=== PATIENT | female | born 1940 | race Caucasian/White ===

== ENCOUNTER → 2018-10-29 | Outpatient (CLI) | payer MEDICARE, OTHER, SELFPAY ==
[2015-02-15 13:43] VITALS: BMI 25.7
== END | disposition home or self-care (01) ==
LOC: LABSPEC 15:42
PROVIDERS: Family Provider Internal Medicine; PCP Internal Medicine; Referring Provider Otolaryngology Otolaryngology/Facial Plastic Surgery; Visit Provider Otolaryngology Otolaryngology/Facial Plastic Surgery
DX: H92.10 Otorrhea, unspecified ear (principal)
CPT/HCPCS: 87070; 87075; 87077; 87186; 87205

== ENCOUNTER 2020-03-06 19:59 | Inpatient (IN) | payer MEDICARE, OTHER, SELFPAY ==
[2015-02-15 13:43] VITALS: BMI 25.7
[2020-03-06 20:06] VITALS: BP 130/46; PULSE 82; RESP 18; TEMP 36.8; O2SAT 94; BMI 25.2
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
[2020-03-06] MEDS: Acetaminophen 325 MG Tablet 975 MG PO (21:32)
[2020-03-06] MEDS: Glucerna Shake 120 ML LIQUID PO (21:33)
[2020-03-06] MEDS: Atorvastatin Calcium 40 MG Tablet PO (21:33)
[2020-03-06 21:40] VITALS: BMI 25.2
[2020-03-07 05:55] VITALS: BP 135/62; PULSE 71; RESP 16; TEMP 36.4; O2SAT 92
[2020-03-07] MEDS: Acetaminophen 500 MG Tablet 1000 MG PO ×3 (05:57→20:24)
[2020-03-07] MEDS: Calcium (Elemental) 500 MG Tablet PO ×2 (05:58→08:56)
[2020-03-07] MEDS: Ciprofloxacin 250 MG Tablet PO ×2 (05:58→17:19)
[2020-03-07] MEDS: Levothyroxine 75 MCG Tablet PO (05:59)
[2020-03-07] MEDS: Lisinopril 2.5 MG Tablet PO (05:59)
[2020-03-07 06:31] LABS: Bedside Glucose 174 mg/dL (70-110)
[2020-03-07 07:10] LABS: Probe Check PASS; Specimen Processing Control PASS
[2020-03-07 07:12] LABS: Absolute Lymphocyte Count 1.44 X10^3/uL (0.83-4.51); Basophil# 0.05 X10^3/uL; Basophil% 0.8 % (0-1); Eosinophil# 0.22 X10^3/uL; Eosinophils% 3.4 % (0-5); Hematocrit 39.9 % (37-47); Hemoglobin 13.3 g/dL (12.0-15.0); Lymphocyte # 1.44 X10^3/ul (4.0); Lymphocyte % 22.3 % (19-41); Mean Corp Hgb Conc 33.3 g/dL (32-36); Mean Corpuscular Hgb 32.3 pg (27.0-32.0); Mean Corpuscular Volume 96.8 fL (81-99); Mean Platelet Vol. 11.4 fl (6.2-12.0); Monocyte% 10.8 % (0-10); NRBC Flagged by Analyzer 0 % (0-5); Neutrophil # 4.01 X10^3/uL (2.7-7.7); Neutrophil % 62.1 % (47-70); Platelet Count 205 K/mm3 (150-450); RBC Distribution Width CV 12.4 % (11.6-14.6); RBC Distribution Width SD 43.9 fl (35.1-43.9); Red Blood Count 4.12 M/mm3 (4.2-5.4); White Blood Count 6.5 K/mm3 (4.4-11.0)
[2020-03-07 07:49] LABS: Anion Gap 6 (5-15); BUN 25 mg/dL (7-18); BUN/Creat Ratio 19.7 RATIO (10-20); Calcium,Total 8.9 mg/dL (8.5-10.1); Chloride 102 mmol/L (98-107); Creatinine, Serum 1.27 mg/dL (0.55-1.02); EST Glomerular Filtration Rate 43 mL/min (>60); Est Glom Filt Rate - Afr Amer 52 mL/min (>60); Glucose 160 mg/dL (74-106); Sodium Level 135 mmol/L (136-145)
[2020-03-07 10:00] VITALS: PULSE 80; RESP 16; O2SAT 92
[2020-03-07] MEDS: Tuberculin,Purif.prot.deriv. 50 TU/ML Vial 5 ML ID (10:54)
[2020-03-07 11:35] LABS: Bedside Glucose 160 mg/dL (70-110)
[2020-03-07 14:14] VITALS: BP 128/74; PULSE 89; RESP 16; TEMP 36.6; O2SAT 96
--- NOTE | 2020-03-07 14:14 | NURSING ---
PATIENCE 03/03/20. pt refused suppository but reluctantly agreed to prune juice.
[2020-03-07 16:26] LABS: Bedside Glucose 113 mg/dL (70-110)
[2020-03-07] MEDS: Enoxaparin 40 MG/0.4 ML Syringe SC (17:19)
[2020-03-07] MEDS: Senna/Docusate Sodium 1 Tablet PO (17:19)
[2020-03-07] MEDS: Glucerna Shake 120 ML LIQUID PO (17:22)
[2020-03-07] MEDS: Atorvastatin Calcium 40 MG Tablet PO (20:25)
[2020-03-07] MEDS: Nystatin Powder 15gm Bottle 1 APPLIC TOPICAL (20:26)
[2020-03-07] MEDS: Menthol/Lanolin/Calamine/Znox 113 GM Tube 1 APPLIC TOPICAL (20:26)
--- NOTE | 2020-03-07 20:34 | NURSING ---
Patient c/o not being able to sleep. Dr. Cuevas notified, new orders given for Melatonin 10 mg at HS.
[2020-03-07] MEDS: MELATONIN 10 MG TABLET PO (20:45)
[2020-03-07 21:20] LABS: Bedside Glucose 177 mg/dL (70-110)
[2020-03-08 06:15] VITALS: BP 140/67; PULSE 72; RESP 16; TEMP 36.7; O2SAT 92
[2020-03-08] MEDS: Acetaminophen 500 MG Tablet 1000 MG PO ×3 (06:16→20:13)
[2020-03-08] MEDS: Enoxaparin 40 MG/0.4 ML Syringe SC (06:16)
[2020-03-08] MEDS: Levothyroxine 75 MCG Tablet PO (06:17)
[2020-03-08] MEDS: Senna/Docusate Sodium 1 Tablet PO ×2 (06:17→17:08)
[2020-03-08] MEDS: Ciprofloxacin 250 MG Tablet PO ×2 (06:17→17:08)
[2020-03-08] MEDS: Lisinopril 2.5 MG Tablet PO (06:17)
[2020-03-08] MEDS: Nystatin Powder 15gm Bottle 1 APPLIC TOPICAL ×2 (06:20→20:15)
[2020-03-08 06:21] LABS: Bedside Glucose 138 mg/dL (70-110)
[2020-03-08] MEDS: Menthol/Lanolin/Calamine/Znox 113 GM Tube 1 APPLIC TOPICAL ×2 (06:21→20:14)
[2020-03-08] MEDS: Calcium (Elemental) 500 MG Tablet PO (09:47)
--- NOTE | 2020-03-08 09:50 | PCA ---
Patient refused mouth care
[2020-03-08 11:01] LABS: Bedside Glucose 135 mg/dL (70-110)
[2020-03-08] MEDS: Glucerna Shake 120 ML LIQUID PO ×3 (11:39→20:11)
[2020-03-08 14:24] VITALS: BP 116/59; PULSE 68; RESP 14; TEMP 36; O2SAT 95
[2020-03-08 16:41] LABS: Bedside Glucose 109 mg/dL (70-110)
[2020-03-08] MEDS: MELATONIN 10 MG TABLET PO (20:12)
[2020-03-08] MEDS: Atorvastatin Calcium 40 MG Tablet PO (20:12)
[2020-03-08 21:31] LABS: Bedside Glucose 145 mg/dL (70-110)
[2020-03-09] MEDS: Acetaminophen 500 MG Tablet 1000 MG PO ×3 (06:19→20:58)
[2020-03-09] MEDS: Levothyroxine 75 MCG Tablet PO (06:20)
[2020-03-09] MEDS: Polyethylene Glycol 3350 17 GM PACKET PO (06:20)
[2020-03-09] MEDS: Lisinopril 2.5 MG Tablet PO (06:20)
[2020-03-09] MEDS: Senna/Docusate Sodium 1 Tablet PO (06:20)
[2020-03-09] MEDS: Glucerna Shake 120 ML LIQUID PO ×3 (06:23→16:52)
[2020-03-09] MEDS: Enoxaparin 40 MG/0.4 ML Syringe SC (06:24)
[2020-03-09 06:25] LABS: Bedside Glucose 123 mg/dL (70-110)
[2020-03-09] MEDS: Menthol/Lanolin/Calamine/Znox 113 GM Tube 1 APPLIC TOPICAL ×2 (06:27→20:59)
[2020-03-09] MEDS: Nystatin Powder 15gm Bottle 1 APPLIC TOPICAL ×2 (06:28→20:59)
[2020-03-09 06:42] VITALS: BP 133/74; PULSE 70; RESP 18; TEMP 36.6; O2SAT 94
[2020-03-09] MEDS: Calcium (Elemental) 500 MG Tablet PO (09:51)
[2020-03-09 11:00] LABS: Bedside Glucose 163 mg/dL (70-110)
[2020-03-09 13:50] VITALS: BP 113/55; PULSE 74; RESP 16; TEMP 36.8; O2SAT 95
--- NOTE | 2020-03-09 13:57 | CASEMGMT ---
Social Work Discussed code status with pt. Pt confirmed full code. MOLST form completed and placed in chart. Haley Leon MSW OIL PUMPER
--- NOTE | 2020-03-09 14:09 | CHAPLAIN ---
Type of Pastoral Visit _x__ Initial Visit ___ Follow-up Visit ___ On-call Visit ___ General Patient Visit ___ Spiritual Assessment ___ Family Conference ___ Bereavement ___ Rapid Response ___ Code Blue ___ Other (describe below) Pastoral Care Referral From _x__ Patient ___ Family ___ Nurse ___ Physician ___ Stenotypist ___ Crew Caller ___ Other (describe below) Sacrament/Intervention ___ Active listening ___ Anointing ___ Sikh ___ Bereavement ___ Communion ___ Caty exploration ___ ___ Life review ___ Prayer ___ Reconciliation ___ Sacrament of Sick _x__ Supportive presence ___ Wedding ___ Other (describe below) Pastoral Comments made introduction to pt about role; offered support to patient; pt is not talkative and gives simple answers to questions; pt states she is doing just fine
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
--- NOTE | 2020-03-09 15:54 | PCA ---
Appointment made with Dr. Palomares. Dr. Palomares office will call back to give guidelines for wearing the back brace
[2020-03-09 16:41] LABS: Bedside Glucose 128 mg/dL (70-110)
[2020-03-09] MEDS: Atorvastatin Calcium 40 MG Tablet PO (20:58)
[2020-03-09] MEDS: MELATONIN 10 MG TABLET PO (20:59)
[2020-03-09 21:31] LABS: Bedside Glucose 112 mg/dL (70-110)
[2020-03-10 05:41] VITALS: BP 125/68; PULSE 65; RESP 16; TEMP 36.2; O2SAT 95
[2020-03-10] MEDS: Acetaminophen 500 MG Tablet 1000 MG PO ×3 (05:42→21:14)
[2020-03-10] MEDS: Levothyroxine 75 MCG Tablet PO (05:42)
[2020-03-10] MEDS: Enoxaparin 40 MG/0.4 ML Syringe SC (05:42)
[2020-03-10] MEDS: Lisinopril 2.5 MG Tablet PO (05:42)
[2020-03-10] MEDS: Nystatin Powder 15gm Bottle 1 APPLIC TOPICAL ×2 (05:43→21:15)
[2020-03-10] MEDS: Menthol/Lanolin/Calamine/Znox 113 GM Tube 1 APPLIC TOPICAL ×2 (05:44→21:14)
[2020-03-10 06:25] LABS: Bedside Glucose 134 mg/dL (70-110)
[2020-03-10] MEDS: Calcium (Elemental) 500 MG Tablet PO (08:35)
[2020-03-10 11:11] LABS: Bedside Glucose 133 mg/dL (70-110)
[2020-03-10] MEDS: Glucerna Shake 120 ML LIQUID PO ×2 (11:44→17:12)
[2020-03-10 14:11] VITALS: BP 114/51; PULSE 79; RESP 16; TEMP 36.5; O2SAT 93
[2020-03-10 16:25] LABS: Bedside Glucose 131 mg/dL (70-110)
[2020-03-10] MEDS: Senna/Docusate Sodium 1 Tablet PO (17:13)
[2020-03-10] MEDS: Atorvastatin Calcium 40 MG Tablet PO (21:14)
[2020-03-10] MEDS: MELATONIN 10 MG TABLET PO (21:14)
[2020-03-10 21:26] LABS: Bedside Glucose 150 mg/dL (70-110)
[2020-03-11 06:02] VITALS: BP 131/68; PULSE 65; RESP 16; TEMP 36.3; O2SAT 94
[2020-03-11] MEDS: Polyethylene Glycol 3350 17 GM PACKET PO (06:04)
[2020-03-11] MEDS: Acetaminophen 500 MG Tablet 1000 MG PO ×3 (06:04→20:58)
[2020-03-11] MEDS: Levothyroxine 75 MCG Tablet PO (06:04)
[2020-03-11] MEDS: Senna/Docusate Sodium 1 Tablet PO ×2 (06:04→18:34)
[2020-03-11] MEDS: Enoxaparin 40 MG/0.4 ML Syringe SC (06:04)
[2020-03-11] MEDS: Lisinopril 2.5 MG Tablet PO (06:05)
[2020-03-11] MEDS: Menthol/Lanolin/Calamine/Znox 113 GM Tube 1 APPLIC TOPICAL ×2 (06:07→20:59)
[2020-03-11] MEDS: Nystatin Powder 15gm Bottle 1 APPLIC TOPICAL ×2 (06:08→21:00)
[2020-03-11 06:20] LABS: Bedside Glucose 120 mg/dL (70-110)
[2020-03-11] MEDS: Calcium (Elemental) 500 MG Tablet PO (07:48)
[2020-03-11 11:05] LABS: Bedside Glucose 149 mg/dL (70-110)
[2020-03-11] MEDS: Glucerna Shake 120 ML LIQUID PO ×2 (12:32→18:33)
[2020-03-11 14:11] VITALS: BP 103/69; PULSE 73; RESP 18; TEMP 36.6; O2SAT 96
[2020-03-11 16:45] LABS: Bedside Glucose 120 mg/dL (70-110)
[2020-03-11] MEDS: MELATONIN 10 MG TABLET PO (20:58)
[2020-03-11] MEDS: Atorvastatin Calcium 40 MG Tablet PO (20:58)
[2020-03-11 21:10] LABS: Bedside Glucose 149 mg/dL (70-110)
[2020-03-12 05:46] VITALS: BP 125/65; PULSE 67; RESP 16; TEMP 36.3; O2SAT 93
[2020-03-12] MEDS: Polyethylene Glycol 3350 17 GM PACKET PO (05:50)
[2020-03-12] MEDS: Levothyroxine 75 MCG Tablet PO (05:51)
[2020-03-12] MEDS: Lisinopril 2.5 MG Tablet PO (05:51)
[2020-03-12] MEDS: Senna/Docusate Sodium 1 Tablet PO ×2 (05:51→17:20)
[2020-03-12] MEDS: Enoxaparin 40 MG/0.4 ML Syringe SC (05:51)
[2020-03-12] MEDS: Acetaminophen 500 MG Tablet 1000 MG PO ×3 (05:51→20:33)
[2020-03-12] MEDS: Nystatin Powder 15gm Bottle 1 APPLIC TOPICAL ×2 (05:54→20:33)
[2020-03-12] MEDS: Menthol/Lanolin/Calamine/Znox 113 GM Tube 1 APPLIC TOPICAL ×2 (05:54→20:35)
[2020-03-12] MEDS: Bisacodyl 10 MG Suppository RECTAL (05:57)
[2020-03-12 06:26] LABS: Bedside Glucose 132 mg/dL (70-110)
[2020-03-12] MEDS: Calcium (Elemental) 500 MG Tablet PO (08:03)
[2020-03-12] MEDS: Glucerna Shake 120 ML LIQUID PO ×3 (11:37→20:32)
[2020-03-12 13:46] VITALS: BP 126/65; PULSE 77; RESP 16; TEMP 36.4; O2SAT 96
[2020-03-12 16:35] LABS: Bedside Glucose 80 mg/dL (70-110)
[2020-03-12] MEDS: Atorvastatin Calcium 40 MG Tablet PO (20:32)
[2020-03-12] MEDS: MELATONIN 10 MG TABLET PO (20:33)
[2020-03-12 21:15] LABS: Bedside Glucose 156 mg/dL (70-110)
[2020-03-13 06:15] VITALS: BP 118/57; PULSE 65; RESP 18; TEMP 36.8; O2SAT 95
[2020-03-13] MEDS: Senna/Docusate Sodium 1 Tablet PO ×2 (06:17→16:11)
[2020-03-13] MEDS: Acetaminophen 500 MG Tablet 1000 MG PO ×3 (06:17→20:48)
[2020-03-13] MEDS: Levothyroxine 75 MCG Tablet PO (06:17)
[2020-03-13] MEDS: Lisinopril 2.5 MG Tablet PO (06:17)
[2020-03-13] MEDS: Enoxaparin 40 MG/0.4 ML Syringe SC (06:18)
[2020-03-13] MEDS: Nystatin Powder 15gm Bottle 1 APPLIC TOPICAL ×2 (06:18→20:50)
[2020-03-13] MEDS: Menthol/Lanolin/Calamine/Znox 113 GM Tube 1 APPLIC TOPICAL ×2 (06:19→20:50)
[2020-03-13 07:01] LABS: Bedside Glucose 122 mg/dL (70-110)
[2020-03-13] MEDS: Calcium (Elemental) 500 MG Tablet PO (08:26)
[2020-03-13 11:05] LABS: Bedside Glucose 177 mg/dL (70-110)
[2020-03-13] MEDS: Glucerna Shake 120 ML LIQUID PO ×3 (13:07→20:49)
[2020-03-13 13:47] VITALS: BP 120/56; PULSE 72; RESP 18; TEMP 36.5; O2SAT 96
[2020-03-13 16:30] LABS: Bedside Glucose 330 mg/dL (70-110)
[2020-03-13] MEDS: MELATONIN 10 MG TABLET PO (20:49)
[2020-03-13] MEDS: Atorvastatin Calcium 40 MG Tablet PO (20:49)
[2020-03-13 21:26] LABS: Bedside Glucose 136 mg/dL (70-110)
[2020-03-14 04:00] VITALS: BP 137/67; PULSE 64; RESP 18; TEMP 36.7; O2SAT 96
[2020-03-14] MEDS: Enoxaparin 40 MG/0.4 ML Syringe SC (06:10)
[2020-03-14] MEDS: Levothyroxine 75 MCG Tablet PO (06:10)
[2020-03-14] MEDS: Polyethylene Glycol 3350 17 GM PACKET PO (06:10)
[2020-03-14] MEDS: Senna/Docusate Sodium 1 Tablet PO (06:10)
[2020-03-14] MEDS: Acetaminophen 500 MG Tablet 1000 MG PO ×3 (06:10→20:28)
[2020-03-14] MEDS: Nystatin Powder 15gm Bottle 1 APPLIC TOPICAL ×2 (06:11→20:28)
[2020-03-14] MEDS: Lisinopril 2.5 MG Tablet PO (06:11)
[2020-03-14] MEDS: Menthol/Lanolin/Calamine/Znox 113 GM Tube 1 APPLIC TOPICAL ×2 (06:11→20:27)
[2020-03-14 06:46] LABS: Bedside Glucose 132 mg/dL (70-110)
[2020-03-14 07:00] LABS: Absolute Lymphocyte Count 1.98 X10^3/uL (0.83-4.51); Absolute Neutrophil Count 4.1 X10^3/uL (2.0-7.7); Basophil# 0.04 X10^3/uL; Basophil% 0.6 % (0-1); Eosinophil# 0.24 X10^3/uL; Eosinophils% 3.4 % (0-5); Hematocrit 37.8 % (37-47); Hemoglobin 12.6 g/dL (12.0-15.0); Lymphocyte # 1.98 X10^3/ul (4.0); Mean Corp Hgb Conc 33.3 g/dL (32-36); Mean Corpuscular Hgb 32.3 pg (27.0-32.0); Mean Corpuscular Volume 96.9 fL (81-99); Mean Platelet Vol. 10.9 fl (6.2-12.0); Monocyte% 8.5 % (0-10); NRBC Flagged by Analyzer 0 % (0-5); Neutrophil # 4.14 X10^3/uL (2.7-7.7); Neutrophil % 58.5 % (47-70); Platelet Count 284 K/mm3 (150-450); RBC Distribution Width CV 12.5 % (11.6-14.6); RBC Distribution Width SD 44.1 fl (35.1-43.9); White Blood Count 7.1 K/mm3 (4.4-11.0)
[2020-03-14 07:23] LABS: Anion Gap 5 (5-15); BUN 25 mg/dL (7-18); BUN/Creat Ratio 19.4 RATIO (10-20); Calcium,Total 8.4 mg/dL (8.5-10.1); Chloride 96 mmol/L (98-107); Creatinine, Serum 1.29 mg/dL (0.55-1.02); EST Glomerular Filtration Rate 42 mL/min (>60); Est Glom Filt Rate - Afr Amer 51 mL/min (>60); Estimated Creatinine Clearance 29.53 ml/min; Glucose 115 mg/dL (74-106); Potassium 4.7 mmol/L (3.5-5.1); Sodium Level 129 mmol/L (136-145)
[2020-03-14] MEDS: Calcium (Elemental) 500 MG Tablet PO (07:52)
[2020-03-14] MEDS: Tuberculin,Purif.prot.deriv. 50 TU/ML Vial 5 ML ID (10:33)
[2020-03-14] MEDS: Glucerna Shake 120 ML LIQUID PO (11:25)
[2020-03-14 11:26] LABS: Bedside Glucose 98 mg/dL (70-110)
--- NOTE | 2020-03-14 12:11 | NS ---
Res placed on fluid restriction per Dr. Cuevas. Call from TAYLA Deshpande re: Glucerna 120mL 4x/day order. RDN spoke w/ res via room phone- reports adequate appetite/PO intake at meals. Res okay w/ discontinuing Glucerna. Glucerna d/cyuliana Willoughby MS, RDN, LD
[2020-03-14 15:04] VITALS: BP 105/50; PULSE 67; RESP 14; TEMP 36.6; O2SAT 97
[2020-03-14 17:01] LABS: Bedside Glucose 107 mg/dL (70-110)
[2020-03-14] MEDS: Atorvastatin Calcium 40 MG Tablet PO (20:28)
[2020-03-14] MEDS: MELATONIN 10 MG TABLET PO (20:29)
[2020-03-14 21:45] LABS: Bedside Glucose 105 mg/dL (70-110)
[2020-03-15 06:10] VITALS: BP 112/69; PULSE 65; RESP 16; TEMP 36.6; O2SAT 95
[2020-03-15] MEDS: Menthol/Lanolin/Calamine/Znox 113 GM Tube 1 APPLIC TOPICAL ×2 (06:12→20:03)
[2020-03-15] MEDS: Enoxaparin 40 MG/0.4 ML Syringe SC (06:12)
[2020-03-15] MEDS: Polyethylene Glycol 3350 17 GM PACKET PO (06:13)
[2020-03-15] MEDS: Senna/Docusate Sodium 1 Tablet PO (06:13)
[2020-03-15] MEDS: Acetaminophen 500 MG Tablet 1000 MG PO ×3 (06:13→20:04)
[2020-03-15] MEDS: Lisinopril 2.5 MG Tablet PO (06:13)
[2020-03-15] MEDS: Levothyroxine 75 MCG Tablet PO (06:14)
[2020-03-15] MEDS: Nystatin Powder 15gm Bottle 1 APPLIC TOPICAL ×2 (06:14→20:04)
[2020-03-15 06:21] LABS: Bedside Glucose 108 mg/dL (70-110)
[2020-03-15] MEDS: Calcium (Elemental) 500 MG Tablet PO (08:15)
[2020-03-15 11:41] LABS: Bedside Glucose 104 mg/dL (70-110)
[2020-03-15 14:04] VITALS: BP 113/48; PULSE 72; RESP 18; TEMP 36.5; O2SAT 97
[2020-03-15 17:16] LABS: Bedside Glucose 113 mg/dL (70-110)
[2020-03-15] MEDS: Atorvastatin Calcium 40 MG Tablet PO (20:05)
[2020-03-15] MEDS: MELATONIN 10 MG TABLET PO (20:05)
[2020-03-15 21:55] LABS: Bedside Glucose 94 mg/dL (70-110)
[2020-03-16 06:03] LABS: Anion Gap 6 (5-15); BUN 27 mg/dL (7-18); BUN/Creat Ratio 19.1 RATIO (10-20); Calcium,Total 8.6 mg/dL (8.5-10.1); Chloride 96 mmol/L (98-107); Creatinine, Serum 1.41 mg/dL (0.55-1.02); EST Glomerular Filtration Rate 38 mL/min (>60); Est Glom Filt Rate - Afr Amer 46 mL/min (>60); Estimated Creatinine Clearance 27.02 ml/min; Glucose 100 mg/dL (74-106); Sodium Level 130 mmol/L (136-145)
[2020-03-16 06:26] LABS: Bedside Glucose 121 mg/dL (70-110)
[2020-03-16 06:35] VITALS: BP 122/55; RESP 15; TEMP 36.6; O2SAT 95
[2020-03-16] MEDS: Enoxaparin 40 MG/0.4 ML Syringe SC (06:40)
[2020-03-16] MEDS: Menthol/Lanolin/Calamine/Znox 113 GM Tube 1 APPLIC TOPICAL ×2 (06:40→21:13)
[2020-03-16] MEDS: Polyethylene Glycol 3350 17 GM PACKET PO (06:40)
[2020-03-16] MEDS: Acetaminophen 500 MG Tablet 1000 MG PO ×3 (06:40→21:11)
[2020-03-16] MEDS: Levothyroxine 75 MCG Tablet PO (06:41)
[2020-03-16] MEDS: Lisinopril 2.5 MG Tablet PO (06:41)
[2020-03-16] MEDS: Senna/Docusate Sodium 1 Tablet PO (06:41)
[2020-03-16] MEDS: Nystatin Powder 15gm Bottle 1 APPLIC TOPICAL ×2 (06:41→21:14)
[2020-03-16] MEDS: Calcium (Elemental) 500 MG Tablet PO (08:34)
[2020-03-16 10:55] LABS: Bedside Glucose 185 mg/dL (70-110)
[2020-03-16 14:16] VITALS: BP 108/49; PULSE 69; RESP 16; TEMP 36.6; O2SAT 94
[2020-03-16 16:26] LABS: Bedside Glucose 99 mg/dL (70-110)
[2020-03-16] MEDS: MELATONIN 10 MG TABLET PO (21:11)
[2020-03-16] MEDS: Atorvastatin Calcium 40 MG Tablet PO (21:11)
[2020-03-16 21:31] LABS: Bedside Glucose 101 mg/dL (70-110)
[2020-03-17] MEDS: Acetaminophen 500 MG Tablet 1000 MG PO ×3 (05:36→20:44)
[2020-03-17] MEDS: Polyethylene Glycol 3350 17 GM PACKET PO (05:36)
[2020-03-17] MEDS: Levothyroxine 75 MCG Tablet PO (05:36)
[2020-03-17] MEDS: Lisinopril 2.5 MG Tablet PO (05:36)
[2020-03-17] MEDS: Enoxaparin 30 MG/0.3 ML Syringe SC (05:37)
[2020-03-17] MEDS: Menthol/Lanolin/Calamine/Znox 113 GM Tube 1 APPLIC TOPICAL ×2 (05:37→20:45)
[2020-03-17] MEDS: Nystatin Powder 15gm Bottle 1 APPLIC TOPICAL ×2 (05:37→20:45)
[2020-03-17] MEDS: Senna/Docusate Sodium 1 Tablet PO (05:38)
[2020-03-17 05:42] VITALS: BP 127/86; PULSE 61; RESP 16; TEMP 36.5; O2SAT 95
[2020-03-17 06:31] LABS: Bedside Glucose 106 mg/dL (70-110)
[2020-03-17] MEDS: Calcium (Elemental) 500 MG Tablet PO (08:26)
[2020-03-17 11:26] LABS: Bedside Glucose 107 mg/dL (70-110)
[2020-03-17 14:47] VITALS: BP 106/56; PULSE 77; RESP 16; TEMP 36.8; O2SAT 98
[2020-03-17 16:26] LABS: Bedside Glucose 97 mg/dL (70-110)
[2020-03-17] MEDS: Atorvastatin Calcium 40 MG Tablet PO (20:45)
[2020-03-17] MEDS: MELATONIN 10 MG TABLET PO (20:45)
[2020-03-17 21:36] LABS: Bedside Glucose 123 mg/dL (70-110)
[2020-03-18 05:46] VITALS: BP 105/62; PULSE 59; RESP 16; TEMP 36.5; O2SAT 92
[2020-03-18] MEDS: Enoxaparin 30 MG/0.3 ML Syringe SC (05:49)
[2020-03-18] MEDS: Lisinopril 2.5 MG Tablet PO (05:49)
[2020-03-18] MEDS: Acetaminophen 500 MG Tablet 1000 MG PO ×3 (05:49→21:15)
[2020-03-18] MEDS: Levothyroxine 75 MCG Tablet PO (05:49)
[2020-03-18] MEDS: Nystatin Powder 15gm Bottle 1 APPLIC TOPICAL ×2 (05:50→21:16)
[2020-03-18] MEDS: Menthol/Lanolin/Calamine/Znox 113 GM Tube 1 APPLIC TOPICAL ×2 (05:50→21:16)
[2020-03-18 06:15] LABS: Bedside Glucose 107 mg/dL (70-110)
[2020-03-18] MEDS: Calcium (Elemental) 500 MG Tablet PO (08:09)
[2020-03-18 11:21] LABS: Bedside Glucose 86 mg/dL (70-110)
[2020-03-18 13:57] VITALS: BP 101/49; PULSE 69; RESP 14; TEMP 36.7; O2SAT 98
--- NOTE | 2020-03-18 15:43 | PCA ---
Spoke with residents about upcoming appointment next week with . Asked if family would be able to transport or if transport needs scheduled. will call back to let us know what he decides. Nurse notified
[2020-03-18 17:20] LABS: Bedside Glucose 92 mg/dL (70-110)
[2020-03-18] MEDS: MELATONIN 10 MG TABLET PO (21:15)
[2020-03-18] MEDS: Atorvastatin Calcium 40 MG Tablet PO (21:16)
[2020-03-19] LABS: Bedside Glucose 84 mg/dL (70-110)
[2020-03-19 05:12] VITALS: BP 129/37; PULSE 62; RESP 18; TEMP 36.5; O2SAT 98
[2020-03-19] MEDS: Acetaminophen 500 MG Tablet 1000 MG PO ×3 (05:14→20:48)
[2020-03-19] MEDS: Polyethylene Glycol 3350 17 GM PACKET PO (05:14)
[2020-03-19] MEDS: Lisinopril 2.5 MG Tablet PO (05:15)
[2020-03-19] MEDS: Levothyroxine 75 MCG Tablet PO (05:15)
[2020-03-19] MEDS: Senna/Docusate Sodium 1 Tablet PO (05:15)
[2020-03-19] MEDS: Enoxaparin 30 MG/0.3 ML Syringe SC (05:15)
[2020-03-19] MEDS: Nystatin Powder 15gm Bottle 1 APPLIC TOPICAL ×2 (05:17→20:49)
[2020-03-19] MEDS: Menthol/Lanolin/Calamine/Znox 113 GM Tube 1 APPLIC TOPICAL ×2 (05:17→20:49)
[2020-03-19 06:30] LABS: Bedside Glucose 106 mg/dL (70-110)
[2020-03-19] MEDS: Calcium (Elemental) 500 MG Tablet PO (08:01)
[2020-03-19 11:01] LABS: Bedside Glucose 84 mg/dL (70-110)
[2020-03-19 13:56] VITALS: BP 104/62; PULSE 72; RESP 17; TEMP 36.1; O2SAT 96
[2020-03-19 17:26] LABS: Bedside Glucose 78 mg/dL (70-110)
[2020-03-19] MEDS: MELATONIN 10 MG TABLET PO (20:48)
[2020-03-19] MEDS: Atorvastatin Calcium 40 MG Tablet PO (20:48)
[2020-03-19 21:25] LABS: Bedside Glucose 93 mg/dL (70-110)
[2020-03-20 05:53] VITALS: BP 116/56; PULSE 62; RESP 18; TEMP 36.6; O2SAT 95
[2020-03-20] MEDS: Acetaminophen 500 MG Tablet 1000 MG PO ×3 (06:01→20:11)
[2020-03-20] MEDS: Polyethylene Glycol 3350 17 GM PACKET PO (06:01)
[2020-03-20] MEDS: Senna/Docusate Sodium 1 Tablet PO (06:01)
[2020-03-20] MEDS: Enoxaparin 30 MG/0.3 ML Syringe SC (06:01)
[2020-03-20] MEDS: Lisinopril 2.5 MG Tablet PO (06:01)
[2020-03-20] MEDS: Menthol/Lanolin/Calamine/Znox 113 GM Tube 1 APPLIC TOPICAL ×2 (06:02→20:10)
[2020-03-20] MEDS: Levothyroxine 75 MCG Tablet PO (06:02)
[2020-03-20] MEDS: Nystatin Powder 15gm Bottle 1 APPLIC TOPICAL ×2 (06:02→20:06)
[2020-03-20 06:26] LABS: Bedside Glucose 103 mg/dL (70-110)
[2020-03-20] MEDS: Calcium (Elemental) 500 MG Tablet PO (08:14)
[2020-03-20 11:06] LABS: Bedside Glucose 118 mg/dL (70-110)
[2020-03-20 13:44] VITALS: BP 97/48; PULSE 68; RESP 14; TEMP 36.4; O2SAT 95
[2020-03-20 16:56] LABS: Bedside Glucose 95 mg/dL (70-110)
[2020-03-20] MEDS: Atorvastatin Calcium 40 MG Tablet PO (20:11)
[2020-03-20] MEDS: MELATONIN 10 MG TABLET PO (20:11)
[2020-03-20 21:20] LABS: Bedside Glucose 132 mg/dL (70-110)
[2020-03-21 03:37] VITALS: BP 112/59; PULSE 64; RESP 18; TEMP 36.5; O2SAT 96
[2020-03-21] MEDS: Lisinopril 2.5 MG Tablet PO (05:31)
[2020-03-21] MEDS: Levothyroxine 75 MCG Tablet PO (05:32)
[2020-03-21] MEDS: Acetaminophen 500 MG Tablet 1000 MG PO ×3 (05:32→20:44)
[2020-03-21] MEDS: Nystatin Powder 15gm Bottle 1 APPLIC TOPICAL ×2 (05:33→20:45)
[2020-03-21] MEDS: Menthol/Lanolin/Calamine/Znox 113 GM Tube 1 APPLIC TOPICAL ×2 (05:33→20:45)
[2020-03-21] MEDS: Enoxaparin 30 MG/0.3 ML Syringe SC (05:33)
[2020-03-21 06:25] LABS: Bedside Glucose 103 mg/dL (70-110)
[2020-03-21 07:33] LABS: Absolute Lymphocyte Count 1.67 X10^3/uL (0.83-4.51); Absolute Neutrophil Count 2.8 X10^3/uL (2.0-7.7); Basophil# 0.06 X10^3/uL; Basophil% 1.1 % (0-1); Eosinophil# 0.29 X10^3/uL; Eosinophils% 5.4 % (0-5); Hemoglobin 13.4 g/dL (12.0-15.0); Lymphocyte # 1.67 X10^3/ul (4.0); Lymphocyte % 31.3 % (19-41); Mean Corp Hgb Conc 31.9 g/dL (32-36); Mean Corpuscular Hgb 32.2 pg (27.0-32.0); Mean Platelet Vol. 10.8 fl (6.2-12.0); Monocyte# 0.48 X10^3/uL; NRBC Flagged by Analyzer 0 % (0-5); Neutrophil % 52.6 % (47-70); Platelet Count 256 K/mm3 (150-450); RBC Distribution Width CV 12.4 % (11.6-14.6); RBC Distribution Width SD 46.3 fl (35.1-43.9); Red Blood Count 4.16 M/mm3 (4.2-5.4); White Blood Count 5.3 K/mm3 (4.4-11.0)
[2020-03-21 07:51] LABS: Anion Gap 8 (5-15); BUN 27 mg/dL (7-18); BUN/Creat Ratio 20.1 RATIO (10-20); Calcium,Total 8.5 mg/dL (8.5-10.1); Chloride 99 mmol/L (98-107); Creatinine, Serum 1.34 mg/dL (0.55-1.02); EST Glomerular Filtration Rate 40 mL/min (>60); Est Glom Filt Rate - Afr Amer 49 mL/min (>60); Estimated Creatinine Clearance 28.43 ml/min; Glucose 101 mg/dL (74-106); Potassium 4.6 mmol/L (3.5-5.1); Sodium Level 130 mmol/L (136-145)
[2020-03-21] MEDS: Calcium (Elemental) 500 MG Tablet PO (08:27)
[2020-03-21 11:05] LABS: Bedside Glucose 94 mg/dL (70-110)
--- NOTE | 2020-03-21 11:37 | NURSING ---
Pt stated she talks and updates her family she does not need staff to call.
--- NOTE | 2020-03-21 13:39 | NURSING ---
pt non-compliant with TSLO brace, refusing to wear it while OOB, education provided but pt still refused to wear brace, RN aware
[2020-03-21 14:08] VITALS: BP 106/48; PULSE 65; RESP 15; TEMP 36.6; O2SAT 98
[2020-03-21 16:26] LABS: Bedside Glucose 90 mg/dL (70-110)
[2020-03-21] MEDS: Atorvastatin Calcium 40 MG Tablet PO (20:45)
[2020-03-21] MEDS: MELATONIN 10 MG TABLET PO (20:45)
[2020-03-22] MEDS: Levothyroxine 75 MCG Tablet PO (04:57)
[2020-03-22] MEDS: Lisinopril 2.5 MG Tablet PO (04:57)
[2020-03-22] MEDS: Acetaminophen 500 MG Tablet 1000 MG PO ×3 (04:57→21:20)
[2020-03-22] MEDS: Enoxaparin 30 MG/0.3 ML Syringe SC (04:58)
[2020-03-22] MEDS: Nystatin Powder 15gm Bottle 1 APPLIC TOPICAL ×2 (05:01→21:22)
[2020-03-22] MEDS: Menthol/Lanolin/Calamine/Znox 113 GM Tube 1 APPLIC TOPICAL ×2 (05:01→21:22)
[2020-03-22 05:08] VITALS: BP 106/50; PULSE 58; RESP 16; TEMP 36.7; O2SAT 97
[2020-03-22 06:26] LABS: Bedside Glucose 113 mg/dL (70-110)
[2020-03-22] MEDS: Calcium (Elemental) 500 MG Tablet PO (08:04)
[2020-03-22 11:16] LABS: Bedside Glucose 105 mg/dL (70-110)
[2020-03-22 13:31] VITALS: BP 108/34; PULSE 54; RESP 18; TEMP 36.4; O2SAT 97
[2020-03-22 16:26] LABS: Bedside Glucose 95 mg/dL (70-110)
[2020-03-22] MEDS: MELATONIN 10 MG TABLET PO (21:21)
[2020-03-22] MEDS: Atorvastatin Calcium 40 MG Tablet PO (21:21)
[2020-03-23 04:00] VITALS: BP 108/57; PULSE 57; RESP 14; TEMP 36.6; O2SAT 96
[2020-03-23] MEDS: Lisinopril 2.5 MG Tablet PO (06:24)
[2020-03-23] MEDS: Levothyroxine 75 MCG Tablet PO (06:24)
[2020-03-23] MEDS: Enoxaparin 30 MG/0.3 ML Syringe SC (06:24)
[2020-03-23] MEDS: Acetaminophen 500 MG Tablet 1000 MG PO ×3 (06:24→20:34)
[2020-03-23] MEDS: Menthol/Lanolin/Calamine/Znox 113 GM Tube 1 APPLIC TOPICAL ×2 (06:25→20:39)
[2020-03-23] MEDS: Nystatin Powder 15gm Bottle 1 APPLIC TOPICAL ×2 (06:25→20:39)
[2020-03-23 06:26] LABS: Bedside Glucose 109 mg/dL (70-110)
[2020-03-23] MEDS: Calcium (Elemental) 500 MG Tablet PO (08:01)
--- NOTE | 2020-03-23 09:46 | NURSING ---
pt refused back brace.
[2020-03-23 13:31] VITALS: BP 130/53; PULSE 70; RESP 18; TEMP 36.4; O2SAT 97
--- NOTE | 2020-03-23 15:47 | NURSING ---
pt stated she did not want this nurse to call and update any one at this time.
--- NOTE | 2020-03-23 16:00 | CASEMGMT ---
Addendum entered by Haley Leon 03/23/20 16:21: Family requesting FWW. [facility]. Original Note: Social Work Spoke with pt about her requesting to DC. Pt has f/u appt with ortho 03/26 and therapy would like to see outcome of that appt. IDT agreeable to DC 03/28. Pt agreeable to [facility]. Referral made for PT/OT/ST/SN. No DME needs. Message left for son. Plan: DC home 03/28 with [facility] PT/OT/ST/SN Haley Leon, DAVID RYANW
[2020-03-23 20:20] VITALS: PULSE 66; RESP 16; O2SAT 96
[2020-03-23] MEDS: Atorvastatin Calcium 40 MG Tablet PO (20:35)
[2020-03-23] MEDS: MELATONIN 10 MG TABLET PO (20:35)
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
[2020-03-24 03:58] VITALS: BP 113/55; PULSE 60; RESP 16; TEMP 36.7; O2SAT 97
[2020-03-24] MEDS: Levothyroxine 75 MCG Tablet PO (05:14)
[2020-03-24] MEDS: Enoxaparin 30 MG/0.3 ML Syringe SC (05:14)
[2020-03-24] MEDS: Senna/Docusate Sodium 1 Tablet PO (05:14)
[2020-03-24] MEDS: Lisinopril 2.5 MG Tablet PO (05:14)
[2020-03-24] MEDS: Acetaminophen 500 MG Tablet 1000 MG PO ×3 (05:14→20:23)
[2020-03-24] MEDS: Polyethylene Glycol 3350 17 GM PACKET PO (05:15)
[2020-03-24] MEDS: Nystatin Powder 15gm Bottle 1 APPLIC TOPICAL ×2 (05:16→20:24)
[2020-03-24] MEDS: Menthol/Lanolin/Calamine/Znox 113 GM Tube 1 APPLIC TOPICAL ×2 (05:20→20:23)
[2020-03-24 06:26] LABS: Bedside Glucose 94 mg/dL (70-110)
[2020-03-24] MEDS: Calcium (Elemental) 500 MG Tablet PO (07:36)
[2020-03-24 09:50] VITALS: PULSE 69; RESP 18; O2SAT 96
[2020-03-24 14:06] VITALS: BP 105/56; PULSE 69; RESP 16; TEMP 36.2; O2SAT 96
[2020-03-24] MEDS: Atorvastatin Calcium 40 MG Tablet PO (20:23)
[2020-03-24] MEDS: MELATONIN 10 MG TABLET PO (20:23)
[2020-03-25 05:01] VITALS: BP 126/53; PULSE 63; RESP 16; TEMP 36.4; O2SAT 96
[2020-03-25] MEDS: Lisinopril 2.5 MG Tablet PO (05:02)
[2020-03-25] MEDS: Acetaminophen 500 MG Tablet 1000 MG PO ×3 (05:02→20:08)
[2020-03-25] MEDS: Levothyroxine 75 MCG Tablet PO (05:03)
[2020-03-25] MEDS: Enoxaparin 30 MG/0.3 ML Syringe SC (05:03)
[2020-03-25] MEDS: Menthol/Lanolin/Calamine/Znox 113 GM Tube 1 APPLIC TOPICAL ×2 (05:09→20:08)
[2020-03-25] MEDS: Nystatin Powder 15gm Bottle 1 APPLIC TOPICAL ×2 (05:10→20:09)
[2020-03-25 06:15] LABS: Bedside Glucose 91 mg/dL (70-110)
[2020-03-25] MEDS: Calcium (Elemental) 500 MG Tablet PO (08:32)
[2020-03-25 14:47] VITALS: BP 107/54; PULSE 75; RESP 15; TEMP 36.6; O2SAT 96
--- NOTE | 2020-03-25 15:36 | CHAPLAIN ---
Type of Pastoral Visit ___ Initial Visit _x__ Follow-up Visit ___ On-call Visit ___ General Patient Visit ___ Spiritual Assessment ___ Family Conference ___ Bereavement ___ Rapid Response ___ Code Blue ___ Other (describe below) Pastoral Care Referral From _x__ Patient ___ Family ___ Nurse ___ Physician ___ Sand Filler ___ Ginger Farmer ___ Other (describe below) Sacrament/Intervention _x__ Active listening ___ Anointing ___ Restorationism ___ Bereavement ___ Communion ___ Caty exploration ___ ___ Life review _x__ Prayer ___ Reconciliation ___ Sacrament of Sick ___ Supportive presence ___ Wedding ___ Other (describe below) Pastoral Comments patient is sitting up in bed; pt states that she is not doing well; asked what she means, the pt states that well I'm still here and not at home; pt repeats that her goal is to go home and she has plans for that in three days; pt says she is going to [place] tomorrow for appointment and I'm not happy about going there; asked about it, pt doesn't want to travel and does not want to see doctor; pt is focused on just get me home;
--- NOTE | 2020-03-25 16:02 | CASEMGMT ---
Social Work Spoke with pt's and PCP is Dr. Shahid. is also putting in a step to break up the 8in rise to get into the house as well as 2 HR. DAVID MccartyW
[2020-03-25] MEDS: Atorvastatin Calcium 40 MG Tablet PO (20:08)
[2020-03-25] MEDS: MELATONIN 10 MG TABLET PO (20:08)
[2020-03-26 05:53] VITALS: BP 111/43; PULSE 62; RESP 18; TEMP 36.6; O2SAT 97
[2020-03-26] MEDS: Levothyroxine 75 MCG Tablet PO (05:55)
[2020-03-26] MEDS: Acetaminophen 500 MG Tablet 1000 MG PO ×3 (05:55→22:12)
[2020-03-26] MEDS: Enoxaparin 30 MG/0.3 ML Syringe SC (05:56)
[2020-03-26] MEDS: Menthol/Lanolin/Calamine/Znox 113 GM Tube 1 APPLIC TOPICAL ×2 (05:56→22:13)
[2020-03-26] MEDS: Lisinopril 2.5 MG Tablet PO (05:56)
[2020-03-26] MEDS: Nystatin Powder 15gm Bottle 1 APPLIC TOPICAL ×2 (05:57→22:13)
[2020-03-26 06:35] LABS: Bedside Glucose 107 mg/dL (70-110)
[2020-03-26] MEDS: Calcium (Elemental) 500 MG Tablet PO (08:38)
[2020-03-26 10:16] VITALS: RESP 18
--- NOTE | 2020-03-26 10:17 | MDS.RN ---
Pain interview for SONJA 03/28/20 completed.
[2020-03-26 10:45] LABS: Bedside Glucose 129 mg/dL (70-110)
[2020-03-26 16:56] LABS: Bedside Glucose 106 mg/dL (70-110)
--- NOTE | 2020-03-26 19:37 | NURSING ---
Pt back from appt with Dr. Addison, needs to follow up with Dr. Dolores Flannery (neurosurgeon) because that is who ordered the TSLO brace. Continue WBAT to bilateral lower and to follow up with Dr. Addison in 2 months.
[2020-03-26] MEDS: Atorvastatin Calcium 40 MG Tablet PO (22:12)
[2020-03-26] MEDS: MELATONIN 10 MG TABLET PO (22:12)
[2020-03-27] MEDS: Levothyroxine 75 MCG Tablet PO (06:14)
[2020-03-27] MEDS: Acetaminophen 500 MG Tablet 1000 MG PO ×3 (06:14→20:31)
[2020-03-27] MEDS: Enoxaparin 30 MG/0.3 ML Syringe SC (06:14)
[2020-03-27 06:15] VITALS: BP 122/59; PULSE 64; RESP 18; TEMP 36.2; O2SAT 94
[2020-03-27] MEDS: Lisinopril 2.5 MG Tablet PO (06:15)
[2020-03-27 06:31] LABS: Bedside Glucose 120 mg/dL (70-110)
[2020-03-27] MEDS: Nystatin Powder 15gm Bottle 1 APPLIC TOPICAL ×2 (06:35→20:30)
[2020-03-27] MEDS: Menthol/Lanolin/Calamine/Znox 113 GM Tube 1 APPLIC TOPICAL ×2 (06:36→20:27)
[2020-03-27] MEDS: Calcium (Elemental) 500 MG Tablet PO (08:00)
--- NOTE | 2020-03-27 08:56 | CASEMGMT ---
Social Work BIMS and PHQ-9 completed for MDS assessment. Hlaey Leon, CONTROL DIRECTOR DATASTAGE DEVELOPER
[2020-03-27 14:06] VITALS: BP 99/61; PULSE 70; RESP 18; TEMP 36.3; O2SAT 93
[2020-03-27] MEDS: Senna/Docusate Sodium 1 Tablet PO (16:58)
[2020-03-27] MEDS: MELATONIN 10 MG TABLET PO ×2 (20:30→20:31)
[2020-03-27] MEDS: Atorvastatin Calcium 40 MG Tablet PO (20:32)
[2020-03-28 06:30] LABS: Bedside Glucose 96 mg/dL (70-110)
[2020-03-28 06:49] VITALS: BP 138/75; PULSE 69; RESP 18; TEMP 36.6; O2SAT 98
[2020-03-28] MEDS: Enoxaparin 30 MG/0.3 ML Syringe SC (06:56)
[2020-03-28] MEDS: Lisinopril 2.5 MG Tablet PO (06:57)
[2020-03-28] MEDS: Acetaminophen 500 MG Tablet 1000 MG PO (06:57)
[2020-03-28] MEDS: Levothyroxine 75 MCG Tablet PO (06:57)
[2020-03-28] MEDS: Menthol/Lanolin/Calamine/Znox 113 GM Tube 1 APPLIC TOPICAL (06:59)
[2020-03-28] MEDS: Nystatin Powder 15gm Bottle 1 APPLIC TOPICAL (06:59)
[2020-03-28 07:43] LABS: Absolute Lymphocyte Count 1.63 X10^3/uL (0.83-4.51); Absolute Neutrophil Count 2.9 X10^3/uL (2.0-7.7); Basophil# 0.06 X10^3/uL; Basophil% 1.1 % (0-1); Eosinophils% 7.3 % (0-5); Hematocrit 43.4 % (37-47); Hemoglobin 13.9 g/dL (12.0-15.0); Lymphocyte # 1.63 X10^3/ul (4.0); Lymphocyte % 29.6 % (19-41); Mean Corpuscular Hgb 32.1 pg (27.0-32.0); Mean Corpuscular Volume 100.2 fL (81-99); Mean Platelet Vol. 11.1 fl (6.2-12.0); Monocyte# 0.46 X10^3/uL; Monocyte% 8.4 % (0-10); NRBC Flagged by Analyzer 0 % (0-5); Neutrophil # 2.93 X10^3/uL (2.7-7.7); Neutrophil % 53.2 % (47-70); Platelet Count 211 K/mm3 (150-450); RBC Distribution Width CV 12.6 % (11.6-14.6); RBC Distribution Width SD 47.1 fl (35.1-43.9); Red Blood Count 4.33 M/mm3 (4.2-5.4); White Blood Count 5.5 K/mm3 (4.4-11.0)
[2020-03-28 08:15] LABS: Anion Gap 7 (5-15); BUN 30 mg/dL (7-18); Calcium,Total 8.9 mg/dL (8.5-10.1); Chloride 101 mmol/L (98-107); Creatinine, Serum 1.43 mg/dL (0.55-1.02); EST Glomerular Filtration Rate 37 mL/min (>60); Est Glom Filt Rate - Afr Amer 45 mL/min (>60); Estimated Creatinine Clearance 26.64 ml/min; Glucose 104 mg/dL (74-106); Potassium 4.4 mmol/L (3.5-5.1); Sodium Level 130 mmol/L (136-145)
[2020-03-28] MEDS: Calcium (Elemental) 500 MG Tablet PO (08:54)
[2020-03-28 09:33] VITALS: BP 116/56; PULSE 73; RESP 16; TEMP 36.4; O2SAT 95
[2020-03-28 09:47] VITALS: PULSE 73; RESP 16; O2SAT 95
[2020-03-28 09:53] VITALS: BP 116/56; PULSE 73; RESP 16; TEMP 36.4; O2SAT 95
== END 2020-03-28 10:14 | disposition home health service (06) | DRG 560 ==
PROVIDERS: Admitting Provider Family Medicine Geriatric Medicine; PCP Internal Medicine; Visit Provider Family Medicine Geriatric Medicine
DX: S32.511D Fracture of superior rim of right pubis, subsequent encounter for fracture with routine healing (principal); N39.0 Urinary tract infection, site not specified; S22.079D Unspecified fracture of T9-T10 vertebra, subsequent encounter for fracture with routine healing; S22.089D Unspecified fracture of T11-T12 vertebra, subsequent encounter for fracture with routine healing; S32.301D Unspecified fracture of right ilium, subsequent encounter for fracture with routine healing; S76.011D Strain of muscle, fascia and tendon of right hip, subsequent encounter; Z23 Encounter for immunization; V49.9XXD Car occupant (driver) (passenger) injured in unspecified traffic accident, subsequent encounter; E11.22 Type 2 diabetes mellitus with diabetic chronic kidney disease; I12.9 Hypertensive chronic kidney disease with stage 1 through stage 4 chronic kidney disease, or unspecified chronic kidney disease; N18.3 Chronic kidney disease, stage 3 (moderate); E78.5 Hyperlipidemia, unspecified; E03.9 Hypothyroidism, unspecified; M81.0 Age-related osteoporosis without current pathological fracture; F17.210 Nicotine dependence, cigarettes, uncomplicated; E55.9 Vitamin D deficiency, unspecified
CPT/HCPCS: 36415; 80048; 82962; 85025; 87635; 92507; 92523; 92610; 94799; 97110; 97116; 97161; 97166; 97530; 97535; 97802; 99406; G0009; 90670; U0003

== ENCOUNTER 2022-07-27 17:55 | Emergency (ER) | payer MEDICARE, OTHER, SELFPAY ==
[2022-07-27 17:56] VITALS: BP 153/96; PULSE 94; RESP 16; TEMP 36.5; O2SAT 96; BMI 25.0
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
--- NOTE | 2022-07-27 18:45 | RAD_ITS ---
EXAM: XR RIGHT HUMERUS, 2 OR MORE VIEWS CLINICAL INDICATION: fall/injury TECHNIQUE: Frontal and lateral views of the right humerus. This report was created using [employer] report generation technology. COMPARISON: None. FINDINGS: BONES/JOINTS: Unremarkable. No acute fracture. No subluxation. Normal alignment. Preservation of the joint space. No sclerotic or destructive changes observed. SOFT TISSUES: Unremarkable. No soft tissue swelling or gas. No radiopaque foreign body. RAD/Humerus min 2 Views IMPRESSION: Negative right humerus x-rays. Electronically Signed: Bc Mooney MD at 19:50 EST ,
--- NOTE | 2022-07-27 18:45 | RAD_ITS ---
EXAM: XR RIGHT RIBS AND AP CHEST, 3 OR MORE VIEWS CLINICAL INDICATION: fall/injury TECHNIQUE: Frontal and oblique views of the right ribs and frontal view of the chest. This report was created using [employer] report Diagonal View technology. COMPARISON: None. FINDINGS: LUNGS AND PLEURAL SPACES: Unremarkable. No consolidation or edema. No pneumothorax. No effusion. HEART: Unremarkable. Cardiac silhouette not enlarged. MEDIASTINUM: Central airways and mediastinal contour are unremarkable. BONES/JOINTS: Unremarkable. No evidence of displaced rib fractures. RAD/Ribs Uni Min 3V w/PA Chest IMPRESSION: Negative chest and right ribs series. Electronically Signed: Bc Mooney MD at 19:50 EST ,
--- NOTE | 2022-07-27 18:45 | RAD_ITS ---
EXAM: XR PELVIS, 1 OR 2 VIEWS CLINICAL INDICATION: fall/injury TECHNIQUE: Frontal view of the pelvis. This report was created using [employer] report generation technology. COMPARISON: None. FINDINGS: BONES/JOINTS: There is irregularity of the left inferior pubic ramus which may be from an old or acute fracture. No other acute osseous abnormalities are identified. No destructive or sclerotic lesions. Note that overlapping bowel shadows may however obscure fine detail. Sacroiliac joints are unremarkable. No widening of the pubic symphysis. The articular structures are unremarkable. SOFT TISSUES: Unremarkable. No soft tissue swelling or gas. RAD/Pelvis 1 or 2 Views IMPRESSION: Irregularity of the left inferior pubic ramus possibly due to a fracture. There is evidence of an old healed fracture of the superior pubic ramus. Electronically Signed: Bc Mooney MD at 19:50 EST ,
--- NOTE | 2022-07-27 18:45 | RAD_ITS ---
EXAM: XR RIGHT FEMUR, 2 VIEWS CLINICAL INDICATION: fall/injury TECHNIQUE: Frontal and lateral views of the right femur. This report was created using [employer] report generation technology. COMPARISON: None. FINDINGS: BONES/JOINTS: There is mild narrowing of the hip and knee joint spaces. No acute fracture. No subluxation. Normal alignment. No sclerotic or destructive changes observed. SOFT TISSUES: Unremarkable. No soft tissue swelling or gas. No radiopaque foreign body. RAD/Femur Min 2 Views IMPRESSION: Mild degenerative changes with narrowing of the hip and knee joint spaces. There are no acute osseous abnormalities. Electronically Signed: Bc Mooney MD at 19:49 EST ,
--- NOTE | 2022-07-27 18:45 | RAD_ITS ---
EXAM: XR RIGHT FOREARM, 2 VIEWS CLINICAL INDICATION: fall/injury TECHNIQUE: Frontal and lateral views of the right forearm. This report was created using [employer] report generation technology. COMPARISON: None. FINDINGS: BONES/JOINTS: Unremarkable. No acute fracture. No dislocation. SOFT TISSUES: Unremarkable. RAD/Forearm 2 Views IMPRESSION: Negative right forearm x-rays. Electronically Signed: Bc Mooney MD at 19:48 EST ,
--- NOTE | 2022-07-27 18:45 | RAD_ITS ---
EXAM: XR RIGHT SHOULDER COMPLETE, 2 OR MORE VIEWS CLINICAL INDICATION: fall/injury TECHNIQUE: Two or more views of the right shoulder. This report was created using [employer] report generation technology. COMPARISON: None. FINDINGS: BONES/JOINTS: Unremarkable. No acute fracture. No subluxation. Normal alignment. Preservation of the joint space. No sclerotic or destructive changes observed. SOFT TISSUES: Unremarkable. No soft tissue swelling or gas. No radiopaque foreign body. RAD/Shoulder min 2 Views IMPRESSION: Negative right shoulder x-rays. Electronically Signed: Bc Mooney MD at 19:51 EST ,
[2022-07-27] MEDS: HYDROcodone Bitartrate/Apap 5/325 Tablet PO (21:14)
--- NOTE | 2022-07-27 21:16 | CT_ITS ---
EXAM: CT PELVIS WITHOUT INTRAVENOUS CONTRAST CLINICAL INDICATION: fall/injury right hip/groin TECHNIQUE: Helically acquired images were obtained of the pelvis without intravenous contrast. This CT exam was performed using one or more of the following dose reduction techniques: automated exposure control, adjustment of the mA and/or kV according to patient size, and/or use of iterative reconstruction technique. This report was created using [employer] report generation technology. COMPARISON: 11/16/2014 FINDINGS: BOWEL: Unremarkable as visualized. No bowel distention. No focal inflammatory change. APPENDIX: No evidence of acute appendicitis. INTRAPERITONEAL SPACE: Unremarkable. No ascites or other fluid collection. No free air. BLADDER: Unremarkable. REPRODUCTIVE: Unremarkable as visualized. No mass. BONES/JOINTS: There are old healed fractures of the left superior and inferior pubic rami. No suspicious lytic or blastic abnormality. SOFT TISSUES: Unremarkable. No pelvic wall hernia. LYMPH NODES: Unremarkable. No enlarged lymph nodes. CT/Pelvis without IV Contrast IMPRESSION: No acute abnormalities of the pelvis. There are old healed left superior and inferior pubic rami fractures. Electronically Signed: Bc Mooney MD at 22:05 [facility] ,
[2022-07-27 21:46] LABS: Absolute Lymphocyte Count 2.03 X10^3/uL (0.83-4.51); Basophil# 0.04 X10^3/uL; Basophil% 0.4 % (0-1); Eosinophil# 0.01 X10^3/uL; Eosinophils% 0.1 % (0-5); Hematocrit 43.2 % (37-47); Lymphocyte # 2.03 X10^3/ul (0.83-4.51); Lymphocyte % 20.7 % (19-41); Mean Corp Hgb Conc 34.7 g/dL (32-36); Mean Corpuscular Hgb 32.8 pg (27.0-32.0); Mean Corpuscular Volume 94.5 fL (81-99); Mean Platelet Vol. 12.3 fl (6.2-12.0); Monocyte% 7.1 % (0-10); NRBC Flagged by Analyzer 0 % (0-5); Neutrophil # 7.01 X10^3/uL (2.7-7.7); Neutrophil % 71.5 % (47-70); Platelet Count 191 K/mm3 (150-450); RBC Distribution Width CV 12.6 % (11.6-14.6); RBC Distribution Width SD 43.6 fl (35.1-43.9); Red Blood Count 4.57 M/mm3 (4.2-5.4); White Blood Count 9.8 K/mm3 (4.4-11.0)
--- NOTE | 2022-07-27 21:53 | ED.RN ---
Pt walked to bathroom w walker . Pt did drag her rt foot but did fairly well. aware
[2022-07-27 21:59] LABS: Anion Gap 6 (5-15); BUN 15 mg/dL (7-18); BUN/Creat Ratio 12.8 RATIO (10-20); Calcium,Total 9.8 mg/dL (8.5-10.1); Chloride 106 mmol/L (98-107); Creatinine, Serum 1.17 mg/dL (0.55-1.02); EST Glomerular Filtration Rate 47 mL/min (>60); Est Glom Filt Rate - Afr Amer 57 mL/min (>60); Estimated Creatinine Clearance 32.21 ml/min; Glucose 170 mg/dL (74-106); Potassium 3.8 mmol/L (3.5-5.1); Sodium Level 139 mmol/L (136-145)
[2022-07-27 22:18] VITALS: BP 138/84; PULSE 89
== END 2022-07-27 22:30 | disposition home or self-care (01) ==
PROVIDERS: Emergency Provider Emergency Medicine; PCP Family Medicine; Visit Provider Emergency Medicine
DX: S80.11XA Contusion of right lower leg, initial encounter (principal); E11.22 Type 2 diabetes mellitus with diabetic chronic kidney disease; N18.30 Chronic kidney disease, stage 3 unspecified; F17.210 Nicotine dependence, cigarettes, uncomplicated; E78.5 Hyperlipidemia, unspecified; I12.9 Hypertensive chronic kidney disease with stage 1 through stage 4 chronic kidney disease, or unspecified chronic kidney disease; M54.2 Cervicalgia; S40.021A Contusion of right upper arm, initial encounter; G89.29 Other chronic pain; W18.30XA Fall on same level, unspecified, initial encounter
CPT/HCPCS: 71101; 72170; 72192; 73030; 73060; 73090; 73552; 80048; 85025; 99284

== ENCOUNTER 2022-08-01 09:45 | Observation (INO) | payer MEDICARE, OTHER, SELFPAY ==
[2022-08-01 09:52] VITALS: BP 154/75; PULSE 82; RESP 18; TEMP 36.9; O2SAT 92; BMI 26.6
--- NOTE | 2022-08-01 10:04 | RAD_ITS ---
STUDY: X-RAY - RIGHT SHOULDER REASON FOR EXAM: Female, 82 years old. Injury/Pain TECHNIQUE: 2 view(s) of the shoulder. COMPARISON: None. FINDINGS: Normal glenohumeral articulation. Normal acromioclavicular joint. Normal acromion. Normal humeral head and visualized proximal humerus. The soft tissue structures are unremarkable. Normal visualized pulmonary apex. RAD/Shoulder min 2 Views IMPRESSION: Normal x-ray examination of the shoulder. Electronically Signed: Sohan Reardon MD at 11:01 EST ,
--- NOTE | 2022-08-01 10:05 | RAD_ITS ---
STUDY: X-RAY - RIGHT ELBOW REASON FOR EXAM: Female, 82 years old. Injury/Pain TECHNIQUE: 3 view(s) of the elbow. COMPARISON: None. FINDINGS: Normal visualized humerus, radius and ulna. Normal radiocapitellar and ulnotrochlear articulations. The soft tissue structures are unremarkable. RAD/Elbow min 3 Views IMPRESSION: Normal x-ray examination of the elbow. Electronically Signed: Sohan Reardon MD at 11:02 EST ,
--- NOTE | 2022-08-01 10:05 | RAD_ITS ---
STUDY: X-RAY - PELVIS AND RIGHT HIP REASON FOR EXAM: Female, 82 years old. Injury/Pain TECHNIQUE: 3 views of the pelvis and hip. COMPARISON: 07/27/2022 FINDINGS: There is a non-specific bowel gas pattern. Normal visualized soft tissue structures. Normal bilateral iliac wings, sacroiliac joints and visualized sacrum. Healed fractures the left superior and inferior pubic rami. Normal pubic symphysis. Normal bilateral ischial tuberosities. Normal visualized femoral head. Normal acetabulum. Normal hip joint. RAD/HIP, UNI W/ Pelvis 2-3 Views IMPRESSION: No acute fracture or dislocation. Electronically Signed: Sohan Reardon MD at 11:00 EST ,
--- NOTE | 2022-08-01 10:05 | RAD_ITS ---
STUDY: X-RAY - RIGHT KNEE REASON FOR EXAM: Female, 82 years old. Injury/Pain TECHNIQUE: 2 view(s) of the knee. COMPARISON: None. FINDINGS: Normal visualized distal femur. Normal visualized proximal tibia and fibula. Normal proximal tibiofibular articulation. There is mild degenerative arthrosis of the medial femorotibial compartment. There is mild degenerative arthrosis of the lateral femorotibial compartment. There is mild degenerative arthrosis of the patellofemoral articulation. There is a moderate volume joint effusion. 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 The soft tissue structures are unremarkable. RAD/Knee 1 or 2 Views IMPRESSION: 1. No acute fracture or dislocation. 2. 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 Electronically Signed: Sohan Reardon MD at 11:03 EST ,
--- NOTE | 2022-08-01 10:10 | EX.ED.GENINJ ---
HPI History of Present Illness Chief Complaint: Fall Detail of Chief Complaint: Numerous falls past week Informant: patient and spouse/S.O. Limited: other (Recent confusion. No formal diagnosis of dementia) Onset/Context/Timing Onset: Weeks Mechanism/Context: Fall Location of pain/injuries: Right shoulder, Right elbow, Right hip and Right Knee Quality of Pain: Dull and Aching Location: Right side as documented Current Severity: Mild Maximum Severity: Severe Worsened by: Palpation or movement of respective joint Relieved by: Remaining still Associated Symptoms Associated Symptoms: Positive for Weakness, Loss of function and Inability to ambulate ( does not know last time she ambulated nor this patient.); Negative for Parasthesias or Loss of consciousness Narrative Narrative: Patient is an 82-year-old woman. She was seen 1 week ago. She is presently on no medicine. At that time the cause of her falls and confusion was unknown determined. She is not hit her head with most recent falls. was concerned because on Monday alone she fell 3 times. She is not on an antiplatelet or anticoagulant. She denies headache. She denies double vision or blurred vision. She denies trouble with speech. She denies ringing or ears. Denies neck pain. She denies chest pain or shortness of breath. She denies vomiting or diarrhea. She denies dysuria, frequency or urgency. Because she is not able to get up and use the restroom promptly family purchased depends diapers. She started wearing the depends diapers this past July 29. 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 Vishal Gregory MD) household members: spouse Smoking Status: Current every day smoker tobacco type: cigarettes substance use type: does not use ROS ROS ED Review of Systems ROS Unobtainable: due to mental status Constitutional Constitutional ED: Denies chills or fever(s) Eyes Eyes: Denies blurry vision or change in vision ENT ENT ED: Denies ear pain or rhinorrhea Cardiovascular Cardiovascular: Denies chest pain or palpitations Respiratory/Chest Respiratory/Chest: Denies cough or dyspnea Gastrointestinal Gastrointestinal: Denies abdominal pain, diarrhea or vomiting Genitourinary Genitourinary ED: Denies dysuria, hematuria or urinary frequency Musculoskeletal Musculoskeletal: Reports other Details: Right shoulder, elbow, hip and knee pain ; Denies arthralgias, back pain or myalgias Integumentary Reports Abrasions and other Details: Bruises noted bilaterally and abrasions noted predominantly left lower extremity ; Denies abscess or rash Neurologic Neurologic: Reports weakness; Denies headache(s) or paresthesias Hematologic/Lymphatic Hematologic/Lymphatic: Denies easy bleeding or easy bruising EXAM Physical Exam Const Vital Signs: 08/01/22 09:52 08/01/22 09:59 08/01/22 11:30 Temperature 98.4 F Temperature Source Temporal Pulse Rate 82 69 Respiratory Rate 18 24 H Respiratory Effort Normal Non-Labored Respiratory Depth Normal Respiratory Pattern Normal Blood Pressure 154/75 H 158/78 H Blood Pressure Mean 101 104 Pulse Ox 92 96 Oxygen Delivery Method Room Air Nasal Cannula Oxygen Flow Rate (L/min) 2 Positive well nourished and well developed; Negative for obese, cachectic, contractures or unkempt General Appearance ED: well developed and NAD; Negative for unkempt, cachectic or contractures Nutritional Appearance: Negative for cachectic or obese HEENT Reports TM's clear HEENT Narrative: Head is normocephalic. There is no clinical signs of basal skull fracture. Ears normal. TMs normal. Nares patent. No septal deviation hematoma. Mucosa is dry. Uvula is midline. atraumatic Nose: Negative for septum abnormal Tympanic Membrane ED: Yes TM's clear Eyes PERRL and EOMs intact bilaterally General Eye ED: Yes other Other Details: There is no subconjunctival hemorrhage noted. There is no nystagmus. Neck General: Negative for tenderness Chest Wall inspection of chest normal and palpation of chest normal Resp normal respiratory effort and clear to auscultation bilaterally Cardio regular rhythm, S1 normal heart sound, S2 normal heart sound and no murmurs Rate: regular rate GI normal to inspection, nondistended, normoactive bowel sounds, non-tender, non-distended and no masses Back/Spine Negative for normal to inspection Back/Spine Narrative: Bilateral paralumbar discomfort. There is no pain the patient the pelvis. Extremity Negative for normal to inspection Extremity Narrative: Patient has a significant effusion right knee and bruising noted. There is abrasion over the left knee. There is pain with internal extra rotation and AB duction of the right shoulder. There is pain to palpation over the medial lateral condyle the right elbow with pain with passive supination pronation and flexion extension. There is no pain ovation over the distal radius ulna, carpal bones, metacarpal bones or phalanges of the right upper extremity. There is no pain the patient of any major joint on the left upper extremity. There is no pain to palpation of the left knee, ankle or foot. Logrolling does not cause discomfort in the hip. There is an effusion of the right knee. Attempt to passively flex and extend causes discomfort. Attempt to assess for laxity of the medial or lateral collateral ligament causes discomfort. Logrolling causes significant discomfort in the inguinal area. There is no pain ovation over the right ankle, foot or toes. DP pulses palpable bilaterally. Neuro oriented x3, CN's II-XII intact bilaterally and moves all extremities Sensorium / Orientation: Negative for alert Plantar Reflex: Downgoing: bilateral Psych mental status grossly normal Appearance: Negative for unkempt Skin No no wounds, No skin turgor normal and no jaundice Skin Narrative: Abrasions and bruises noted bilaterally predominantly lower extremity. MDM MDM MDM Narrative Medical decision making narrative: X-rays were obtained to evaluate for fracture versus contusion. Patient has a right traumatic effusion. Will obtain x-rays to assess for fracture versus possible meniscus or PCL/ACL injury. Would not expect an effusion with PCL injury since this is extra-articular. Metabolic work-up was obtained as well to rule out UTI or electrolyte abnormality since she has not been eating well. Spoke with at 08/08/2005. He states he is not capable of caring for her. He would like her to get physical therapy. Hospitalist is employed on page to discuss case and admit with possible placement and physical therapy. Lab Data Attestation: I reviewed the patient's lab results. Lab results narrative: CBC is unremarkable. BMP reveals slight elevation in creatinine with a GFR of 47, this is baseline. Glucose is elevated. Patient had elevated glucose levels as per Cath urine does not indicate infection. Labs: Laboratory Results - last 24 hr 08/01/22 08/01/22 08/01/22 10:10 10:10 11:35 WBC 9.8 RBC 4.54 Hgb 14.8 Hct 42.4 MCV 93.4 MCH 32.6 H MCHC 34.9 RDW Std Deviation 43.1 RDW Coeff of Срегей 12.5 Plt Count 201 MPV 11.7 Immature Gran % (Auto) 0.500 Neut % (Auto) 76.5 H Lymph % (Auto) 12.4 L [place] % (Auto) 9.9 Eos % (Auto) 0.2 Baso % (Auto) 0.5 Absolute Neuts (auto) 7.5 Absolute Lymphs (auto) 1.22 Nucleated RBC % 0 Sodium 140 Potassium 3.8 Chloride 105 Carbon Dioxide 25.0 Anion Gap 10 BUN 16 Creatinine 1.16 H Estim Creat Clear Calc 32.49 Est GFR (MDRD) Af Amer 57 L Est GFR (MDRD) Non-Af 47 L BUN/Creatinine Ratio 13.8 Glucose 227 H Calcium 9.1 Urine Color Sandie Urine Clarity Clear Urine pH 5.0 Ur Specific [place] 1.025 Urine Protein 30 H Urine Glucose (UA) 250 H Urine Ketones 5 H Urine Occult Blood 10 H Urine Nitrite Negative Urine Bilirubin Negative Urine Urobilinogen Normal Ur Leukocyte Esterase Negative Urine RBC 0-5 SEEN Urine WBC 0-5 SEEN Ur Squamous Epith Cells 0-5 SEEN Urine Bacteria 0 SEEN Urine Mucus 0 SEEN Radiography Diagnostic Testing: Clinical Impression(s) from Imaging Studies Shoulder X-Ray 08/01/22 10:04 IMPRESSION: Normal x-ray examination of the shoulder. Electronically Signed: Sohan Reardon MD at 11:01 EST , Elbow X-Ray 08/01/22 10:05 IMPRESSION: Normal x-ray examination of the elbow. Electronically Signed: Sohan Reardon MD at 11:02 EST , Hip/Pelvis X-Ray 08/01/22 10:05 IMPRESSION: No acute fracture or dislocation. Electronically Signed: Sohan Reardon MD at 11:00 EST , Knee X-Ray 08/01/22 10:05 IMPRESSION: 1. No acute fracture or dislocation. 2. 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 Electronically Signed: Sohan Reardon MD at 11:03 EST , 2 views of the right shoulder were obtained independently reviewed and interpreted by me as negative for fracture, subluxation or dislocation. The AC joint is normal. The clavicle is normal as well. 1059 Three-view x-ray of the right elbow reveals no fracture, subluxation dislocation. There is no anterior posterior fat pad noted either. This was independently reviewed interpreted by me at 1100 2 view x-ray of the knee was obtained and changed from 4 view because patient could not tolerate movement. This independent reviewed interpreted by me at 1057. There is no fracture, dislocation or subluxation. There is degenerative changes noted with an effusion. Three-view x-ray of the right hip reveals no fracture, subluxation dislocation. There is arthritic changes with narrowing of the joint space. The patient is rotated. This is independently reviewed and interpreted by me at 1058. Discharge Plan Dx/Rx/DC Orders Clinical Impression: Falls frequently, Injury due to fall, Effusion of knee joint right, Contusion of right shoulder, initial encounter, Contusion of right elbow, initial encounter, Contusion of right hip, initial encounter, Abrasion, multiple sites, Acute renal failure superimposed on stage 3 chronic kidney disease Disposition Disposition: [facility]
[2022-08-01] MEDS: Morphine 2 MG/ML Syringe IM (10:13)
[2022-08-01 10:17] LABS: Absolute Lymphocyte Count 1.22 X10^3/uL (0.83-4.51); Absolute Neutrophil Count 7.5 X10^3/uL (2.0-7.7); Basophil# 0.05 X10^3/uL; Basophil% 0.5 % (0-1); Eosinophil# 0.02 X10^3/uL; Eosinophils% 0.2 % (0-5); Hematocrit 42.4 % (37-47); Hemoglobin 14.8 g/dL (12.0-15.0); Lymphocyte # 1.22 X10^3/ul (0.83-4.51); Lymphocyte % 12.4 % (19-41); Mean Corp Hgb Conc 34.9 g/dL (32-36); Mean Corpuscular Hgb 32.6 pg (27.0-32.0); Mean Corpuscular Volume 93.4 fL (81-99); Mean Platelet Vol. 11.7 fl (6.2-12.0); Monocyte# 0.97 X10^3/uL; Monocyte% 9.9 % (0-10); NRBC Flagged by Analyzer 0 % (0-5); Neutrophil # 7.51 X10^3/uL (2.7-7.7); Neutrophil % 76.5 % (47-70); Platelet Count 201 K/mm3 (150-450); RBC Distribution Width CV 12.5 % (11.6-14.6); RBC Distribution Width SD 43.1 fl (35.1-43.9); Red Blood Count 4.54 M/mm3 (4.2-5.4); White Blood Count 9.8 K/mm3 (4.4-11.0)
[2022-08-01 10:30] LABS: Anion Gap 10 (5-15); BUN 16 mg/dL (7-18); BUN/Creat Ratio 13.8 RATIO (10-20); Calcium,Total 9.1 mg/dL (8.5-10.1); Chloride 105 mmol/L (98-107); Creatinine, Serum 1.16 mg/dL (0.55-1.02); EST Glomerular Filtration Rate 47 mL/min (>60); Est Glom Filt Rate - Afr Amer 57 mL/min (>60); Estimated Creatinine Clearance 32.49 ml/min; Glucose 227 mg/dL (74-106); Potassium 3.8 mmol/L (3.5-5.1); Sodium Level 140 mmol/L (136-145)
[2022-08-01 11:30] VITALS: BP 158/78; PULSE 69; RESP 24; O2SAT 96
[2022-08-01 11:42] LABS: Bacteria 0 SEEN /hpf (None Seen); Mucous, Urine 0 SEEN /hpf (<or=2+)
[2022-08-01 11:44] LABS: Color, Urine Amber (Yellow); Glucose, Dipstick 250 mg/dl (Normal); Ketone-Dipstick 5 mg/dl (Negative); Leukocyte Esterase-Dipstick Negative /ul (Negative); Nitrite-Dipstick Negative (Negative); Occult Blood-Urine 10 /ul (Negative); Protein-Dipstick 30 mg/dl (Negative); Specific Gravity, Urine 1.025 (1.002-1.030); Urine Bilirubin Dipstick Negative (Negative); Urine Clarity Clear (Clear); Urine Urobilinogen Normal (Normal)
[2022-08-01 11:49] LABS: Red Blood Cells-Urine 0-5 SEEN /hpf (0-5); Squamous Epithelial Cells - UA 0-5 SEEN /hpf (5-10); White Blood Cells 0-5 SEEN /hpf (0-5)
--- NOTE | 2022-08-01 12:37 | HP.PCM.HOS_ITS ---
HPI - General General Date of Admission: 08/01/22 Date of Service: 08/01/22 HPI Narrative KENNETH CRUZ, is a 82 F currently not on any medication who presents with a fall. Per patient's who contributed to the history patient has had 4 falls starting Monday. On the morning of her presentation patient could hardly ambulate and was not able to take care of the patient hence the decision to bring patient to the ED. Work-up in the emergency department did demonstrate right shoulder and left knee contusion no fractures. 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 Yusef Dunaway MD) Father Hypertension Social History household members: spouse Smoking Status: Current every day smoker tobacco type: cigarettes substance use type: does not use ROS ROS Narrative GENERAL: denies fever, chills, night sweats, weight loss, anorexia HEENT: denies headache, sinus congestion, or drainage, dysphagia RESPIRATORY: denies cough, sputum production, shortness of breath, CARDIAC: denies chest pain, palpitations, orthopnea, PND GASTROINTESTINAL: denies abdominal pain, nausea, vomiting, melena, GENITOURINARY: denies dysuria, urgency, frequency, heamaturia EXTREMITY: denies swelling MUSCULOSKELETAL: Right shoulder and left knee pain NEUROLOGIC: denies focal numbness, weakness, tingling HEMATOLOGIC: denies easy bruising and/or hemorrhage INTEGUMENT: denies rashes PSYCHIATRIC: denies suicidal or homicidal ideation Vital Signs Vital Signs Vital Signs: 08/01/22 09:52 08/01/22 09:59 08/01/22 11:30 Temperature 98.4 F Temperature Source Temporal Pulse Rate 82 69 Respiratory Rate 18 24 H Respiratory Effort Normal Non-Labored Respiratory Depth Normal Respiratory Pattern Normal Blood Pressure 154/75 H 158/78 H Blood Pressure Mean 101 104 Pulse Ox 92 96 Oxygen Delivery Method Room Air Nasal Cannula Oxygen Flow Rate (L/min) 2 Weight Weight: 72.575 kg Body Mass Index (BMI) 26.6 Physical Exam Narrative GENERAL: cooperative HEENT: Atraumatic; normocephalic EYES; Anicteric, Normal Conjunctiva NECK; supple, normal thyroid, RESPIRATORY: Diminished to auscultation CARDIOVASCULAR: Regular S1 S2, GI: soft, normoactive bowel sounds, : No Renal angle tenderness; EXTREMITIES: Left knee bruising MUSCULOSKELETAL: no muscle wasting NEURO: Awake; no lateralizing signs. SKIN: No Rash PSYCH; Flat affect Results Lab / Micro Data Result Diagrams: 08/01/22 10:10 08/01/22 10:10 Labs: Laboratory Results - last 24 hr 08/01/22 10:10: WBC 9.8, RBC 4.54, Hgb 14.8, Hct 42.4, MCV 93.4, MCH 32.6 H, MCHC 34.9, RDW Std Deviation 43.1, RDW Coeff of Сергей 12.5, Plt Count 201, MPV 11.7, Immature Gran % (Auto) 0.500, Neut % (Auto) 76.5 H, Lymph % (Auto) 12.4 L, [place] % (Auto) 9.9, Eos % (Auto) 0.2, Baso % (Auto) 0.5, Absolute Neuts (auto) 7.5, Absolute Lymphs (auto) 1.22, Nucleated RBC % 0 08/01/22 10:10: Sodium 140, Potassium 3.8, Chloride 105, Carbon Dioxide 25.0, Anion Gap 10, BUN 16, Creatinine 1.16 H, Estim Creat Clear Calc 32.49, Est GFR (MDRD) Af Amer 57 L, Est GFR (MDRD) Non-Af 47 L, BUN/Creatinine Ratio 13.8, Glucose 227 H, Calcium 9.1 08/01/22 11:35: Urine Color Sandie, Urine Clarity Clear, Urine pH 5.0, Ur Specific [place] 1.025, Urine Protein 30 H, Urine Glucose (UA) 250 H, Urine Ketones 5 H, Urine Occult Blood 10 H, Urine Nitrite Negative, Urine Bilirubin Negative, Urine Urobilinogen Normal, Ur Leukocyte Esterase Negative, Urine RBC 0-5 SEEN, Urine WBC 0-5 SEEN, Ur Squamous Epith Cells 0-5 SEEN, Urine Bacteria 0 SEEN, Urine Mucus 0 SEEN Radiology Impression Shoulder X-Ray 08/01/22 10:04 IMPRESSION: Normal x-ray examination of the shoulder. Electronically Signed: Sohan Reardon MD at 11:01 EST Reading Location ID and State: [email or web address] / [employer] , Service support , Elbow X-Ray 08/01/22 10:05 IMPRESSION: Normal x-ray examination of the elbow. Electronically Signed: Sohan Reardon MD at 11:02 EST Reading Location ID and State: [email or web address] / [employer] , Service support , Hip/Pelvis X-Ray 08/01/22 10:05 IMPRESSION: No acute fracture or dislocation. Electronically Signed: Sohan Reardon MD at 11:00 EST Reading Location ID and State: [email or web address] / [employer] , Service support , Knee X-Ray 08/01/22 10:05 IMPRESSION: 1. No acute fracture or dislocation. 2. 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 Electronically Signed: Sohan Reardon MD at 11:03 EST Reading Location ID and State: [email or web address] / [employer] , Service support , Assessment & Plan Assessment/Plan (1) Fall, accidental: PLAN: Plan Patient is an 82-year-old lady presenting with recurrent falls 1. Recurrent falls with left knee and right shoulder contusion ? Patient has been admitted to regular nursing floor for pain management also requested for PT OT eval and social media specialist to assist with discharge planning 2. Dehydration ? Patient started on IV fluids with monitoring of electrolytes ordered 3. Elevated blood pressure ? Patient is not a known hypertensive, blood pressure on admission was 158/78 do suspect patient pain may be contributing to this in any case patient was placed on hydralazine as needed for systolic blood pressure greater than 160 4. Hyperglycemia ? Patient is not a known diabetic, she however had glucose level of 227 and glycosuria ordered hemoglobin A1c to either rule in or rule out diabetes mellitus type 2 5. Tobacco dependence - Counseled on cessation, offered nicotine patch for tobacco cravings 6. DVT prophylaxis ? SC heparin Advance planning; did discuss with the patient and family regarding advanced directives as well as CODE STATUS. Did explain the various scenarios involved ( FULL CODE, DNR CCA, DNR CCA with no intubation, and DNR CC and what each meant) patient elected to remain full code with CPR and intubation if needed. Order was placed. Time spent on discussion 18 minutes. Charges/Coding Visit Charges Inpatient E&M: 33585 Init Hosp L3 Procedures Hospitalists Procedures: 42207 Advncd Care Plan 30 Min
[2022-08-01 13:00] VITALS: BP 166/140; PULSE 74; PULSE 78; RESP 24; TEMP 36.1; O2SAT 97
--- NOTE | 2022-08-01 14:12 | ED.RN ---
requests to be called when patient is to see PT to speak with them
[2022-08-01 14:28] VITALS: BMI 25.0
[2022-08-01 14:39] VITALS: BP 167/81; PULSE 74; RESP 18; TEMP 36.6; O2SAT 98
[2022-08-01 14:45] LABS: Hemoglobin A1c 6.5 % (3.8-5.6)
[2022-08-01] MEDS: 0.9% Normal Saline 1,000 ML 125 ML IV ×2 (14:45→23:20)
[2022-08-01] MEDS: Acetaminophen 500 MG Tablet 1000 MG PO ×2 (14:49→23:47)
[2022-08-01] MEDS: 0.9% Saline Lock 10 ML Syringe IV (16:49)
[2022-08-01 23:45] VITALS: BP 172/75; PULSE 73; RESP 18; TEMP 36.5; O2SAT 93
[2022-08-01] MEDS: Heparin Injection (Vial) 5,000 UNIT/ML VIAL 5000 UNIT SC (23:48)
[2022-08-02] VITALS (7 sets, daily range): BP systolic 126–177; BP diastolic 52–92; PULSE 68–84; RESP 18; TEMP 36.1–36.9; O2SAT 95–100
[2022-08-02] MEDS: hydrALAZINE 20 MG/ML Vial 10 MG IV (04:18)
[2022-08-02] MEDS: 0.9% Normal Saline 1,000 ML 125 ML IV (06:25)
[2022-08-02] MEDS: Acetaminophen 500 MG Tablet 1000 MG PO ×3 (06:25→21:03)
[2022-08-02 06:53] LABS: Absolute Lymphocyte Count 1.72 X10^3/uL (0.83-4.51); Absolute Neutrophil Count 7.1 X10^3/uL (2.0-7.7); Basophil# 0.05 X10^3/uL; Basophil% 0.5 % (0-1); Eosinophil# 0.19 X10^3/uL; Eosinophils% 1.9 % (0-5); Hemoglobin 13.7 g/dL (12.0-15.0); Lymphocyte # 1.72 X10^3/ul (0.83-4.51); Lymphocyte % 17.4 % (19-41); Mean Corp Hgb Conc 33.4 g/dL (32-36); Mean Corpuscular Hgb 32.2 pg (27.0-32.0); Mean Corpuscular Volume 96.5 fL (81-99); Mean Platelet Vol. 12.9 fl (6.2-12.0); Monocyte# 0.82 X10^3/uL; Monocyte% 8.3 % (0-10); NRBC Flagged by Analyzer 0 % (0-5); Neutrophil # 7.07 X10^3/uL (2.7-7.7); Neutrophil % 71.3 % (47-70); Platelet Count 203 K/mm3 (150-450); RBC Distribution Width CV 12.6 % (11.6-14.6); RBC Distribution Width SD 45.4 fl (35.1-43.9); Red Blood Count 4.25 M/mm3 (4.2-5.4); White Blood Count 9.9 K/mm3 (4.4-11.0)
[2022-08-02 07:05] LABS: Anion Gap 9 (5-15); BUN 19 mg/dL (7-18); BUN/Creat Ratio 18.6 RATIO (10-20); Calcium,Total 8.8 mg/dL (8.5-10.1); Chloride 108 mmol/L (98-107); Creatinine, Serum 1.02 mg/dL (0.55-1.02); EST Glomerular Filtration Rate 55 mL/min (>60); Est Glom Filt Rate - Afr Amer 66 mL/min (>60); Estimated Creatinine Clearance 36.94 ml/min; Glucose 180 mg/dL (74-106); Magnesium 2.3 mg/dL (1.6-2.6); Potassium 3.6 mmol/L (3.5-5.1); Sodium Level 139 mmol/L (136-145)
[2022-08-02] MEDS: Nystatin Powder 15gm Bottle 1 APPLIC TOPICAL ×2 (10:25→21:04)
[2022-08-02] MEDS: Heparin Injection (Vial) 5,000 UNIT/ML VIAL 5000 UNIT SC ×2 (10:25→21:03)
--- NOTE | 2022-08-02 15:44 | CASEMGMT ---
Social Work? SW in to meet with pt following update from that pt will need placement at nursing facility. Pt sleeping. It was reported pt is only oriented to self at this time. SW attempted PC to pt [place] to discuss SNF choices. No answer. SW left message requesting call back. A list of SNF providers including quality and resource use data and consistent with the patient?s preferred geographic region, medical needs, and insurance network from the [facility] Guide was left at bedside in pt room. PLAN: SNF? [facility]?
--- NOTE | 2022-08-02 19:32 | PN.HOSP_ITS ---
Subjective Subjective Patient was seen and examined today, her creatinine today was 1.02, patient was alert but appeared frail, she will be evaluated by PT and OT, I suspect she will need at least temporary placement in a half-way facility. Objective Data Objective Data Vital Signs: Vital Signs Temp Pulse Resp BP Pulse Ox O2 Del Method O2 Flow Rate 97 F L 75 18 126/52 H 98 Room Air 2 08/02/22 14:15 08/02/22 14:15 08/02/22 14:15 08/02/22 14:15 08/02/22 14:15 08/02/22 14:15 08/01/22 13:00 Oxygen Flow Rate (L/min) 2 Oxygen Delivery Method Room Air Weight: 68.039 kg Body Mass Index (BMI) 25.0 Intake & Output: Intake and Output for Last 24 Hours 07/31/22 08/01/22 08/02/22 23:59 23:59 23:59 Intake Total 1320 / 1320 1885.42 / 1885.42 Output Total 200 / 200 125 / 125 Balance 1120 / 1120 1760.42 / 1760.42 Lab / Micro Data Result Diagrams: 08/02/22 04:10 08/02/22 04:10 Labs: Laboratory Results - last 24 hr 08/02/22 04:10: WBC 9.9, RBC 4.25, Hgb 13.7, Hct 41.0, MCV 96.5, MCH 32.2 H, MCHC 33.4, RDW Std Deviation 45.4 H, RDW Coeff of Сергей 12.6, Plt Count 203, MPV 12.9 H, Immature Gran % (Auto) 0.600, Neut % (Auto) 71.3 H, Lymph % (Auto) 17.4 L, [place] % (Auto) 8.3, Eos % (Auto) 1.9, Baso % (Auto) 0.5, Absolute Neuts (auto) 7.1, Absolute Lymphs (auto) 1.72, Nucleated RBC % 0 08/02/22 04:10: Sodium 139, Potassium 3.6, Chloride 108 H, Carbon Dioxide 22.0, Anion Gap 9, BUN 19 H, Creatinine 1.02, Estim Creat Clear Calc 36.94, Est GFR (MDRD) Af Amer 66, Est GFR (MDRD) Non-Af 55 L, BUN/Creatinine Ratio 18.6, Glucose 180 H, Calcium 8.8, Magnesium 2.3 Physical Exam Narrative Patient exhibits confusion without agitation Const alert, oriented x3, no apparent distress and healthy appearing General Appearance: cooperative, well kempt and well developed Orientation / Consciousness: awake, oriented to person, oriented to place, oriented to time and confused HEENT normocephalic, head/scalp atraumatic and moist oral mucous membranes Eyes PERRL, EOMs intact bilaterally and conjunctivae normal Neck supple, no JVD, thyroid normal and no carotid bruits General: trachea midline Resp normal respiratory effort, no retractions, no use of accessory muscles and clear to auscultation bilaterally Auscultation: Negative for rales, rhonchi or wheezes Cardio regular rate, regular rhythm, S1 normal heart sound, S2 normal heart sound, no murmurs, no rub and no gallops GI normal to inspection, nondistended, normoactive bowel sounds, soft to palpation, non-tender and non-distended Extremity no clubbing, cyanosis or edema Skin no rashes or lesions noted General Skin Exam: no breakdown Neuro oriented x3, CN's II-XII intact bilaterally, moves all extremities, no focal motor deficits and no sensory deficits noted Sensorium / Orientation: awake and alert Speech: speech normal Psych Psych Narrative: Patient exhibits confusion, there is no agitation Assessment & Plan Assessment/Plan (1) Debility: PLAN: Plan 1. Acute debility with left knee and right shoulder contusion-continue PT and OT #2 dehydration-corrected with IV fluid administration #3 essential hypertension-patient is on no medication at this time, blood pressure will be monitored #4 type 2 diabetes-patient's hemoglobin A1c was 6.5 #5 hypothyroidism-patient is not currently on any medication for thyroid Charges/Coding Visit Charges Inpatient E&M: 58514 Subs Hosp L2
[2022-08-03] VITALS (7 sets, daily range): BP systolic 143–179; BP diastolic 55–70; PULSE 68–74; RESP 18; TEMP 36.4–37; O2SAT 94–98
[2022-08-03] MEDS: hydrALAZINE 20 MG/ML Vial 10 MG IV (04:13)
[2022-08-03] MEDS: Acetaminophen 500 MG Tablet 1000 MG PO ×2 (04:22→13:36)
[2022-08-03] MEDS: Nystatin Powder 15gm Bottle 1 APPLIC TOPICAL (09:52)
[2022-08-03] MEDS: Heparin Injection (Vial) 5,000 UNIT/ML VIAL 5000 UNIT SC (09:52)
--- NOTE | 2022-08-03 11:05 | CASEMGMT ---
Addendum entered by Sandie Pena 08/05/22 07:53: Late Entry: Pt was accepted to TCU on 08/03/22/. Pt and accepting TCU bed. Pt was discharged to TCU same night. ROHIT Santos Original Note: Social Work? SW in to meet with pt following update from Dr. Crisostomo that pt will need placement at nursing facility. SW introduced self and role at the hospital. Pt unable to make decision based on only being oriented x1. Pt , legal decision maker, agreeable to discussing discharge planning. A list of SNF providers including quality and resource use data and consistent with the patient?s preferred geographic region, medical needs, and insurance network were provided from the [employer] Guide. Pt reviewed list and shared [facility] TCU is preference. JOSAFAT sent referral to Andra at TCU. Andra to review and respond later this day. PLAN: [facility] TCU, pending acceptance ? ROHIT Santos?
--- NOTE | 2022-08-03 15:23 | CT_ITS ---
INDICATION: confusion EXAMINATION: CT BRAIN - CT Head or Brain W/O Contrast Injection TECHNIQUE: Multiple axial images were obtained of the head without intravenous contrast. A radiation dose optimization technique was used for this scan. IV Contrast dosage and agent: None. COMPARISON: None FINDINGS: BRAIN PARENCHYMA: No intra- or extra-axial hemorrhage. No evidence of acute infarct. No intracranial mass or mass effect. There is preservation of the pino/white matter interface. Leukoaraiosis. Posterior fossa structures are unremarkable. CSF SPACES: Commensurate with mild global cerebral volume loss. No hydrocephalus. Basal cisterns are patent. CALVARIUM, SKULL BASE, PARANASAL SINUSES AND MASTOID AIR CELLS: Left otomastoid effusion. No discrete lytic or blastic abnormalities. ORBITS: Both globes, extraocular muscles, optic nerves and retrobulbar fat appear unremarkable. ASPECTS Score for Acute Strokes: 10 CT/Brain/Head without Contrast IMPRESSION: Left otomastoiditis. No acute abnormal intracranial finding. Electronically Signed: Keith Presley MD at 16:26 EST ,
--- NOTE | 2022-08-03 15:26 | TREXTCAR_ITS ---
Diet Diet Order/Speech Therapy: 08/01/22 12:27 Diet: Regular - General Food consistency:: Regular Liquid Consistency:: Regular/Thin Routine Orders/Code Status Code Status: Full Code Wound(s) L knee: Wound Type: Abrasion Therapies Weight Bearing: Full weight bearing Physical Therapy: Eval and Treat Occupational Therapy: Eval and Treat Speech Therapy: Eval and Treat Problem/Diagnosis (1) Fall, accidental: Status: Acute Code(s): W19.XXXA - Unspecified fall, initial encounter (2) Contusion of multiple sites of right lower extremity: Status: Acute Code(s): S80.11XA - Contusion of right lower leg, initial encounter (3) Contusion of multiple sites of right arm: Status: Acute Code(s): S40.021A - Contusion of right upper arm, initial encounter (4) Hyperglycemia: Status: Acute Code(s): R73.9 - Hyperglycemia, unspecified Comment: no hystory of DM (5) Elevated blood pressure reading: Status: Acute Code(s): R03.0 - Elevated blood-pressure reading, without diagnosis of hypertension Comment: no history of hypertension (6) Confusion: Status: Acute Code(s): R41.0 - Disorientation, unspecified Comment: etiology unclear (7) Dehydration: Status: Acute Code(s): E86.0 - Dehydration Allergies/Procedures Done in Hospital Allergies No Known Allergies Allergy (Verified 08/01/22 09:57) Procedures: None Type of Care/Length of Stay Estimated LOS: Convalescent Care Less Than 30 days Type of Care Needed: Skilled Rehab Potential: Good Prognosis: Good Additional Orders/Day of Discharge H&P will serve as current which was dated: 08/01/22 Day of Discharge: 08/03/22 Discharge Plan Admission Admit Date/Time: 08/01/22 12:13 Primary Reason for Your Visit: debility, dehydration Attending Provider: Douglas Crisostomo Primary Care Provider: Lázaro Shahid Consulting Providers: Yusef Dunaway Discharge Orders/Prescriptions Prescriptions: New acetaminophen 500 mg Tablet 1,000 mg PO Q8 Qty: 0 0RF nystatin [Nyamyc] 100,000 unit/gram Powder 1 applic topical BID Qty: 0 0RF Protocol: *Topical Application Instructions APPLICATION INSTRUCTIONS: abdominal/groin folds Rx Instructions: apply to affected areas Referrals / Follow Up: Lázaro Shahid MD [Primary Care Provider] - Disposition Disposition (needs filled in before D/C Order can be placed): Long-Term Facility
--- NOTE | 2022-08-03 17:00 | DS.PCM_ITS ---
Providers Date of Admission: 08/01/22 Date of Discharge: 08/03/22 Primary Care Physician: Dr. Lázaro Shahid MD Reason For Visit: ACUTE RENAL INSUFFICIENCY, RECURRENT FALLS Diagnosis Discharge Diagnosis (1) Fall, accidental: Status: Inactive Code(s): W19.XXXA - Unspecified fall, initial encounter (2) Contusion of multiple sites of right lower extremity: Status: Inactive Code(s): S80.11XA - Contusion of right lower leg, initial encounter (3) Contusion of multiple sites of right arm: Status: Acute Code(s): S40.021A - Contusion of right upper arm, initial encounter (4) Hyperglycemia: Status: Acute Code(s): R73.9 - Hyperglycemia, unspecified (5) Elevated blood pressure reading: Status: Acute Code(s): R03.0 - Elevated blood-pressure reading, without diagnosis of hypertension (6) Confusion: Status: Acute Code(s): R41.0 - Disorientation, unspecified (7) Dehydration: Status: Resolved Code(s): E86.0 - Dehydration Plan Assessment: #1 acute debility with contusions of the right shoulder and right knee #2 essential hypertension-noncompliant with medications and office visits with PCP #3 type 2 diabetes-noncompliant with medications and office visits with PCP #4 hypothyroidism-noncompliant with medications and office visits with PCP #5 cognitive impairment-etiology unclear Medications at Discharge Home Medications acetaminophen 500 mg tablet 1,000 mg PO Q8 Pain 08/03/22 amlodipine 2.5 mg tablet (Norvasc) 2.5 mg PO DAILY Check with primary doctor 08/03/22 levothyroxine 50 mcg tablet (Synthroid) 50 mcg PO DAILY Thyroid 08/03/22 metformin 500 mg tablet 500 mg PO BID Diabetes 08/03/22 nystatin 100,000 unit/gram topical powder (Nyamyc) 1 applic topical BID Check with primary doctor 08/03/22 Hospital Course Operations None Procedures None Summary of Care Provided Minutes Spent on Discharge: 31 Hospital Course: This 82-year-old white female was seen in the emergency room at [facility] after sustaining falls at home with contusions to her knee and shoulder, her brought her in for evaluation, she was admitted to [place] [address], seen by PT and OT, and it was felt it would be beneficial for the patient to go to a [facility] facility for short-term rehab services. Patient exhibited confusion during her hospitalization, admission labs indicated mild dehydration, she was given IV fluids. Patient had confusion during her hospitalization and that has been denied any history of dementia, he was unaware that the patient had any medical problems-because of the patient's confusion, she underwent a CT scan of the head which showed no acute process, I contacted the patient's PCP who stated that the patient had not been compliant with her office visits and had not been seen in quite some time, she was supposed to be o n medication for hypertension and hypothyroidism, she was also diagnosed as a type II diabetic and was taking no medications for this. Patient's hemoglobin A1c was 6.5. Patient had a TSH performed during her hospitalization which was highly elevated. On 08/03/2022, patient was seen and examined: On examination she appeared frail and had confusion without agitation. Vital signs as documented. Skin warm and dry and without overt rashes. Neck without JVD, thyroid appears normal, trachea is midline, neck is supple. Lungs clear, normal air movement was noted. Heart exam notable for regular rhythm, normal sounds and absence of murmurs, rubs or gallops. Abdomen unremarkable and without evidence of organomegaly, masses, or abdominal aortic enlargement, bowel sounds are present in all 4 quadrants, no abdominal tenderness was noted. Extremities nonedematous, no cyanosis was noted, no clubbing was noted. Neuro: Cranial nerves II through XII are grossly intact, no focal motor deficits were noted, sensation to light touch and pinprick is intact, motor exam 5/5 throughout. Psych: Patient is alert but confused On 08/03/2022, patient was transferred to TCU for inpatient rehab services, I talked with Dr. Cuevas the attending physician there about her medical issues including her hypertension and suggested that a T3 and T4 be obtained. Weight / BMI Weight Weight: 68.039 kg Body Mass Index (BMI) 25.0 ABG / Lab / Microbiology Data Result Diagrams: 08/02/22 04:10 08/02/22 04:10 Laboratory: Laboratory Results - last 24 hr 08/02/22 04:10: TSH 14.60 H Microbiology: Microbiology 08/03/22 Unknown Nasal Secretion SARS-CoV-2 Antigen (Rapid) - Final Radiography Diagnostic Testing: Radiology Impression Brain CT 08/03/22 15:23 IMPRESSION: Left otomastoiditis. No acute abnormal intracranial finding. Electronically Signed: Keith Presley MD at 16:26 EST , Meaningful Use Info Meaningful Use Diagnoses (Choose all that apply): None applicable Discharge Plan Admission Admit Date/Time: 08/01/22 12:13 Primary Reason for Your Visit: debility, dehydration Attending Provider: Douglas Crisostomo Primary Care Provider: Lázaro Shahid Consulting Providers: Yusef Dunaway Discharge Orders/Prescriptions Prescriptions: No Action metformin 500 mg tablet 500 mg PO BID amlodipine [Norvasc] 2.5 mg tablet 2.5 mg PO DAILY acetaminophen 500 mg tablet 1,000 mg PO Q8 levothyroxine [Synthroid] 50 mcg tablet 50 mcg PO DAILY nystatin [Nyamyc] 100,000 unit/gram powder 1 applic topical BID Protocol: *Topical Application Instructions APPLICATION INSTRUCTIONS: abdominal/groin folds Rx Instructions: apply to affected areas Referrals / Follow Up: Lázaro Shahid MD [Primary Care Provider] - Disposition Disposition (needs filled in before D/C Order can be placed): Nursing Home Facility Charges/Coding Visit Charges Inpatient E&M: 56968 Disch Hosp
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
== END 2022-08-03 18:20 | disposition skilled nursing facility (03) ==
LOC: ED 12:22 → MS3 12:50
PROVIDERS: Admitting Provider Internal Medicine; Emergency Provider Emergency Medicine; PCP Family Medicine; Visit Provider Internal Medicine
DX: E86.0 Dehydration (principal); E11.22 Type 2 diabetes mellitus with diabetic chronic kidney disease; E11.65 Type 2 diabetes mellitus with hyperglycemia; N18.30 Chronic kidney disease, stage 3 unspecified; R29.6 Repeated falls; S80.02XA Contusion of left knee, initial encounter; E78.5 Hyperlipidemia, unspecified; S40.011A Contusion of right shoulder, initial encounter; I12.9 Hypertensive chronic kidney disease with stage 1 through stage 4 chronic kidney disease, or unspecified chronic kidney disease; F17.210 Nicotine dependence, cigarettes, uncomplicated; R41.89 Other symptoms and signs involving cognitive functions and awareness; Z91.14 Patient's other noncompliance with medication regimen; E03.9 Hypothyroidism, unspecified; R53.81 Other malaise; R41.0 Disorientation, unspecified; M25.461 Effusion, right knee; S50.01XA Contusion of right elbow, initial encounter; Y93.9 Activity, unspecified; S70.01XA Contusion of right hip, initial encounter; W19.XXXA Unspecified fall, initial encounter; Y92.9 Unspecified place or not applicable
CPT/HCPCS: 36415; 70450; 73030; 73080; 73502; 73560; 80048; 81001; 83036; 83735; 84443; 85025; 87426; 96361; 96372; 96374; 96376; 97112; 97116; 97162; 97166; 97530; 99221; 99285; J7030; P9612; A4216; G0378

== ENCOUNTER 2022-08-03 18:30 | Inpatient (IN) | payer MEDICARE, OTHER, SELFPAY ==
[2022-08-03 20:32] VITALS: BP 127/55; PULSE 85; RESP 18; TEMP 36.9; O2SAT 97
--- NOTE | 2022-08-03 20:32 | PCM.HP.STD ---
HPI - General General Date of Admission: 08/03/22 Date of Service: 08/04/22 Chief Complaint: Here for rehabilitation. HPI Narrative 07/27/2022 KENNETH CRUZ, is a 82 Female who presents to [facility] Emergency Department with fall. Fall 2 days ago, fall today. Difficulty walking, bearing weight right lower extremity. Right hip pain, right low back pain, right shoulder pain, right arm pain, right forearm pain, right wrist pain. Xrays, CT negative for fracture, Discharge home. 08/01/2022 Patient presents to [facility] ED with fall. Multiple falls. unable to care for her at home. 08/01/2022 Admit to Hospital. PT/OT for falls, left knee pain contusion, left shoulder contusion. IV fluids for dehydration. Hydralazine prn elevated blood pressure. Nicotine patch for nicotine dependence, 08/02/2022 Alert, but frail. 08/03/[address] brain negative. 08/03/2022 Restart medications for Diabetes Mellitus II, HTN, Hypothyroidism. Patient has not seen her PCP for 2 years. Cause of encephalopathy unknown. states patient normal prior to admission to hospital. 08/03/2022 Admit to TCU with debility, here for rehabilitation, strengthening, prior to discharge home with . 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 Chronic kidney disease, stage 3 Compression fracture of T11 vertebra Debility Diabetes mellitus, type 2 HLD (hyperlipidemia) HTN (hypertension) Hypothyroidism Osteoporosis T12 compression fracture T9 vertebral fracture Home Medications acetaminophen 500 mg tablet 1,000 mg PO Q8 Pain 08/03/22 [History Last Taken Unknown] amlodipine 2.5 mg tablet (Norvasc) 2.5 mg PO DAILY Check with primary doctor 08/03/22 [History Last Taken Unknown] levothyroxine 50 mcg tablet (Synthroid) 50 mcg PO DAILY Thyroid 08/03/22 [History Last Taken Unknown] metformin 500 mg tablet 500 mg PO BID Diabetes 08/03/22 [History Last Taken Unknown] nystatin 100,000 unit/gram topical powder (Nyamyc) 1 applic topical BID Check with primary doctor 08/03/22 [History Last Taken Unknown] Allergy/AdvReac Type Severity Reaction Status Date / Time No Known Allergies Allergy Verified 08/01/22 09:57 Family History Father Hypertension Social History (Updated 08/03/22 @ 20:[address] Get Cuevas MD) household members: spouse Smoking Status: Current every day smoker tobacco type: cigarettes alcohol intake: never substance use type: does not use ROS Constitutional Constitutional: Denies chills, fever(s) or weight gain ENT HEENT: Denies headache(s), nasal congestion or nasal discharge Cardiovascular Cardiovascular: Denies chest pain or palpitations Respiratory/Chest Respiratory/Chest: Denies cough, excessive phlegm production or shortness of breath with exertion Gastrointestinal Gastrointestinal: Denies abdominal pain, nausea or vomiting Genitourinary Genitourinary: Denies dysuria Musculoskeletal Musculoskeletal: Denies joint pain or joint swelling Integumentary Integumentary: Denies rash or wounds Neurologic Neurologic: Denies focal weakness, numbness or tingling Psychiatric Psychiatric: Denies anxiety, auditory hallucinations, depression, homicidal ideation or suicidal ideation Physical Exam Const alert General Appearance: cooperative HEENT normocephalic Eyes PERRL and EOMs intact bilaterally Neck supple, no JVD and no carotid bruits Resp normal respiratory effort, normal air movement and clear to auscultation bilaterally Cardio regular rate and regular rhythm GI normal to inspection, nondistended, normoactive bowel sounds, non-tender and non-distended Extremity normal capillary refill General Extremity: Negative for edema Skin no rashes or lesions noted General Skin Exam: no breakdown Psych affect normal Appearance: appropriate Results Lab / Micro Data Result Diagrams: 08/04/22 05:24 08/04/22 05:24 Assessment & Plan Assessment/Plan (1) Debility: (2) Falls: (3) Encephalopathy: (4) Dehydration: (5) Hyperlipidemia: (6) Hypertension: (7) Hypothyroidism: (8) Diabetes mellitus: (9) Insomnia: (10) Nicotine dependence, cigarettes, uncomplicated: PLAN: Plan 82 year old female with below past medical history hospitalized for fall, left knee contusion, left shoulder contusion, complicated by encephalopathy, admitted to TCU with debility, here for rehabilitation, strengthening, prior to discharge home with . Debility - PT/OT. Pain - Tylenol 1000mg q8, Tramadol 50mg q6h prn pain (6-10). Bowel - Miralax 17gm daily, senna/colace 2 tablets bid, MOM 30ml x 1 prn. Adult immunization - Administer pneumonia vaccine, covid19 vaccine, flu vaccine as appropriate. DVT prophylaxis - Hold, monitor. Hypertension - Amlodipine 2.5mg daily. Hypothyroidism - Levothyroxine 50mcg daily. Tinea Corporis - Nystatin powder topical bid.
[2022-08-03 20:33] VITALS: BMI 25.2
[2022-08-03 20:36] VITALS: PULSE 85; RESP 18; O2SAT 97
--- NOTE | 2022-08-03 21:09 | NURSING ---
Patient arrived on unit at approximately 18:30. Call placed to to discuss code status as well as living will, DPOA status. Decided on Full code status this month. Will notify Haley of need for living will and DPOA information. states he will be in tomorrow and will sign papers at that time.
[2022-08-03] MEDS: Acetaminophen 500 MG Tablet 1000 MG PO (23:02)
[2022-08-04 05:56] LABS: Absolute Lymphocyte Count 1.78 X10^3/uL (0.83-4.51); Absolute Neutrophil Count 3.9 X10^3/uL (2.0-7.7); Basophil# 0.05 X10^3/uL; Basophil% 0.7 % (0-1); Eosinophil# 0.26 X10^3/uL; Eosinophils% 3.9 % (0-5); Hematocrit 39.3 % (37-47); Hemoglobin 13.3 g/dL (12.0-15.0); Lymphocyte # 1.78 X10^3/ul (0.83-4.51); Lymphocyte % 26.7 % (19-41); Mean Corp Hgb Conc 33.8 g/dL (32-36); Mean Corpuscular Hgb 32.4 pg (27.0-32.0); Mean Corpuscular Volume 95.6 fL (81-99); Mean Platelet Vol. 11.9 fl (6.2-12.0); Monocyte# 0.62 X10^3/uL; Monocyte% 9.3 % (0-10); NRBC Flagged by Analyzer 0 % (0-5); Neutrophil # 3.91 X10^3/uL (2.7-7.7); Neutrophil % 58.7 % (47-70); Platelet Count 230 K/mm3 (150-450); RBC Distribution Width CV 12.7 % (11.6-14.6); RBC Distribution Width SD 45.3 fl (35.1-43.9); Red Blood Count 4.11 M/mm3 (4.2-5.4); White Blood Count 6.7 K/mm3 (4.4-11.0)
[2022-08-04 06:37] LABS: Anion Gap 6 (5-15); BUN 19 mg/dL (7-18); Calcium,Total 8.5 mg/dL (8.5-10.1); Chloride 108 mmol/L (98-107); Creatinine, Serum 1.27 mg/dL (0.55-1.02); EST Glomerular Filtration Rate 43 mL/min (>60); Est Glom Filt Rate - Afr Amer 52 mL/min (>60); Estimated Creatinine Clearance 29.67 ml/min; Glucose 197 mg/dL (74-106); Potassium 3.7 mmol/L (3.5-5.1); Sodium Level 139 mmol/L (136-145)
[2022-08-04] MEDS: Acetaminophen 500 MG Tablet 1000 MG PO ×2 (06:38→15:12)
[2022-08-04] MEDS: Senna/Docusate Sodium 1 Tablet 2 TABLET PO ×2 (06:39→16:54)
[2022-08-04] MEDS: Levothyroxine 50 MCG Tablet PO (06:39)
[2022-08-04] MEDS: amLODIPine 2.5 MG Tablet PO (06:39)
[2022-08-04] MEDS: Polyethylene Glycol 3350 17 GM PACKET PO (06:40)
[2022-08-04] MEDS: Nystatin Powder 15gm Bottle 1 APPLIC TOPICAL ×2 (06:40→16:54)
[2022-08-04 10:00] VITALS: PULSE 67; RESP 16
--- NOTE | 2022-08-04 10:17 | PCA ---
MRI, called to get preauth for MRI, case #[id number] approved, auth #[id number], approval date 08/04/22, exp date 01/31/23 alondra redirected me to bernard [phone] for authorization
[2022-08-04] MEDS: Tuberculin,Purif.prot.deriv. 50 TU/ML Vial 0.1 ML ID (11:13)
--- NOTE | 2022-08-04 13:56 | NURSING ---
Addendum entered by Nini Parker 08/04/22 13:56: when transferring from chair to bed, pt had much difficulty with moving rt leg and rt hand does not have good grasp on walker. Original Note: pt off unit to MRI via bed at this time.
[2022-08-04 15:57] VITALS: BP 136/60; PULSE 69; RESP 18; TEMP 36.8; O2SAT 96
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
[2022-08-04] MEDS: 0.9% Saline Lock 10 ML Syringe IV (16:54)
--- NOTE | 2022-08-04 18:11 | NURSING ---
Received call from Dr. Cuevas, stating pt did have a CVA. Received orders for aspirin 81 mg now and then daily, Lipitor 40mg now and then qHS, and CTA of head and neck. Echocardigram.
--- NOTE | 2022-08-04 18:15 | ECHOD_ITS ---
Reason For Study: TIA/CVA Procedure This was a 2D Doppler, Color Flow transthoracic echocardiogram. The exam was of adequate technical quality. Exam performed portable in patient room. Left Ventricle Normal LV size. Sigmoid septum. Left ventricular systolic function is normal. The estimated ejection fraction is 65 %. No evidence for diastolic dysfunction. Right Ventricle Normal RV size. Normal systolic function. Atria The left atrium is mildly enlarged. Normal right atrium. No doppler evidence for ASD. Bubble contrast study negative for right to left interatrial shunt. Mitral Valve There is no mitral annular calcification. Mild focal mitral valve calcification of the anterior leaflet. Mild (1+) mitral valve insufficiency. Tricuspid Valve Normal tricuspid valve. Trivial tricuspid valve insufficiency. Right ventricular systolic pressure estimated to be 25 mmHg. Aortic Valve Trisinus/trileaflet aortic valve. Normal aortic valve. Trivial aortic valve insufficiency. Pulmonic Valve The pulmonic valve is not well visualized. Great Vessels Normal sized aortic root. Pericardium/Pleural No pericardial effusion. Medication Performed a rapid injection of agitated mix of 9 cc saline and 1cc air to assess for atrial septal defect. MMode/2D Measurements & Calculations LVIDd: 4.0 cm IVSd: 1.3 cm Ao root diam: 2.9 cm LVIDs: 2.4 cm LVPWd: 1.1 cm LA dimension: 3.8 cm RVDd: 4.1 cm FS: 39.6 % LAV(MOD-bp): 40.3 ml LA A4 area: 14.7 cm2 RA A4 area: 12.4 cm2 LAV(MOD-bp) Indexed: 22.9 ml/m2 LAV(MOD-sp2): 39.1 ml LAV(MOD-sp4): 40.0 ml Time Measurements MV dec time: 0.31 sec Doppler Measurements & Calculations MV E max honorio: 52.4 cm/sec Lat Peak E' Honorio: 4.4 cm/sec Med Peak E' Honorio: 4.1 cm/sec MV A max honorio: 99.9 cm/sec E/E' lat: 11.8 E/E' med: 12.7 MV E/A: 0.52 MV V2 max: 126.5 cm/sec MV P1/2t max honorio: 77.5 cm/sec Ao V2 max: 148.8 cm/sec MV max P.4 mmHg MV P1/2t: 126.6 msec Ao max P.9 mmHg MV V2 mean: 53.9 cm/sec MV dec slope: 179.4 cm/sec2 Ao V2 mean: 98.4 cm/sec MV mean P.5 mmHg Ao mean P.5 mmHg MV V2 VTI: 33.4 cm MVA(P1/2t): 1.7 cm2 Ao V2 VTI: 33.3 cm AV (velocity ratio): 0.73 AI max honorio: 402.0 cm/sec LV V1 max: 96.3 cm/sec MR max honorio: 444.6 cm/sec AI max P.6 mmHg LV V1 max P.7 mmHg MR max P.1 mmHg AI dec slope: 220.5 cm/sec2 LV V1 mean P.0 mmHg AI P1/2t: 533.9 msec LV V1 mean: 65.2 cm/sec LV V1 VTI: 24.4 cm PA V2 max: 91.9 cm/sec TR max honorio: 236.8 cm/sec PA V2 mean: 63.1 cm/sec TR max P.4 mmHg ECHO/Echo Complete Interpretation Summary Left ventricular systolic function is normal. The estimated ejection fraction is 65 %. Sigmoid septum. The left atrium is mildly enlarged. Mild focal mitral valve calcification of the anterior leaflet. Mild (1+) mitral valve insufficiency. Trivial tricuspid valve insufficiency. Trivial aortic valve insufficiency. Right ventricular systolic pressure estimated to be 25 mmHg. No evidence for diastolic dysfunction. Bubble contrast study negative for right to left interatrial shunt. Ordering Physician: Get Cuevas Chi Referring Physician: Lázaro Shahid Performed By: Spencer Ledesma RCS
--- NOTE | 2022-08-04 18:17 | NURSING ---
dr baugh called, states pt had CVA according to MRI results. new orders for aspirin, lipitor and CTA of neck and head. will call for prior authorization.
--- NOTE | 2022-08-04 19:01 | NURSING ---
pt had small amount of emesis and spitting up mucus. pt unable to take pills at this time.
[2022-08-04] MEDS: Atorvastatin Calcium 40 MG Tablet PO (20:06)
--- NOTE | 2022-08-04 20:19 | RAD_ITS ---
INDICATION: CRACKLES, COUGH EXAMINATION/TECHNIQUE: X-RAY - XR Chest 2 Views COMPARISON: 07/27/2022 FINDINGS: LINES/DEVICES: None. LUNGS: Bibasilar atelectasis with symmetric hypoinflation. No consolidation, edema or effusion. No pneumothorax. MEDIASTINUM AND CARDIOVASCULAR STRUCTURES: Cardiac silhouette not enlarged. Central airways and mediastinal contour are unremarkable. RAD/Chest PA and Lateral IMPRESSION: Bibasilar atelectasis with symmetric hypoinflation. Electronically Signed: Keith Presley MD at 23:34 EST ,
--- NOTE | 2022-08-04 20:25 | NURSING ---
Addendum entered by Fatimah Puri 08/04/22 20:44: FAILED DYSPHAGIA SCREENING PATIENT NPO UNTIL ST CAN EVAL IN AM, DR. VAUGHAN AWARE Original Note: DR VAUGHAN NOTIFIED VIA TELEPHONE OF PATIENT MOIST COUGH, CRACKLES THROUGHOUT LUNG MIGUEL, COUGHING UP CLEAR PHLEGM, COPIOUS AT TIMES, NEW FOR PATIENT PER DAY RN, COUGHING WITH THIN LIQUIDS. NEW ORDER FOR CHEST XRAY, ORALSUCTION PRN
[2022-08-04] MEDS: Aspirin 81 MG TAB.CHEW PO (20:27)
--- NOTE | 2022-08-04 20:41 | NURSING ---
PATIENT OFF UNIT FOR CHEST XRAY
--- NOTE | 2022-08-04 21:32 | NURSING ---
Received phone call from , received order due to patient NPO status start d5 1/2 NS IV @60mL/hr
[2022-08-04] MEDS: Dext 5%-0.45% NS 1,000 ML 60 ML IV (22:49)
--- NOTE | 2022-08-04 23:43 | NURSING ---
Addendum entered by Fatimah Puri 08/05/22 00:09: radiology contacts unit [facility] by phone, Per [facility] chest xray cannot be completed until after 0700 in AM, time adjusted per radiology request. Original Note: Dr. Cuevas contacted via telephone, notified of chest xray results. New order received for repeat chest xray morning of 08/05/22.
--- NOTE | 2022-08-05 07:34 | NURSING ---
0600 medications held at this time due to NPO status, awaiting ST eval
--- NOTE | 2022-08-05 08:50 | RAD_ITS ---
STUDY: X-RAY CHEST REASON FOR EXAM: Female, 82 years old. Cough, crackles TECHNIQUE: PA and lateral views of the chest. COMPARISON: August 04, 2022 chest x-ray FINDINGS: Lungs are underexpanded. There is increased density within the right lung base more apparent than prior study on the lateral view especially. There is no demonstrated pleural abnormality. There is mild cardiac enlargement. Normal mediastinum and tahir. Normal visualized pulmonary arteries. There is atherosclerotic calcification of the aortic arch with tortuosity. There is visualized kyphosis of the thoracic spine centered at the thoracolumbar junction with her peers to be vertebroplasty material and loss of height at the level of T12 and likely L1. Normal visualized ribs, clavicles, and shoulders. There is no demonstrated abnormality of the visualized soft tissue structures of the upper abdomen. RAD/Chest PA and Lateral IMPRESSION: Findings are suspicious for right lower lobe infiltrate/pneumonia. The patient is kyphotic and the hemidiaphragms are elevated partially obscuring the lung bases. Could consider a follow-up CT scan of the chest without contrast if appropriate. Electronically Signed: Romelia Clemente MD at 9:05 EST Reading Location ID and State: [facility] / [place] Tel , Service support ,
[2022-08-05] MEDS: amLODIPine 2.5 MG Tablet PO (09:21)
[2022-08-05] MEDS: Levothyroxine 50 MCG Tablet PO (09:21)
[2022-08-05] MEDS: Aspirin E.C. 81 MG Tablet PO (09:22)
[2022-08-05] MEDS: Acetaminophen 500 MG Tablet 1000 MG PO ×3 (09:22→21:44)
--- NOTE | 2022-08-05 09:50 | PCA ---
CTA of head and neck Case #[id number] Auth #[id number] Exp date 02/01/23 Terry [phone]
--- NOTE | 2022-08-05 10:00 | NURSING ---
Dr. Cuevas updated on Chest X-ray. N.O. for Levaquin 750mg IV daily for 7 days.
--- NOTE | 2022-08-05 10:02 | ST.MBS ---
Modified Barium Swallow - Patient Information Study Date: 08/05/22 Study Time: 12:30 Direct Billable Minutes: 105 Total Minutes procedure & reportin Diagnosis: Dehydration (E86.0), Debility (R53.81) Referring Physician: Get Cuevas Chi Reason for Referral: Objectively assess swallow function, assess risk for aspiration, and determine recommendations for least restrictive diet textures and compensatory strategies to improve safety of swallow. Medical History: The patient is a 82-year-old female with PMH including carcinoma of breast, carcinoma of parotid gland, CKD stage III, DM type II, HTN (SEE EMR for full PMH). She presented to [facility] ED 07/27/2022 with fall. She re-presented 08/01/2022 with another fall and her unable to take care of her at home. 08/01/2022 she was admitted to the hospital. 08/03/2022 patient had some confusion. She was admitted to TCU for rehabilitation prior to discharge home with . Pt's swallow function was evaluated by speech therapy 08/04/2022, and she was recommended for regular textures / thin liquids. However, pt was reported to have worsening swallow function that evening by RN. She was made NPO at dinner 08/04/2022 after experiencing difficulty swallowing applesauce. She was also reported to be gulping water and regurgitating. She required Yankauer suction. RN and physician requesting WAREHOUSE ASSOCIATE re-evaluate swallow function and aspiration risk at bedside prior to consideration for PEG tube placement. Chest X-ray 08/05/2022: Findings are suspicious for right lower lobe infiltrate/pneumonia. Pt was seen by speech therapy this morning, 07/26/2022, and tolerated trials of applesauce, applesauce with crushed medications, and 2 bites of regular textured cookie with no overt s/s of aspiration. She did present with intermittent coughing of thin liquids by cup, straw, and tsp. She also presented with fine crackles in lower lobes bilaterally following trials. WAREHOUSE ASSOCIATE recommended MBSS prior to diet advancement to determine safest liquid textures due to overt s/s of aspiration with thin liquid trials. WAREHOUSE ASSOCIATE left voicemail with patient's son and person to notify, Filipe Pacheco, to ask further questions regarding the patient's history of carcinoma of the parotid gland. Awaiting call back. Current Diet Ordered: NPO with meds crushed in applesauce Dentition: Upper Dentures, Lower Dentures Mental Status: Impaired - mild cognitive impairment s/p CVA Respiratory Status: Oxygenating on Room Air - Penetration-Aspiration Scale Penetration-Aspiration Scale: OBJECTIVE ASSESSMENT OF SWALLOW FUNCTION (QUANTITATIVE ? PER TRIAL): PENETRATION / ASPIRATION SCALE (VALDEZ): 1 = does not enter airway 2 = enters airway/above vocal folds/ejected 3 = enters airway/above vocal folds/not ejected 4 = enters airway/contacts vocal folds/ejected 5 = enters airway/contacts vocal folds/not ejected 6 = enters airway/below vocal folds/ejected 7 = enters airway/below vocal folds/not ejected despite effort 8 = enters airway/below vocal folds/no effort VIDEOFLOROSCOPIC SCALE SCORE (VALDEZ): Grade I = aspiration of material that has penetrated into the laryngeal vestibule, intact cough reflex Grade II = aspiration < 10 % of the bolus, intact cough reflex Grade III = aspiration of < 10 % of the bolus, reduced cough reflex or aspiration of > 10 % of the bolus, intact cough reflex Grade IV = aspiration of > 10 % of the bolus, reduced cough reflex - Penetration-Aspiration Scale Score Thin Liquid via teaspoon Chin tuck Result: 5= enters airways/contacts vocal folds/not ejected Thin Liquid via teaspoon Result: 3= enters airways/above vocal folds/not ejected Thin Liquid via small single sip from cup Double swallow Result: 5= enters airways/contacts vocal folds/not ejected Yoakum Thick Liquid via small single sip from cup Result: 2= enter airway/above vocal folds/ejected Honey Thick Liquid via small single sip from cup Result: 1= does not enter airway Pudding via teaspoon with esophageal screen Result: 1= does not enter airway - POST PRANDIAL SILENT ASPIRATION OF RESIDUES REMAINING IN THE LARYNGEAL VESTIBULE FROM PREVIOUS TRIALS Yoakum Thick Liquid via large single sip from cup with esophageal screen Result: 2= enter airway/above vocal folds/ejected Thin Liquid via single sip from straw Result: 3= enters airways/above vocal folds/not ejected 1/4 Cookie Result: 1= does not enter airway Thin Liquid via small single sip from cup Effortful swallow Result: 2= enter airway/above vocal folds/ejected Yo[place]um Thick Liquid via small single sip from cup Trial 2 Result: 2= enter airway/above vocal folds/ejected - Oral Phase Labial Seal: Escape beyond interlabial space; no extension beyond bibi border Tongue Control During Bolus Hold: Posterior escape of less than half of bolus Bolus Preparation/Mastication: Slow prolonged chewing/mashing with complete recollection Bolus Transport/Lingual Motion: Slowed tongue motion Oral Residue: Residue collection on oral structures - Pharyngeal Phase Initiation of Pharyngeal Swallow: Bolus head at posterior laryngeal surgace of epiglottis Soft Palate Elevation: Trace column of contrast/air between soft palate and pharyngeal wall Laryngeal Elevation: Partial superior movement thyroid cart/partial apprx aryt-epig petiole Anterior Hyoid Excursion: Partial anterior movement Epiglottic Movement: Partial inversion Laryngeal Vestibule Closure at Height of Swallow: Incomplete; narrow column of air/contrast in laryngeal vestibule Pharyngeal Stripping Wave: Present - diminished Pharyngoesophageal Segment Opening: Parital distension and partial duration; parital obstruction of flow Tongue Base Retraction: Wide column of contrast between tongue base & post. pharyngeal wall Pharyngeal Residue: Collection of residue within or on pharyngeal structures - Esophageal Phase Esophageal Clearance: Esophageal retention w/ retrograde flow through pharyngoesophageal seg - Diagnosis/Impression Diagnosis: Mild oropharyngeal phase dysphagia (R13.12), Esophageal dysphagia (R13.14) Impression: The oral phase is primarily marked by... -Decreased bolus control with <1/2 of the bolus spilling posteriorly to the posterior surface of the epiglottis prior to swallow onset observed with thin liquids especially. -Slowed tongue motion for A-P transport. -Mild oral residue after the swallow with large sips, which mostly cleared with independent initiation of a second swallow as needed. -Prolonged, but adequate mastication of cookie trial. The pharyngeal phase is primarily marked by... -Decreased airway closure during the swallow due to mildly decreased anterior hyoid excursion, partial epiglottic inversion, and mildly decreased laryngeal elevation. -Moderately decreased tongue base retraction, mildly decreased UES opening/duration, and mildly decreased pharyngeal stripping wave with resulting mild-moderate pharyngeal residues after the swallow. -SILENT post prandial aspiration of residue remaining in the laryngeal vestibule (likely thin liquid residue) was observed 1X during the study. Consistent laryngeal penetration across thin and nectar thick liquid consistencies. Thin liquid trials did not reliably eject from the laryngeal vestibule after the swallow. Use of effortful swallow with thin liquids by cup was effective in decreasing residues remaining in the laryngeal vestibule after the swallow. Use of cough and re-swallow was somewhat effective in decreasing residues remaining in the laryngeal vestibule to trace amounts. The esophageal phase is primarily marked by... -Esophageal retention of pudding in mid and lower esophagus. Yoakum thick liquid wash was somewhat effective in clearing pudding contrast from the lower esophagus; however, nectar thick liquids also demonstrated some retention, as well as retrograde flow remaining well below upper esophageal sphincter (UES). -Trace retention of thin and honey thick liquids in upper esophagus with trace retrograde flow through the UES. -The patient may be at risk for reflux aspiration. - Recommendations Diet: Yoakum-thick Liquids - Soft and Bite Size textures (IDDSI Level 6) Comment: Medications crushed in applesauce Compensatory Strategies: Small Bites, Small Sips, Slow Rate, Sitting upright, Remain sitting upright for 30 minutes after PO intake Supervision: 1:1 Close Supervision Recommend Repeat Modified Barium Swallow: Yes Need for Skilled Speech Therapy Services: Yes Comment: Will recommend the patient for continued dysphagia therapy to address mild deficits in oropharyngeal swallow function. Will recommend the patient for oropharyngeal strengthening to improve tongue base retraction, laryngeal elevation, hyoid excursion, and pharyngeal contraction (Candice, CTAR, Mynor, effortful). The patient would benefit from thorough education regarding diet recommendations and recommended compensatory strategies. Would strongly consider the patient for implementation of [place] Free Water Protocol (FFWP) to encourage hydration and promote increased opportunities for swallowing throughout the day after the patient participates in training in use of effortful swallows with water trials with WAREHOUSE ASSOCIATE. Recommended Referrals: GI Consult - Esophageal retention and slow emptying of pudding and nectar thick liquid contrast through the lower esophagus. Education Completed: 1. Described result of evaluation., 2. Pt understands evaluation & agrees with goals and treatment plan., 7. Pt requires further education on strategies & risks. - Status Active ST Patient: Active - Contact Information [facility] Speech Therapy:: Raquel Covarrubias M.A. [facility]-[employer] Speech-Language Pathologist [facility] [address] [place] [address] [email or web address] [phone] 08/05/22 10:02
[2022-08-05] MEDS: levoFLOXacin IV 750 MG/150 ML BAG 100 MG IV (10:52)
[2022-08-05] MEDS: Nystatin Powder 15gm Bottle 1 APPLIC TOPICAL ×2 (14:01→19:36)
[2022-08-05 14:34] VITALS: BP 129/65; PULSE 66; RESP 16; TEMP 36.1; O2SAT 91
[2022-08-05] MEDS: Atorvastatin Calcium 40 MG Tablet PO (21:45)
[2022-08-06] MEDS: amLODIPine 2.5 MG Tablet PO (05:36)
[2022-08-06] MEDS: Polyethylene Glycol 3350 17 GM PACKET PO ×2 (05:37→05:38)
[2022-08-06] MEDS: Levothyroxine 50 MCG Tablet PO (05:38)
[2022-08-06] MEDS: Senna/Docusate Sodium 1 Tablet 2 TABLET PO (05:38)
[2022-08-06] MEDS: Nystatin Powder 15gm Bottle 1 APPLIC TOPICAL ×2 (05:38→19:01)
[2022-08-06] MEDS: Acetaminophen 500 MG Tablet 1000 MG PO ×3 (05:38→20:21)
[2022-08-06] MEDS: Aspirin E.C. 81 MG Tablet PO (09:02)
[2022-08-06] MEDS: 0.9% Saline Lock 10 ML Syringe IV (09:05)
[2022-08-06 14:41] VITALS: BP 155/85; PULSE 75; RESP 20; TEMP 36.6; O2SAT 92
[2022-08-06] MEDS: Atorvastatin Calcium 40 MG Tablet PO (20:21)
[2022-08-06 21:00] VITALS: PULSE 77; RESP 18; O2SAT 99
[2022-08-07] MEDS: Levothyroxine 50 MCG Tablet PO (06:02)
[2022-08-07] MEDS: amLODIPine 2.5 MG Tablet PO (06:02)
[2022-08-07] MEDS: Acetaminophen 500 MG Tablet 1000 MG PO ×3 (06:02→19:33)
[2022-08-07] MEDS: Nystatin Powder 15gm Bottle 1 APPLIC TOPICAL ×2 (06:03→16:36)
[2022-08-07] MEDS: levoFLOXacin IV 750 MG/150 ML BAG 100 MG IV (10:01)
[2022-08-07] MEDS: 0.9% Saline Lock 10 ML Syringe IV (10:03)
[2022-08-07] MEDS: Aspirin 81 MG TAB.CHEW PO (12:25)
[2022-08-07] MEDS: traMADol 50 MG Tablet PO (15:45)
[2022-08-07 16:00] VITALS: BP 154/58; PULSE 65; RESP 14; TEMP 36.4; O2SAT 93
[2022-08-07] MEDS: Atorvastatin Calcium 40 MG Tablet PO (19:34)
[2022-08-08] MEDS: Menthol/Lanolin/Calamine/Znox 113 GM Tube 1 APPLIC TOPICAL ×2 (04:44→17:22)
[2022-08-08] MEDS: Nystatin Powder 15gm Bottle 1 APPLIC TOPICAL ×2 (04:45→17:22)
[2022-08-08] MEDS: Acetaminophen 500 MG Tablet 1000 MG PO ×2 (04:45→19:42)
[2022-08-08] MEDS: Levothyroxine 50 MCG Tablet PO (04:46)
[2022-08-08] MEDS: amLODIPine 2.5 MG Tablet PO (04:46)
[2022-08-08] MEDS: Aspirin 81 MG TAB.CHEW PO (08:18)
--- NOTE | 2022-08-08 11:50 | NURSING ---
Funeral Home Attendant Note; Activity Asset: Damon Hardy needs daily activities offered to her. Her sits with her daily. When note resting she will read the daily chronicle, watch tv w/her and visit w/family. Her stated he would like the therapy dog to visit w/her. Staff will spend 1.1 time w/her for extra social interaction when is not here.
[2022-08-08 14:45] VITALS: BP 143/73; PULSE 66; RESP 15; TEMP 36.6; O2SAT 93
[2022-08-08] MEDS: Senna/Docusate Sodium 1 Tablet 2 TABLET PO (17:21)
[2022-08-08] MEDS: 0.9% Saline Lock 10 ML Syringe IV (17:25)
[2022-08-08] MEDS: Atorvastatin Calcium 40 MG Tablet PO (19:41)
[2022-08-08 20:00] VITALS: PULSE 78; RESP 16; O2SAT 93
[2022-08-09] MEDS: Nystatin Powder 15gm Bottle 1 APPLIC TOPICAL ×2 (06:22→17:56)
[2022-08-09] MEDS: Acetaminophen 500 MG Tablet 1000 MG PO ×3 (06:22→21:43)
[2022-08-09] MEDS: Levothyroxine 50 MCG Tablet PO (06:22)
[2022-08-09] MEDS: amLODIPine 2.5 MG Tablet PO (06:23)
[2022-08-09] MEDS: Senna/Docusate Sodium 1 Tablet 2 TABLET PO ×2 (06:23→17:56)
[2022-08-09] MEDS: Menthol/Lanolin/Calamine/Znox 113 GM Tube 1 APPLIC TOPICAL ×2 (06:23→17:56)
[2022-08-09] MEDS: 0.9% Saline Lock 10 ML Syringe IV ×2 (06:30→09:48)
[2022-08-09] MEDS: Aspirin 81 MG TAB.CHEW PO (08:34)
[2022-08-09] MEDS: levoFLOXacin IV 750 MG/150 ML BAG 100 MG IV (09:37)
[2022-08-09 10:00] VITALS: O2SAT 93
[2022-08-09 14:39] VITALS: BP 131/70; PULSE 68; RESP 18; TEMP 36.4; O2SAT 96
--- NOTE | 2022-08-09 17:10 | EX.PCM.CON.G ---
HPI Consult Data Date of Consult: 08/09/22 HPI Narrative Reason for Consultation: GI bleed/ Anemia HPI Narrative: KENNETH CRUZ, is a 82 F who presented to the ED with a fall.? Per patient's who contributed to the history patient has had 4 falls starting a week ago.? On the morning of her presentation patient could hardly ambulate and was not able to take care of the patient hence the decision to bring patient to the ED.? Work-up in the emergency department did demonstrate right shoulder and left knee contusion no fractures.? Patient was also found to be dehydrated admitted to regular nursing floor for further management. 08/03/2022 Admit to TCU with debility, here for rehabilitation, strengthening, prior to discharge home with . Upon further evaluation she was discovered to have an acute CVA. She underwent a swallowing study and was determined to have esophageal dysphagia. I was asked to see the patient for esophageal dysphagia. 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 Chronic kidney disease, stage 3 Compression fracture of T11 vertebra Debility Diabetes mellitus, type 2 HLD (hyperlipidemia) HTN (hypertension) Hypothyroidism Osteoporosis T12 compression fracture T9 vertebral fracture Home Medications acetaminophen 500 mg tablet 1,000 mg PO Q8 Pain 08/03/22 [History Last Taken Unknown] amlodipine 2.5 mg tablet (Norvasc) 2.5 mg PO DAILY Check with primary doctor 08/03/22 [History Last Taken Unknown] levothyroxine 50 mcg tablet (Synthroid) 50 mcg PO DAILY Thyroid 08/03/22 [History Last Taken Unknown] metformin 500 mg tablet 500 mg PO BID Diabetes 08/03/22 [History Last Taken Unknown] nystatin 100,000 unit/gram topical powder (Nyamyc) 1 applic topical BID Check with primary doctor 08/03/22 [History Last Taken Unknown] Allergy/AdvReac Type Severity Reaction Status Date / Time No Known Allergies Allergy Verified 08/01/22 09:57 Family History Father Hypertension Social History (Updated 08/03/22 @ 20:[address] Get Cuevas MD) household members: spouse Smoking Status: Current every day smoker tobacco type: cigarettes alcohol intake: never substance use type: does not use ROS Constitutional Constitutional: Denies chills, fever(s) or weight gain ENT HEENT: Denies headache(s), nasal congestion or nasal discharge Cardiovascular Cardiovascular: Denies chest pain or palpitations Respiratory/Chest Respiratory/Chest: Denies cough, excessive phlegm production or shortness of breath with exertion Gastrointestinal Gastrointestinal: Denies abdominal pain, nausea or vomiting Genitourinary Genitourinary: Denies dysuria Musculoskeletal Musculoskeletal: Denies joint pain or joint swelling Integumentary Integumentary: Denies rash or wounds Neurologic Neurologic: Denies focal weakness, numbness or tingling Psychiatric Psychiatric: Denies anxiety, auditory hallucinations, depression, homicidal ideation or suicidal ideation Physical Exam Const alert General Appearance: cooperative HEENT normocephalic Eyes PERRL and EOMs intact bilaterally Neck supple, no JVD and no carotid bruits Resp normal respiratory effort, normal air movement and clear to auscultation bilaterally Cardio regular rate and regular rhythm GI normal to inspection, nondistended, normoactive bowel sounds, non-tender and non-distended Extremity normal capillary refill General Extremity: Negative for edema Skin no rashes or lesions noted General Skin Exam: no breakdown Psych affect normal Appearance: appropriate Lab / Micro Data Result Diagrams: 08/04/22 05:24 08/04/22 05:24 Assessment & Plan Assessment/Plan (1) Esophageal dysphagia: PLAN: She will undergo evaluation of the esophagus via an EGD. The patient and the patient's family was explained alternatives, risk, benefits including not withstanding bleeding, infection, sepsis, perforation, need for urgent surgery . She will have an ASA of 3. Charges/Coding Visit Charges Inpatient E&M: 60188 SNF Init L2
[2022-08-09] MEDS: Atorvastatin Calcium 40 MG Tablet PO (21:43)
[2022-08-10] MEDS: Senna/Docusate Sodium 1 Tablet 2 TABLET PO (04:54)
[2022-08-10] MEDS: Acetaminophen 500 MG Tablet 1000 MG PO ×3 (04:55→21:30)
[2022-08-10] MEDS: amLODIPine 2.5 MG Tablet PO (04:55)
[2022-08-10] MEDS: Levothyroxine 50 MCG Tablet PO (04:55)
[2022-08-10] MEDS: Polyethylene Glycol 3350 17 GM PACKET PO (04:56)
[2022-08-10] MEDS: 0.9% Saline Lock 10 ML Syringe IV (04:57)
[2022-08-10] MEDS: Menthol/Lanolin/Calamine/Znox 113 GM Tube 1 APPLIC TOPICAL ×2 (05:04→17:20)
[2022-08-10] MEDS: Nystatin Powder 15gm Bottle 1 APPLIC TOPICAL ×2 (05:04→17:20)
[2022-08-10 05:09] VITALS: BP 153/60; PULSE 60; RESP 16
--- NOTE | 2022-08-10 09:19 | NURSING ---
Plaster Machine Tender Note; MDS Complete
--- NOTE | 2022-08-10 11:29 | PCM.PN.DRR ---
TCU RX Drug Regimen Review Subjective: TCU Admission. 82 YOF presented to the ER with a fall. Hospitalized for fall, left knee contusion, left shoulder contusion, complicated by encephalopathy. Admitted to TCU with debility for strengthening and rehabilitation. Objective: Allergies No Known Allergies Allergy (Verified 08/01/22 09:57) Current Medications Generic Name Dose Route Start Last Admin Trade Name Freq PRN Reason Stop Dose Admin Acetaminophen 1,000 mg 08/03/22 22:00 08/10/22 04:55 Acetaminophen 500 Mg Tablet PO 1,000 mg Q8 NIELS Administration Amlodipine Besylate 2.5 mg 08/04/22 06:00 08/10/22 04:55 Amlodipine 2.5 Mg Tablet PO 2.5 mg DAILY NIELS Administration Aspirin 81 mg 08/08/22 08:00 08/09/22 08:34 Aspirin 81 Mg Tab.Chew PO 81 mg BREAKFAST NIELS Administration Atorvastatin Calcium 40 mg 08/05/22 22:00 08/09/22 21:43 Atorvastatin Calcium 40 Mg Tablet PO 40 mg QHS NIELS Administration Calamine/Phenol 1 applic 08/08/22 06:00 08/10/22 05:04 Menthol/Lanolin/Calamine/Znox 113 Gm Tube TOPICAL 1 applic BID NIELS Administration Protocol Levofloxacin 750 mg in 150 mls @ 100 mls/hr 08/07/22 10:00 08/09/22 11:33 Levaquin Iv IV 08/11/22 10:01 Infused Q48H NIELS Infusion Sodium Chloride 250 mls @ 15 mls/hr 08/07/22 10:32 08/09/22 09:47 IV 15 mls/hr .[id number] PRN Administration Saline Flush Sodium Chloride 250 mls @ 15 mls/hr 08/07/22 10:32 IV .[id number] PRN Additional IVPB Infusion Levothyroxine Sodium 50 mcg 08/04/22 06:00 08/10/22 04:55 Levothyroxine 50 Mcg Tablet PO 50 mcg DAILY NIELS Administration Magnesium Hydroxide 30 ml 08/03/22 20:44 Magnesium Hydroxide 30 Ml Udc PO X1 PRN Constipation Menthol 1 applic 08/07/22 17:32 Menthol 226.8 Gm Jar TOPICAL BID PRN PRN Pain/Inflammation Nicotine 14 mg 08/05/22 08:00 08/09/22 08:34 Nicotine 14 Mg Patch TD 14 mg DAILY@0800 NIELS Administration Nystatin 1 applic 08/04/22 06:00 08/10/22 05:04 Nystatin Powder 15gm Bottle TOPICAL 1 applic BID NIELS Administration Protocol Polyethylene Glycol 17 gm 08/04/22 06:00 08/10/22 04:56 Polyethylene Glycol 3350 17 Gm Packet PO 17 gm DAILY NIELS Administration Senna/Docusate Sodium 2 tablet 08/04/22 06:00 08/10/22 04:54 Senna/Docusate Sodium 1 Tablet PO 2 tablet BID NIELS Administration Sodium Chloride 10 - 40 ml 08/03/22 23:13 08/10/22 04:57 0.9% Saline Lock 10 Ml Syringe IV 10 ml UD PRN Administration SALINE FLUSH Tramadol HCl 50 mg 08/03/22 20:44 08/07/22 15:45 Tramadol 50 Mg Tablet PO 50 mg Q6H PRN PRN Administration Pain Score 6-10 Tuberculin PPD 0.1 ml 08/11/22 10:00 Tuberculin,Purif.Prot.Deriv. 50 Tu/Ml Vial ID 08/11/22 10:01 X1 ONE Problem List (Last Reviewed 08/10/22 @ 11:12 by Sheryl Back) Esophageal dysphagia (Acute) Nicotine dependence, cigarettes, uncomplicated (Acute) Insomnia (Acute) Diabetes mellitus (Acute) Hypothyroidism (Acute) Hypertension (Chronic) Hyperlipidemia (Acute) Dehydration (Acute) Encephalopathy (Acute) Falls (Acute) Debility (Acute) Vital Signs Temp Pulse Resp BP Pulse Ox O2 Del Method 97.5 F L 60 16 153/60 H 96 Room Air 08/09/22 14:39 08/10/22 05:09 08/10/22 05:09 08/10/22 05:09 08/09/22 14:39 08/09/22 14:39 Oxygen Delivery Method Room Air Weight: 67.222 kg Body Mass Index (BMI) 25.2 Sodium 139 mmol/L (136-145) 08/04/22 05:24 Potassium 3.7 mmol/L (3.5-5.1) 08/04/22 05:24 Chloride 108 mmol/L (98-107) H 08/04/22 05:24 Carbon Dioxide 25.0 mmol/L (21.0-32.0) 08/04/22 05:24 Anion Gap 6 (5-15) 08/04/22 05:24 BUN 19 mg/dL (7-18) H 08/04/22 05:24 Creatinine 1.27 mg/dL (0.55-1.02) H 08/04/22 05:24 Est GFR (MDRD) Af Amer 52 mL/min (>60) L 08/04/22 05:24 Est GFR (MDRD) Non-Af 43 mL/min (>60) L 08/04/22 05:24 BUN/Creatinine Ratio 15.0 RATIO (10-20) 08/04/22 05:24 Glucose 197 mg/dL (74-106) H 08/04/22 05:24 Assessment/Plan: 1. Pain: acetaminophen 1000mg PO Q8 and tramadol 50mg PO Q6H PRN pain 6-10. Resident has had 1 dose of tramadol for a pain score of 6 in the shoulder. Please continue to monitor for increased pain, PRN usage, constipation, respiratory depression and renal function. 2. Bowel: Miralax 17gm PO daily, senna/docusate 2T PO BID and MOM 30mL PO x1 PRN constipation. Please continue to monitor for constipation and PRN usage. Resident has not had any doses of MOM. Last documented bowel movement was 08/10/22. 3. Hypertension: amlodipine 2.5mg PO daily. Please continue to monitor BP (last 153/60) and swelling. 4. Hypothyroidism: levothyroxine 50mcg PO daily. Please continue to monitor for S/S of hypothyroidism and TSH (last 08/02/22). 5. CVA (per nursing note): aspirin 81mg PO breakfast and atorvastatin 40mg PO QHS. Please continue to monitor for S/S of bleeding, hemoglobin (last 6.7g/dL) and muscle pain. Please consider ordering a lipid panel as this resident does not have any prior panels in the chart. Thanks. 6. Pneumonia (per nursing note and chest X-ray): levofloxacin 750mg IV Q48 thru 08/11/22. Please continue to monitor for S/S of infection, tendon pain (tendonitis/tendon rupture is a black box warning for this medication), diarrhea and renal function. 7. Nicotine dependence: nicotine patch 14mg TD daily. Please continue to monitor for nicotine cravings, rash, BP, and nightmares. Assessment/Plan for indications treated with psychotropic medications: None Medical chart and medication regimen reviewed. The following medication irregularities or issues were identified: *1. Atorvastatin 40mg PO QHS. Please consider ordering a lipid panel as this resident does not have any prior lipid panels in the chart. Thanks. Date of Note:: 08/10/22
--- NOTE | 2022-08-10 13:27 | CASEMGMT ---
Social Work IDT met with for care plan meeting. Pt is in scope and agreeable to proceed with meeting without patient. Patient is A&O x1-2. Discussed patient's progress in PT/OT/ST/SN. [facility] and continued stay is not guaranteed with each review. IDT expressed concern with pt returning home. Pt is currently a jud lift. Revisited alternate DC plan with . IDT recommending SNF for physical, cognitive, and modified diet. stated his neighbors can assist with writing checks, as does not write checks or cook. he went grocery shopping today for the first time in many years. is aware that progress is going to be slow. Therapy educated to stroke recovery could take up to a year. Encouraged to participate in therapy sessions. Discussed the plan for DC. remaining adamant about pt returning home at [facility] and not going to a SNF. continued to state he will pay privately for pt to remain in TCU. SW reiterated $660/day and requiring 21 days up front. confirmed he can provide that payment and will wait for this worker to notify when check needs to be provided. was unclear about coverage for [employer] and benefit period. Clarified coverage and process once insurance issues LCD, would begin private pay. repeated back information and confirmed private pay. SW to continue to follow. DAVID MccartyW
[2022-08-10] MEDS: Aspirin 81 MG TAB.CHEW PO (14:17)
--- NOTE | 2022-08-10 14:20 | NURSING ---
Pt return from EGD at this time. Tolerated well. reports esophagus was stretched during procedure and that this was probable cause of difficulty swallowing. Awaiting report.
[2022-08-10 16:00] VITALS: BP 124/104; PULSE 63; RESP 16; TEMP 36.2; O2SAT 96
--- NOTE | 2022-08-10 16:25 | CASEMGMT ---
Social Work Pt off unit for scope. Upon return, pt asleep and unable to be aroused. Unable to complete MDS on this date. Will attempt tomorrow. Haley Leon ,[employer]PER[employer] WAREHOUSE MANAGER
[2022-08-10] MEDS: Atorvastatin Calcium 40 MG Tablet PO (21:30)
[2022-08-10 21:35] VITALS: PULSE 72; RESP 16; O2SAT 90
[2022-08-11] MEDS: Levothyroxine 50 MCG Tablet PO (05:25)
[2022-08-11] MEDS: amLODIPine 2.5 MG Tablet PO (05:25)
[2022-08-11] MEDS: Acetaminophen 500 MG Tablet 1000 MG PO ×3 (05:25→21:32)
[2022-08-11] MEDS: Nystatin Powder 15gm Bottle 1 APPLIC TOPICAL ×2 (05:26→17:32)
[2022-08-11] MEDS: Menthol/Lanolin/Calamine/Znox 113 GM Tube 1 APPLIC TOPICAL ×2 (05:26→17:32)
[2022-08-11 05:53] LABS: Absolute Lymphocyte Count 2.09 X10^3/uL (0.83-4.51); Absolute Neutrophil Count 4.8 X10^3/uL (2.0-7.7); Basophil# 0.06 X10^3/uL; Basophil% 0.8 % (0-1); Eosinophil# 0.17 X10^3/uL; Eosinophils% 2.2 % (0-5); Hematocrit 41.7 % (37-47); Hemoglobin 13.4 g/dL (12.0-15.0); Lymphocyte # 2.09 X10^3/ul (0.83-4.51); Lymphocyte % 26.7 % (19-41); Mean Corp Hgb Conc 32.1 g/dL (32-36); Mean Corpuscular Hgb 31.5 pg (27.0-32.0); Mean Corpuscular Volume 97.9 fL (81-99); Mean Platelet Vol. 11.4 fl (6.2-12.0); Monocyte# 0.58 X10^3/uL; Monocyte% 7.4 % (0-10); NRBC Flagged by Analyzer 0 % (0-5); Neutrophil # 4.81 X10^3/uL (2.7-7.7); Neutrophil % 61.5 % (47-70); Platelet Count 288 K/mm3 (150-450); RBC Distribution Width CV 12.6 % (11.6-14.6); RBC Distribution Width SD 45.1 fl (35.1-43.9); Red Blood Count 4.26 M/mm3 (4.2-5.4); White Blood Count 7.8 K/mm3 (4.4-11.0)
[2022-08-11 06:27] LABS: Anion Gap 8 (5-15); BUN 25 mg/dL (7-18); BUN/Creat Ratio 17.1 RATIO (10-20); Calcium,Total 8.7 mg/dL (8.5-10.1); Chloride 103 mmol/L (98-107); Creatinine, Serum 1.46 mg/dL (0.55-1.02); EST Glomerular Filtration Rate 36 mL/min (>60); Est Glom Filt Rate - Afr Amer 44 mL/min (>60); Estimated Creatinine Clearance 25.81 ml/min; Glucose 188 mg/dL (74-106); Potassium 4.6 mmol/L (3.5-5.1); Sodium Level 138 mmol/L (136-145)
[2022-08-11] MEDS: Aspirin 81 MG TAB.CHEW PO (08:22)
--- NOTE | 2022-08-11 11:08 | CASEMGMT ---
Social Work BIMS (06/21) and PHQ-9 (12/01) completed for MDS assessment. at bedside. SW inquired about wanting to transfer pt to [facility] Inpatient Rehab Unit. PT County Treasurer suggested the transfer to allow for optimal recovery from stroke with plans to return home receiving the intensive daily therapy. Educated on [facility] and still needing insurance auth to transfer, if not approved, pt would remain in TCU. agreeable to place referral. Referral phoned to admissions. reviewed and approved. Admissions to begin precert. Will await outcome. Plan: DC to [facility], pending precert Haley Leon ,DAVID RYANW
[2022-08-11] MEDS: levoFLOXacin IV 750 MG/150 ML BAG 100 MG IV (11:28)
[2022-08-11] MEDS: Tuberculin,Purif.prot.deriv. 50 TU/ML Vial 0.1 ML ID (11:28)
[2022-08-11] MEDS: 0.9% Saline Lock 10 ML Syringe IV (11:29)
[2022-08-11 16:00] VITALS: BP 135/75; PULSE 70; RESP 18; TEMP 36.6; O2SAT 92
[2022-08-11] MEDS: traMADol 50 MG Tablet PO (16:50)
[2022-08-11] MEDS: Senna/Docusate Sodium 1 Tablet 2 TABLET PO (17:29)
--- NOTE | 2022-08-11 19:04 | NURSING ---
Pt and family updated on positive Covid resident
[2022-08-11] MEDS: Atorvastatin Calcium 40 MG Tablet PO (21:32)
[2022-08-12] MEDS: Nystatin Powder 15gm Bottle 1 APPLIC TOPICAL ×2 (04:53→16:44)
[2022-08-12] MEDS: Menthol/Lanolin/Calamine/Znox 113 GM Tube 1 APPLIC TOPICAL ×2 (04:53→16:45)
[2022-08-12] MEDS: 0.9% Saline Lock 10 ML Syringe IV (04:53)
[2022-08-12] MEDS: Acetaminophen 500 MG Tablet 1000 MG PO ×3 (04:55→20:12)
[2022-08-12] MEDS: Senna/Docusate Sodium 1 Tablet 2 TABLET PO ×2 (04:55→16:44)
[2022-08-12] MEDS: Polyethylene Glycol 3350 17 GM PACKET PO (04:55)
[2022-08-12] MEDS: Levothyroxine 50 MCG Tablet PO (04:56)
[2022-08-12] MEDS: amLODIPine 2.5 MG Tablet PO (04:56)
[2022-08-12] MEDS: Aspirin 81 MG TAB.CHEW PO (08:11)
[2022-08-12 14:10] VITALS: BP 152/60; PULSE 69; RESP 18; TEMP 36.4; O2SAT 94
[2022-08-12] MEDS: Atorvastatin Calcium 40 MG Tablet PO (20:12)
[2022-08-12 20:18] VITALS: PULSE 68; RESP 14; O2SAT 97
[2022-08-13] MEDS: Polyethylene Glycol 3350 17 GM PACKET PO (05:49)
[2022-08-13] MEDS: Menthol/Lanolin/Calamine/Znox 113 GM Tube 1 APPLIC TOPICAL (05:49)
[2022-08-13] MEDS: Nystatin Powder 15gm Bottle 1 APPLIC TOPICAL (05:49)
[2022-08-13] MEDS: Acetaminophen 500 MG Tablet 1000 MG PO (05:50)
[2022-08-13] MEDS: amLODIPine 2.5 MG Tablet PO (05:50)
[2022-08-13] MEDS: Senna/Docusate Sodium 1 Tablet 2 TABLET PO (05:50)
[2022-08-13] MEDS: Levothyroxine 50 MCG Tablet PO (05:50)
[2022-08-13] MEDS: Aspirin 81 MG TAB.CHEW PO (07:57)
[2022-08-13 08:26] VITALS: PULSE 68; RESP 16; O2SAT 94
--- NOTE | 2022-08-13 14:00 | NURSING ---
Report called to Gaby BOURNE on rehab unit.
--- NOTE | 2022-08-13 14:56 | DS.PCM_ITS ---
Providers Date of Admission: 08/03/22 Primary Care Physician: Dr. Lázaro Shahid MD Consultations 08/07/22 08:33 Consult: Gastroenterology Routine Consulting Provider: [facility] Reason for Consult: Poor emptying lower esophagus. EMERGENT Consult: No MD Notified: Yes Date Notified: 08/07/22 Time Notified: 08:33 Method of Notification: Answering Service Reason For Visit: ACUTE TIEN INSUFFICIENCY Diagnosis Discharge Diagnosis (1) Esophageal dysphagia: Status: Acute Code(s): R13.19 - Other dysphagia Plan 82 year old female with below past medical history hospitalized for fall, left knee contusion, left shoulder contusion, complicated by encephalopathy, admitted to TCU with debility, here for rehabilitation, strengthening, prior to discharge home with . * Debility - PT/OT. * Pain - Tylenol 1000mg q8, Tramadol 50mg q6h prn pain (6-10). * Bowel - Miralax 17gm daily, senna/colace 2 tablets bid, MOM 30ml x 1 prn. * Adult immunization - Administer pneumonia vaccine, covid19 vaccine, flu vaccine as appropriate. * DVT prophylaxis - Hold, monitor. * Hypertension - Amlodipine 2.5mg daily. * Hypothyroidism - Levothyroxine 50mcg daily. * Tinea Corporis - Nystatin powder topical bid. Medications at Discharge Home Medications acetaminophen 500 mg tablet 1,000 mg PO Q8 Pain 08/03/22 amlodipine 2.5 mg tablet (Norvasc) 2.5 mg PO DAILY Check with primary doctor 08/03/22 levothyroxine 50 mcg tablet (Synthroid) 50 mcg PO DAILY Thyroid 08/03/22 nystatin 100,000 unit/gram topical powder (Nyamyc) 1 applic topical BID Check with primary doctor 08/03/22 aspirin 81 mg chewable tablet 81 mg PO BREAKFAST #0 tabs 08/13/22 atorvastatin 40 mg tablet 40 mg PO QHS #0 tabs 08/13/22 menthol 0.44 %-zinc oxide 20.6 % topical ointment (Calmoseptine) 1 applic topical BID #0 grams 08/13/22 menthol 2 % topical gel (Blue Gel) 1 applic topical BID PRN PRN Pain/Inflammation #0 grams 08/13/22 nicotine 14 mg/24 hr daily transdermal patch 14 mg transdermal DAILY@0800 #0 ea 08/13/22 polyethylene glycol 3350 17 gram oral powder packet 17 g PO DAILY #0 ea 08/13/22 sennosides 8.6 mg-docusate sodium 50 mg tablet (Stool Softener-Stimulant Laxative) 2 tab PO BID #0 tabs 08/13/22 tramadol 50 mg tablet 50 mg PO Q6H PRN PRN Pain Score 6-10 #0 tabs 08/13/22 Hospital Course Operations None Procedures EGD Summary of Care Provided Minutes Spent on Discharge: 35 Hospital Course: 82 year old female with below past medical history hospitalized for fall, left knee contusion, left shoulder contusion, complicated by encephalopathy, admitted to TCU with debility, here for rehabilitation, strengthening, prior to discharge home with . 08/04/2022 MRI brain showed left sided stroke. 08/04/2022 Echo Left ventricular systolic function normal, EF 65%, bubble study negative shunt. 08/05/2022 CTA head/neck left mid A2 segment stenosis. ST noted esophageal dysphagia. 08/10/2022 Dr. Ramos EGD severe schatzki ring dilated, medium-sized hiatal hernia, oozing gastric ulcers treated with heater probe. Discharge to 08/13/2022 for 3 hours daily rehabilitation, strengthening, prior to disposition determination. Weight / BMI Weight Weight: 67.222 kg Body Mass Index (BMI) 25.2 ABG / Lab / Microbiology Data Result Diagrams: 08/11/22 05:23 08/11/22 05:23 Microbiology: Microbiology 08/07/22 06:10 Nasal Secretion SARS-CoV-2 Antigen (Rapid) - Final 08/05/22 13:20 Nasal Secretion SARS-CoV-2 Antigen (Rapid) - Final D/C Instructions Discharge Diet: No restrictions Discharge Activity: Return to Normal Activity, May Shower and Use Walker Weight Bearing Status: Weight bearing as tolerated Call your doctor if you observe: Fever of 101 or Higher, Inability to urinate, Inability to have a bowel movement, Shortness of breath, Dizziness, Fainting spells, Swelling in the ankles, Chest pain and Uncontrolled pain Additional Instructions: Discharge to 08/13/2022 for 3 hours daily rehabilitation, strengthening, prior to disposition determination. Meaningful Use Info Meaningful Use Diagnoses (Choose all that apply): Ischemic CVA CVA Therapy Assessed for PT,OT and/or ST?: Yes Ischemic Stroke Antithrombotic order at d/c?: Yes Dx of Atrial fib/flutter?: No Statins at discharge?: Yes Primary Dx Acute Ischemic CVA?: Yes IV tPA ordered during stay?: No Reason IV t-PA not ordered: Treatment not Indicated Discharge Plan Admission Admit Date/Time: 08/03/22 18:30 Primary Reason for Your Visit: Debility. Attending Provider: Get Cuevas Chi Primary Care Provider: Lázaro Shahid Instructions Additional Instructions / Restrictions: Discharge to 08/13/2022 for 3 hours daily rehabilitation, strengthening, prior to disposition determination. Discharge Orders/Prescriptions Prescriptions: New atorvastatin 40 mg Tablet 40 mg PO QHS Qty: 0 0RF nicotine 14 mg/24 hr Patch 24 Hour 14 mg transdermal DAILY@0800 Qty: 0 0RF polyethylene glycol 3350 17 gram Powder In Packet 17 g PO DAILY Qty: 0 0RF sennosides-docusate sodium [Stool Softener-Stimulant Laxat] 8.6-50 mg Tablet 2 tab PO BID Qty: 0 0RF tramadol 50 mg Tablet 50 mg PO Q6H PRN PRN (Reason: Pain Score 6-10) Qty: 0 0RF aspirin 81 mg Tablet,Chewable 81 mg PO BREAKFAST Qty: 0 0RF menthol [Blue Gel] 2 % Gel 1 applic topical BID PRN PRN (Reason: Pain/Inflammation) Qty: 0 0RF menthol-zinc oxide [Calmoseptine] 0.44-20.6 % Ointment 1 applic topical BID Qty: 0 0RF Protocol: *Topical Application Instructions APPLICATION INSTRUCTIONS: Bilateral buttocks Continued amlodipine [Norvasc] 2.5 mg tablet 2.5 mg PO DAILY acetaminophen 500 mg tablet 1,000 mg PO Q8 levothyroxine [Synthroid] 50 mcg tablet 50 mcg PO DAILY nystatin [Nyamyc] 100,000 unit/gram powder 1 applic topical BID Protocol: *Topical Application Instructions APPLICATION INSTRUCTIONS: abdominal/groin folds Rx Instructions: apply to affected areas Discontinued metformin 500 mg tablet 500 mg PO BID Referrals / Follow Up: Lázaro Shahid MD [Primary Care Provider] - Disposition Disposition (needs filled in before D/C Order can be placed): Inpatient Rehab Unit/Facility
--- NOTE | 2022-08-16 10:55 | MDS.RN ---
Information for the mds was obtained from review of the clinical record, interview of resident, staff, and direct observation of resident's care.
== END 2022-08-13 14:50 | DRG 72 ==
PROVIDERS: Admitting Provider Family Medicine Geriatric Medicine; PCP Family Medicine; Visit Provider Family Medicine Geriatric Medicine
DX: G93.40 Encephalopathy, unspecified (principal); K22.2 Esophageal obstruction; E11.22 Type 2 diabetes mellitus with diabetic chronic kidney disease; E03.9 Hypothyroidism, unspecified; E78.5 Hyperlipidemia, unspecified; B35.4 Tinea corporis; N18.30 Chronic kidney disease, stage 3 unspecified; I12.9 Hypertensive chronic kidney disease with stage 1 through stage 4 chronic kidney disease, or unspecified chronic kidney disease; F17.210 Nicotine dependence, cigarettes, uncomplicated; W19.XXXD Unspecified fall, subsequent encounter; M25.551 Pain in right hip; M25.531 Pain in right wrist; K44.9 Diaphragmatic hernia without obstruction or gangrene; M54.50 Low back pain, unspecified; Z79.84 Long term (current) use of oral hypoglycemic drugs; Z79.899 Other long term (current) drug therapy; Z79.890 Hormone replacement therapy; S40.012D Contusion of left shoulder, subsequent encounter; S80.02XD Contusion of left knee, subsequent encounter; R29.6 Repeated falls; K25.9 Gastric ulcer, unspecified as acute or chronic, without hemorrhage or perforation
CPT/HCPCS: 36415; 71046; 74230; 80048; 85025; 87426; 87811; 92507; 92523; 92526; 92611; 93306; 97110; 97116; 97129; 97130; 97162; 97166; 97530; 97535; J7050; A4216; J7799

== ENCOUNTER → 2022-08-04 | Outpatient (CLI) | payer MEDICARE, OTHER, SELFPAY ==
--- NOTE | 2022-08-04 14:26 | MRI_ITS ---
We are attempting to reach an attending provider to discuss findings. An addendum with communication details will be sent when the communication is complete. STUDY: MRI BRAIN WITHOUT CONTRAST REASON FOR EXAM: Female, 82 years old. CVA TECHNIQUE: Standardized multiplanar fat and water weighted pulse sequences were obtained. COMPARISON: CT of the brain August 03, 2022. HEMISPHERES, CEREBELLUM AND BRAINSTEM: 1. . There is a normal gyral pattern. There is normal pino/white differentiation. No midline shift.. 2. Moderate to severe periventricular white matter ischemic changes without mass effect or restricted diffusion.. There is increased signal intensity within the left basal ganglia and deep white matter tracts the left frontal parietal region demonstrating restricted diffusion consistent with acute ischemic changes 3. No intraparenchymal mass, or hemorrhage. 4. The cerebellum, brainstem, basilar and suprasellar cisterns have normal appearance. No Chiari malformation. Chronic ischemic changes within the pontine body. Increased signal intensity within the left mastoid air cells consistent with inflammatory disease of uncertain chronicity. PITUITARY: Infundibulum and pituitary have normal configuration. Midline structures appear normal. CSF SPACES: Moderate atrophy. Basal cisterns are patent. VESSELS: 1. There are normal flow voids noted in the great vessels at the skull base ORBITS AND PARANASAL SINUSES: 1. Both globes, extraocular muscles, optic nerves and retrobulbar fat appear unremarkable. 2. Paranasal sinuses are clear. BONY ELEMENTS: Bony elements of the cranial vault, facial skeleton and skull base have normal appearance. SCALP AND SOFT TISSUES: Normal appearance of the soft tissues of the scalp and the visualized face OTHER: None MRI/Brain without Contrast IMPRESSION: 1. Moderate atrophy and periventricular white matter ischemic changes.. 2. The acute ischemic changes in the left basal ganglia with extension into the deep white matter tracts in the left frontal parietal region. Electronically Signed: Jaiden Boss MD at 17:34 EST ,
== END | disposition home or self-care (01) ==
LOC: MRI 12:15
PROVIDERS: PCP Family Medicine; Referring Provider Family Medicine Geriatric Medicine; Visit Provider Family Medicine Geriatric Medicine
DX: I63.9 Cerebral infarction, unspecified (principal)
CPT/HCPCS: 70551

== ENCOUNTER → 2022-08-05 | Outpatient (CLI) | payer MEDICARE, OTHER, SELFPAY ==
--- NOTE | 2022-08-05 10:25 | CT_ITS ---
STUDY: CTA HEAD AND NECK WITH CONTRAST and without contrast REASON FOR EXAM: Female, 82 years old. CVA RADIATION DOSAGE (If Supplied By Facility): CTDIvol = ( 29.72 ) mGy, DLP = ( 1506.03 ) mGycm TECHNIQUE: CT angiography was performed with a multi-detector CT scanner. Data acquisition was obtained from the skull base through the vertex following intravenous administration of IV 100mL Isovue-370. MIP images were reconstructed from the axial data set. Post-processing of the angiographic images was performed, with multiplanar reformation and 3D reconstruction. Individualized dose optimization techniques were used for this CT. COMPARISON: CT head August 03, 2022 FINDINGS: Normal bilateral petrous carotid arteries. There is calcified plaque formation of the right cavernous carotid artery, without a cross-sectional luminal stenosis. There is calcified plaque formation of the left cavernous carotid artery, with a mild stenosis (less than 50%). Normal right A1 segments of the anterior cerebral artery. Normal left A1 segments of the anterior cerebral artery. Normal intact anterior communicating artery (ACOM). There is a patent appearing right-sided A2 segment. There is a segment of at least moderate stenosis within the mid left A2 segment measuring up to 2.5 mm. This is best seen on image #84 series 605 and image 129 series 4 where the vessel appears to leak out of the picture. The vessel is patent distally. Normal right M1 and M2 segments of the middle cerebral arteries, with a normal M1 bifurcation. Normal left M1 and M2 segments of the middle cerebral arteries, with a normal M1 bifurcation. There is a mildly diminutive appearance of the left side M 3 segments. On the right side there is a suggestion of stenotic origin right side P-comm/ posterior cerebral artery. There is a poorly demonstrated right P1 and poorly demonstrated right-sided posterior communicating artery. There are There is a visualized partial reconstitution of the P2 segments with skip areas of minimal reconstitution in the P3P4 segments. There is a hypoplastic appearing left sided posterior communicating artery. There is a narrowed however patent appearance of the left side P1 segment there is a stenotic appearance of the left side P2 segment over approximately 3 mm with visualized reconstitution to the P3-P4 segments. Normal bilateral vertebral arteries. Normal basilar artery with a normal basilar bifurcation. The visualized bilateral superior cerebellar (SCA) arteries are normal. There is no demonstrated aneurysm of the [place]. The noncontrasted portion of this study demonstrates atrophy chronic involutional change. There are areas of low attenuation within the left greater than right basal ganglia that appear recent or potentially which may be acute and/or subacute. There is no visualized hemorrhage. AORTIC ARCH: There is partial calcification of the aortic arch. Normal origins of the brachiocephalic, left common carotid, and left subclavian arteries. RIGHT CAROTID ARTERIES: Normal right common carotid artery (CCA). There is trace calcification of the right carotid bulb. Normal origin of the right internal carotid (ICA) artery without a hemodynamically significant stenosis. Normal visualized cervical portion of the right internal carotid artery. Normal origin of the right external carotid artery (ECA). LEFT CAROTID ARTERIES: There is atherosclerotic tortuous elongation of the left common carotid artery. There is trace plaque formation of the left carotid bulb. Normal origin of the left internal carotid (ICA) artery without a hemodynamically significant stenosis. Normal visualized cervical portion of the left internal carotid artery. Normal origin of the left external carotid artery (ECA). VERTEBRAL ARTERIES: There is calcification at the cover the vertebral artery on the right without significant stenosis. There is tortuosity and patency of the right-sided vertebral artery to the level of the basilar artery. There is a patent appearance of the left side vertebral artery throughout with tortuosity visualized. CT/CTA Head AND Neck W/ Contrast IMPRESSION: Nascet criteria: No significant stenosis of the internal carotid arteries. Focal moderately stenotic lesion within the mid left A2 segment. It is distal reconstitution. Bilateral right greater than left moderate stenosis of the proximal posterior cerebral arteries as detailed above with areas of focal skip areas of moderate stenosis is visualized reconstitution distally. Patent bilateral M1 segments with a mildly diminutive appearance of the left greater than right M3 segments. Left greater than right basal ganglia periventricular white matter lacunar infarcts. Electronically Signed: Romelia Clemente MD at 11:58 EST Reading Location ID and State: [facility] [place] / MD Tel , Service support ,
== END | disposition home or self-care (01) ==
PROVIDERS: PCP Family Medicine; Referring Provider Family Medicine Geriatric Medicine; Visit Provider Family Medicine Geriatric Medicine
DX: I65.23 Occlusion and stenosis of bilateral carotid arteries (principal); I69.351 Hemiplegia and hemiparesis following cerebral infarction affecting right dominant side; I77.1 Stricture of artery; I67.2 Cerebral atherosclerosis
CPT/HCPCS: 70496; 70498; Q9967

== ENCOUNTER 2022-08-10 11:00 | Day surgery (SDC) | payer MEDICARE, OTHER, SELFPAY ==
[2022-08-10] VITALS (8 sets, daily range): BP systolic 134–158; BP diastolic 55–88; PULSE 67–70; RESP 16–18; TEMP 36.4–36.7; O2SAT 92–96
--- NOTE | 2022-08-10 | IMM_PTH ---
PATIENT: KENNETH CRUZ I LOC: EN U#:[id number] AGE/SX: 82/F ROOM: RE08/10/[address]: Dr. Kali Ramos DO : 1940 BED: DIS: 08/10/2022 SPEC #: [id number] RECD: 08/12/22 13:49 STATUS: PRISCILLA REQ #: [id number] SOHA: 08/10/22 00:[address]: Kali Ramos DEPT: IMMUNOHISTOCHEMISTRY RECD BY: Alie Floyd ENTERED: 08/12/22 13:49 SP TYPE: IMMUNO OTHR DR: Dr. Lázaro Shahid MD Tissues: Esophagus, NOS Procedures: P53 (initial) KI-67 (add) PHYSICIAN & INSTITUTION [place] [address] SPECIMEN INFORMATION: Tissue Source: Distal esophagus biopsy Clinical Info: Esophageal dysphagia Specimen Number: [id number] CPT code: 65311, 23246 METHODOLOGY: Deparaffinized sections of prefer/formalin-fixed tissue or PAP/DQ stained slides are incubated with monoclonal/polyclonal antibodies/oligonucleotide probes. Localization is made via biotin free immunoperoxidase method. Appropriate controls are performed and reacted as expected. Results on target cell population are indicated in the following table: RESULTS: ANTIBODY / CLONE RESULT P53 (DO-7) negative Ki-67 (30-9) negative, low These tests were developed and their performance characteristics determined by [facility]. They may not have been cleared or approved by the U.S. Food and Drug Administration. The FDA has determined that such clearance or approval is not necessary. The above immunohistochemical/dualISH markers are ordered and reviewed by the Pathologist. INTERPRETATION: Distal esophagus, biopsy: Negative for dysplasia. VOLODYMYR:kalin 08/15/2022
--- NOTE | 2022-08-10 11:45 | EGD_PTH ---
PATIENT: KENNETH CRUZ I LOC: EN U#:[id number] AGE/SX: 82/F ROOM: RE08/10/[address]: Dr. Kali Ramos DO : 1940 BED: DIS: 08/10/2022 SPEC #: [id number] RECD: 08/10/22 15:01 STATUS: PRISCILLA CADE #: [id number] SOHA: 08/10/22 11:[address]: Kali Ramos DEPT: SURGICAL PATHOLOGY RECD BY: Hemalatha Leahy ENTERED: 08/11/22 12:17 SP TYPE: EGD BIOPSY CATHY DR: Dr. 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 Chronic inflammation. See comment. VOLODYMYR:kalin 08/12/2022 COMMENT Immunohistochemistry ([id number]) for P53 and Ki-67 will be performed and results will be reported separately. Alcian blue/PAS stain with matched control is used in the evaluation of the specimen. MICROSCOPIC DESCRIPTION Slides are reviewed. GROSS DESCRIPTION Received in fixative is one container labeled with the patient's name and designated distal esophagus biopsy. The specimen consists of multiple irregular fragments of light glasgow soft tissue that in aggregate measure 1.5 x 0.5 x 0.1 cm. The specimen is totally submitted in one cassette. / AM:kalin 08/11/2022 TC:5 CPT: 02556, 00665
--- NOTE | 2022-08-10 12:00 | PCM.HP.BLA ---
History and Physical Date of Admission: 08/10/22 KENNETH CRUZ, is a 82 F who? presented to the ED? with a fall.? Per patient's who contributed to the history patient has had 4 falls starting a week ago.? On the morning of her presentation patient could hardly ambulate and was not able to take care of the patient hence the decision to bring patient to the ED.? ?Work-up in the emergency department did demonstrate right shoulder and left knee contusion no fractures.? Patient was also found to be dehydrated admitted to regular nursing floor for further management. 08/03/2022 Admit to TCU with debility, here for rehabilitation, strengthening, prior to discharge home with .? Upon further evaluation she was discovered to have an acute CVA.? She underwent a swallowing study and was determined to have esophageal dysphagia.? I was asked to see the patient for esophageal dysphagia. PFSH Medical History? 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 Chronic kidney disease, stage 3 Compression fracture of T11 vertebra Debility Diabetes mellitus, type 2 HLD (hyperlipidemia) HTN (hypertension) Hypothyroidism Osteoporosis T12 compression fracture T9 vertebral fracture Home Medications acetaminophen 500 mg tablet 1,000 mg PO Q8 Pain 08/03/22 [History Last Taken Unknown] amlodipine 2.5 mg tablet (Norvasc) 2.5 mg PO DAILY Check with primary doctor 08/03/22 [History Last Taken Unknown] levothyroxine 50 mcg tablet (Synthroid) 50 mcg PO DAILY Thyroid 08/03/22 [History Last Taken Unknown] metformin 500 mg tablet 500 mg PO BID Diabetes 08/03/22 [History Last Taken Unknown] nystatin 100,000 unit/gram topical powder (Nyamyc) 1 applic topical BID Check with primary doctor 08/03/22 [History Last Taken Unknown] Allergy/AdvReac Type Severity Reaction Status Date / Time No Known Allergies Allergy ? ? Verified 08/01/22 09:57 Family History? Father?? Hypertension Social History?(Updated 08/03/22 @ 20:[address] Get Cuevas MD) household members:? spouse Smoking Status:? Current every day smoker tobacco type: cigarettes alcohol intake:? never substance use type:? does not use ROS Constitutional Constitutional: Denies chills, fever(s) or weight gain ENT HEENT: Denies headache(s), nasal congestion or nasal discharge Cardiovascular Cardiovascular: Denies chest pain or palpitations Respiratory/Chest Respiratory/Chest: Denies cough, excessive phlegm production or shortness of breath with exertion Gastrointestinal Gastrointestinal: Denies abdominal pain, nausea or vomiting Genitourinary Genitourinary: Denies dysuria Musculoskeletal Musculoskeletal: Denies joint pain or joint swelling Integumentary Integumentary: Denies rash or wounds Neurologic Neurologic: Denies focal weakness, numbness or tingling Psychiatric Psychiatric: Denies anxiety, auditory hallucinations, depression, homicidal ideation or suicidal ideation Physical Exam Const alert General Appearance: cooperative HEENT normocephalic Eyes PERRL and EOMs intact bilaterally Neck supple, no JVD and no carotid bruits Resp normal respiratory effort, normal air movement and clear to auscultation bilaterally Cardio regular rate and regular rhythm GI normal to inspection, nondistended, normoactive bowel sounds, non-tender and non-distended Extremity normal capillary refill General Extremity: Negative for edema Skin no rashes or lesions noted General Skin Exam: no breakdown Psych affect normal Appearance: appropriate Lab / Micro Data Result Diagrams: 08/04/22 05:24? 08/04/22 05:24? Assessment & Plan Assessment/Plan (1) Esophageal dysphagia: PLAN: She will undergo evaluation of the esophagus via an EGD.? The patient and the patient's family was explained alternatives, risk, benefits including not withstanding bleeding, infection, sepsis, perforation, need for urgent surgery .? She will have an ASA of 3.
--- NOTE | 2022-08-10 13:09 | OP.CCLET_ITS ---
08/10/2022 Lázaro Shahid Re : Upper GI endoscopy procedure for Hayley Charles Zehra This procedure was performed on Wednesday, August 10, 2022. My impressions and recommendations are as follows: Impressions : - Severe Schatzki ring. Dilated. - Medium-sized hiatal hernia. - Oozing gastric ulcers with pigmented material. Treated with a heater probe. - Normal second portion of the duodenum. - Z-line irregular, 37 cm from the incisors. Biopsied. Recommendations : - Return patient to hospital [facility] for [facility] care. - Resume previous diet today. - Continue present medications. - Await pathology results. - Repeat upper endoscopy in 3 months for surveillance. - Use Protonix (pantoprazole) 40 mg PO BID for 8 weeks. My findings are described in the full procedure note, which is enclosed. If I can be of further assistance, please feel free to contact me at . Sincerely, Kali Friend, 08/10/2022 1:08:56 PM This report has been signed electronically.
--- NOTE | 2022-08-10 13:09 | OP.EGD_ITS ---
Patient Name: Hayley Rai Procedure Date: 08/10/2022 12:10 PM Date of : 1940 Age: 82 Procedure: Upper GI endoscopy Indications: Dysphagia Providers: Kali Ramos DO Medicines: Monitored Anesthesia Care Patient Profile: This is an 82 year old female. Refer to note in patient chart for documentation of history and physical. Patient has symptoms of dysphagia with solids. Complications: No immediate complications. Procedure: Pre-Anesthesia Assessment: - Prior to the procedure, a History and Physical was performed, and patient medications and allergies were reviewed. The patient is competent. The risks and benefits of the procedure and the sedation options and risks were discussed with the patient. All questions were answered and informed consent was obtained. Patient identification and proposed procedure were verified by the physician in the pre-procedure area. Mental Status Examination: alert and oriented. Airway Examination: normal oropharyngeal airway and neck mobility. CV Examination: normal. Prophylactic Antibiotics: The patient does not require prophylactic antibiotics. Prior Anticoagulants: The patient has taken no previous anticoagulant or antiplatelet agents. ASA Grade Assessment: II - A patient with mild systemic disease. After reviewing the risks and benefits, the patient was deemed in satisfactory condition to undergo the procedure. The anesthesia plan was to use monitored anesthesia care (MAC). Immediately prior to administration of medications, the patient was re-assessed for adequacy to receive sedatives. The heart rate, respiratory rate, oxygen saturations, blood pressure, adequacy of pulmonary ventilation, and response to care were monitored throughout the procedure. The physical status of the patient was re-assessed after the procedure. After obtaining informed consent, the endoscope was passed under direct vision. Throughout the procedure, the patient's blood pressure, pulse, and oxygen saturations were monitored continuously. The Endoscope was introduced through the mouth, and advanced to the second part of duodenum. The upper GI endoscopy was accomplished without difficulty. The patient tolerated the procedure well. Scope In: 12:52:17 PM Scope Out: 1:01:06 PM Total Procedure Duration Time 0 hours 8 minutes 49 seconds Findings: A severe Schatzki ring was found in the lower third of the esophagus. A guidewire was placed and the scope was withdrawn. Dilation was performed with a Savary dilator with no resistance at 54 Fr. The dilation site was examined and showed moderate improvement in luminal narrowing. Estimated blood loss was minimal. A medium-sized hiatal hernia was present. Few oozing linear gastric ulcers with pigmented material were found in the gastric antrum. The largest lesion was 6 mm in largest dimension. Coagulation for hemostasis using heater probe was successful. Estimated blood loss was minimal. The second portion of the duodenum was normal. The Z-line was irregular and was found 37 cm from the incisors. Biopsies were taken with a cold forceps for histology. Verification of patient identification for the specimen was done. Estimated blood loss was minimal. Impression: - Severe Schatzki ring. Dilated. - Medium-sized hiatal hernia. - Oozing gastric ulcers with pigmented material. Treated with a heater probe. - Normal second portion of the duodenum. - Z-line irregular, 37 cm from the incisors. Biopsied. Recommendation: - Return patient to hospital [facility] for ongoing care. - Resume previous diet today. - Continue present medications. - Await pathology results. - Repeat upper endoscopy in 3 months for surveillance. - Use Protonix (pantoprazole) 40 mg PO BID for 8 weeks. Procedure Code(s): --- Professional --- 21776, 59, Esophagogastroduodenoscopy, flexible, transoral; with control of bleeding, any method 29867, Esophagogastroduodenoscopy, flexible, transoral; with insertion of guide wire followed by passage of dilator(s) through esophagus over guide wire 25843, 59,51, Esophagogastroduodenoscopy, flexible, transoral; with biopsy, single or multiple CPT copyright 2017 [employer]. All rights reserved. The codes documented in this report are preliminary and upon computer language coder review may be revised to meet current compliance requirements. Kali Ramos DO 08/10/2022 1:08:56 PM This report has been signed electronically. Number of Addenda: 0 Note Initiated On: 08/10/2022 12:10 PM
== END 2022-08-10 14:06 | disposition home or self-care (01) ==
LOC: EN 11:02 → AC 11:03
PROVIDERS: PCP Family Medicine; Referring Provider Family Medicine; Visit Provider Internal Medicine Gastroenterology
PROC: 0DJ08ZZ Inspection of Upper Intestinal Tract, Via Natural or Artificial Opening Endoscopic (ICD-10-PCS; CPT 43235; principal; 2022-08-10 11:40)
DX: K22.2 Esophageal obstruction (principal); N18.32 Chronic kidney disease, stage 3b; K44.9 Diaphragmatic hernia without obstruction or gangrene; K25.9 Gastric ulcer, unspecified as acute or chronic, without hemorrhage or perforation; F17.210 Nicotine dependence, cigarettes, uncomplicated; Z86.73 Personal history of transient ischemic attack (TIA), and cerebral infarction without residual deficits
CPT/HCPCS: 43255; 43248; 43239; 88305; 88313; 88341; 88342; J7120; C1769; J2405

== ENCOUNTER 2022-08-13 14:48 | Inpatient (IN) | payer MEDICARE, OTHER, SELFPAY ==
[2022-08-13 14:48] VITALS: BP 131/59; PULSE 68; RESP 18; TEMP 36.8; O2SAT 94
[2022-08-13 15:15] VITALS: BMI 24.7
[2022-08-13 18:08] LABS: Absolute Lymphocyte Count 2.78 X10^3/uL (0.83-4.51); Basophil# 0.08 X10^3/uL; Basophil% 0.7 % (0-1); Eosinophil# 0.13 X10^3/uL; Eosinophils% 1.2 % (0-5); Hematocrit 43.9 % (37-47); Hemoglobin 14.8 g/dL (12.0-15.0); Lymphocyte # 2.78 X10^3/ul (0.83-4.51); Lymphocyte % 25.7 % (19-41); Mean Corp Hgb Conc 33.7 g/dL (32-36); Mean Corpuscular Hgb 31.4 pg (27.0-32.0); Mean Corpuscular Volume 93.2 fL (81-99); Mean Platelet Vol. 11.4 fl (6.2-12.0); Monocyte# 0.72 X10^3/uL; Monocyte% 6.7 % (0-10); NRBC Flagged by Analyzer 0 % (0-5); Neutrophil # 7.02 X10^3/uL (2.7-7.7); Platelet Count 323 K/mm3 (150-450); RBC Distribution Width CV 12.6 % (11.6-14.6); RBC Distribution Width SD 43.1 fl (35.1-43.9); Red Blood Count 4.71 M/mm3 (4.2-5.4); White Blood Count 10.8 K/mm3 (4.4-11.0)
[2022-08-13 18:27] LABS: ALB/GLOB Ratio 0.9 RATIO (0.9-2.4); AST(SGOT) 18 U/L (15-37); Alanine Aminotransfer ALT/SGPT 21 U/L (13-56); Albumin, Serum 3.6 g/dL (3.2-5.0); Alkaline Phosphatase 103 U/L (45-117); Anion Gap 9 (5-15); BUN 19 mg/dL (7-18); BUN/Creat Ratio 14.6 RATIO (10-20); Calcium,Total 9.1 mg/dL (8.5-10.1); Chloride 99 mmol/L (98-107); EST Glomerular Filtration Rate 41 mL/min (>60); Est Glom Filt Rate - Afr Amer 50 mL/min (>60); Estimated Creatinine Clearance 27.82 ml/min; Globulin 3.8 g/dL (2.2-4.2); Glucose 207 mg/dL (74-106); Magnesium 2.4 mg/dL (1.6-2.6); Potassium 4.6 mmol/L (3.5-5.1); Protein, Total 7.4 g/dL (6.4-8.2); Sodium Level 133 mmol/L (136-145)
[2022-08-13] MEDS: 0.9% Normal Saline 1,000 ML 60 ML IV (19:28)
--- NOTE | 2022-08-13 19:44 | NURSING ---
Patient pleasant and cooperative, pleasantly confused. here on admit and aware of rehab routine and team meeting Monday.
--- NOTE | 2022-08-13 20:00 | NURSING ---
PT IS SPITTING UP LARGE AMTS OF PHLEGM INTO [place]. PROVIDED Y[place]ER CONNECTED TO SUCTION FOR PT TO USE TO ASSIST WITH ORAL SECRETIONS. PT DENIES SOB AND TALKS EASILY. COLOR IS PINK AND SKIN IS WARM AND DRY. LUNG SOUNDS ARE DIMINISHED POSTERIORLY AND CLEAR ANTERIORLY.
[2022-08-13 20:23] VITALS: O2SAT 95
[2022-08-13 20:37] VITALS: BP 148/67; PULSE 69; RESP 18; TEMP 37.1; O2SAT 95
--- NOTE | 2022-08-13 20:45 | NURSING ---
PT CONTINUES TO SPIT OUT/SUCTION OUT FREQUENTLY ORAL SECRETIONS. RESP APPEAR UNLABORED AND NO COUGHING NOTED. PT ABLE TO TALK EASILY.
--- NOTE | 2022-08-13 20:55 | NURSING ---
DR LCARKE NOTIFIED VIA PHONE THAT PT HAS CONTINUED TO SPIT OUT LARGE AMT OF ORAL SECRETIONS AND CONCERN OF PT'S ABILITY TO SWALLOW. ORDERS GIVEN TO MAKE PT NPO INCLUDING ORAL MEDS THIS SHIFT UNTIL SPEECH THERAPY CAN EVAL PT TOMORROW. ORDER ALSO GIVEN FOR RAPID COVID TEST, CXR IN AM AND CONTINUOUS NS INFUSION AT 60/HR IV.
--- NOTE | 2022-08-13 23:30 | NURSING ---
NOTED THAT PT IS NOW COUGHING/WHEEZING AND MORE DISTRESSED WITH SPITTING UP ORAL SECRETIONS WHICH ARE NOW CONTINUOUS. VITAL SIGNS OBTAINED. CALL PLACED TO HOSPITALIST.
[2022-08-13 23:40] LABS: Bedside Glucose 186 mg/dL (74-106)
--- NOTE | 2022-08-13 23:40 | NURSING ---
DR MIGUEL NOTIFIED THAT PT IS NOW WHEEZING/COUGHING WITH THE EXPECTORATING OF ORAL SECRETIONS WHICH ARE CONTINUOUS AND CONCERN THAT PT IS DEVELOPING RESPIRATORY DISTRESS. ORDERS GIVEN FOR STAT PORT CXR AND AEROSOL TX. CXR AND AEROSOL COMPLETED.
[2022-08-13 23:47] VITALS: BP 186/89; PULSE 81; RESP 20; TEMP 36.1; O2SAT 95
[2022-08-13] MEDS: Menthol/Lanolin/Calamine/Znox 113 GM Tube 1 APPLIC TOPICAL (23:49)
--- NOTE | 2022-08-13 23:50 | RAD_ITS ---
EXAM: XR CHEST, 1 VIEW CLINICAL INDICATION: WHEEZING COUGH TECHNIQUE: Frontal view of the chest. This report was created using [employer] report generation technology. COMPARISON: August 05, 2022 FINDINGS: LUNGS AND PLEURAL SPACES: Persistent mildly low lung volumes. No definite infiltrate or effusion, mild vascular and airway crowding in the medial right lung base. No pneumothorax. HEART: Normal heart size. MEDIASTINUM: Mild peripheral calcification of the aortic arch, no mediastinal widening. BONES/JOINTS: Mild dextroscoliosis of the thoracic spine. Vertebroplasty material is noted in the thoracolumbar region on prior exams. SOFT TISSUES: Unremarkable. RAD/Chest 1 View (Portable) IMPRESSION: 1. Stable chest. No definite infiltrate. 2. Pulmonary hypoinflation. 3. Spine changes. Electronically Signed: Li Miles MD at 0:05 EST ,
--- NOTE | 2022-08-13 23:54 | NURSING ---
PORT CXR IN PROGRESS. RESP THERAPY HER TO DO DUONEB AEROSAL TX.
[2022-08-14] VITALS (9 sets, daily range): BP systolic 132–149; BP diastolic 59–69; PULSE 71–90; RESP 16–32; TEMP 36–36.8; O2SAT 89–96
[2022-08-14] MEDS: Ipratropium/Albuterol Sulfate 3 ML AMPUL.NEB INHALATION (00:06)
--- NOTE | 2022-08-14 00:09 | CPS ---
Pt had a lot of crackles and wheezing in the upper airway. Suspected aspiration during dinner.
--- NOTE | 2022-08-14 00:10 | NURSING ---
SHORTLY AFTER PT WAS ROLLED SIDE TO SIDE TO CHANGE ATTENDS AND AFTER BEING ADJUSTED IN BED PT THEN VOMITS UP CLEAR LIQUID AND A SMALL PIECE OF PARTIALLY DIGESTED FOOD BRANCH IN COLOR. PT ORAL SECRETIONS THEN SLOW DOWN SOON AFTER THIS EPISODE. NOTED THAT PT'S PULSE OX HAS DROPPED TO 80'S AND O2 IS APPLIED WITH IMPROVEMENT. RESP RATE IS INCREASED AT 32/MIN. WILL MONITOR. PT ABLE TO TALK.
[2022-08-14] MEDS: Heparin Injection (Vial) 5,000 UNIT/ML VIAL 5000 UNIT SC ×3 (00:33→21:39)
--- NOTE | 2022-08-14 01:00 | NURSING ---
PT HAS CONTINUED IMPROVEMENT SINCE VOMITING EPISODE AND RESP RATE HAS DECREASED TO 20/MIN AND PT IS RESTFUL WITH EYES CLOSED AND NO FURTHER ORAL SECRETIONS. PULSE OX CHECK DONE PERIODICALLY.
[2022-08-14] MEDS: Menthol/Lanolin/Calamine/Znox 113 GM Tube 1 APPLIC TOPICAL ×2 (05:14→21:40)
[2022-08-14 07:20] LABS: Bedside Glucose 242 mg/dL (74-106)
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
[2022-08-14] MEDS: Aspirin 81 MG TAB.CHEW PO (08:58)
[2022-08-14] MEDS: amLODIPine 2.5 MG Tablet PO (08:59)
[2022-08-14] MEDS: Senna/Docusate Sodium 1 Tablet 2 TABLET PO (09:00)
[2022-08-14] MEDS: Clopidogrel Bisulfate 75 MG Tablet PO (09:00)
[2022-08-14] MEDS: 0.9% Normal Saline 1,000 ML 60 ML IV (10:37)
[2022-08-14 11:55] LABS: Bedside Glucose 355 mg/dL (74-106)
[2022-08-14] MEDS: Insulin Lispro 100 UNIT/ML INSULN.PEN SC ×3 (13:17→21:38)
[2022-08-14] MEDS: MENTHOL 226.8 GM JAR 1 APPLIC TOPICAL (13:18)
[2022-08-14] MEDS: Acetaminophen 500 MG Tablet 1000 MG PO ×2 (13:20→21:37)
[2022-08-14] MEDS: Glucerna Shake 120 ML LIQUID PO ×3 (13:22→21:40)
[2022-08-14 16:56] LABS: Bedside Glucose 193 mg/dL (74-106)
[2022-08-14] MEDS: Atorvastatin Calcium 40 MG Tablet PO (21:38)
[2022-08-14 22:35] LABS: Bedside Glucose 169 mg/dL (74-106)
[2022-08-15] MEDS: 0.9% Normal Saline 1,000 ML 60 ML IV (03:19)
[2022-08-15 05:59] LABS: Anion Gap 5 (5-15); BUN 16 mg/dL (7-18); BUN/Creat Ratio 14.2 RATIO (10-20); Calcium,Total 8.4 mg/dL (8.5-10.1); Chloride 107 mmol/L (98-107); Creatinine, Serum 1.13 mg/dL (0.55-1.02); EST Glomerular Filtration Rate 49 mL/min (>60); Est Glom Filt Rate - Afr Amer 59 mL/min (>60); Glucose 150 mg/dL (74-106); Potassium 4.4 mmol/L (3.5-5.1); Sodium Level 138 mmol/L (136-145)
[2022-08-15] MEDS: Acetaminophen 500 MG Tablet 1000 MG PO ×3 (06:02→21:38)
[2022-08-15] MEDS: Levothyroxine 50 MCG Tablet PO (06:02)
[2022-08-15] MEDS: Menthol/Lanolin/Calamine/Znox 113 GM Tube 1 APPLIC TOPICAL ×2 (06:03→21:39)
[2022-08-15 07:25] LABS: Bedside Glucose 148 mg/dL (74-106)
[2022-08-15 08:18] VITALS: O2SAT 96
[2022-08-15 08:24] VITALS: BP 137/57; PULSE 69; RESP 20; TEMP 36.6; O2SAT 96
[2022-08-15] MEDS: Aspirin 81 MG TAB.CHEW PO (08:38)
--- NOTE | 2022-08-15 08:40 | CPS ---
Patient eating breakfast, PEP not done.
[2022-08-15] MEDS: Glucerna Shake 120 ML LIQUID PO ×4 (08:41→21:34)
[2022-08-15] MEDS: Heparin Injection (Vial) 5,000 UNIT/ML VIAL 5000 UNIT SC ×2 (08:42→21:34)
[2022-08-15] MEDS: Clopidogrel Bisulfate 75 MG Tablet PO (08:43)
[2022-08-15] MEDS: amLODIPine 2.5 MG Tablet PO (08:43)
--- NOTE | 2022-08-15 10:31 | PCM.RU.PYE ---
Admission Information Primary Diagnosis:: Physical debility secondary to ischemic CVA. Status Changes from Prescreening?: No changes Identified Actual Problem List:: Cognitve Impr/Memory Loss, Bladder Incontinence, Alteration in Sleep, Alteration in Nutrition, Mobility Impaired, Self Care Deficit, BP, Hypertension, Alteration/ Air Exchange, Fluid Change-Dehydration and Alteration-Leisure Activ. Risk of Complications DVT: GAVIN Hose and - (Heparin 5000 units subcu every 12 hours) Bleeding: Monitor Lab Values, Nursing to Teach Precautions for anti-coagulation therapy., Wound, if applicable, to be assessed every shift. and Stroke patients assessed for lethargy or change in status. Infection: Clinical Staff to Monitor for S/S of infection: and S/S of infection include fever, redness, warmth, etc. Urinary Tract Infection: Monitor for frequency, burning, discomfort, or incontinence. and Nursing will obtain urine sample for urinalysis and C&S when ordered. Aspiration: Clinical staff will monitor for coughing, drooling, congestion., Speech will evaluate swallowing and dsyphasia. and Nursing will monitor patient swallowing during meals. Falls: Patient will be evaluated for Fall Precautions and Patient will be placed on Fall Precautions as indicated per protocol. Skin Breakdown: Nursing will assess skin daily using assessment tool. and Nursing will place on Skin Breakdown Precautions as indicated. Pain: Clinical staff will assess patient's pain level per protocol., Medications will be given, if needed, and the pain level reassessed. and Other methods: Massage, distraction, decrease stimulus, etc. used PRN. Plan of Care Patient requires physician specializing in physical medicine and rehab oversight to provide close medical supervision of rehab issues including: Pain Management, Sleep Problems, Bowel and Bladder, Medical and co-morbidity Management, DVT prophylaxis, Rehabilitation Leadership and Coordination of treatment team Patient needs Physical Therapy: For a minimum of 1 hour and At least 5 out of 7 days Patient needs Physical Therapy to improve:: Mobility, Strengthening, Transfers, Stretching, ROM, Endurance, Stairs, Gait and Balance Patient needs Occupational Therapy: For a minimum of 1 hour and At least 5 out of 7 days Patient needs Occupational Therapy to improve ADL's incl.: Eating, Grooming, Bathing, Dressing, Toileting, Toilet transfers, Community Reintegration, Higher functioning activities, Household tasks, Adaptive Equipment, Splinting and Other activities as determined Patient requires speech therapy: For a minimum of 1 hour and At least 5 out of 7 days Patient requires speech therapy for: Swallowing, Cognition, Language Skills and Compensatory Strategies Patient requires 24/ Rehabilitation Nursing for: Pain Issues, Identifying and preventing risk factors, Monitoring and reporting current medical conditions, Assisting with ambulation, transfer, and all ADL's, Teaching patients about disease process and medications, Family teaching, Providing safe environment, Bowel and Bladder Issues, Skin integrity and Medication Management Patient needs Rockboard Lather/ Case Management for: Discharge Planning, Arranging Home Equipment or Services and Family Interventions Patient needs Dietary and Nutrition Services for: Adequate Nutrition, Nutritional Supplements and Nutritional Education Goals Patient will remain: free from falls and or injury at time of discharge. Patient will perform bed mobility at: MOD I level of assist. Patient will complete transfers from bed to chair at: MOD I level of assist. Patient will ambulate: - (At least 50 feet with a front wheel walker) Patient will complete upper body dressing at: MOD I level of assist. Patient will complete lower body dressing at: - (Min assist) Patient will complete toileting at: - (Supervision. Toilet transfer at minimal assistance) Patient will perform bathing at: MOD I level of assist. Patient will complete grooming at: MOD I level of assist. Patient will complete home management skills at: MOD I level of assist. Patient will achieve: - (1 curb step with a rolling walker at contact-guard assist) Patient will have pain level of: of 3 or less Patient's skin will: remain intact Patient will receive: adequate nutrition. Discharge Planning Pt Prognosis for Sig. Practical Improv. w/in Reasonable Time: Good Estimated Length of stay (days): 28 Anticipated D/C Destination: Home with Home Health Was Preadmission Assessment Accurate?: Yes
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
[2022-08-15 11:55] LABS: Cholesterol 110 mg/dL (200); High Density Lipoprotein 45 mg/dL; Triglycerides 111 mg/dL; Very Low Density Lipoprotein 22 mg/dL (5-40)
[2022-08-15 12:25] LABS: Bedside Glucose 169 mg/dL (74-106)
--- NOTE | 2022-08-15 13:14 | CASEMGMT ---
Social Work IDT met with patient and for Team meeting. Discussed patient's progress in PT/OT/ST/SN. Educated to [facility] insurance with NRD 08/17 and continued stay is not guaranteed with each review. Pt and 's goal is to return home at OF. Pt's memory is poor and encouraging to take over housekeeping, finances, Dr appts and medications. Offered therapy training closer to time of DC to ensure can care for pt at home. agreeable to all suggestions. Will ReTeam weekly. SW to continue to follow for DC planning. Haley Leon, BAG MACHINE OPERATOR CONSUMER STUDIES PROFESSOR
[2022-08-15] MEDS: Insulin Lispro 100 UNIT/ML INSULN.PEN SC ×2 (13:16→21:39)
[2022-08-15 17:06] LABS: Bedside Glucose 141 mg/dL (74-106)
[2022-08-15] MEDS: 0.9% Saline Lock 10 ML Syringe IV (19:10)
[2022-08-15 20:05] VITALS: BP 144/59; PULSE 75; RESP 19; TEMP 36.7; O2SAT 96
[2022-08-15] MEDS: Mirtazapine 15 MG Tablet 7.5 MG PO (21:32)
[2022-08-15] MEDS: Atorvastatin Calcium 40 MG Tablet PO (21:34)
[2022-08-15 22:00] VITALS: PULSE 75; RESP 16
[2022-08-15 22:55] LABS: Bedside Glucose 205 mg/dL (74-106)
[2022-08-16] MEDS: 0.9% Normal Saline 1,000 ML 60 ML IV (00:54)
[2022-08-16] MEDS: Levothyroxine 50 MCG Tablet PO (06:41)
[2022-08-16] MEDS: Acetaminophen 500 MG Tablet 1000 MG PO ×3 (06:41→20:42)
[2022-08-16] MEDS: Menthol/Lanolin/Calamine/Znox 113 GM Tube 1 APPLIC TOPICAL ×2 (06:42→20:41)
[2022-08-16 07:24] VITALS: BP 148/66; PULSE 73; RESP 19; TEMP 36.1; O2SAT 95
[2022-08-16 07:31] VITALS: O2SAT 93
[2022-08-16 07:40] LABS: Bedside Glucose 142 mg/dL (74-106)
[2022-08-16] MEDS: Glucerna Shake 120 ML LIQUID PO ×2 (08:45→14:06)
[2022-08-16] MEDS: Aspirin 81 MG TAB.CHEW PO (08:46)
[2022-08-16] MEDS: Clopidogrel Bisulfate 75 MG Tablet PO (08:46)
[2022-08-16] MEDS: Heparin Injection (Vial) 5,000 UNIT/ML VIAL 5000 UNIT SC ×2 (08:47→20:43)
[2022-08-16] MEDS: amLODIPine 2.5 MG Tablet PO ×2 (08:47→14:06)
--- NOTE | 2022-08-16 11:33 | PCM.PROGNOTE ---
Subjective Subjective Afebrile VSS-systolic blood pressures consistently above goal and ranges from 1 31-1 86 over the past 2 days. Diastolic is always less than 80. Maintaining appropriate oxygen saturation on RA Oral intake of fluids is poor. Blood sugar record was reviewed. She had 1 blood sugar over 200 yesterday and that was 206 at at bedtime. Fasting blood sugar today was 142. She is incontinent of urine and stool. She ate 75 to 100% of her breakfast today. Discussed with nursing - no problems that need addressed Reviewed the PT/OT/ST notes Medication list reviewed. Lipid panel from yesterday showed triglycerides of 111, total cholesterol of 110, LDL of 43 and an HDL of 45. Objective Data Objective Data Vital Signs: Vital Signs Temp Pulse Resp BP Pulse Ox O2 Del Method O2 Flow Rate 97.0 F L 73 19 H 148/66 H 93 Nasal Cannula 2 08/16/22 07:24 08/16/22 07:24 08/16/22 07:24 08/16/22 07:24 08/16/22 07:31 08/16/22 07:31 08/16/22 07:31 Oxygen Flow Rate (L/min) 2 Oxygen Delivery Method Nasal Cannula Weight: 146 lb 12.8 oz Body Mass Index (BMI) 24.7 Intake & Output: Intake and Output for Last 24 Hours 08/14/22 08/15/22 08/16/22 23:59 23:59 23:59 Intake Total 1389 / 1389 2252 / 2252 945 / 945 Output Total 0 / 0 Balance 1389 / 1389 2252 / 2252 945 / 945 Lab / Micro Data Result Diagrams: 08/13/22 17:55 08/15/22 05:26 Labs: Laboratory Results - last 24 hr 08/15/22 05:26: Albumin 3.0 L, Triglycerides 111, Cholesterol 110, LDL Cholesterol 43, VLDL Cholesterol 22, HDL Cholesterol 45 08/15/22 12:05: POC Glucose 169 H 08/15/22 16:32: POC Glucose 141 H 08/15/22 21:37: POC Glucose 205 H 08/16/22 07:20: POC Glucose 142 H Micro: Microbiology 08/14/22 00:00 Nasal Secretion SARS-CoV-2 Antigen (Rapid) - Final Physical Exam Const Constitutional Narrative: She was sleeping when I entered the room but, she arouses easily. Oriented to person only. General Appearance: cooperative Orientation / Consciousness: confused Resp clear to auscultation bilaterally Auscultation: diminished lung sounds Cardio regular rate, regular rhythm, no murmurs, no rub and no gallops Cardio Narrative: occasional skipped beat. GI normal to inspection, nondistended, normoactive bowel sounds, soft to palpation and non-tender Extremity no calf tenderness General Extremity: Negative for edema Skin Wound Narrative: abrasions and bruising are resolving. Neuro Neuro Narrative: Still with R facial droop. No numbness in the face. R side weakness. Today she was able to touch her nose and then my finger.....she needs VC's. She was not able to do this at admission to rehab. She still can not do the heel to gamez on the R due to weakness of the R leg. Little facial expression and little voice modulation. Affect is very flat. Continue to tell me that she is here in rehab for falls and can not remember that she had a stroke......she is always surprised when I tell her this. Psych Attitude: No agitated Activity / Motor Behavior: Negative for restless Mood & Affect: depressed and flat affect Thought Content: No hallucination(s) Assessment & Plan Assessment/Plan (1) Debility: (2) Ischemic cerebrovascular accident (CVA): (3) Schatzki's ring of distal esophagus: (4) Noncompliance: (5) Confusion: (6) Esophageal dysphagia: (7) Falls frequently: (8) Hypothyroidism: (9) Hypertension: (10) Hyperlipidemia: (11) Nicotine dependence, cigarettes, uncomplicated: (12) Chronic renal failure, stage 3b: PLAN: Plan 1. Continue therapy 2. Increase amlodipine to 5 mg p.o. daily and give a dose of 2.5 mg now to make 5 mg for today total. 3. Add Amaryl 1 mg p.o. daily 4. I suspect that she has dementia after reading the speech therapy notes from the 2019 admission to TCU. Will start Aricept 5 mg at HS. 5. I am not sure her will be able to care for her at home. He will have to manage the finances, medications, assist her in ADL's.......things she has always done for herself. Mentation may improve somewhat since the Levothyroxine has been restarted but, I am skeptical. Will need to discuss disposition at DC as we get closer to the day of DC 6. Continue Remeron 7.5 mg p.o. nightly 7. Continue IV fluids until she is taking adequate fluids by mouth to sustain herself. Charges/Coding Visit Charges Inpatient E&M: 71855 Subs Hosp L2
[2022-08-16 11:45] LABS: Bedside Glucose 133 mg/dL (74-106)
[2022-08-16] MEDS: Glimepiride 1 MG Tablet PO (12:35)
[2022-08-16] MEDS: 0.9% Saline Lock 10 ML Syringe IV (16:43)
[2022-08-16 17:31] LABS: Bedside Glucose 86 mg/dL (74-106)
[2022-08-16 20:00] VITALS: BP 116/76; PULSE 73; RESP 17; TEMP 36.6; O2SAT 93
[2022-08-16 20:30] VITALS: O2SAT 96
[2022-08-16] MEDS: Mirtazapine 15 MG Tablet 7.5 MG PO (20:41)
[2022-08-16] MEDS: Senna/Docusate Sodium 1 Tablet 2 TABLET PO (20:42)
[2022-08-16] MEDS: Atorvastatin Calcium 40 MG Tablet PO (20:42)
[2022-08-16] MEDS: Donepezil HCl 5 MG Tablet PO (20:42)
[2022-08-16 21:07] VITALS: O2SAT 94
[2022-08-16 22:40] LABS: Bedside Glucose 109 mg/dL (74-106)
[2022-08-17] MEDS: Menthol/Lanolin/Calamine/Znox 113 GM Tube 1 APPLIC TOPICAL ×2 (05:50→21:25)
[2022-08-17] MEDS: Acetaminophen 500 MG Tablet 1000 MG PO ×3 (05:59→21:18)
[2022-08-17] MEDS: Levothyroxine 50 MCG Tablet PO (05:59)
[2022-08-17 07:35] LABS: Bedside Glucose 117 mg/dL (74-106)
[2022-08-17 07:55] VITALS: BP 151/54; PULSE 58; RESP 18; TEMP 36.1; O2SAT 97
[2022-08-17] MEDS: Senna/Docusate Sodium 1 Tablet 2 TABLET PO ×2 (08:22→21:18)
[2022-08-17] MEDS: Glimepiride 1 MG Tablet PO (08:23)
[2022-08-17] MEDS: Aspirin 81 MG TAB.CHEW PO (08:23)
[2022-08-17] MEDS: amLODIPine 5 MG Tablet PO (08:23)
[2022-08-17] MEDS: Clopidogrel Bisulfate 75 MG Tablet PO (08:23)
[2022-08-17] MEDS: Heparin Injection (Vial) 5,000 UNIT/ML VIAL 5000 UNIT SC ×2 (09:25→21:15)
[2022-08-17] MEDS: MENTHOL 226.8 GM JAR 1 APPLIC TOPICAL (11:06)
[2022-08-17 11:55] LABS: Bedside Glucose 128 mg/dL (74-106)
[2022-08-17 15:30] VITALS: O2SAT 90
--- NOTE | 2022-08-17 15:30 | CPS ---
patient sleeping, pep not done
[2022-08-17 16:21] LABS: Bedside Glucose 103 mg/dL (74-106)
[2022-08-17] MEDS: 0.9% Normal Saline 1,000 ML 60 ML IV (17:12)
[2022-08-17 19:31] VITALS: BP 139/63; PULSE 78; RESP 17; TEMP 36.6; O2SAT 93
[2022-08-17 21:00] VITALS: O2SAT 93
[2022-08-17] MEDS: Mirtazapine 15 MG Tablet 7.5 MG PO (21:18)
[2022-08-17] MEDS: Donepezil HCl 5 MG Tablet PO (21:18)
[2022-08-17] MEDS: Atorvastatin Calcium 40 MG Tablet PO (21:24)
[2022-08-17 22:15] LABS: Bedside Glucose 109 mg/dL (74-106)
[2022-08-18] MEDS: Menthol/Lanolin/Calamine/Znox 113 GM Tube 1 APPLIC TOPICAL ×2 (05:55→20:22)
[2022-08-18] MEDS: Acetaminophen 500 MG Tablet 1000 MG PO ×3 (06:01→20:27)
[2022-08-18] MEDS: Levothyroxine 50 MCG Tablet PO (06:01)
[2022-08-18] MEDS: MENTHOL 226.8 GM JAR 1 APPLIC TOPICAL (06:04)
[2022-08-18 06:55] VITALS: O2SAT 93
[2022-08-18 07:45] LABS: Bedside Glucose 109 mg/dL (74-106)
[2022-08-18] MEDS: amLODIPine 5 MG Tablet PO ×2 (07:59→20:27)
[2022-08-18] MEDS: Heparin Injection (Vial) 5,000 UNIT/ML VIAL 5000 UNIT SC ×2 (07:59→20:23)
[2022-08-18] MEDS: Clopidogrel Bisulfate 75 MG Tablet PO (07:59)
[2022-08-18] MEDS: Aspirin 81 MG TAB.CHEW PO (07:59)
[2022-08-18] MEDS: Glimepiride 1 MG Tablet PO (07:59)
[2022-08-18] MEDS: Glucerna Shake 120 ML LIQUID PO ×4 (08:00→20:22)
[2022-08-18 08:05] VITALS: BP 145/43; PULSE 60; RESP 16; TEMP 36.3; O2SAT 93
--- NOTE | 2022-08-18 10:32 | PCM.PROGNOTE ---
Subjective Subjective Afebrile VSS-systolic blood pressure continues to be mildly elevated. Diastolics are within goal. Heart rate ranges from 58-78. Maintaining appropriate oxygen saturation on RA-ranges from 90 - 97% Oral intake is 1404 08/17/2022. BS's are adequately controlled on diet and we have not had to give except for 1 unit a day earlier in the admission. Incontinent of urine. Discussed with nursing - no problems that need addressed Reviewed the PT/OT/ST notes Medication list reviewed. She is tolerating the Remeron 7.5 mg with no adverse reactions. Also tolerating Aricept. She denies CP, SOB, lightheadedness, dysuria, N/V, abd pain, calf pain and DYER. She is talkative and makes good eye contact and she is oriented to person and place and month/year today. She tells me that she slept well last night. Her appetite is good. She is cooperative with therapy. Objective Data Objective Data Vital Signs: Vital Signs Temp Pulse Resp BP Pulse Ox O2 Del Method O2 Flow Rate 97.3 F L 60 16 145/43 H 93 Room Air 2 08/18/22 08:05 08/18/22 08:05 08/18/22 08:05 08/18/22 08:05 08/18/22 08:05 08/18/22 08:05 08/16/22 21:07 Oxygen Flow Rate (L/min) 2 Oxygen Delivery Method Room Air Weight: 145 lb 8.081 oz Body Mass Index (BMI) 24.7 Intake & Output: Intake and Output for Last 24 Hours 08/16/22 08/17/22 08/18/22 23:59 23:59 23:59 Intake Total 1784 1088 / 1088 Output Total 300 / 300 Balance 1784 788 / 788 Lab / Micro Data Result Diagrams: 08/13/22 17:55 08/15/22 05:26 Labs: Laboratory Results - last 24 hr 08/17/22 11:38: POC Glucose 128 H 08/17/22 15:55: POC Glucose 103 08/17/22 21:47: POC Glucose 109 H 08/18/22 06:55: POC Glucose 109 H Micro: Microbiology 08/14/22 00:00 Nasal Secretion SARS-CoV-2 Antigen (Rapid) - Final Physical Exam Const alert General Appearance: cooperative Orientation / Consciousness: confused Resp normal respiratory effort and clear to auscultation bilaterally Resp Narrative: She has kyphosis Auscultation: diminished lung sounds Cardio regular rate, regular rhythm and no gallops Cardio Narrative: occasional skipped beat. GI normal to inspection, nondistended, normoactive bowel sounds, soft to palpation and non-tender GI Narrative: No guarding with palpation Extremity no calf tenderness General Extremity: Negative for edema Skin General Skin Exam: no breakdown and dry skin Rashes: no rashes Psych cooperative and affect normal Attitude: No agitated Activity / Motor Behavior: Negative for restless Mood & Affect: depressed and flat affect Thought Content: No delusion(s) and No hallucination(s) Assessment & Plan Assessment/Plan (1) Debility: (2) Ischemic cerebrovascular accident (CVA): (3) Schatzki's ring of distal esophagus: (4) Noncompliance: (5) Confusion: (6) Esophageal dysphagia: (7) Falls frequently: (8) Hypothyroidism: (9) Hypertension: (10) Hyperlipidemia: (11) Nicotine dependence, cigarettes, uncomplicated: (12) Chronic renal failure, stage 3b: PLAN: Plan 1. Continue therapy 2. DC IV fluids 3. Increase amlodipine to 5 mg twice daily 4. BS's were likely increased due to the stroke and they have been gradually coming down the further away we get from the stroke. The BS's are very good with no hypoglycemia but, I am concerned about the possibility of her missing meals at home and not eating. Will DC Amaryl. Change the Accu-Cheks to twice daily 5. Recheck BMP on Monday. Charges/Coding Visit Charges Inpatient E&M: 00561 Subs Hosp L2
[2022-08-18 11:26] LABS: Bedside Glucose 151 mg/dL (74-106)
[2022-08-18] MEDS: Insulin Lispro 100 UNIT/ML INSULN.PEN SC (12:19)
[2022-08-18 16:35] LABS: Bedside Glucose 113 mg/dL (74-106)
[2022-08-18] MEDS: 0.9% Saline Lock 10 ML Syringe IV ×2 (17:22→20:52)
[2022-08-18 19:53] VITALS: BP 141/71; PULSE 73; RESP 18; TEMP 36.9; O2SAT 95
[2022-08-18] MEDS: Mirtazapine 15 MG Tablet 7.5 MG PO (20:21)
[2022-08-18] MEDS: Donepezil HCl 5 MG Tablet PO (20:22)
[2022-08-18] MEDS: Atorvastatin Calcium 40 MG Tablet PO (20:26)
[2022-08-18 20:54] VITALS: PULSE 65; O2SAT 93
[2022-08-18 22:06] LABS: Bedside Glucose 143 mg/dL (74-106)
[2022-08-19] MEDS: Acetaminophen 500 MG Tablet 1000 MG PO ×3 (06:06→20:34)
[2022-08-19] MEDS: Levothyroxine 50 MCG Tablet PO (06:06)
[2022-08-19] MEDS: Menthol/Lanolin/Calamine/Znox 113 GM Tube 1 APPLIC TOPICAL ×2 (06:06→20:36)
--- NOTE | 2022-08-19 06:31 | NURSING ---
During morning ADLs, it was found that pt has drainage coming from her LT ear, blood, when asked what happened she replied, It is from a hole being put in. Cleaned pt up and reported to RN.
[2022-08-19 06:55] LABS: Bedside Glucose 98 mg/dL (74-106)
[2022-08-19 07:14] VITALS: BP 144/48; PULSE 57; RESP 16; TEMP 36.4; O2SAT 93
[2022-08-19 07:48] VITALS: O2SAT 95
[2022-08-19] MEDS: Heparin Injection (Vial) 5,000 UNIT/ML VIAL 5000 UNIT SC ×2 (08:55→21:15)
[2022-08-19] MEDS: Aspirin 81 MG TAB.CHEW PO (08:55)
[2022-08-19] MEDS: Glucerna Shake 120 ML LIQUID PO (08:55)
[2022-08-19] MEDS: amLODIPine 5 MG Tablet PO ×2 (08:56→20:35)
[2022-08-19] MEDS: Clopidogrel Bisulfate 75 MG Tablet PO (08:56)
[2022-08-19 11:25] LABS: Bedside Glucose 147 mg/dL (74-106)
[2022-08-19] MEDS: 0.9% Saline Lock 10 ML Syringe IV ×2 (12:16→20:37)
--- NOTE | 2022-08-19 13:30 | CPS ---
patient not available
[2022-08-19 16:26] LABS: Bedside Glucose 114 mg/dL (74-106)
[2022-08-19 19:26] VITALS: BP 142/64; PULSE 63; RESP 18; TEMP 36.6; O2SAT 95
[2022-08-19] MEDS: Atorvastatin Calcium 40 MG Tablet PO (20:35)
[2022-08-19] MEDS: Mirtazapine 15 MG Tablet 7.5 MG PO (20:36)
[2022-08-19] MEDS: Donepezil HCl 5 MG Tablet PO (20:36)
[2022-08-20] MEDS: Levothyroxine 50 MCG Tablet PO (06:05)
[2022-08-20] MEDS: Acetaminophen 500 MG Tablet 1000 MG PO ×3 (06:05→21:31)
[2022-08-20] MEDS: Menthol/Lanolin/Calamine/Znox 113 GM Tube 1 APPLIC TOPICAL ×2 (06:05→21:37)
[2022-08-20 08:17] VITALS: BP 114/63; PULSE 57; RESP 16; TEMP 36.4; O2SAT 98
[2022-08-20] MEDS: amLODIPine 5 MG Tablet PO ×2 (08:44→21:35)
[2022-08-20] MEDS: Clopidogrel Bisulfate 75 MG Tablet PO (08:44)
[2022-08-20] MEDS: Aspirin 81 MG TAB.CHEW PO (08:44)
[2022-08-20] MEDS: Heparin Injection (Vial) 5,000 UNIT/ML VIAL 5000 UNIT SC ×2 (08:45→21:34)
[2022-08-20] MEDS: MENTHOL 226.8 GM JAR 1 APPLIC TOPICAL (13:40)
[2022-08-20 19:44] VITALS: BP 110/60; PULSE 58; RESP 16; TEMP 36; O2SAT 95
[2022-08-20] MEDS: Mirtazapine 15 MG Tablet 7.5 MG PO (21:32)
[2022-08-20] MEDS: Donepezil HCl 5 MG Tablet PO (21:33)
[2022-08-20] MEDS: Glucerna Shake 120 ML LIQUID PO (21:34)
[2022-08-20] MEDS: Atorvastatin Calcium 40 MG Tablet PO (21:35)
[2022-08-20] MEDS: 0.9% Saline Lock 10 ML Syringe IV (21:37)
[2022-08-20 22:00] VITALS: PULSE 73; RESP 15; O2SAT 93
[2022-08-21] MEDS: Menthol/Lanolin/Calamine/Znox 113 GM Tube 1 APPLIC TOPICAL ×2 (05:59→20:25)
[2022-08-21] MEDS: Acetaminophen 500 MG Tablet 1000 MG PO ×3 (06:00→21:12)
[2022-08-21] MEDS: Levothyroxine 50 MCG Tablet PO (06:00)
[2022-08-21 07:20] VITALS: O2SAT 94
[2022-08-21] MEDS: amLODIPine 5 MG Tablet PO ×2 (07:51→20:25)
[2022-08-21] MEDS: Aspirin 81 MG TAB.CHEW PO (07:51)
[2022-08-21] MEDS: Clopidogrel Bisulfate 75 MG Tablet PO (07:51)
[2022-08-21] MEDS: Heparin Injection (Vial) 5,000 UNIT/ML VIAL 5000 UNIT SC ×2 (07:52→20:25)
[2022-08-21 08:46] VITALS: BP 147/60; PULSE 53; RESP 16; TEMP 36.4; O2SAT 96
[2022-08-21] MEDS: 0.9% Saline Lock 10 ML Syringe IV ×2 (13:28→20:11)
[2022-08-21 19:41] VITALS: BP 156/56; PULSE 80; RESP 17; TEMP 36.5; O2SAT 97
[2022-08-21 19:57] VITALS: PULSE 80; RESP 17; O2SAT 93
[2022-08-21] MEDS: Mirtazapine 15 MG Tablet 7.5 MG PO (20:15)
[2022-08-21] MEDS: Atorvastatin Calcium 40 MG Tablet PO (20:25)
[2022-08-21] MEDS: Glucerna Shake 120 ML LIQUID PO (20:25)
[2022-08-21] MEDS: Donepezil HCl 5 MG Tablet PO (20:26)
[2022-08-22] MEDS: Levothyroxine 50 MCG Tablet PO (05:55)
[2022-08-22] MEDS: Acetaminophen 500 MG Tablet 1000 MG PO ×3 (05:55→21:22)
[2022-08-22] MEDS: Menthol/Lanolin/Calamine/Znox 113 GM Tube 1 APPLIC TOPICAL ×2 (05:56→21:24)
[2022-08-22 06:30] LABS: Anion Gap 7 (5-15); BUN 18 mg/dL (7-18); BUN/Creat Ratio 16.2 RATIO (10-20); Calcium,Total 9.1 mg/dL (8.5-10.1); Chloride 95 mmol/L (98-107); Creatinine, Serum 1.11 mg/dL (0.55-1.02); EST Glomerular Filtration Rate 50 mL/min (>60); Est Glom Filt Rate - Afr Amer 60 mL/min (>60); Estimated Creatinine Clearance 32.58 ml/min; Glucose 120 mg/dL (74-106); Potassium 4.2 mmol/L (3.5-5.1); Sodium Level 127 mmol/L (136-145)
[2022-08-22 07:24] VITALS: BP 141/63; PULSE 56; RESP 16; TEMP 36.1; O2SAT 95
[2022-08-22] MEDS: Aspirin 81 MG TAB.CHEW PO (07:59)
[2022-08-22] MEDS: Clopidogrel Bisulfate 75 MG Tablet PO (07:59)
[2022-08-22] MEDS: amLODIPine 5 MG Tablet PO ×2 (08:00→21:23)
[2022-08-22] MEDS: Heparin Injection (Vial) 5,000 UNIT/ML VIAL 5000 UNIT SC ×2 (08:00→21:23)
[2022-08-22] MEDS: Senna/Docusate Sodium 1 Tablet 2 TABLET PO (08:00)
--- NOTE | 2022-08-22 11:24 | PN_ITS ---
Subjective Subjective Afebrile VSS-systolic blood pressure continues to be mildly elevated with diastolics within goal. Heart rate is ranged from 53-80 over the past few days. Maintaining appropriate oxygen saturation on RA-93 to 97% Oral intake is good. She is eating 75 to 100% of most meals. She also has good oral fluid intake. Outputs are inaccurate secondary to urinary incontinence. Her weight is down 6 pounds from 08/05/2022. She is not on a diuretic. Discussed with nursing - no problems that need addressed Reviewed the PT/OT/ST notes - She is making progress. Has a lot of cognitive deficit. Medication list reviewed. All lab was personally reviewed. Sodium is low at 127 today and the chloride is low at 95. Potassium is normal at 4.2. BUN is 18 and the creatinine is stable at 1.11. Hayley denies lightheadedness, vertigo, CP, SOB at rest, cough, nausea, vomiting, abd pain, diarrhea, constipation, dysuria, calf pain and ankle swelling. She is incontinent of urine. She tells me that she knows when she has to go but, she does not get there in time. Objective Data Objective Data Vital Signs: Vital Signs Temp Pulse Resp BP Pulse Ox O2 Del Method O2 Flow Rate 96.9 F L 56 L 16 141/63 H 95 Nasal Cannula 2 08/22/22 07:24 08/22/22 07:24 08/22/22 07:24 08/22/22 07:24 08/22/22 07:24 08/22/22 07:24 08/22/22 07:24 Oxygen Flow Rate (L/min) 2 Oxygen Delivery Method Nasal Cannula Weight: 145 lb 8.081 oz Body Mass Index (BMI) 24.7 Intake & Output: Intake and Output for Last 24 Hours 08/20/22 08/21/22 08/22/22 23:59 23:59 23:59 Intake Total 1630 / 1630 1240 / 1240 680 / 680 Output Total 200 / 200 Balance 1630 / 1630 1240 / 1240 480 / 480 Lab / Micro Data Result Diagrams: 08/13/22 17:55 08/22/22 05:47 Labs: Laboratory Results - last 24 hr 08/22/22 05:47: Sodium 127 L, Potassium 4.2, Chloride 95 L, Carbon Dioxide 25.0, Anion Gap 7, BUN 18, Creatinine 1.11 H, Estim Creat Clear Calc 32.58, Est GFR (MDRD) Af Amer 60, Est GFR (MDRD) Non-Af 50 L, BUN/Creatinine Ratio 16.2, G lucose 120 H, Calcium 9.1 Micro: Microbiology 08/14/22 00:00 Nasal Secretion SARS-CoV-2 Antigen (Rapid) - Final Physical Exam Const alert Constitutional Narrative: She was sleeping when I entered the room but, she arouses easily. Oriented to person only. General Appearance: cooperative Resp normal respiratory effort and clear to auscultation bilaterally Resp Narrative: She has kyphosis Effort and Inspection: Negative for tachypneic Auscultation: diminished lung sounds Cardio regular rate, regular rhythm, S1 normal heart sound, S2 normal heart sound, no murmurs, no rub and no gallops GI normal to inspection, nondistended, normoactive bowel sounds, soft to palpation and non-tender GI Narrative: No guarding with palpation Extremity no calf tenderness General Extremity: Negative for cyanosis or edema Skin General Skin Exam: no breakdown and dry skin Rashes: no rashes Psych cooperative and affect normal Assessment & Plan Assessment/Plan (1) Debility: (2) Ischemic cerebrovascular accident (CVA): (3) Schatzki's ring of distal esophagus: (4) Noncompliance: PLAN: with medications and physician follow up. (5) Confusion: PLAN: poor memory, poor safety awareness, frequently answers I don't know when asked a question (6) Esophageal dysphagia: (7) Falls frequently: (8) Hypothyroidism: (9) Hypertension: (10) Hyperlipidemia: (11) Nicotine dependence, cigarettes, uncomplicated: (12) Chronic renal failure, stage 3b: (13) Hyponatremia: PLAN: Plan 1. Check a urine sodium and random urine creatinine. 2. Continue therapy Charges/Coding Visit Charges Inpatient E&M: 99562 Subs Hosp L2
--- NOTE | 2022-08-22 12:57 | CASEMGMT ---
Social Work IDT met with patient and for Team meeting. Discussed patient's progress in PT/OT/ST/SN. Educated to [facility] insurance with NRD 08/24 and continued stay is not guaranteed. Pt's goal is to return home with at a higher level of functioning. Pt is on modified diet. Will ReTeam weekly. SW to continue to follow for DC planning. Haley Leon, ACTUARY MANAGER HEALTHCARE MARKETER
[2022-08-22] MEDS: Glucerna Shake 120 ML LIQUID PO (17:06)
[2022-08-22 18:50] LABS: Urine Sodium 26 mmol/L (Not Establ.)
[2022-08-22 19:31] VITALS: BP 140/68; PULSE 70; RESP 16; TEMP 36.4; O2SAT 95
[2022-08-22] MEDS: 0.9% Saline Lock 10 ML Syringe IV (21:21)
[2022-08-22] MEDS: Mirtazapine 15 MG Tablet 7.5 MG PO (21:21)
[2022-08-22] MEDS: Atorvastatin Calcium 40 MG Tablet PO (21:22)
[2022-08-22] MEDS: Donepezil HCl 5 MG Tablet PO (21:23)
[2022-08-23] MEDS: Menthol/Lanolin/Calamine/Znox 113 GM Tube 1 APPLIC TOPICAL ×2 (06:46→20:06)
[2022-08-23] MEDS: Acetaminophen 500 MG Tablet 1000 MG PO ×3 (06:46→20:04)
[2022-08-23] MEDS: Levothyroxine 50 MCG Tablet PO (06:46)
[2022-08-23 07:44] VITALS: BP 136/54; PULSE 59; RESP 16; TEMP 36.2; O2SAT 94
[2022-08-23] MEDS: Heparin Injection (Vial) 5,000 UNIT/ML VIAL 5000 UNIT SC ×2 (08:13→20:05)
[2022-08-23] MEDS: Aspirin 81 MG TAB.CHEW PO (08:15)
[2022-08-23] MEDS: amLODIPine 5 MG Tablet PO ×2 (08:15→20:05)
[2022-08-23] MEDS: Clopidogrel Bisulfate 75 MG Tablet PO (08:15)
[2022-08-23] MEDS: MENTHOL 226.8 GM JAR 1 APPLIC TOPICAL (11:20)
[2022-08-23] MEDS: Glucerna Shake 120 ML LIQUID PO ×3 (13:42→20:09)
--- NOTE | 2022-08-23 14:15 | PCM.PROGNOTE ---
Subjective Subjective Afebrile VSS-systolic blood pressures continue to be greater than 130. Diastolics are within goal. Maintaining appropriate oxygen saturation on RA Oral intake is good for meals but waxes and wanes with fluids. Discussed with nursing - no problems that need addressed Reviewed the PT/OT/ST notes Medication list reviewed. The fractional excretion of sodium from 08/22/2022 is 0.2% which is consistent with prerenal. Hayley denies lightheadedness, vertigo, CP, SOB at rest, cough, nausea, vomiting, abd pain, diarrhea, constipation, dysuria, calf pain and ankle swelling. She gets fatigued quickly with therapy but, she is making good progress. Objective Data Objective Data Vital Signs: Vital Signs Temp Pulse Resp BP Pulse Ox O2 Del Method O2 Flow Rate 97.2 F L 59 L 16 136/54 H 94 Room Air 2 08/23/22 07:44 08/23/22 07:44 08/23/22 07:44 08/23/22 07:44 08/23/22 07:44 08/23/22 07:44 08/22/22 07:24 Oxygen Flow Rate (L/min) 2 Oxygen Delivery Method Room Air Weight: 145 lb 8.081 oz Body Mass Index (BMI) 24.7 Intake & Output: Intake and Output for Last 24 Hours 08/21/22 08/22/22 08/23/22 23:59 23:59 23:59 Intake Total 1240 / 1240 1185 / 1185 1250 / 1250 Output Total 400 / 400 Balance 1240 / 1240 785 / 785 1250 / 1250 Lab / Micro Data Result Diagrams: 08/27/22 06:13 08/27/22 06:13 Labs: Laboratory Results - last 24 hr 08/22/22 15:10: Ur Random Sodium 26, Urine Creatinine 106.00 Micro: Microbiology 08/14/22 00:00 Nasal Secretion SARS-CoV-2 Antigen (Rapid) - Final Physical Exam Const alert and no apparent distress Constitutional Narrative: sitting in the recliner at the bedside. General Appearance: cooperative Eyes Eyes Narrative: no visual loss Resp normal respiratory effort and clear to auscultation bilaterally Resp Narrative: She has kyphosis Effort and Inspection: Negative for tachypneic Auscultation: diminished lung sounds Cardio regular rate, regular rhythm, no murmurs and no gallops Cardio Narrative: no ectopy GI normal to inspection, nondistended, normoactive bowel sounds and soft to palpation Extremity no calf tenderness General Extremity: Negative for edema Skin General Skin Exam: no breakdown and dry skin Rashes: no rashes Psych cooperative Psych Narrative: More interactive than she was at admission to rehab. Does not answer I don't know as much as she was doing at admission. She was able to remember today why the green exercise band is attached to her walker. More facial expression. Always agreeable to working with rehab. Appearance: appropriate Attitude: No agitated Mood & Affect: flat affect Assessment & Plan Assessment/Plan (1) Debility: (2) Ischemic cerebrovascular accident (CVA): (3) Confusion: (4) Schatzki's ring of distal esophagus: (5) Hyponatremia: (6) Esophageal dysphagia: PLAN: Plan 1. Continue therapy. 2. Start an IV and give 2 liters of NS 3. Recheck a BMP in the AM 4. Denies any difficulty swallowing today. Charges/Coding Visit Charges Inpatient E&M: 89608 Subs Hosp L2
[2022-08-23] MEDS: 0.9% Saline Lock 10 ML Syringe IV (15:42)
[2022-08-23] MEDS: 0.9% Normal Saline 1,000 ML 100 ML IV (15:49)
[2022-08-23 19:40] VITALS: BP 139/65; PULSE 56; RESP 16; TEMP 37; O2SAT 94
[2022-08-23] MEDS: Senna/Docusate Sodium 1 Tablet 2 TABLET PO (20:04)
[2022-08-23] MEDS: Mirtazapine 15 MG Tablet 7.5 MG PO (20:05)
[2022-08-23] MEDS: Atorvastatin Calcium 40 MG Tablet PO (20:05)
[2022-08-23] MEDS: Donepezil HCl 5 MG Tablet PO (20:05)
[2022-08-24] MEDS: 0.9% Normal Saline 1,000 ML 100 ML IV (01:49)
[2022-08-24] MEDS: Levothyroxine 50 MCG Tablet PO (06:16)
[2022-08-24] MEDS: Acetaminophen 500 MG Tablet 1000 MG PO ×3 (06:16→21:00)
[2022-08-24] MEDS: Menthol/Lanolin/Calamine/Znox 113 GM Tube 1 APPLIC TOPICAL ×2 (06:17→21:00)
[2022-08-24 06:42] LABS: Anion Gap 8 (5-15); BUN 17 mg/dL (7-18); Calcium,Total 8.5 mg/dL (8.5-10.1); Chloride 101 mmol/L (98-107); EST Glomerular Filtration Rate 56 mL/min (>60); Est Glom Filt Rate - Afr Amer 68 mL/min (>60); Estimated Creatinine Clearance 36.16 ml/min; Glucose 106 mg/dL (74-106); Potassium 4.4 mmol/L (3.5-5.1); Sodium Level 132 mmol/L (136-145)
[2022-08-24 07:09] VITALS: BP 123/56; PULSE 55; RESP 16; TEMP 36.2; O2SAT 96
[2022-08-24] MEDS: Aspirin 81 MG TAB.CHEW PO (08:32)
[2022-08-24] MEDS: amLODIPine 5 MG Tablet PO ×2 (08:33→21:01)
[2022-08-24] MEDS: Heparin Injection (Vial) 5,000 UNIT/ML VIAL 5000 UNIT SC ×2 (08:33→21:01)
[2022-08-24] MEDS: Clopidogrel Bisulfate 75 MG Tablet PO (08:33)
[2022-08-24] MEDS: Glucerna Shake 120 ML LIQUID PO ×4 (08:38→20:59)
[2022-08-24] MEDS: 0.9% Saline Lock 10 ML Syringe IV (08:41)
[2022-08-24 20:45] VITALS: PULSE 73; RESP 18; O2SAT 94
[2022-08-24] MEDS: Donepezil HCl 5 MG Tablet PO (21:00)
[2022-08-24] MEDS: Atorvastatin Calcium 40 MG Tablet PO (21:00)
[2022-08-24] MEDS: Senna/Docusate Sodium 1 Tablet 2 TABLET PO (21:00)
[2022-08-24] MEDS: Mirtazapine 15 MG Tablet 7.5 MG PO (21:01)
[2022-08-24 22:00] VITALS: BP 121/55; PULSE 73; RESP 18; TEMP 36.5; O2SAT 94
[2022-08-25] MEDS: 0.9% Saline Lock 10 ML Syringe IV ×3 (00:13→21:18)
--- NOTE | 2022-08-25 03:43 | NURSING ---
REVIEWED AND AGREE WITH Jefferson GONZALEZ, DOCUMENTATION AND ASSESSMENT CHARTING.
[2022-08-25] MEDS: Levothyroxine 50 MCG Tablet PO (06:35)
[2022-08-25] MEDS: Acetaminophen 500 MG Tablet 1000 MG PO ×3 (06:35→21:02)
[2022-08-25] MEDS: Menthol/Lanolin/Calamine/Znox 113 GM Tube 1 APPLIC TOPICAL ×2 (06:35→21:04)
[2022-08-25 07:36] VITALS: BP 145/53; PULSE 64; RESP 16; TEMP 36.8; O2SAT 95
[2022-08-25] MEDS: Heparin Injection (Vial) 5,000 UNIT/ML VIAL 5000 UNIT SC ×2 (09:08→21:03)
[2022-08-25] MEDS: Aspirin 81 MG TAB.CHEW PO (09:08)
[2022-08-25] MEDS: Glucerna Shake 120 ML LIQUID PO ×3 (09:08→21:04)
[2022-08-25] MEDS: Senna/Docusate Sodium 1 Tablet 2 TABLET PO ×2 (09:09→21:02)
[2022-08-25] MEDS: Clopidogrel Bisulfate 75 MG Tablet PO (09:09)
[2022-08-25] MEDS: amLODIPine 5 MG Tablet PO ×2 (09:09→21:03)
--- NOTE | 2022-08-25 12:09 | PN_ITS ---
Subjective Subjective Hayley was seen on team rounds today. Her Dante was present in the room for rounds. Afebrile VSS Maintaining appropriate oxygen saturation on RA Remains incontinent of urine. Oral intake is good, she is eating 75 to 100% of her meals. Fluid intake is not consistently good and we have had to give intravenous fluids a few times. Discussed with nursing - no problems that need addressed Reviewed the PT/OT/ST notes - Memory is poor and therapists are needing to re- educate her everyday what to do with the walker, etc because she can not remember what she is supposed to do. Medication list reviewed. She is tolerating Aricept with no adverse reactions. No adverse reactions to Remeron 7.5 mg at HS. Sleeping well per nursing and has a good appetite. Denies CP, SOB, lightheadedness. Her biggest complaint is that she gets very tired/exhausted with therapy. She has poor exercise tolerance. The BMP drawn today was reviewed. The sodium has come up from 127-132. Chloride is now normal and the potassium is 4.4. Creatinine is 1.0, down from 1.11 yesterday prior to hydration. Objective Data Objective Data Vital Signs: Vital Signs Temp Pulse Resp BP Pulse Ox O2 Del Method O2 Flow Rate 98.2 F 64 16 145/53 H 95 Room Air 2 08/25/22 07:36 08/25/22 07:36 08/25/22 07:36 08/25/22 07:36 08/25/22 07:36 08/25/22 07:36 08/24/22 07:09 Oxygen Flow Rate (L/min) 2 Oxygen Delivery Method Room Air Weight: 146 lb 9.718 oz Body Mass Index (BMI) 24.7 Intake & Output: Intake and Output for Last 24 Hours 08/23/22 08/24/22 08/25/22 23:59 23:59 23:59 Intake Total 1849 2820.00 / 2820.00 60 / 60 Output Total 200 / 200 Balance 1849 2620.00 / 2620.00 60 / 60 Lab / Micro Data Result Diagrams: 08/13/22 17:55 08/24/22 05:43 Micro: Microbiology 08/14/22 00:00 Nasal Secretion SARS-CoV-2 Antigen (Rapid) - Final Physical Exam Const alert and no apparent distress Constitutional Narrative: sitting in the recliner at the bedside. General Appearance: cooperative HEENT Mouth: dry mucous membranes Eyes PERRL and EOMs intact bilaterally Eyes Narrative: no visual loss Resp normal respiratory effort, normal air movement and clear to auscultation bilaterally Effort and Inspection: Negative for tachypneic or respiratory distress Cardio regular rate, regular rhythm and no gallops Cardio Narrative: no ectopy GI normal to inspection, nondistended, normoactive bowel sounds, soft to palpation and non-tender GI Narrative: no guarding with palpation Inspection: Negative for abdominal distention Extremity no calf tenderness General Extremity: Negative for edema Skin General Skin Exam: no breakdown Rashes: no rashes Psych Psych Narrative: More interactive than she was at admission to rehab. Does not answer I don't know as much as she was doing at admission. She was able to remember today why the green exercise band is attached to her walker. More facial expression. Always agreeable to working with rehab. Appearance: appropriate Assessment & Plan Assessment/Plan (1) Debility: (2) Ischemic cerebrovascular accident (CVA): (3) Confusion: (4) Schatzki's ring of distal esophagus: (5) Hyponatremia: (6) Esophageal dysphagia: PLAN: Plan 1. Continue therapy. 2. I spoke with Dante later in the day after rounds and expressed I do not feel he will be able to manage her at home. Currently she needs more assistance with ADL's than he can provide. We discussed a memory unit and we left it at ......we will discuss again on rounds on Monday. Charges/Coding Visit Charges Inpatient E&M: 08042 Subs Hosp L2
[2022-08-25 19:35] VITALS: BP 116/47; PULSE 68; RESP 18; TEMP 36.6; O2SAT 93
[2022-08-25] MEDS: Atorvastatin Calcium 40 MG Tablet PO (21:03)
[2022-08-25] MEDS: Donepezil HCl 5 MG Tablet PO (21:04)
[2022-08-25] MEDS: Mirtazapine 15 MG Tablet 7.5 MG PO (21:04)
[2022-08-26] MEDS: Acetaminophen 500 MG Tablet 1000 MG PO ×3 (07:14→21:18)
[2022-08-26] MEDS: Levothyroxine 50 MCG Tablet PO (07:14)
[2022-08-26] MEDS: Menthol/Lanolin/Calamine/Znox 113 GM Tube 1 APPLIC TOPICAL ×2 (07:14→21:25)
[2022-08-26 07:47] VITALS: BP 137/53; PULSE 57; RESP 16; TEMP 36.6; O2SAT 93
[2022-08-26] MEDS: Aspirin 81 MG TAB.CHEW PO (09:04)
[2022-08-26] MEDS: amLODIPine 5 MG Tablet PO ×2 (09:05→21:19)
[2022-08-26] MEDS: Clopidogrel Bisulfate 75 MG Tablet PO (09:05)
[2022-08-26] MEDS: Heparin Injection (Vial) 5,000 UNIT/ML VIAL 5000 UNIT SC ×2 (09:05→21:19)
[2022-08-26] MEDS: Senna/Docusate Sodium 1 Tablet 2 TABLET PO ×2 (09:05→21:18)
[2022-08-26] MEDS: Polyethylene Glycol 3350 17 GM PACKET PO (09:05)
[2022-08-26] MEDS: Glucerna Shake 120 ML LIQUID PO ×3 (09:16→21:21)
[2022-08-26] MEDS: MENTHOL 226.8 GM JAR 1 APPLIC TOPICAL (10:50)
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
--- NOTE | 2022-08-26 12:25 | CASEMGMT ---
Social Work IDT discussed patient no longer making progress in therapies and unsure if pt will regain further independence. Recommended pt DC to SNF to get appropriate care as pt varies from x1-2 assist. SW contact to discuss. Pt already very emotional stating someone already talked to him that this would be coming. SW provided emotional support and validated feelings. Explained above information and recommendations more thoroughly. Educated to option of SNF and with hospice, if elects, and pt is eligible. Answered questions and explained financial liability. reluctant but expressed understanding to what pt needs. SW offered to provide printed list of SNF choices in [facility] with quality and resource data via [employer] for to choose several facilities. to discuss with children on choices and provide update during Team meeting Monday. Explained insurance approved through 08/31 and offered to set DC 09/01. agreeable. SW to continue to follow. Haley Leon, DAVID [employer]ESS TANK TENDER
[2022-08-26 19:45] VITALS: BP 144/62; PULSE 68; RESP 18; TEMP 36.5; O2SAT 93
[2022-08-26] MEDS: Mirtazapine 15 MG Tablet PO (21:19)
[2022-08-26] MEDS: Donepezil HCl 5 MG Tablet PO (21:19)
[2022-08-26] MEDS: Atorvastatin Calcium 40 MG Tablet PO (21:19)
[2022-08-26 22:00] VITALS: PULSE 66; RESP 16; O2SAT 94
[2022-08-27] MEDS: Levothyroxine 50 MCG Tablet PO (06:24)
[2022-08-27] MEDS: Acetaminophen 500 MG Tablet 1000 MG PO ×3 (06:24→20:19)
[2022-08-27] MEDS: Menthol/Lanolin/Calamine/Znox 113 GM Tube 1 APPLIC TOPICAL ×2 (06:25→20:48)
[2022-08-27 06:53] LABS: Hematocrit 45.3 % (37-47); Hemoglobin 14.3 g/dL (12.0-15.0); Mean Corp Hgb Conc 31.6 g/dL (32-36); Mean Corpuscular Hgb 31.4 pg (27.0-32.0); Mean Corpuscular Volume 99.6 fL (81-99); Mean Platelet Vol. 11.7 fl (6.2-12.0); Platelet Count 209 K/mm3 (150-450); RBC Distribution Width CV 13.4 % (11.6-14.6); RBC Distribution Width SD 49.1 fl (35.1-43.9); Red Blood Count 4.55 M/mm3 (4.2-5.4); White Blood Count 6.1 K/mm3 (4.4-11.0)
[2022-08-27 07:32] LABS: Anion Gap 6 (5-15); BUN 16 mg/dL (7-18); BUN/Creat Ratio 15.2 RATIO (10-20); Calcium,Total 9.3 mg/dL (8.5-10.1); Chloride 100 mmol/L (98-107); Creatinine, Serum 1.05 mg/dL (0.55-1.02); EST Glomerular Filtration Rate 53 mL/min (>60); Est Glom Filt Rate - Afr Amer 64 mL/min (>60); Estimated Creatinine Clearance 34.44 ml/min; Glucose 112 mg/dL (74-106); Potassium 4.8 mmol/L (3.5-5.1); Sodium Level 132 mmol/L (136-145)
[2022-08-27 07:54] VITALS: BP 126/42; PULSE 71; RESP 16; TEMP 36.3; O2SAT 99
[2022-08-27] MEDS: Aspirin 81 MG TAB.CHEW PO (08:12)
[2022-08-27] MEDS: amLODIPine 5 MG Tablet PO ×2 (08:14→20:20)
[2022-08-27] MEDS: Heparin Injection (Vial) 5,000 UNIT/ML VIAL 5000 UNIT SC ×2 (08:14→20:22)
[2022-08-27] MEDS: Senna/Docusate Sodium 1 Tablet 2 TABLET PO ×2 (08:15→20:19)
[2022-08-27] MEDS: Clopidogrel Bisulfate 75 MG Tablet PO (08:15)
[2022-08-27] MEDS: Glucerna Shake 120 ML LIQUID PO ×4 (08:16→20:48)
--- NOTE | 2022-08-27 13:39 | PCM.PN.BLA ---
Progress Note Afebrile VSS-blood pressure is adequately controlled Maintaining appropriate oxygen saturation on RA Oral intake is good Discussed with nursing - no problems that need addressed Reviewed the PT/OT/ST notes Medication list reviewed. Hayley tells me that she slept very well last night and she feels rested today. she is very alert and she is talkative and smiling. Interacting more with staff. she was able to tell me for the second day in a row what the green band attached to the from of the WW is for.......she knows to step to it. She denies SOB, CP, lightheadedness, dysuria, abd pain, constipation, nausea. MM are not as dry She is alert and cooperative Lungs are CTA with no wheezes and no rales. Normal resp effort and she is not tachypneic. HRRR abd soft, NT, ND, no BS's no edema no calf tenderness. No rashes and no skin breakdown. All lab from today was personally reviewed. White blood cell count, hemoglobin and platelets are all within normal limits. Sodium is stable at 132 and the potassium is 4.8. The BUN is 16 today and the creatinine is 1.05 which is stable and within her baseline. TSH is still elevated at 10.5 but down from 14.6 on 08/02/2022 since levothyroxine 50 mcg daily was added to her drug regimen. Assessment & Plan Assessment/Plan (1) Debility: (2) Ischemic cerebrovascular accident (CVA): (3) Hyponatremia: (4) Diabetes mellitus, type 2: (5) Hyperlipidemia: (6) Hypertension: (7) Hypothyroidism: (8) Depression: (9) Insomnia: PLAN: Plan 1. continue therapy 2. she is brighter today......more facial expression, more talkative, more modulation to her voice, more interaction with staff.......I suspect some of the memory problems may be due to depression 3. Increase Synthroid to 75 mcg daily. Visit Charges Inpatient E&M: 09074 Subs Hosp L1
[2022-08-27] MEDS: Donepezil HCl 5 MG Tablet PO (20:20)
[2022-08-27] MEDS: Mirtazapine 15 MG Tablet PO (20:20)
[2022-08-27] MEDS: Atorvastatin Calcium 40 MG Tablet PO (20:20)
[2022-08-27 21:26] VITALS: BP 134/54; PULSE 70; RESP 18; TEMP 36.6; O2SAT 91
[2022-08-27 21:27] VITALS: RESP 18; O2SAT 91
[2022-08-28] MEDS: Levothyroxine 75 MCG Tablet PO (05:02)
[2022-08-28] MEDS: Acetaminophen 500 MG Tablet 1000 MG PO ×3 (05:02→20:21)
[2022-08-28] MEDS: Menthol/Lanolin/Calamine/Znox 113 GM Tube 1 APPLIC TOPICAL ×2 (05:22→20:40)
[2022-08-28 07:53] VITALS: BP 146/54; PULSE 56; RESP 16; TEMP 36.2; O2SAT 94
[2022-08-28] MEDS: Glucerna Shake 120 ML LIQUID PO ×3 (09:03→20:26)
[2022-08-28] MEDS: amLODIPine 5 MG Tablet PO ×2 (09:04→20:22)
[2022-08-28] MEDS: Aspirin 81 MG TAB.CHEW PO (09:04)
[2022-08-28] MEDS: Senna/Docusate Sodium 1 Tablet 2 TABLET PO ×2 (09:04→20:21)
[2022-08-28] MEDS: Heparin Injection (Vial) 5,000 UNIT/ML VIAL 5000 UNIT SC ×2 (09:04→20:30)
[2022-08-28] MEDS: Clopidogrel Bisulfate 75 MG Tablet PO (09:04)
[2022-08-28 19:37] VITALS: BP 141/58; PULSE 63; RESP 16; TEMP 36.9; O2SAT 92
[2022-08-28] MEDS: Mirtazapine 15 MG Tablet PO (20:20)
[2022-08-28] MEDS: Atorvastatin Calcium 40 MG Tablet PO (20:21)
[2022-08-28] MEDS: Donepezil HCl 5 MG Tablet PO (20:22)
[2022-08-28 21:33] VITALS: O2SAT 90
[2022-08-29] MEDS: Acetaminophen 500 MG Tablet 1000 MG PO ×3 (05:11→21:19)
[2022-08-29] MEDS: Levothyroxine 75 MCG Tablet PO (05:11)
[2022-08-29] MEDS: Menthol/Lanolin/Calamine/Znox 113 GM Tube 1 APPLIC TOPICAL ×2 (05:23→21:20)
[2022-08-29 07:08] VITALS: BP 140/57; PULSE 54; RESP 16; TEMP 36.6; O2SAT 94
[2022-08-29] MEDS: Senna/Docusate Sodium 1 Tablet 2 TABLET PO ×2 (08:07→21:19)
[2022-08-29] MEDS: Aspirin 81 MG TAB.CHEW PO (08:07)
[2022-08-29] MEDS: amLODIPine 5 MG Tablet PO ×2 (08:07→21:22)
[2022-08-29] MEDS: Heparin Injection (Vial) 5,000 UNIT/ML VIAL 5000 UNIT SC ×2 (08:08→21:20)
[2022-08-29] MEDS: Clopidogrel Bisulfate 75 MG Tablet PO (08:08)
[2022-08-29] MEDS: MENTHOL 226.8 GM JAR 1 APPLIC TOPICAL (08:16)
--- NOTE | 2022-08-29 08:36 | CASEMGMT ---
Social Work Received voicemail that hospice is meeting with and pt this date at 1330. Haley Leon, [employer] V[employer]ODUCER
--- NOTE | 2022-08-29 13:22 | CASEMGMT ---
Social Work IDT met with patient and for Team meeting. Discussed patient's progress in PT/OT/ST/SN. Educated to [facility] insurance with [employer] 08/31. IDT set DC date for 09/01 to transfer to SNF with hospice, private pay. Inquired to about SNF choices. 's first choice is [facility] then [facility]. Referrals made via [facility]. Will continue to follow. Plan: DC to SNF 09/01 with [facility] DAVID Mccarty
--- NOTE | 2022-08-29 18:28 | PCM.PROGNOTE ---
Subjective Subjective Hayley was seen on team rounds today. Her Dante was present in the room. Afebrile VSS Maintaining appropriate oxygen saturation on RA Oral intake is improving. Discussed with nursing - no problems that need addressed Reviewed the PT/OT/ST notes Medication list reviewed. Hayley's only complaint today is that she is tired after therapy. She denies DYER, lightheadedness, nausea/vomiting/abdominal pain, dysuria, calf pain, chest pain and shortness of breath at rest. She has complained to the occupational therapist about pain in her legs. Objective Data Objective Data Vital Signs: Vital Signs Temp Pulse Resp BP Pulse Ox O2 Del Method O2 Flow Rate 97.8 F 54 L 16 140/57 H 94 Room Air 2 08/29/22 07:08 08/29/22 07:08 08/29/22 07:08 08/29/22 07:08 08/29/22 07:08 08/28/22 21:33 08/29/22 06:31 Oxygen Flow Rate (L/min) 2 Oxygen Delivery Method Room Air Weight: 146 lb 9.718 oz Body Mass Index (BMI) 24.7 Intake & Output: Intake and Output for Last 24 Hours 08/27/22 08/28/22 08/29/22 23:59 23:59 23:59 Intake Total 1580 / 1580 1240 / 1480 192 1920 Balance 1580 / 1580 1240 / 1480 [id number] Lab / Micro Data Result Diagrams: 08/27/22 06:13 09/01/22 05:27 Micro: Microbiology 08/14/22 00:00 Nasal Secretion SARS-CoV-2 Antigen (Rapid) - Final Physical Exam Const alert and no apparent distress Constitutional Narrative: She is oriented to person, age, year and month. Still can not remember that she is in rehab for a stroke. She is pleasant and smiling and is more talkative than at admission. General Appearance: cooperative HEENT normocephalic Mouth: dry mucous membranes Resp normal respiratory effort, normal air movement and clear to auscultation bilaterally Resp Narrative: She has kyphosis Effort and Inspection: Negative for tachypneic or uses accessory muscles Cardio regular rate, regular rhythm, no murmurs and no gallops Cardio Narrative: no ectopy GI normal to inspection, nondistended, normoactive bowel sounds, soft to palpation and non-tender GI Narrative: no guarding with palpation Extremity no calf tenderness General Extremity: Negative for cyanosis or edema Skin General Skin Exam: no breakdown and dry skin Rashes: no rashes Psych cooperative and affect normal Psych Narrative: More interactive than she was at admission to rehab. Does not answer I don't know as much as she was doing at admission. She was able to remember today why the green exercise band is attached to her walker. More facial expression. Always agreeable to working with rehab. Appearance: appropriate Attitude: No agitated Activity / Motor Behavior: Negative for restless Mood & Affect: depressed Assessment & Plan Assessment/Plan (1) Debility: (2) Ischemic cerebrovascular accident (CVA): (3) Hyponatremia: (4) Diabetes mellitus, type 2: (5) Hyperlipidemia: (6) Hypertension: (7) Depression: (8) Schatzki's ring of distal esophagus: (9) Esophageal dysphagia: (10) Dementia: (11) PUD (peptic ulcer disease): PLAN: Plan 1. Continue therapy 2. There has been a hospice referral made. It was discussed with the patient and her by the JOSAFAT and hospice is to meet with Dante and Hayley today but, they now do not want hospice.......they are afraid this means she is near and I explained many patients with dementia live years on hospice but, they want to revoke now and will reconsider if she gets worse. 3. Recheck a BMP prior to DC 4. Plan DC to [place] on 09/01/22. Charges/Coding Visit Charges Inpatient E&M: 76801 Subs Hosp L2
[2022-08-29 19:40] VITALS: BP 131/62; PULSE 69; RESP 16; TEMP 36.2; O2SAT 95
[2022-08-29] MEDS: Glucerna Shake 120 ML LIQUID PO (21:17)
[2022-08-29] MEDS: Mirtazapine 15 MG Tablet PO (21:18)
[2022-08-29] MEDS: Atorvastatin Calcium 40 MG Tablet PO (21:19)
[2022-08-29] MEDS: Donepezil HCl 5 MG Tablet PO (21:19)
[2022-08-30] MEDS: Menthol/Lanolin/Calamine/Znox 113 GM Tube 1 APPLIC TOPICAL ×2 (06:29→20:47)
[2022-08-30] MEDS: Acetaminophen 500 MG Tablet 1000 MG PO ×3 (06:30→21:00)
[2022-08-30] MEDS: Levothyroxine 75 MCG Tablet PO (06:30)
[2022-08-30 06:40] VITALS: O2SAT 94
[2022-08-30 07:44] VITALS: BP 106/49; PULSE 52; RESP 20; TEMP 36.3; O2SAT 95
[2022-08-30] MEDS: Clopidogrel Bisulfate 75 MG Tablet PO (08:39)
[2022-08-30] MEDS: Heparin Injection (Vial) 5,000 UNIT/ML VIAL 5000 UNIT SC ×2 (08:39→20:46)
[2022-08-30] MEDS: amLODIPine 5 MG Tablet PO ×2 (08:39→20:46)
[2022-08-30] MEDS: Senna/Docusate Sodium 1 Tablet 2 TABLET PO ×2 (08:39→20:46)
[2022-08-30] MEDS: Aspirin 81 MG TAB.CHEW PO (08:39)
--- NOTE | 2022-08-30 14:24 | CASEMGMT ---
Addendum entered by Haley Leon 09/01/22 11:18: 7000 completed and sent, along with tx summary, to [facility]. Addendum entered by Haley Leon 08/31/22 11:54: [facility] updated this worker that [facility] is still waiving precerts and is good to admit as planned. Cot transport scheduled through [facility] for 1300. Addendum entered by Haley Leon 08/30/22 15:00: [facility] will submit precert for skilled services. Provided requested therapy notes. 7000 started in [facility]. Original Note: Social Work [facility] can accept. [facility] provided pricing but did not clarify if they can accept. No response via [facility]. SW phoned [facility] and they do not have a bed available. JOSAFAT spoke with and is agreeable to [facility]. Revisited hospice as pt can not receive therapy on hospice. After much discussion and education, is electing no hospice and would like part B therapies. JOSAFAT updated [facility] and [facility]. Plan: DC 09/01 to [facility] SNF, private pay, part B therapies DAVID Mccarty
[2022-08-30 19:25] VITALS: BP 126/70; PULSE 66; RESP 16; TEMP 36.2; O2SAT 95
[2022-08-30] MEDS: Mirtazapine 15 MG Tablet PO (20:31)
[2022-08-30] MEDS: Atorvastatin Calcium 40 MG Tablet PO (20:46)
[2022-08-30] MEDS: Glucerna Shake 120 ML LIQUID PO (20:46)
[2022-08-30] MEDS: Donepezil HCl 5 MG Tablet PO (20:47)
[2022-08-30 20:53] VITALS: PULSE 65; RESP 16; O2SAT 96
[2022-08-31] MEDS: Acetaminophen 500 MG Tablet 1000 MG PO ×3 (06:39→22:09)
[2022-08-31] MEDS: Levothyroxine 75 MCG Tablet PO (06:39)
[2022-08-31] MEDS: Menthol/Lanolin/Calamine/Znox 113 GM Tube 1 APPLIC TOPICAL ×2 (06:40→22:12)
[2022-08-31] MEDS: Nystatin Powder 15gm Bottle 1 APPLIC TOPICAL ×2 (06:41→22:12)
[2022-08-31 07:24] VITALS: BP 124/49; PULSE 82; RESP 16; TEMP 36.2; O2SAT 96
[2022-08-31] MEDS: Aspirin 81 MG TAB.CHEW PO (09:05)
[2022-08-31] MEDS: amLODIPine 5 MG Tablet PO ×2 (09:05→22:11)
[2022-08-31] MEDS: Clopidogrel Bisulfate 75 MG Tablet PO (09:06)
[2022-08-31] MEDS: Heparin Injection (Vial) 5,000 UNIT/ML VIAL 5000 UNIT SC ×2 (09:07→22:11)
--- NOTE | 2022-08-31 12:20 | PCM.TXEXTCAR ---
Diet Diet Order/Speech Therapy: 08/14/22 13:07 Diet: Carbohydrate Controlled Food consistency:: Soft & Bite Sized Liquid Consistency:: [place]/Mildly Thick Dietary Modifications:: Cardiac / Heart Healthy Is pt able to select menu?: Yes Diet Comments: please grind all meats, 1:1 supervision, check for pocketing Routine Orders/Code Status Enema Type: Fleetz Enema Frequency: Daily PRN Suppository Type: Dulcolax 10mg Suppository Frequency: Daily PRN O2 Liters per Minute: 1-2 O2 Frequency: PRN Keep PO Greater than or Equal to (%): 90 Code Status: Full Code Wound(s) top of left foot: Wound Type: Abrasion left knee: Wound Type: Abrasion right medial ankle: Wound Type: Abrasion LT ear lobe: Wound Type: Abrasion Therapies Weight Bearing: Full weight bearing Extremity Affected:: Right Upper Physical Therapy: Eval and Treat Occupational Therapy: Eval and Treat Speech Therapy: Eval and Treat Problem/Diagnosis (1) Debility: Status: Acute Code(s): R53.81 - Other malaise (2) Ischemic cerebrovascular accident (CVA): Status: Acute Code(s): I63.9 - Cerebral infarction, unspecified Comment: Left basal ganglia with extension into the deep white matter tracts in the left frontal parietal region. She also has evidence of left greater than right basal ganglia periventricular white matter lacunar infarcts. (3) Hyponatremia: Status: Acute Code(s): E87.1 - Hypo-osmolality and hyponatremia Comment: This has been recurrent in rehab. Does not take in enough fluids but, she is eating food well. After 2 L of NS the 24H prior to DC the sodium is up to 131 and the creat is 1.04, down from 1.38 the preceding day. (4) Diabetes mellitus, type 2: Status: Acute Code(s): E11.9 - Type 2 diabetes mellitus without complications Comment: diet controlled......HGBA1C was 6.5 on no medications. (5) Hyperlipidemia: Status: Acute Code(s): E78.5 - Hyperlipidemia, unspecified Comment: LDL is 43, HDL is 45, TRIG are 111 on 40 mg of Atorvastatin. (6) Hypertension: Status: Chronic Code(s): I10 - Essential (primary) hypertension Comment: Controlled. (7) Hypothyroidism: Status: Acute Code(s): E03.9 - Hypothyroidism, unspecified Plan: She was not taking Levothyroid at admission to the hospital. she was restarted on 50 mcg daily. TSH was 14.6 at admission to the hospital and a little over 3 weeks later it was still 10.5 and the dose was increased to 75 mcg daily. (8) Depression: Status: Acute Code(s): F32.A - Depression, unspecified Comment: Started on Remeron at admission to rehab. She had no adverse SE's and the dose was increased after 2 weeks to 15 mg at HS. She is sleeping well and eating well at [place] and she is more animated, talkative and interacting with staff much better. No longer tearful (9) Insomnia: Status: Acute Code(s): G47.00 - Insomnia, unspecified Comment: resolved with increase in the Remeron to 15 mg. (10) Chronic renal failure, stage 3b: Status: Acute Code(s): N18.32 - Chronic kidney disease, stage 3b Comment: Creat clearance ranges from 25-35. GFR ranges from 36-54. (11) Schatzki's ring of distal esophagus: Status: Acute Code(s): K22.2 - Esophageal obstruction Comment: Severe ring in the lower 1/3 of the esophagus. The ring was dilated by Dr. Ramos with moderate improvement in stenosis following the dilation. (12) Esophageal dysphagia: Status: Acute Code(s): R13.19 - Other dysphagia (13) Dementia: Status: Suspected Code(s): F03.90 - Unspecified dementia, unspecified severity, without behavioral disturbance, psychotic disturbance, mood disturbance, and anxiety Comment: Started on Aricept during her admission to rehab. (14) PUD (peptic ulcer disease): Status: Acute Code(s): K27.9 - Peptic ulcer, site unspecified, unspecified as acute or chronic, without hemorrhage or perforation Comment: EGD revealed oozing gastric ulcers on 08/10/2022 and they were treated with a heater probe. The Z-line was irregular and found 37 cm from the incisors. Biopsy showed focal intestinal metaplasia consistent with Wagner's esophagus and chronic inflammation. There was no dysplasia. Follow-up with Dr. Ramos in 3 months for repeat upper endoscopy for surveillance. She needs 40 mg of Protonix twice daily for 8 weeks from 08/10/2022. Plan 1. DC to [facility] 2. Follow up with Dr. Ramos for EGD in 3 months for surveillance. 3. Follow up with cardiology to discuss the results of the event monitor. 4. Follow up with neurology 5. Follow up with Dr. Merida 6. Lipid panel, liver panel and total CK in 6 weeks - she was not taking atorvastatin prior to the stroke. 7. HGBA1C every 3 months 8. TSH in 1 month Allergies/Procedures Done in Hospital Allergies No Known Allergies Allergy (Verified 08/01/22 09:57) Procedures: EGD (08/10/[address] Ramos - severe Schatski's ring, hiatal hernia, oozing gastric ulcers, irregular Z-line with pathology consistent with Wagner's esophagus) Type of Care/Length of Stay Estimated LOS: More Than 30 Days Type of Care Needed: Intermediate Rehab Potential: Fair Prognosis: Fair Additional Orders/Day of Discharge Additional Orders: part B therapies H&P will serve as current which was dated: 08/14/22 Day of Discharge: 09/01/22 Dietary and Speech Recommendations Dietitian Recommendations/Changes: Continue carbohydrate controlled/cardiac diet with consistency per [employer]. Continue glucerna shake w/ medpass as tolerated. Follow Up Care Please follow up with your Primary Care Physician in: Dr. Shahid as needed Discharge Plan Admission Admit Date/Time: 08/13/22 14:48 Primary Reason for Your Visit: Debility due to stroke Attending Provider: Nini Martel Primary Care Provider: Lázaro Shahid Instructions Additional Instructions / Restrictions: 1. She needs constant encouragement to increase her water intake.....we have had to give IV NS a few times while in rehab for increased creat and decreased sodium 2. She is deaf in her Left ear and does not have a hearing aid. Speak to her from her R side. 3. She is continent of stool but, incontinent of urine 4. Memory seems to have improved some and also her attention since being started on Aricept and Remeron while in rehab. 5. She is sleeping well at night on 15 mg of Remeron. 6. Affect, interactions with staff, motivation and facial expression have all improved with Remeron which she has now been on for almost 3 weeks. 7. Would repeat a BMP in 1 week. 8. HGB is WNL and stable. 9. Follow up EGD with Dr. Ramos in 3 months from 08/10/22 for Wagner's esophagus and gastric ulcers. Should be on Protonix 40 mg BID for 8 weeks from 08/10/22 and then decrease to 40 mg once a day. 10. If you have any questions please call me at [phone] or [phone]. Discharge Orders/Prescriptions Prescriptions: New amlodipine 5 mg Tablet 5 mg PO BID Qty: 1 0RF bisacodyl 10 mg Suppository 10 mg ND .PRN X 1 PRN (Reason: Constipation) Qty: 1 0RF clopidogrel 75 mg Tablet 75 mg PO DAILY Qty: 3 0RF Rx Instructions: DC Plavix after the dose on 09/04/22 and continue ASA 81 mg daily donepezil 5 mg Tablet 5 mg PO QHS Qty: 1 0RF magnesium hydroxide 400 mg/5 mL Suspension 30 ml PO .PRN X 1 PRN (Reason: Constipation) Qty: 30 0RF mirtazapine 15 mg Tablet 15 mg PO 2100 Qty: 1 0RF nicotine [Nicoderm CQ] 7 mg/24 hr patch 24 hour 1 patch transdermal Q24H Qty: 14 0RF Rx Instructions: DC after 2 weeks Continued acetaminophen 500 mg tablet 1,000 mg PO Q8 nystatin [Nyamyc] 100,000 unit/gram powder 1 applic topical BID@0600,2200 Protocol: *Topical Application Instructions APPLICATION INSTRUCTIONS: abdominal/groin folds Rx Instructions: apply to affected areas menthol [Blue Gel] 2 % Gel 1 applic topical BID PRN PRN (Reason: Pain/Inflammation) Qty: 0 0RF atorvastatin 40 mg tablet 40 mg PO QHS polyethylene glycol 3350 17 gram powder in packet 17 g PO DAILY sennosides-docusate sodium [Stool Softener-Stimulant Laxat] 8.6-50 mg tablet 2 tab PO BID aspirin 81 mg tablet,chewable 81 mg PO BREAKFAST menthol-zinc oxide [Calmoseptine] 0.44-20.6 % ointment 1 applic topical BID@0600,2200 Protocol: *Topical Application Instructions APPLICATION INSTRUCTIONS: Bilateral buttocks Discontinued amlodipine [Norvasc] 2.5 mg tablet 2.5 mg PO DAILY levothyroxine [Synthroid] 50 mcg tablet 50 mcg PO DAILY tramadol 50 mg Tablet 50 mg PO Q6H PRN PRN (Reason: Pain Score 6-10) Qty: 0 0RF nicotine 14 mg/24 hr patch 24 hour 14 mg transdermal DAILY@0800 Disposition Disposition (needs filled in before D/C Order can be placed): NonSkilled NH/Intermed Care
[2022-08-31 13:51] LABS: Anion Gap 12 (5-15); BUN 23 mg/dL (7-18); BUN/Creat Ratio 16.7 RATIO (10-20); Chloride 92 mmol/L (98-107); Creatinine, Serum 1.38 mg/dL (0.55-1.02); EST Glomerular Filtration Rate 39 mL/min (>60); Est Glom Filt Rate - Afr Amer 47 mL/min (>60); Glucose 214 mg/dL (74-106); Potassium 4.4 mmol/L (3.5-5.1); Sodium Level 128 mmol/L (136-145)
[2022-08-31] MEDS: 0.9% Normal Saline 1,000 ML 100 ML IV (16:31)
[2022-08-31 22:00] VITALS: BP 125/47; PULSE 68; RESP 15; RESP 16; TEMP 36.6; O2SAT 95; O2SAT 96
[2022-08-31] MEDS: Mirtazapine 15 MG Tablet PO (22:09)
[2022-08-31] MEDS: Senna/Docusate Sodium 1 Tablet 2 TABLET PO (22:10)
[2022-08-31] MEDS: Donepezil HCl 5 MG Tablet PO (22:12)
[2022-08-31] MEDS: Atorvastatin Calcium 40 MG Tablet PO (22:13)
[2022-09-01] MEDS: 0.9% Normal Saline 1,000 ML 100 ML IV (02:17)
[2022-09-01] MEDS: Levothyroxine 75 MCG Tablet PO (05:34)
[2022-09-01] MEDS: Acetaminophen 500 MG Tablet 1000 MG PO (05:34)
[2022-09-01] MEDS: Menthol/Lanolin/Calamine/Znox 113 GM Tube 1 APPLIC TOPICAL (05:35)
[2022-09-01] MEDS: Nystatin Powder 15gm Bottle 1 APPLIC TOPICAL (05:35)
--- NOTE | 2022-09-01 05:40 | CPS ---
S[employer]ERSON [employer] unable to get to patient due to other critical patients before patient was asleep
[2022-09-01 06:56] LABS: Anion Gap 10 (5-15); BUN 18 mg/dL (7-18); BUN/Creat Ratio 17.3 RATIO (10-20); Calcium,Total 8.5 mg/dL (8.5-10.1); Chloride 100 mmol/L (98-107); Creatinine, Serum 1.04 mg/dL (0.55-1.02); EST Glomerular Filtration Rate 54 mL/min (>60); Est Glom Filt Rate - Afr Amer 65 mL/min (>60); Estimated Creatinine Clearance 34.77 ml/min; Glucose 111 mg/dL (74-106); Potassium 4.4 mmol/L (3.5-5.1); Sodium Level 131 mmol/L (136-145)
[2022-09-01 07:40] VITALS: BP 121/62; PULSE 72; RESP 15; TEMP 35.9; O2SAT 95
[2022-09-01] MEDS: Aspirin 81 MG TAB.CHEW PO (07:56)
[2022-09-01] MEDS: amLODIPine 5 MG Tablet PO (07:56)
[2022-09-01] MEDS: Clopidogrel Bisulfate 75 MG Tablet PO (07:56)
[2022-09-01] MEDS: Heparin Injection (Vial) 5,000 UNIT/ML VIAL 5000 UNIT SC (07:58)
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
--- NOTE | 2022-09-01 11:43 | NURSING ---
Report called to [facility], spoke with Ricarda
== END 2022-09-01 13:15 | disposition skilled nursing facility (03) | DRG 57 ==
PROVIDERS: Admitting Provider Internal Medicine; PCP Family Medicine; Visit Provider Internal Medicine
DX: I69.351 Hemiplegia and hemiparesis following cerebral infarction affecting right dominant side (principal); E87.1 Hypo-osmolality and hyponatremia; E11.22 Type 2 diabetes mellitus with diabetic chronic kidney disease; F03.90 Unspecified dementia, unspecified severity, without behavioral disturbance, psychotic disturbance, mood disturbance, and anxiety; N18.32 Chronic kidney disease, stage 3b; I69.322 Dysarthria following cerebral infarction; F17.210 Nicotine dependence, cigarettes, uncomplicated; K22.70 Barrett's esophagus without dysplasia; I08.0 Rheumatic disorders of both mitral and aortic valves; I12.9 Hypertensive chronic kidney disease with stage 1 through stage 4 chronic kidney disease, or unspecified chronic kidney disease; E03.9 Hypothyroidism, unspecified; E78.5 Hyperlipidemia, unspecified; I69.392 Facial weakness following cerebral infarction; I69.398 Other sequelae of cerebral infarction; K22.2 Esophageal obstruction; Z91.199 Patient's noncompliance with other medical treatment and regimen due to unspecified reason; M81.0 Age-related osteoporosis without current pathological fracture; F32.A Depression, unspecified; Z79.82 Long term (current) use of aspirin; R13.12 Dysphagia, oropharyngeal phase; Z79.899 Other long term (current) drug therapy; Z79.890 Hormone replacement therapy; R20.0 Anesthesia of skin; R32 Unspecified urinary incontinence
CPT/HCPCS: 36415; 71045; 80048; 80053; 80061; 82040; 82570; 82962; 83735; 84100; 84300; 84443; 85025; 85027; 87426; 92507; 92523; 92526; 92610; 94640; 94667; 94668; 97110; 97112; 97116; 97129; 97130; 97162; 97165; 97530; 97535; 97802; 97803; 99252; J7030; A4216; G0463

== ENCOUNTER 2023-01-03 11:03 | Observation (INO) | payer MEDICARE, SELFPAY ==
[2023-01-03 11:04] VITALS: BP 145/74; PULSE 104; RESP 18; TEMP 36.6; O2SAT 95
--- NOTE | 2023-01-03 11:22 | ED.VIS.FALL ---
HPI HPI - Fall History of Present Illness Chief Complaint: Fall Detail of Chief Complaint: Fall with injury to right arm Informant: patient and spouse/S.O. Narrative Narrative: Patient presents the emergency department with a fall that occurred a week ago. Patient states that she was on the front porch and when she was coming up a step she lost her balance and fell landing on her right side injuring her right arm. They did not seek attention at that time. She has been having a hard time using her right arm and caring for herself. does not feel like he can take her home this way as he is having hard time caring for her. Patient does have history of frequent falls. She had history of prior stroke. She is not anticoagulated. Patient denies any head or neck pain. She had no loss of consciousness during her fall. She has been ambulatory since. [facility] Medical History (Updated 01/03/23 @ 13:[address] 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 Chronic kidney disease, stage 3 Chronic renal failure, stage 3b Compression fracture of T11 vertebra Confusion Debility Debility Dementia Depression Diabetes mellitus, type 2 Dysphagia Dysphagia, oropharyngeal phase Effusion of knee joint right Esophageal dysphagia Esophageal obstruction Falls frequently Hemiplegia and hemiparesis following cerebral infarction affecting right dominant side HLD (hyperlipidemia) HTN (hypertension) Hyperlipidemia Hypertension Hypertensive heart and chronic kidney disease without heart failure, with stage 1 through stage 4 chronic kidney disease, or unspecified chronic kidney disease Hyponatremia Hypothyroidism Hypothyroidism Ischemic cerebrovascular accident (CVA) Left atrial enlargement Malignant neoplasm of unspecified site of unspecified female breast Noncompliance Osteoporosis Peptic ulcer, site unspecified, unspecified as acute or chronic, without hemorrhage or perforation PUD (peptic ulcer disease) Schatzki's ring of distal esophagus T12 compression fracture T9 vertebral fracture Unspecified dementia, unspecified severity, without behavioral disturbance, psychotic disturbance, mood disturbance, and anxiety Home Medications atorvastatin 40 mg tablet 40 mg PO QHS cholesterol 08/13/22 [History Last Taken 01/03/23] donepezil 5 mg tablet 5 mg PO QHS #1 TAB 09/01/22 [Rx Last Taken 01/02/23] pantoprazole 40 mg tablet,delayed release (Protonix) 40 mg PO DAILY 09/09/22 [History Last Taken 01/03/23] mirtazapine 15 mg tablet 15 mg PO QHS 09/14/22 [History Last Taken 01/02/23] amlodipine 5 mg tablet 5 mg PO BID BP 01/03/23 [History Last Taken 01/03/23] levothyroxine 50 mcg tablet 50 mcg PO DAILY 01/03/23 [History Last Taken 01/03/23] hpkmohda-ddvtxuq-ilzf-lutein tablet 1 tab PO DAILY SUPPLEMENT 01/03/23 [History Last Taken 01/03/23] Allergy/AdvReac Type Severity Reaction Status Date / Time No Known Allergies Allergy Verified 01/03/23 11:08 Family History Father Hypertension Surgical History Esophageal dilatation History of appendectomy History of hysterectomy History of vertebroplasty S/P biopsy Social History household members: spouse and other details: 's name is Dante housing: house number of children: 1 Smoking Status: Former smoker alcohol intake: current alcohol intake frequency: holidays/special occasions only substance use type: does not use caffeine: No ROS ROS ED Review of Systems ROS Unobtainable: other Constitutional Constitutional ED: Reports lethargy; Denies chills, fever(s), sweats or weight loss Eyes Eyes: Denies blurry vision, change in vision or diplopia ENT ENT ED: Denies rhinorrhea or sore throat Cardiovascular Cardiovascular: Denies chest pain, orthopnea or racing heartbeat Respiratory/Chest Respiratory/Chest: Denies cough, dyspnea, dyspnea on exertion, orthopnea or sputum Gastrointestinal Gastrointestinal: Denies abdominal pain, diarrhea, nausea or vomiting Genitourinary Genitourinary ED: Denies dysuria, hematuria or urinary frequency Musculoskeletal Musculoskeletal: Reports other Details: Right arm pain ; Denies arthralgias, back pain, myalgias or neck pain Integumentary Denies abscess, Abrasions or rash Neurologic Neurologic: Denies headache(s) or weakness Psychiatric Psychiatric: Denies anxiety, depression or suicidal thoughts Endocrine Endocrinology: Denies polydipsia, polyphagia or polyuria Hematologic/Lymphatic Hematologic/Lymphatic: Denies easy bleeding, easy bruising or lymphadenopathy Allergic/Immunologic Allergic/Immunologic ED: Denies mouth swelling, tongue swelling or urticaria EXAM Physical Exam Const Vital Signs: 01/03/23 11:04 01/03/23 11:46 01/03/23 13:09 Temperature 97.8 F Temperature Source Temporal Pulse Rate 104 H 79 Respiratory Rate 18 22 H Respiratory Effort Normal Non-Labored Blood Pressure 145/74 H Blood Pressure Mean 97 Pulse Ox 95 Oxygen Delivery Method Room Air Room Air Positive well nourished and well developed General Appearance ED: well developed and NAD HEENT Reports TM's clear and moist mucous membranes normocephalic and atraumatic; Negative for trauma or tenderness Tympanic Membrane ED: Yes TM's clear Eyes PERRL and EOMs intact bilaterally General Eye ED: Negative for pale conjunctiva or scleral icterus Neck no lymphadenopathy, supple and no JVD General: Negative for tenderness Chest Wall inspection of chest normal and palpation of chest normal Chest: Negative for tenderness Resp normal respiratory effort and clear to auscultation bilaterally Effort and Inspection: Negative for respiratory distress or pain with movement Auscultation: Negative for rhonchi, wheezes or diminished lung sounds Cardio regular rate, regular rhythm, S1 normal heart sound, S2 normal heart sound and no murmurs Peripheral Pulses: pulses 2+ throughout GI normal to inspection, nondistended, normoactive bowel sounds, soft to palpation, non-tender, non-distended and no masses Back/Spine no CVA tenderness and no thoracic nor lumbar tenderness Extremity Extremity Narrative: Right arm-no obvious deformity. No significant ecchymosis or bruising noted. She has tenderness palpation over the humerus diffusely as well as the forearm. Neurovascular intact distally. General Extremety ED: Negative for edema General Extremity: Negative for edema Neuro oriented x3, CN's II-XII intact bilaterally, no sensory deficits noted and gait normal Sensorium / Orientation: awake, alert, oriented to person, oriented to place and oriented to time Motor Exam: strength 5/5 throughout and strength abnormal Psych mental status grossly normal Skin no rashes or lesions noted and no wounds MDM MDM MDM Narrative Medical decision making narrative: Patient presents to the emergency department with multiple falls. She fell a week ago and injured her right arm. Patient is having a hard time caring for herself and her having a hard time caring for her as she is unable to use her right arm. She has had history of prior stroke. Patient with history of dementia. IV line established on arrival. CBC with differential obtained showing of 8.5 with hemoglobin 13.6 and hematocrit 41. Chemistries unremarkable. Glucose was elevated 460. I did give patient 10 units of regular insulin subcu. Urinalysis was normal. X-rays of the right humerus as well as right forearm obtained interpreted by myself as no acute fractures and radiology was in agreement. Case will be discussed with hospitalist evaluate patient for admission Lab Data Attestation: I reviewed the patient's lab results. Labs: Laboratory Results - last 24 hr 01/03/23 01/03/23 01/03/23 11:40 11:40 12:30 WBC 8.5 RBC 4.57 Hgb 13.6 Hct 41.3 MCV 90.4 MCH 29.8 MCHC 32.9 RDW Std Deviation 44.0 H RDW Coeff of Сергей 13.3 Plt Count 254 MPV 12.2 H Immature Gran % (Auto) 0.400 Neut % (Auto) 73.4 H Lymph % (Auto) 13.4 L [place] % (Auto) 7.6 Eos % (Auto) 4.6 Baso % (Auto) 0.6 Absolute Neuts (auto) 6.3 Absolute Lymphs (auto) 1.14 Nucleated RBC % 0 Sodium 136 Potassium 3.8 Chloride 101 Carbon Dioxide 24.0 Anion Gap 11 BUN 18 Creatinine 1.66 H Estim Creat Clear Calc 22.70 Est GFR (MDRD) Af Amer 38 L Est GFR (MDRD) Non-Af 31 L BUN/Creatinine Ratio 10.8 Glucose 460 H* Calcium 9.6 Urine Color Yellow Urine Clarity Clear Urine pH 5.0 Ur Specific [place] 1.015 Urine Protein Negative Urine Glucose (UA) 1000 H Urine Ketones Negative Urine Occult Blood Negative Urine Nitrite Negative Urine Bilirubin Negative Urine Urobilinogen Normal Ur Leukocyte Esterase Negative Urine RBC 0 SEEN Urine WBC 0 SEEN Ur Squamous Epith Cells 0-5 SEEN Urine Bacteria 0 SEEN Urine Mucus 0 SEEN Radiography Diagnostic Testing: Clinical Impression(s) from Imaging Studies Forearm X-Ray 01/03/23 11:55 IMPRESSION: Intact right forearm. Electronically Signed: Sam Jiang MD at 12:36 EDT , Humerus X-Ray 01/03/23 11:55 IMPRESSION: Intact right humerus. Electronically Signed: Sam Jiang MD at 12:46 EDT , 2 view x-rays of right humerus obtained interpreted by myself as no acute fractures or dislocations. Radiology in agreement. 2 view x-rays of right forearm obtained interpreted by myself as no acute fractures. Radiology in agreement. EKG Initial EKG: Attestation: I personally reviewed and interpreted this EKG as follows: Comments: Sinus rhythm with a rate of 95 bpm with occasional PACs and right bundle branch block. Discharge Plan Dx/Rx/DC Orders Clinical Impression: Frequent falls, Adult failure to thrive, Contusion of arm, right, Acute hyperglycemia Disposition Disposition: Acute Care Hospital [facility]
[2023-01-03 11:39] VITALS: BMI 25.2
[2023-01-03] MEDS: 0.9% Normal Saline 1,000 ML 150 ML IV (11:49)
[2023-01-03 11:52] LABS: Absolute Lymphocyte Count 1.14 X10^3/uL (0.83-4.51); Absolute Neutrophil Count 6.3 X10^3/uL (2.0-7.7); Basophil# 0.05 X10^3/uL; Basophil% 0.6 % (0-1); Eosinophil# 0.39 X10^3/uL; Eosinophils% 4.6 % (0-5); Hematocrit 41.3 % (37-47); Hemoglobin 13.6 g/dL (12.0-15.0); Lymphocyte # 1.14 X10^3/ul (0.83-4.51); Lymphocyte % 13.4 % (19-41); Mean Corp Hgb Conc 32.9 g/dL (32-36); Mean Corpuscular Hgb 29.8 pg (27.0-32.0); Mean Corpuscular Volume 90.4 fL (81-99); Mean Platelet Vol. 12.2 fl (6.2-12.0); Monocyte# 0.65 X10^3/uL; Monocyte% 7.6 % (0-10); NRBC Flagged by Analyzer 0 % (0-5); Neutrophil # 6.27 X10^3/uL (2.7-7.7); Neutrophil % 73.4 % (47-70); Platelet Count 254 K/mm3 (150-450); RBC Distribution Width CV 13.3 % (11.6-14.6); Red Blood Count 4.57 M/mm3 (4.2-5.4); White Blood Count 8.5 K/mm3 (4.4-11.0)
--- NOTE | 2023-01-03 11:55 | RAD_ITS ---
EXAM: XR RIGHT HUMERUS, 2 OR MORE VIEWS CLINICAL INDICATION: Trauma TECHNIQUE: Frontal and lateral views of the right humerus. COMPARISON: No relevant prior studies available. FINDINGS: BONES/JOINTS: No acute abnormality. SOFT TISSUES: Normal. No soft tissue swelling or gas. No radiopaque foreign body. RAD/Humerus min 2 Views IMPRESSION: Intact right humerus. Electronically Signed: Sam Jiang MD at 12:46 EDT ,
--- NOTE | 2023-01-03 11:55 | RAD_ITS ---
EXAM: XR RIGHT FOREARM, 2 VIEWS CLINICAL INDICATION: Trauma TECHNIQUE: Frontal and lateral views of the right forearm. COMPARISON: No relevant prior studies available. FINDINGS: BONES/JOINTS: No acute abnormality. SOFT TISSUES: Normal. RAD/Forearm 2 Views IMPRESSION: Intact right forearm. Electronically Signed: Sam Jiang MD at 12:36 EDT ,
[2023-01-03 12:08] LABS: Anion Gap 11 (5-15); BUN 18 mg/dL (7-18); BUN/Creat Ratio 10.8 RATIO (10-20); Calcium,Total 9.6 mg/dL (8.5-10.1); Chloride 101 mmol/L (98-107); Creatinine, Serum 1.66 mg/dL (0.55-1.02); EST Glomerular Filtration Rate 31 mL/min (>60); Est Glom Filt Rate - Afr Amer 38 mL/min (>60); Glucose 460 mg/dL (74-106); Potassium 3.8 mmol/L (3.5-5.1); Sodium Level 136 mmol/L (136-145)
[2023-01-03 12:34] LABS: Bacteria 0 SEEN /hpf (None Seen); Mucous, Urine 0 SEEN /hpf (<or=2+); Red Blood Cells-Urine 0 SEEN /hpf (0-5); White Blood Cells 0 SEEN /hpf (0-5)
[2023-01-03 12:46] LABS: Color, Urine Yellow (Yellow); Glucose, Dipstick 1000 mg/dl (Normal); Ketone-Dipstick Negative (Negative); Leukocyte Esterase-Dipstick Negative /ul (Negative); Nitrite-Dipstick Negative (Negative); Occult Blood-Urine Negative /ul (Negative); Protein-Dipstick Negative (Negative); Specific Gravity, Urine 1.015 (1.002-1.030); Urine Bilirubin Dipstick Negative (Negative); Urine Clarity Clear (Clear); Urine Urobilinogen Normal (Normal)
[2023-01-03 12:56] LABS: Squamous Epithelial Cells - UA 0-5 SEEN /hpf (5-10)
[2023-01-03] MEDS: Insulin Lispro 100 UNIT/ML INSULN.PEN 10 UNIT SC (13:00)
[2023-01-03 13:09] VITALS: PULSE 79; RESP 22
--- NOTE | 2023-01-03 13:37 | NURSING ---
MED SURG OBS KAMILA,I FREQUENT FALLS, FAILURE TO THRIVE, CONTUSION RIGHT ARM, HYPERGLYCEMIA
[2023-01-03 14:13] VITALS: BP 106/50; PULSE 81; RESP 22; TEMP 36.7; O2SAT 97
--- NOTE | 2023-01-03 14:30 | CT_ITS ---
EXAM: CT RIGHT UPPER EXTREMITY WITHOUT INTRAVENOUS CONTRAST CLINICAL INDICATION: right elbow pain TECHNIQUE: Helically acquired images were obtained of the right upper extremity without intravenous contrast. 2-D reformats were performed by the technologist. This CT exam was performed using one or more of the following dose reduction techniques: automated exposure control, adjustment of the mA and/or kV according to patient size, and/or use of iterative reconstruction technique. COMPARISON: No relevant prior studies available. FINDINGS: BONES/JOINTS: Elbow joint effusion displaces the anterior fat pad. No acute fracture or subluxation. SOFT TISSUES: Soft tissue edema noted along the posterior portion of the elbow extending along the medial aspect of the forearm. CT/Extremity Upper without Contra IMPRESSION: Elbow joint effusion. Soft tissue swelling. Electronically Signed: Sam Jiang MD at 17:01 EDT ,
[2023-01-03 15:06] VITALS: BMI 24.2
[2023-01-03 15:20] VITALS: BP 133/73; PULSE 73; RESP 18; TEMP 36.9; O2SAT 95
--- NOTE | 2023-01-03 16:21 | HP.PCM_ITS ---
HPI - General General Date of Admission: 01/03/23 Date of Service: 01/03/23 Chief Complaint: Right elbow pain HPI Narrative KENNETH CRUZ, is a 82 F with a history of dementia most likely of the vascular type and history of CVA. Patient presents with a 1 week history of right elbow pain that is now significantly restricted in activities of daily living. She sustained this after fall onto her right side. In the emergency department had x-rays that did not show any fractures. Pain is severe and is limitation of movement of the right elbow and upper extremity. Did not report any fever or chills. All other lab work here was normal. Markedly elevated blood glucose noted on lab work today however patient and spouse deny any prior known history of diabetes. [facility] Medical History (Updated 01/03/23 @ 16:[address] 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 Chronic kidney disease, stage 3 Chronic renal failure, stage 3b Compression fracture of T11 vertebra Confusion Debility Debility Dementia Depression Diabetes Diabetes mellitus, type 2 Dysphagia Dysphagia, oropharyngeal phase Effusion of knee joint right Esophageal dysphagia Esophageal obstruction Falls frequently Former smoker Hemiplegia and hemiparesis following cerebral infarction affecting right dominant side HLD (hyperlipidemia) HTN (hypertension) Hyperlipidemia Hypertension Hypertensive heart and chronic kidney disease without heart failure, with stage 1 through stage 4 chronic kidney disease, or unspecified chronic kidney disease Hyperthyroidism Hyponatremia Hypothyroidism Hypothyroidism Ischemic cerebrovascular accident (CVA) Left atrial enlargement Malignant neoplasm of unspecified site of unspecified female breast Noncompliance Osteoporosis Peptic ulcer, site unspecified, unspecified as acute or chronic, without hemorrhage or perforation PUD (peptic ulcer disease) Schatzki's ring of distal esophagus Stroke/cerebrovascular accident T12 compression fracture T9 vertebral fracture Unspecified dementia, unspecified severity, without behavioral disturbance, psychotic disturbance, mood disturbance, and anxiety Home Medications atorvastatin 40 mg tablet 40 mg PO QHS cholesterol 08/13/22 [History Last Taken 01/03/23] donepezil 5 mg tablet 5 mg PO QHS #1 TAB 09/01/22 [Rx Last Taken 01/02/23] pantoprazole 40 mg tablet,delayed release (Protonix) 40 mg PO DAILY 09/09/22 [History Last Taken 01/03/23] mirtazapine 15 mg tablet 15 mg PO QHS 09/14/22 [History Last Taken 01/02/23] amlodipine 5 mg tablet 5 mg PO BID BP 01/03/23 [History Last Taken 01/03/23] levothyroxine 50 mcg tablet 50 mcg PO DAILY 01/03/23 [History Last Taken 01/03/23] ehauxzzh-wngzppo-pyzb-lutein tablet 1 tab PO DAILY SUPPLEMENT 01/03/23 [History Last Taken 01/03/23] Allergy/AdvReac Type Severity Reaction Status Date / Time No Known Allergies Allergy Verified 01/03/23 11:08 Family History Father Hypertension Surgical History Esophageal dilatation History of appendectomy History of hysterectomy History of vertebroplasty S/P biopsy Social History household members: spouse and other details: 's name is Dante housing: house number of children: 1 Smoking Status: Former smoker alcohol intake: current alcohol intake frequency: holidays/special occasions only substance use type: does not use caffeine: No ROS ROS Narrative Denies any chest pain or shortness of breath. All other systems reviewed and essentially negative as above in the body of the history. Vital Signs Vital Signs Vital Signs: 01/03/23 11:04 01/03/23 11:46 01/03/23 13:09 Temperature 36.6 C Temperature Source Temporal Pulse Rate 104 H 79 Respiratory Rate 18 22 H Respiratory Effort Normal Non-Labored Blood Pressure 145/74 H Blood Pressure Mean 97 Blood Pressure Source Blood Pressure Position Blood Pressure Location Pulse Ox 95 Oxygen Delivery Method Room Air Room Air 01/03/23 14:13 01/03/23 15:20 01/03/23 15:06 Temperature 36.7 C 36.9 C Temperature Source Oral Oral Pulse Rate 81 73 Respiratory Rate 22 H 18 Respiratory Effort Blood Pressure 106/50 L 133/73 H Blood Pressure Mean 68 93 Blood Pressure Source Monitor Blood Pressure Position Semi-Fowlers Blood Pressure Location Left Arm Pulse Ox 97 95 Oxygen Delivery Method Room Air Room Air Room Air Weight Weight: 66 kg Body Mass Index (BMI) 24.2 Physical Exam Narrative General exam. Elderly woman, mild painful distress not acutely ill or toxic ill-appearing, anxious appearing and slightly depressed appearing. Some psychomotor retardation. She is hard of hearing. HEENT. Hard of hearing., Normocephalic Neck. Neck is supple Heart. First and second heart sounds heard no murmurs Lungs. Nonlabored breathing. Extremities. Severe restriction of movement of the elbow. At rest the elbow is flexed and passive extension elicits a lot of pain. There is some redness over the lateral epicondyle. There is tenderness on palpation of both epicondyles and around the elbow joint. No joint effusion noted. No bruising noted. [employer]. Conscious and alert oriented x3. Cranial 2-12 grossly intact. All other organ systems essentially normal. Results Lab / Micro Data Result Diagrams: 01/03/23 11:40 01/03/23 11:40 Labs: Laboratory Results - last 24 hr 01/03/23 11:40: WBC 8.5, RBC 4.57, Hgb 13.6, Hct 41.3, MCV 90.4, MCH 29.8, MCHC 32.9, RDW Std Deviation 44.0 H, RDW Coeff of Сергей 13.3, Plt Count 254, MPV 12.2 H , Immature Gran % (Auto) 0.400, Neut % (Auto) 73.4 H, Lymph % (Auto) 13.4 L, [place] % (Auto) 7.6, Eos % (Auto) 4.6, Baso % (Auto) 0.6, Absolute Neuts (auto) 6.3, Absolute Lymphs (auto) 1.14, Nucleated RBC % 0 01/03/23 11:40: Sodium 136, Potassium 3.8, Chloride 101, Carbon Dioxide 24.0, Anion Gap 11, BUN 18, Creatinine 1.66 H, Estim Creat Clear Calc 22.70, Est GFR (MDRD) Af Amer 38 L, Est GFR (MDRD) Non-Af 31 L, BUN/Creatinine Ratio 10.8, Gluc ose 460 H*, Calcium 9.6 01/03/23 11:40: Hemoglobin A1c 10.0 H 01/03/23 12:30: Urine Color Yellow, Urine Clarity Clear, Urine pH 5.0, Ur Specific [place] 1.015, Urine Protein Negative, Urine Glucose (UA) 1000 H, Urine Ketones Negative, Urine Occult Blood Negative, Urine Nitrite Negative, Urine Louie irubin Negative, Urine Urobilinogen Normal, Ur Leukocyte Esterase Negative, Urine RBC 0 SEEN, Urine WBC 0 SEEN, Ur Squamous Epith Cells 0-5 SEEN, Urine Bacteria 0 SEEN, Urine Mucus 0 SEEN Radiology Impression Forearm X-Ray 01/03/23 11:55 IMPRESSION: Intact right forearm. Electronically Signed: Sam Jiang MD at 12:36 EDT , Humerus X-Ray 01/03/23 11:55 IMPRESSION: Intact right humerus. Electronically Signed: Sam Jiang MD at 12:46 EDT , Assessment & Plan Assessment/Plan (1) Right elbow pain: PLAN: Plan 1. Right elbow pain. Suspect occult fracture that may not have been seen on plain x-rays due to patient's osteoporosis. Will order CT scan of the right elbow. Suspect traumatic epicondylitis possibly. We will consult orthopedic s urgery as well. Ice application to the right elbow. Physical Occupational Therapy to see and evaluate. Analgesics. 2. Abnormal renal function test with elevated creatinine. LETI versus CKD stage III. Will give gentle IV fluids and reevaluate. 3. Hyperglycemia. No prior diagnosis of diabetes per patient and spouse. We will start patient on basal and mealtime short acting insulin with sliding scale. We will check A1c. Carbohydrate controlled diet. Charges/Coding Visit Charges Inpatient E&M: 63500 Init Hosp L3
[2023-01-03] MEDS: Insulin Glargine-YFGN 100 UNIT/ML Pen 14 UNIT SC (17:02)
[2023-01-03] MEDS: Acetaminophen 500 MG Tablet 1000 MG PO ×2 (17:03→20:43)
[2023-01-03] MEDS: Ketorolac 15 MG/ML Vial IV (17:04)
[2023-01-03] MEDS: Insulin Lispro 100 UNIT/ML INSULN.PEN SC (17:04)
[2023-01-03 17:30] LABS: Bedside Glucose 176 mg/dL (74-106)
[2023-01-03] MEDS: amLODIPine 5 MG Tablet PO (20:43)
[2023-01-03] MEDS: Atorvastatin Calcium 40 MG Tablet PO (20:43)
[2023-01-03] MEDS: Mirtazapine 15 MG Tablet PO (20:43)
[2023-01-03] MEDS: Donepezil HCl 5 MG Tablet PO (20:43)
[2023-01-03 21:00] VITALS: BP 115/54; PULSE 55; RESP 16; TEMP 36.6; O2SAT 94
[2023-01-03] MEDS: Nystatin Powder 15gm Bottle 1 APPLIC TOPICAL (22:17)
[2023-01-04] MEDS: 0.9% Saline Lock 10 ML Syringe IV ×2 (00:20→06:05)
[2023-01-04] MEDS: 0.9% Normal Saline 1,000 ML 100 ML IV ×3 (00:21→19:49)
[2023-01-04] MEDS: Ketorolac 15 MG/ML Vial IV ×3 (00:21→11:42)
[2023-01-04 03:00] VITALS: BP 140/52; PULSE 54; RESP 16; TEMP 36.4; O2SAT 99
[2023-01-04] MEDS: Levothyroxine 50 MCG Tablet PO (06:03)
[2023-01-04] MEDS: Acetaminophen 500 MG Tablet 1000 MG PO ×3 (06:03→21:47)
[2023-01-04] MEDS: Nystatin/Triamcin Oint 1 APPLIC TOPICAL ×3 (06:03→21:47)
[2023-01-04] MEDS: Insulin Lispro 100 UNIT/ML INSULN.PEN SC ×3 (06:14→17:11)
[2023-01-04 06:43] LABS: Bedside Glucose 192 mg/dL (74-106)
[2023-01-04 06:44] LABS: Thyroid Stim Hormone (TSH) 4.81 uIU/mL (0.358-3.74)
--- NOTE | 2023-01-04 07:13 | PN.HOSP_ITS ---
Reason for Visit Reason for Visit: Diagnoses Pain in right elbow (01/03/23) Contusion of right upper arm, initial encounter (01/03/23) Subjective Subjective Patient is an 82-year-old lady who presented to the emergency department following a fall injuring the right upper extremity. CT of the right upper extremity did show Elbow joint effusion. Soft tissue swelling. Objective Data Objective Data Vital Signs: Vital Signs Temp Pulse Resp BP Pulse Ox O2 Del Method 97.5 F L 54 L 16 140/52 H 99 Room Air 01/04/23 03:00 01/04/23 03:00 01/04/23 03:00 01/04/23 03:00 01/04/23 03:00 01/04/23 03:00 Oxygen Delivery Method Room Air Weight: 66 kg Body Mass Index (BMI) 24.2 Intake & Output: Intake and Output for Last 24 Hours 01/02/23 01/03/23 01/04/23 23:59 23:59 23:59 Intake Total 1500 / 1500 Balance 1500 / 1500 Lab / Micro Data Result Diagrams: 01/04/23 05:30 01/04/23 05:30 Labs: Laboratory Results - last 24 hr 01/03/23 11:40: WBC 8.5, RBC 4.57, Hgb 13.6, Hct 41.3, MCV 90.4, MCH 29.8, MCHC 32.9, RDW Std Deviation 44.0 H, RDW Coeff of Сергей 13.3, Plt Count 254, MPV 12.2 H , Immature Gran % (Auto) 0.400, Neut % (Auto) 73.4 H, Lymph % (Auto) 13.4 L, [place] % (Auto) 7.6, Eos % (Auto) 4.6, Baso % (Auto) 0.6, Absolute Neuts (auto) 6.3, Absolute Lymphs (auto) 1.14, Nucleated RBC % 0 01/03/23 11:40: Sodium 136, Potassium 3.8, Chloride 101, Carbon Dioxide 24.0, Anion Gap 11, BUN 18, Creatinine 1.66 H, Estim Creat Clear Calc 22.70, Est GFR (MDRD) Af Amer 38 L, Est GFR (MDRD) Non-Af 31 L, BUN/Creatinine Ratio 10.8, Glucose 460 H*, Calcium 9.6 01/03/23 11:40: Hemoglobin A1c 10.0 H 01/03/23 12:30: Urine Color Yellow, Urine Clarity Clear, Urine pH 5.0, Ur Specific [place] 1.015, Urine Protein Negative, Urine Glucose (UA) 1000 H, Urine Ketones Negative, Urine Occult Blood Negative, Urine Nitrite Negative, Urine Bilirubin Negative, Urine Urobilinogen Normal, Ur Leukocyte Esterase Negative, Urine RBC 0 SEEN, Urine WBC 0 SEEN, Ur Squamous Epith Cells 0-5 SEEN, Urine Bacteria 0 SEEN, Urine Mucus 0 SEEN 01/03/23 17:07: POC Glucose 176 H 01/04/23 05:30: TSH 4.81 H 01/04/23 06:13: POC Glucose 192 H Radiography Diagnostic Testing: Radiology Impression Forearm X-Ray 01/03/23 11:55 IMPRESSION: Intact right forearm. Electronically Signed: Sam Jiang MD at 12:36 EDT Reading Location ID and State: [facility] / [place] Tel , Service support , Humerus X-Ray 01/03/23 11:55 IMPRESSION: Intact right humerus. Electronically Signed: Sam Jiang MD at 12:46 EDT , Upper Extremity CT 01/03/23 14:30 IMPRESSION: Elbow joint effusion. Soft tissue swelling. Electronically Signed: Sam Jiang MD at 17:01 EDT , Physical Exam Narrative GENERAL: cooperative HEENT: Atraumatic; normocephalic EYES; Anicteric, Normal Conjunctiva NECK; supple, normal thyroid, RESPIRATORY: Diminished to auscultation CARDIOVASCULAR: Regular S1 S2, GI: soft, normoactive bowel sounds, : No Renal angle tenderness; EXTREMITIES: No edema, no clubbing, MUSCULOSKELETAL: Right elbow slightly swollen NEURO: Awake; no lateralizing signs. SKIN: No Rash PSYCH; Flat affect Assessment & Plan Assessment/Plan (1) Right elbow pain: PLAN: Plan Patient is an 82-year-old lady who presented to the emergency department following a fall injuring the right upper extremity. CT of the right upper extremity did show Elbow joint effusion. Soft tissue swelling. 1. Fall with right elbow pain ? Imaging studies did show elbow joint effusion. Patient has been admitted to regular nursing floor management pain meds PT OT as tolerated 2. Acute kidney injury ? Patient creatinine on 08/24/2022 was 1.0 creatinine on admission was 1.66 patient has been admitted to regular nursing floor started on IV fluid with subsequent monitoring of daily electrolytes ordered 3. Diabetes mellitus type 2 ? Patient presented with significant hyperglycemia started on long-acting insulin in addition to Accu-Cheks before meals and at bedtime with sliding scale coverage 4. Dyslipidemia -Patient is on statin therapy, continued at home dose 5. Hypothyroidism - Patient is on levothyroxine home dose continued 6. History of peptic ulcer disease ? Patient is on PPI did continue 7. Essential hypertension ? Patient is on amlodipine continued, patient blood pressure being monitored with every shift vitals 8. Depression ? Patient is on mirtazapine at night did continue 9. Previous history of CVA ? Patient is on antiplatelet therapy in addition to statin therapy 10. DVT prophylaxis - On enoxaparin Time spent in the patient's overall evaluation,decision-making process, review of diagnostic data, adjustment of management, discussion with other providers, nursing nursing and ancillary staff involved in patient's care documentation, 35 Minutes Charges/Coding Visit Charges Inpatient E&M: 87087 [facility] L3
--- NOTE | 2023-01-04 07:42 | CONS.ORTHO ---
HPI Consult Data Date of Consult: 01/04/23 HPI Narrative HPI Narrative: KENNETH CRUZ, is a 82 F who presents to [facility] with a 1 week history of right elbow pain. X-rays were obtained in the emergency department demonstrated no fracture. Patient has had multiple falls recently and decision was made to admit the patient. I was asked to see the patient for evaluation of the right elbow. Upon entering the room, patient was resting comfortably. Patient awoke and was able to provide some limited history. She reports pain of approximately 1 week in the right elbow. She states this is getting better. She is unable to localize the pain. She denies any numbness or tingling. Denies prior injury prior to this fall. Denies fevers, chills, nausea vomiting, chest pain or shortness of breath. [facility] Medical History (Updated 01/03/23 @ 16:[address] 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 Chronic kidney disease, stage 3 Chronic renal failure, stage 3b Compression fracture of T11 vertebra Confusion Debility Debility Dementia Depression Diabetes Diabetes mellitus, type 2 Dysphagia Dysphagia, oropharyngeal phase Effusion of knee joint right Esophageal dysphagia Esophageal obstruction Falls frequently Former smoker Hemiplegia and hemiparesis following cerebral infarction affecting right dominant side HLD (hyperlipidemia) HTN (hypertension) Hyperlipidemia Hypertension Hypertensive heart and chronic kidney disease without heart failure, with stage 1 through stage 4 chronic kidney disease, or unspecified chronic kidney disease Hyperthyroidism Hyponatremia Hypothyroidism Hypothyroidism Ischemic cerebrovascular accident (CVA) Left atrial enlargement Malignant neoplasm of unspecified site of unspecified female breast Noncompliance Osteoporosis Peptic ulcer, site unspecified, unspecified as acute or chronic, without hemorrhage or perforation PUD (peptic ulcer disease) Schatzki's ring of distal esophagus Stroke/cerebrovascular accident T12 compression fracture T9 vertebral fracture Unspecified dementia, unspecified severity, without behavioral disturbance, psychotic disturbance, mood disturbance, and anxiety Home Medications atorvastatin 40 mg tablet 40 mg PO QHS cholesterol 08/13/22 [History Last Taken 01/03/23] donepezil 5 mg tablet 5 mg PO QHS #1 TAB 09/01/22 [Rx Last Taken 01/02/23] pantoprazole 40 mg tablet,delayed release (Protonix) 40 mg PO DAILY 09/09/22 [History Last Taken 01/03/23] mirtazapine 15 mg tablet 15 mg PO QHS 09/14/22 [History Last Taken 01/02/23] amlodipine 5 mg tablet 5 mg PO BID BP 01/03/23 [History Last Taken 01/03/23] levothyroxine 50 mcg tablet 50 mcg PO DAILY 01/03/23 [History Last Taken 01/03/23] lokwquws-mrddwto-ylhi-lutein tablet 1 tab PO DAILY SUPPLEMENT 01/03/23 [History Last Taken 01/03/23] Allergy/AdvReac Type Severity Reaction Status Date / Time No Known Allergies Allergy Verified 01/03/23 11:08 Family History Father Hypertension Surgical History Esophageal dilatation History of appendectomy History of hysterectomy History of vertebroplasty S/P biopsy Social History household members: spouse and other details: 's name is Dante housing: house number of children: 1 Smoking Status: Former smoker alcohol intake: current alcohol intake frequency: holidays/special occasions only substance use type: does not use caffeine: No ROS ROS Narrative 12 point review systems obtained, negative unless otherwise noted in HPI. Vital Signs Vital Signs Vital Signs: 01/03/23 11:04 01/03/23 11:46 01/03/23 13:09 Temperature 97.8 F Temperature Source Temporal Pulse Rate 104 H 79 Pulse Strength Respiratory Rate 18 22 H Respiratory Effort Normal Non-Labored Blood Pressure 145/74 H Blood Pressure Mean 97 Blood Pressure Source Blood Pressure Position Blood Pressure Location Pulse Ox 95 Oxygen Delivery Method Room Air Room Air 01/03/23 14:13 01/03/23 15:20 01/03/23 15:06 Temperature 98.0 F 98.4 F Temperature Source Oral Oral Pulse Rate 81 73 Pulse Strength Respiratory Rate 22 H 18 Respiratory Effort Blood Pressure 106/50 L 133/73 H Blood Pressure Mean 68 93 Blood Pressure Source Monitor Blood Pressure Position Semi-Fowlers Blood Pressure Location Left Arm Pulse Ox 97 95 Oxygen Delivery Method Room Air Room Air Room Air 01/03/23 21:44 01/04/23 03:00 01/03/23 21:00 Temperature 97.5 F L 97.8 F Temperature Source Oral Oral Pulse Rate 54 L 55 L Pulse Strength Normal (2+) Respiratory Rate 16 16 Respiratory Effort Blood Pressure 140/52 H 115/54 L Blood Pressure Mean 81 74 Blood Pressure Source Monitor Monitor Blood Pressure Position Supine Supine Blood Pressure Location Left Arm Left Arm Pulse Ox 99 94 Oxygen Delivery Method Room Air Room Air Weight Weight: 145 lb 8.081 oz Body Mass Index (BMI) 24.2 Physical Exam Narrative General -A&Ox3, NAD, appears stated age. Vital signs stable, afebrile. Respiratory -normal work of breathing, no intercostal retractions. CV -pulses regular, brisk capillary refill ?4 limbs. Abdomen-soft, nontender, nondistended. No guarding, rigidity, rebound tenderness. Musculoskeletal/neurologic -full range of motion nontender throughout bilateral lower extremities, left upper extremity. Neurovascular intact throughout. Right upper extremity-no obvious soft tissue swelling is noted. Trace erythema is noted over the lateral epicondyle of the distal humerus. Patient has some mild radiocapitellar joint line tenderness. No short arc range of motion pain of the right elbow. Cardinal motions right hand are intact. Stable to varus valgus stressing. Radial pulse 2+, brisk capillary fill in the fingertips. Sensation intact light touch C5-T1 dermatomes. Elbow flexion extension intact actively with 5/5 strength. Lab / Micro Data Result Diagrams: 01/03/23 11:40 01/03/23 11:40 Labs: Laboratory Results - last 24 hr 01/03/23 11:40: WBC 8.5, RBC 4.57, Hgb 13.6, Hct 41.3, MCV 90.4, MCH 29.8, MCHC 32.9, RDW Std Deviation 44.0 H, RDW Coeff of Сергей 13.3, Plt Count 254, MPV 12.2 H, Immature Gran % (Auto) 0.400, Neut % (Auto) 73.4 H, Lymph % (Auto) 13.4 L, [place] % (Auto) 7.6, Eos % (Auto) 4.6, Baso % (Auto) 0.6, Absolute Neuts (auto) 6.3, Absolute Lymphs (auto) 1.14, Nucleated RBC % 0 01/03/23 11:40: Sodium 136, Potassium 3.8, Chloride 101, Carbon Dioxide 24.0, Anion Gap 11, BUN 18, Creatinine 1.66 H, Estim Creat Clear Calc 22.70, Est GFR (MDRD) Af Amer 38 L, Est GFR (MDRD) Non-Af 31 L, BUN/Creatinine Ratio 10.8, Glucose 460 H*, Calcium 9.6 01/03/23 11:40: Hemoglobin A1c 10.0 H 01/03/23 12:30: Urine Color Yellow, Urine Clarity Clear, Urine pH 5.0, Ur Specific [place] 1.015, Urine Protein Negative, Urine Glucose (UA) 1000 H, Urine Ketones Negative, Urine Occult Blood Negative, Urine Nitrite Negative, Urine Bilirubin Negative, Urine Urobilinogen Normal, Ur Leukocyte Esterase Negative, Urine RBC 0 SEEN, Urine WBC 0 SEEN, Ur Squamous Epith Cells 0-5 SEEN, Urine Bacteria 0 SEEN, Urine Mucus 0 SEEN 01/03/23 17:07: POC Glucose 176 H 01/04/23 05:30: TSH 4.81 H 01/04/23 06:13: POC Glucose 192 H Radiology Impression Forearm X-Ray 01/03/23 11:55 IMPRESSION: Intact right forearm. Electronically Signed: Sam Jiang MD at 12:36 EDT , Humerus X-Ray 01/03/23 11:55 IMPRESSION: Intact right humerus. Electronically Signed: Sam Jiang MD at 12:46 EDT , Upper Extremity CT 01/03/23 14:30 IMPRESSION: Elbow joint effusion. Soft tissue swelling. Electronically Signed: Sam Jiang MD at 17:01 EDT , Assessment & Plan Assessment/Plan (1) Right elbow pain: PLAN: CT and x-rays reviewed. Effusion is noted of the right elbow. Exam is not consistent with septic etiology. Suspect traumatic origin of effusion. No fractures are seen. Patient reports the right elbow pain is getting somewhat better. I would recommend conservative management with an Byron bandage to the right elbow, ice, elevation, and immobilization with physical and Occupational Therapy. Patient may benefit from NSAIDs versus steroids, will defer to primary regarding safety with multiple comorbidities. Plan of care discussed with nursing staff. Will follow
[2023-01-04 08:18] LABS: Absolute Lymphocyte Count 1.66 X10^3/uL (0.83-4.51); Absolute Neutrophil Count 3.4 X10^3/uL (2.0-7.7); Basophil# 0.09 X10^3/uL; Basophil% 1.4 % (0-1); Eosinophil# 0.81 X10^3/uL; Eosinophils% 12.5 % (0-5); Hematocrit 39.8 % (37-47); Hemoglobin 12.6 g/dL (12.0-15.0); Lymphocyte # 1.66 X10^3/ul (0.83-4.51); Lymphocyte % 25.7 % (19-41); Mean Corp Hgb Conc 31.7 g/dL (32-36); Mean Corpuscular Hgb 29.9 pg (27.0-32.0); Mean Corpuscular Volume 94.5 fL (81-99); Monocyte# 0.47 X10^3/uL; Monocyte% 7.3 % (0-10); NRBC Flagged by Analyzer 0 % (0-5); Neutrophil # 3.42 X10^3/uL (2.7-7.7); Neutrophil % 52.8 % (47-70); Platelet Count 201 K/mm3 (150-450); RBC Distribution Width CV 13.3 % (11.6-14.6); RBC Distribution Width SD 46.7 fl (35.1-43.9); Red Blood Count 4.21 M/mm3 (4.2-5.4); White Blood Count 6.5 K/mm3 (4.4-11.0)
[2023-01-04 08:21] LABS: Hemoglobin A1c 10.1 % (3.8-5.6)
[2023-01-04 08:32] LABS: Anion Gap 11 (5-15); BUN 14 mg/dL (7-18); BUN/Creat Ratio 10.9 RATIO (10-20); Calcium,Total 9.4 mg/dL (8.5-10.1); Chloride 109 mmol/L (98-107); Creatinine, Serum 1.28 mg/dL (0.55-1.02); EST Glomerular Filtration Rate 42 mL/min (>60); Est Glom Filt Rate - Afr Amer 51 mL/min (>60); Estimated Creatinine Clearance 29.44 ml/min; Glucose 201 mg/dL (74-106); Magnesium 2.3 mg/dL (1.6-2.6); Phosphorus 3.5 mg/dL (2.5-4.9); Potassium 3.6 mmol/L (3.5-5.1); Sodium Level 140 mmol/L (136-145)
[2023-01-04] MEDS: Insulin Glargine-YFGN 100 UNIT/ML Pen 14 UNIT SC (08:59)
[2023-01-04] MEDS: amLODIPine 5 MG Tablet PO ×2 (09:01→21:48)
[2023-01-04] MEDS: Multivitamins,Ther W-Minerals Tablet 1 TABLET PO (09:01)
[2023-01-04] MEDS: Enoxaparin 30 MG/0.3 ML Syringe SC (09:48)
[2023-01-04 10:32] VITALS: BP 119/61; PULSE 57; RESP 18; TEMP 36.8; O2SAT 99
--- NOTE | 2023-01-04 11:28 | PCM.DC.SUM ---
Providers Date of Admission: 01/03/23 Date of Discharge: 01/04/23 Primary Care Physician: MAMADOU Gamble Consultations 01/03/23 18:00 Consult: Orthopedics Routine Consulting Provider: Gael Carter Reason for Consult: elbow pain EMERGENT Consult: No MD Notified: Yes Date Notified: 01/03/23 Time Notified: 18:01 Method of Notification: Text Method of Consult:: In-Person Reason For Visit: RIGHT ELBOW PAIN Diagnosis Discharge Diagnosis (1) Right elbow pain: Status: Acute Code(s): M25.521 - Pain in right elbow Plan Patient is an 82-year-old lady who presented to the emergency department following a fall injuring the right upper extremity.? CT of the right upper extremity did show Elbow joint effusion. Soft tissue swelling. 1.? Fall with right elbow pain ? Imaging studies did show elbow joint effusion.? Patient has been admitted to regular nursing floor management pain meds PT OT as tolerated 2.? Acute kidney injury ? Patient creatinine on 08/24/2022 was 1.0 creatinine on admission was 1.66 patient has been admitted to regular nursing floor started on IV fluid with subsequent monitoring of daily electrolytes ordered 3.? Diabetes mellitus type 2 ? Patient presented with significant hyperglycemia started on long-acting insulin in addition to Accu-Cheks before meals and at bedtime with sliding scale coverage 4.? Dyslipidemia -Patient is on statin therapy, continued at home dose 5.? Hypothyroidism - Patient is on levothyroxine home dose continued 6.? History of peptic ulcer disease ? Patient is on PPI did continue 7.? Essential hypertension ? Patient is on amlodipine continued, patient blood pressure being monitored with every shift vitals 8.? Depression ? Patient is on mirtazapine at night did continue 9.? Previous history of CVA ? Patient is on antiplatelet therapy in addition to statin therapy 10.? DVT prophylaxis - On enoxaparin Time spent in the patient's overall evaluation,decision-making process, review of diagnostic data, adjustment of management, discussion with other providers, nursing nursing and ancillary staff involved in patient's care documentation, 35? Minutes Medications at Discharge Home Medications atorvastatin 40 mg tablet 40 mg PO QHS cholesterol 08/13/22 pantoprazole 40 mg tablet,delayed release (Protonix) 40 mg PO DAILY GERD 09/09/22 mirtazapine 15 mg tablet 15 mg PO QHS Mood 09/14/22 amlodipine 5 mg tablet 5 mg PO BID BP 01/03/23 levothyroxine 50 mcg tablet 50 mcg PO DAILY Thyroid 01/03/23 hnlydogq-yetgnhm-babx-lutein tablet 1 tab PO DAILY SUPPLEMENT 01/03/23 oxycodone 5 mg tablet 5 mg PO Q4H PRN PRN Pain Score 6-10 3 days #12 tabs 01/04/23 donepezil 5 mg tablet 5 mg PO QHS Memory 01/05/23 glimepiride 1 mg tablet (Amaryl) 1 mg PO DAILY Diabetes 01/05/23 metformin 500 mg tablet 500 mg PO BID Diabetes 01/05/23 Hospital Course Summary of Care Provided Minutes Spent on Discharge: 35 Physical Exam Narrative GENERAL: cooperative HEENT: Atraumatic; normocephalic EYES; Anicteric, Normal Conjunctiva NECK; supple, normal thyroid, RESPIRATORY: Diminished to auscultation CARDIOVASCULAR:? Regular S1 S2, GI:? soft, normoactive bowel sounds, : No Renal angle tenderness; EXTREMITIES:? No edema, no clubbing, MUSCULOSKELETAL: Right elbow slightly swollen NEURO:? Awake;? no lateralizing signs. SKIN:? No Rash PSYCH; Flat? affect Weight / BMI Weight Weight: 66 kg Body Mass Index (BMI) 24.2 ABG / Lab / Microbiology Data Result Diagrams: 01/05/23 04:29 01/05/23 04:29 Laboratory: Laboratory Results - last 24 hr 01/03/23 11:40: WBC 8.5, RBC 4.57, Hgb 13.6, Hct 41.3, MCV 90.4, MCH 29.8, MCHC 32.9, RDW Std Deviation 44.0 H, RDW Coeff of Сергей 13.3, Plt Count 254, MPV 12.2 H, Immature Gran % (Auto) 0.400, Neut % (Auto) 73.4 H, Lymph % (Auto) 13.4 L, [place] % (Auto) 7.6, Eos % (Auto) 4.6, Baso % (Auto) 0.6, Absolute Neuts (auto) 6.3, Absolute Lymphs (auto) 1.14, Nucleated RBC % 0 01/03/23 11:40: Sodium 136, Potassium 3.8, Chloride 101, Carbon Dioxide 24.0, Anion Gap 11, BUN 18, Creatinine 1.66 H, Estim Creat Clear Calc 22.70, Est GFR (MDRD) Af Amer 38 L, Est GFR (MDRD) Non-Af 31 L, BUN/Creatinine Ratio 10.8, Glucose 460 H*, Calcium 9.6 01/03/23 11:40: Hemoglobin A1c 10.0 H 01/03/23 12:30: Urine Color Yellow, Urine Clarity Clear, Urine pH 5.0, Ur Specific [place] 1.015, Urine Protein Negative, Urine Glucose (UA) 1000 H, Urine Ketones Negative, Urine Occult Blood Negative, Urine Nitrite Negative, Urine Bilirubin Negative, Urine Urobilinogen Normal, Ur Leukocyte Esterase Negative, Urine RBC 0 SEEN, Urine WBC 0 SEEN, Ur Squamous Epith Cells 0-5 SEEN, Urine Bacteria 0 SEEN, Urine Mucus 0 SEEN 01/03/23 17:07: POC Glucose 176 H 01/04/23 05:30: TSH 4.81 H 01/04/23 05:30: Hemoglobin A1c 10.1 H 01/04/23 05:30: WBC 6.5, RBC 4.21, Hgb 12.6, Hct 39.8, MCV 94.5, MCH 29.9, MCHC 31.7 L, RDW Std Deviation 46.7 H, RDW Coeff of Сергей 13.3, Plt Count 201, MPV 12.0, Immature Gran % (Auto) 0.300, Neut % (Auto) 52.8, Lymph % (Auto) 25.7, [place] % (Auto) 7.3, Eos % (Auto) 12.5 H, Baso % (Auto) 1.4 H, Absolute Neuts (auto) 3.4, Absolute Lymphs (auto) 1.66, Nucleated RBC % 0 01/04/23 05:30: Sodium 140, Potassium 3.6, Chloride 109 H, Carbon Dioxide 20.0 L, Anion Gap 11, BUN 14, Creatinine 1.28 H, Estim Creat Clear Calc 29.44, Est GFR (MDRD) Af Amer 51 L, Est GFR (MDRD) Non-Af 42 L, BUN/Creatinine Ratio 10.9, Glucose 201 H, Calcium 9.4, Phosphorus 3.5, Magnesium 2.3 01/04/23 06:13: POC Glucose 192 H Radiography Diagnostic Testing: Radiology Impression Forearm X-Ray 01/03/23 11:55 IMPRESSION: Intact right forearm. Electronically Signed: Sam Jiang MD at 12:36 EDT , Humerus X-Ray 01/03/23 11:55 IMPRESSION: Intact right humerus. Electronically Signed: Sam Jiang MD at 12:46 EDT , Upper Extremity CT 01/03/23 14:30 IMPRESSION: Elbow joint effusion. Soft tissue swelling. Electronically Signed: Sam Jiang MD at 17:01 EDT , D/C Instructions Discharge Diet: 1800 Calorie Control Diet Discharge Activity: Return to Normal Activity Call your doctor if you observe: Fever of 101 or Higher, Shortness of breath, Fainting spells and Chest pain Meaningful Use Info Meaningful Use Diagnoses (Choose all that apply): None applicable Discharge Plan Admission Admit Date/Time: 01/03/23 14:08 Attending Provider: Yusef Dunaway Primary Care Provider: Marybel Paige Consulting Providers: Gael Carter ; Erika Damon Discharge Orders/Prescriptions Prescriptions: New oxycodone 5 mg Tablet 5 mg PO Q4H PRN PRN (Reason: Pain Score 6-10) 3 Days Qty: 12 0RF Continued pantoprazole [Protonix] 40 mg tablet,delayed release (DR/EC) 40 mg PO DAILY mirtazapine 15 mg tablet 15 mg PO QHS atorvastatin 40 mg tablet 40 mg PO QHS levothyroxine 50 mcg tablet 50 mcg PO DAILY Label Comments: TAKE 1 TABLET BY MOUTH EVERY DAY IN THE MORNING evnzsdfi-tfrskij-dbqy-lutein Tablet 1 tab PO DAILY amlodipine 5 mg tablet 5 mg PO BID No Action metformin 500 mg tablet 500 mg PO BID donepezil 5 mg tablet 5 mg PO QHS glimepiride [Amaryl] 1 mg tablet 1 mg PO DAILY Referrals / Follow Up: Lázaro Shahid MD [Non-Staff] - Within 1 Week Marybel Paige PA [Primary Care Provider] - Disposition Disposition (needs filled in before D/C Order can be placed): [facility] Charges/Coding Visit Charges Inpatient E&M: 67259 Disch Hosp >30min
[2023-01-04 12:11] LABS: Bedside Glucose 217 mg/dL (74-106)
--- NOTE | 2023-01-04 12:20 | CASEMGMT ---
Addendum entered by Namrata Marr 01/04/23 15:29: Call placed to Rosemarie @ [facility]. She states pt is currently active w/them, but they have been having difficulty w/getting authorization for further [facility] visits. She was made aware pt has been admitted to [facility] and current plan is for pt to go to [facility] TCU @ discharge, pending insurance approval. Original Note: RN?CM?PURCHASING BUYER?CM?to room to meet with patient and for initial transition planning/care coordination?assessment.?RN?CM?introduced self and role at [facility].? Pt very [place]. Most questions answered by . Care providers, pharmacy, and demographics verified/updated at this time. PCP: MAMADOU Guevara Specialists: Dr Grey-joseph [facility] Insurance:Mamie [facility] Prescription Benefit:?Yes Living Will/HPOA:? Pt has LW and HCPOA, who is her . Both are on-file @ [facility]. LNOK: , Henry. Son, Filipe Living Arrangements: Lives w/ in one-story home w/ramp entrance. At pt's baseline pt was indep w/ADL's, but past couple of weeks since pt had fall and rt elbow injury, has been assisting pt w/bathing/dressing as needed. manages pt's medications and appts and does home mgnt tasks. He states it has been difficult to care for pt @ home. Transportation:? DME: states pt has the following DME:?shower chair, RTS, walker, W/C. Pt does not have glucometer and states he does not know how to use one. HHC/SNF: Pt has been to [facility] TCU and [facility] RU. states pt was getting HHC through, he thinks [facility], but he is not sure. He states a nurse was just out to see pt last week and states he thinks they are done. states he wants pt to go to [facility] TCU prior to discharging home, stating again that it has been difficult to take care of her. Offered list of other SNF options and he stated, No. I want her to stay here at this hospital. She's not going anywhere else. He states once her elbow gets better then he plans to take her back home. SW, Enedina, made aware. Plan:??[facility] TAYLOR MARIEN?RN?CM
--- NOTE | 2023-01-04 12:58 | CASEMGMT ---
Addendum entered by Enedina Bautista 01/04/23 13:44: TCU is able to accept and precert has been started at this time. Pt spouse updated. Plan: TCU, pending ROHIT Smith Original Note: Social Work SW received referral from RNCM that pt spouse does not feel he can care for pt at home at this time and is requesting placement in TCU. Plans are for pt to return home once she is stronger. Physician updated. Referral made to TCU. SW will await determination. Precert will be needed prior to admission to TCU. Plan: TCU, pending acceptance and precert ROHIT Flowers
--- NOTE | 2023-01-04 14:41 | CASEMGMT ---
TC to pt to discuss RAMÍREZ form with patient. RN CM explained RAMÍREZ form, patient voiced understanding. Pt gave verbal permission for signature on form, verified by witness. Filed in chart. Pt provided with a copy of signed RAMÍREZ form. Patient had no further questions or concerns at this time.
--- NOTE | 2023-01-04 15:00 | PCM.TXEXTCAR ---
Diet Diet Order/Speech Therapy: 01/03/23 14:09 Diet: Consistent Carb - Calorie Controlled Food consistency:: Regular Liquid Consistency:: Regular/Thin Type of Dietary Supplement:: Glucerna Shake Diet Comments: 120mL glucerna shake TID w/ meals How many daily calories?: 1600 calorie Wound(s) lt ear: Wound Type: Skin Tear Therapies Occupational Therapy: Eval and Treat Speech Therapy: Eval and Treat Problem/Diagnosis (1) Right elbow pain: Status: Acute Code(s): M25.521 - Pain in right elbow Plan Patient is an 82-year-old lady who presented to the emergency department following a fall injuring the right upper extremity.? CT of the right upper extremity did show Elbow joint effusion. Soft tissue swelling. 1.? Fall with right elbow pain ? Imaging studies did show elbow joint effusion.? Patient has been admitted to regular nursing floor management pain meds PT OT as tolerated 2.? Acute kidney injury ? Patient creatinine on 08/24/2022 was 1.0 creatinine on admission was 1.66 patient has been admitted to regular nursing floor started on IV fluid with subsequent monitoring of daily electrolytes ordered 3.? Diabetes mellitus type 2 ? Patient presented with significant hyperglycemia started on long-acting insulin in addition to Accu-Cheks before meals and at bedtime with sliding scale coverage 4.? Dyslipidemia -Patient is on statin therapy, continued at home dose 5.? Hypothyroidism - Patient is on levothyroxine home dose continued 6.? History of peptic ulcer disease ? Patient is on PPI did continue 7.? Essential hypertension ? Patient is on amlodipine continued, patient blood pressure being monitored with every shift vitals 8.? Depression ? Patient is on mirtazapine at night did continue 9.? Previous history of CVA ? Patient is on antiplatelet therapy in addition to statin therapy 10.? DVT prophylaxis - On enoxaparin Time spent in the patient's overall evaluation,decision-making process, review of diagnostic data, adjustment of management, discussion with other providers, nursing nursing and ancillary staff involved in patient's care documentation, 35? Minutes Allergies/Procedures Done in Hospital Allergies No Known Allergies Allergy (Verified 01/03/23 11:08) Type of Care/Length of Stay Estimated LOS: Convalescent Care Less Than 30 days Type of Care Needed: Skilled Rehab Potential: Good Prognosis: Good Additional Orders/Day of Discharge Day of Discharge: 01/04/23 Dietary and Speech Recommendations Dietitian Recommendations/Changes: Will adjust diet to 1600 calorie/consistent carbohydrate. Consider CUSTOMER SERVICE CORRESPONDENCE CLERK consult as needed given hx of dysphagia. Will add 120 ml glucerna shake TID w/ meals. Discharge Plan Admission Admit Date/Time: 01/03/23 14:08 Attending Provider: Yusef Dunaway Primary Care Provider: Marybel Paige Consulting Providers: Gael Carter ; Erika Damon Discharge Orders/Prescriptions Prescriptions: New glimepiride [Amaryl] 1 mg tablet 1 mg PO DAILY Qty: 30 0RF metformin 500 mg tablet 500 mg PO BID Qty: 60 0RF oxycodone 5 mg Tablet 5 mg PO Q4H PRN PRN (Reason: Pain Score 6-10) 3 Days Qty: 12 0RF Continued pantoprazole [Protonix] 40 mg tablet,delayed release (DR/EC) 40 mg PO DAILY mirtazapine 15 mg tablet 15 mg PO QHS atorvastatin 40 mg tablet 40 mg PO QHS donepezil 5 mg Tablet 5 mg PO QHS Qty: 1 0RF levothyroxine 50 mcg tablet 50 mcg PO DAILY Label Comments: TAKE 1 TABLET BY MOUTH EVERY DAY IN THE MORNING [id number]-pxcrjpd-evlt-lutein Tablet 1 tab PO DAILY amlodipine 5 mg tablet 5 mg PO BID Referrals / Follow Up: Lázaro Shahid MD [Non-Staff] - Within 1 Week Marybel Paige PA [Primary Care Provider] - Disposition Disposition (needs filled in before D/C Order can be placed): Home Health Service
[2023-01-04 16:00] VITALS: BP 118/80; PULSE 58; RESP 18; TEMP 36.7; O2SAT 99
[2023-01-04 16:53] LABS: Bedside Glucose 174 mg/dL (74-106)
[2023-01-04 20:00] VITALS: BP 130/61; PULSE 67; RESP 15; TEMP 36.6; O2SAT 96
[2023-01-04] MEDS: Atorvastatin Calcium 40 MG Tablet PO (21:48)
[2023-01-04] MEDS: Donepezil HCl 5 MG Tablet PO (21:48)
[2023-01-04] MEDS: Mirtazapine 15 MG Tablet PO (21:48)
[2023-01-04] MEDS: Nystatin Powder 15gm Bottle 1 APPLIC TOPICAL (21:48)
[2023-01-04 22:20] LABS: Bedside Glucose 173 mg/dL (74-106)
[2023-01-05 05:00] LABS: Absolute Lymphocyte Count 1.37 X10^3/uL (0.83-4.51); Absolute Neutrophil Count 3.9 X10^3/uL (2.0-7.7); Basophil# 0.06 X10^3/uL; Basophil% 0.9 % (0-1); Eosinophil# 1.01 X10^3/uL; Eosinophils% 14.7 % (0-5); Hematocrit 34.8 % (37-47); Lymphocyte # 1.37 X10^3/ul (0.83-4.51); Mean Corp Hgb Conc 31.6 g/dL (32-36); Mean Corpuscular Hgb 29.6 pg (27.0-32.0); Mean Corpuscular Volume 93.5 fL (81-99); Mean Platelet Vol. 11.9 fl (6.2-12.0); Monocyte# 0.47 X10^3/uL; Monocyte% 6.9 % (0-10); NRBC Flagged by Analyzer 0 % (0-5); Neutrophil # 3.92 X10^3/uL (2.7-7.7); Neutrophil % 57.2 % (47-70); Platelet Count 222 K/mm3 (150-450); RBC Distribution Width CV 13.4 % (11.6-14.6); Red Blood Count 3.72 M/mm3 (4.2-5.4); White Blood Count 6.9 K/mm3 (4.4-11.0)
[2023-01-05] MEDS: 0.9% Normal Saline 1,000 ML 100 ML IV ×2 (05:17→14:23)
[2023-01-05] MEDS: Acetaminophen 500 MG Tablet 1000 MG PO ×2 (05:19→14:19)
[2023-01-05] MEDS: Nystatin/Triamcin Oint 1 APPLIC TOPICAL ×2 (05:19→14:19)
[2023-01-05] MEDS: Levothyroxine 50 MCG Tablet PO (05:20)
[2023-01-05 05:24] VITALS: BP 122/46; PULSE 57; RESP 14; TEMP 36.7; O2SAT 94
[2023-01-05] MEDS: Insulin Lispro 100 UNIT/ML INSULN.PEN SC ×3 (05:27→16:29)
[2023-01-05 05:29] LABS: Anion Gap 6 (5-15); BUN 17 mg/dL (7-18); BUN/Creat Ratio 13.7 RATIO (10-20); Calcium,Total 8.1 mg/dL (8.5-10.1); Chloride 111 mmol/L (98-107); Creatinine, Serum 1.24 mg/dL (0.55-1.02); EST Glomerular Filtration Rate 44 mL/min (>60); Est Glom Filt Rate - Afr Amer 53 mL/min (>60); Estimated Creatinine Clearance 30.39 ml/min; Glucose 181 mg/dL (74-106); Sodium Level 139 mmol/L (136-145)
[2023-01-05 06:14] LABS: Bedside Glucose 171 mg/dL (74-106)
[2023-01-05 08:06] VITALS: BP 122/61; PULSE 58; RESP 18; TEMP 36.8; O2SAT 92
[2023-01-05] MEDS: Enoxaparin 30 MG/0.3 ML Syringe SC (08:20)
[2023-01-05] MEDS: Insulin Glargine-YFGN 100 UNIT/ML Pen 14 UNIT SC (08:20)
[2023-01-05] MEDS: amLODIPine 5 MG Tablet PO (08:21)
[2023-01-05] MEDS: Nystatin Powder 15gm Bottle 1 APPLIC TOPICAL (08:21)
[2023-01-05] MEDS: Multivitamins,Ther W-Minerals Tablet 1 TABLET PO (08:21)
--- NOTE | 2023-01-05 10:28 | PN.HOSP_ITS ---
Reason for Visit Reason for Visit: Diagnoses Pain in right elbow (01/03/23) Contusion of right upper arm, initial encounter (01/03/23) Subjective Subjective Patient to discharge patient home the day prior was placed on hold after patient was determined to be significantly deconditioned. Consult subsequently placed to case management plan is for patient to be discharged to nursing home facility pending insurance approval Objective Data Objective Data Vital Signs: Vital Signs Temp Pulse Resp BP Pulse Ox O2 Del Method 98.2 F 58 L 18 122/61 H 92 Room Air 01/05/23 08:06 01/05/23 08:06 01/05/23 08:06 01/05/23 08:06 01/05/23 08:06 01/05/23 08:06 Oxygen Delivery Method Room Air Weight: 66 kg Body Mass Index (BMI) 24.2 Intake & Output: Intake and Output for Last 24 Hours 01/03/23 01/04/23 01/05/23 23:59 23:59 23:59 Intake Total 1500 / 1500 2953.33 / 2953.33 946.67 / 946.67 Balance 1500 / 1500 2953.33 / 2953.33 946.67 / 946.67 Lab / Micro Data Result Diagrams: 01/05/23 04:29 01/05/23 04:29 Labs: Laboratory Results - last 24 hr 01/04/23 11:38: POC Glucose 217 H 01/04/23 16:25: POC Glucose 174 H 01/04/23 21:47: POC Glucose 173 H 01/05/23 04:29: WBC 6.9, RBC 3.72 L, Hgb 11.0 L, Hct 34.8 L, MCV 93.5, MCH 29.6, MCHC 31.6 L, RDW Std Deviation 46.0 H, RDW Coeff of Сергей 13.4, Plt Count 222, MPV 11.9, Immature Gran % (Auto) 0.300, Neut % (Auto) 57.2, Lymph % (Auto) 20.0, Ida % (Auto) 6.9, Eos % (Auto) 14.7 H, Baso % (Auto) 0.9, Absolute Neuts (auto) 3.9, Absolute Lymphs (auto) 1.37, Nucleated RBC % 0 01/05/23 04:29: Sodium 139, Potassium 4.0, Chloride 111 H, Carbon Dioxide 22.0, Anion Gap 6, BUN 17, Creatinine 1.24 H, Estim Creat Clear Calc 30.39, Est GFR (MDRD) Af Amer 53 L, Est GFR (MDRD) Non-Af 44 L, BUN/Creatinine Ratio 13.7, Glucose 181 H, Calcium 8.1 L 01/05/23 05:27: POC Glucose 171 H Physical Exam Narrative GENERAL: cooperative HEENT: Atraumatic; normocephalic EYES; Anicteric, Normal Conjunctiva NECK; supple, normal thyroid, RESPIRATORY: Diminished to auscultation CARDIOVASCULAR:? Regular S1 S2, GI:? soft, normoactive bowel sounds, : No Renal angle tenderness; EXTREMITIES:? No edema, no clubbing, MUSCULOSKELETAL: Right elbow slightly swollen NEURO:? Awake;? no lateralizing signs. SKIN:? No Rash PSYCH; Flat? affect Assessment & Plan Assessment/Plan (1) Right elbow pain: PLAN: Plan Patient is an 82-year-old lady who presented to the emergency department following a fall injuring the right upper extremity.? CT of the right upper extremity did show Elbow joint effusion. Soft tissue swelling. 1.? Fall with right elbow pain ? Imaging studies did show elbow joint effusion.? Patient has been admitted to regular nursing floor management pain meds PT OT as tolerated 2.? Acute kidney injury ? Patient creatinine on 08/24/2022 was 1.0 creatinine on admission was 1.66 patient has been admitted to regular nursing floor started on IV fluid with watson bsequent monitoring of daily electrolytes ordered 3.? Diabetes mellitus type 2 ? Patient presented with significant hyperglycemia started on long-acting insulin in addition to Accu-Cheks before meals and at bedtime with sliding scale coverage 4.? Dyslipidemia -Patient is on statin therapy, continued at home dose 5.? Hypothyroidism - Patient is on levothyroxine home dose continued 6.? History of peptic ulcer disease ? Patient is on PPI did continue 7.? Essential hypertension ? Patient is on amlodipine continued, patient blood pressure being monitored with every shift vitals 8.? Depression ? Patient is on mirtazapine at night did continue 9.? Previous history of CVA ? Patient is on antiplatelet therapy in addition to statin therapy 10.? DVT prophylaxis - On enoxaparin 11. Physical deconditioning - Requested for PT OT eval and social human services assistants to assist with discharge planning Time spent in the patient's overall evaluation,decision-making process, review of diagnostic data, adjustment of management, discussion with other providers, nursing nursing and ancillary staff involved in patient's care documentation, 35? Minutes Charges/Coding Visit Charges Inpatient E&M: 08884 Subs Hosp L2
[2023-01-05 12:06] LABS: Bedside Glucose 227 mg/dL (74-106)
--- NOTE | 2023-01-05 14:05 | CASEMGMT ---
Addendum entered by Enedina Bautista 01/05/23 16:49: Precert obtained from TCU. Physician updated and pt ready for discharge today. Pt and spouse updated. Nursing notified. D/C orders to be faxed when they are obtained. Plan: TCU, skilled level of care [facility] Original Note: Social Work SW spoke with Andra in TCU. Precert is still pending at this time. SW met with pt and spouse and updated. Plan: TCU, pending precert [facility]
[2023-01-05 14:15] VITALS: BP 125/63; PULSE 63; RESP 18; TEMP 36.7; O2SAT 98
[2023-01-05 16:52] LABS: Bedside Glucose 207 mg/dL (74-106)
--- NOTE | 2023-01-05 17:20 | PCM.PN.ORT ---
Subjective Subjective Patient seen and examined. She states her elbow pain is slightly improved. Denies any new complaints. Denies fevers, chills, nausea vomiting, chest pain or shortness of breath. Objective Data Objective Data Vital Signs: Vital Signs Temp Pulse Resp BP Pulse Ox O2 Del Method 98.0 F 63 18 125/63 H 98 Room Air 01/05/23 14:15 01/05/23 14:15 01/05/23 14:15 01/05/23 14:15 01/05/23 14:15 01/05/23 14:15 Oxygen Delivery Method Room Air Weight: 145 lb 8.081 oz Body Mass Index (BMI) 24.2 Intake & Output: Intake and Output for Last 24 Hours 01/03/23 01/04/23 01/05/23 23:59 23:59 23:59 Intake Total 1500 / 1500 2953.33 / 2953.33 / Balance 1500 / 1500 2953.33 / 2953.33 Lab / Micro Data Result Diagrams: 01/05/23 04:29 01/05/23 04:29 Labs: Laboratory Results - last 24 hr 01/04/23 21:47: POC Glucose 173 H 01/05/23 04:29: WBC 6.9, RBC 3.72 L, Hgb 11.0 L, Hct 34.8 L, MCV 93.5, MCH 29.6, MCHC 31.6 L, RDW Std Deviation 46.0 H, RDW Coeff of Сергей 13.4, Plt Count 222, MPV 11.9, Immature Gran % (Auto) 0.300, Neut % (Auto) 57.2, Lymph % (Auto) 20.0, [place] % (Auto) 6.9, Eos % (Auto) 14.7 H, Baso % (Auto) 0.9, Absolute Neuts (auto) 3.9, Absolute Lymphs (auto) 1.37, Nucleated RBC % 0 01/05/23 04:29: Sodium 139, Potassium 4.0, Chloride 111 H, Carbon Dioxide 22.0, Anion Gap 6, BUN 17, Creatinine 1.24 H, Estim Creat Clear Calc 30.39, Est GFR (MDRD) Af Amer 53 L, Est GFR (MDRD) Non-Af 44 L, BUN/Creatinine Ratio 13.7, Glucose 181 H, Calcium 8.1 L 01/05/23 05:27: POC Glucose 171 H 01/05/23 11:43: POC Glucose 227 H 01/05/23 16:28: POC Glucose 207 H Micro: Microbiology 01/05/23 15:30 Nasal Secretion SARS-CoV-2 Antigen (Rapid) - Final Physical Exam Narrative General -A&Ox3, NAD, appears stated age. Vital signs stable, afebrile. Respiratory -normal work of breathing, no intercostal retractions. CV -pulses regular, brisk capillary refill ?4 limbs. Abdomen-soft, nontender, nondistended. No guarding, rigidity, rebound tenderness. Musculoskeletal/neurologic -full range of motion nontender throughout bilateral lower extremities, left upper extremity. Neurovascular intact throughout. Right upper extremity-no obvious soft tissue swelling is noted. No erythema. Patient has some mild radiocapitellar joint line tenderness. No short arc range of motion pain of the right elbow. Cardinal motions right hand are intact. Stable to varus valgus stressing. Radial pulse 2+, brisk capillary fill in the fingertips. Sensation intact light touch C5-T1 dermatomes. Elbow flexion extension intact actively with 5/5 strength. Assessment & Plan Assessment/Plan (1) Right elbow pain: PLAN: Pain appears slightly improved. No erythema today. Patient using that arm to feed herself this evening. Suspect contusion versus sprain. RICE therapy recommended. I will sign off at this time. Patient may follow-up on an as-needed basis. Please do not hesitate to call if any questions or concerns arise. Thank you for this consultation.
== END 2023-01-05 17:51 | disposition skilled nursing facility (03) ==
LOC: ED 13:36 → MS3 14:57
PROVIDERS: Admitting Provider Internal Medicine; Emergency Provider Emergency Medicine; PCP Physician Assistant; Visit Provider Internal Medicine
DX: M25.421 Effusion, right elbow (principal); I69.351 Hemiplegia and hemiparesis following cerebral infarction affecting right dominant side; N17.9 Acute kidney failure, unspecified; F03.90 Unspecified dementia, unspecified severity, without behavioral disturbance, psychotic disturbance, mood disturbance, and anxiety; E11.22 Type 2 diabetes mellitus with diabetic chronic kidney disease; E11.65 Type 2 diabetes mellitus with hyperglycemia; N18.32 Chronic kidney disease, stage 3b; S40.021A Contusion of right upper arm, initial encounter; E78.5 Hyperlipidemia, unspecified; I12.9 Hypertensive chronic kidney disease with stage 1 through stage 4 chronic kidney disease, or unspecified chronic kidney disease; E03.9 Hypothyroidism, unspecified; Z79.899 Other long term (current) drug therapy; Z79.890 Hormone replacement therapy; Z87.891 Personal history of nicotine dependence; R62.7 Adult failure to thrive; W10.9XXA Fall (on) (from) unspecified stairs and steps, initial encounter; Y92.89 Other specified places as the place of occurrence of the external cause; F32.A Depression, unspecified; Z87.11 Personal history of peptic ulcer disease
CPT/HCPCS: 96361; 96372; 96374; 96376; 99284; 36415; 73060; 73090; 73200; 80048; 81001; 82962; 83036; 83735; 84100; 84443; 85025; 87811; 93005; 97162; 97166; 97530; 97535; 97802; 99221; J7030; A4216; G0378

== ENCOUNTER 2023-01-05 17:58 | Inpatient (IN) | payer MEDICARE, SELFPAY ==
[2023-01-05 18:15] VITALS: BP 131/50; PULSE 67; RESP 14; TEMP 36.3; O2SAT 92; BMI 26.3
--- NOTE | 2023-01-05 20:01 | HP.PCM_ITS ---
HPI - General General Date of Admission: 01/05/23 Date of Service: 01/06/23 Chief Complaint: Here for rehabilitation. HPI Narrative 01/03/2023 KENNETH CRUZ, is a 82 Female who presents to [facility] Emergency Department with fall. Fall 1 week prior, walking up front porch step, lost balance, fell landing on right side, injuring right arm. Difficulty using right arm, caring for self. History of frequent falls, recent stroke. Glucose 460, Lispro 10 units given. UA negative. X-ray right humerus negative for fracture. 01/03/[address] right elbow, consult Orthopedics for traumatic right epicondylitis. Gentle IV fluids for acute kidney injury, Creatinine 1.66. Start insulin regimen for Diabetes Mellitus II, A1c 10.1. 01/04/2023 CT right upper extremity elbow showed joint effusion. PT/OT for SNF. IV fluids for acute kidney injury. 01/04/2023 Dr. Carter recommended KHANG wrap, ice, elevation, immobilization, PT/OT for right elbow effusion. 01/05/2023 PT/OT for SNF. 01/05/2023 Right elbow pain improved. Admit to TCU with debility, here for rehabilitation, strengthening, prior to discharge home with . 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 Chronic kidney disease, stage 3 Chronic renal failure, stage 3b Compression fracture of T11 vertebra Confusion Debility Debility Dementia Depression Diabetes Diabetes mellitus, type 2 Dysphagia Dysphagia, oropharyngeal phase Effusion of knee joint right Esophageal dysphagia Esophageal obstruction Falls frequently Former smoker Hemiplegia and hemiparesis following cerebral infarction affecting right dominant side HLD (hyperlipidemia) HTN (hypertension) Hyperlipidemia Hypertension Hypertensive heart and chronic kidney disease without heart failure, with stage 1 through stage 4 chronic kidney disease, or unspecified chronic kidney disease Hyperthyroidism Hyponatremia Hypothyroidism Hypothyroidism Ischemic cerebrovascular accident (CVA) Left atrial enlargement Malignant neoplasm of unspecified site of unspecified female breast Noncompliance Osteoporosis Peptic ulcer, site unspecified, unspecified as acute or chronic, without hemorrhage or perforation PUD (peptic ulcer disease) Schatzki's ring of distal esophagus Stroke/cerebrovascular accident T12 compression fracture T9 vertebral fracture Unspecified dementia, unspecified severity, without behavioral disturbance, psychotic disturbance, mood disturbance, and anxiety Home Medications atorvastatin 40 mg tablet 40 mg PO QHS cholesterol 08/13/22 [History Last Taken 01/03/23] pantoprazole 40 mg tablet,delayed release (Protonix) 40 mg PO DAILY GERD 09/09/22 [History Last Taken 01/03/23] mirtazapine 15 mg tablet 15 mg PO QHS Mood 09/14/22 [History Last Taken 01/02/23] amlodipine 5 mg tablet 5 mg PO BID BP 01/03/23 [History Last Taken 01/03/23] levothyroxine 50 mcg tablet 50 mcg PO DAILY Thyroid 01/03/23 [History Last Taken 01/03/23] ujxzrmqq-qvjqimm-jfwd-lutein tablet 1 tab PO DAILY SUPPLEMENT 01/03/23 [History Last Taken 01/03/23] oxycodone 5 mg tablet 5 mg PO Q4H PRN PRN Pain Score 6-10 3 days #12 tabs 01/04/23 [Rx Last Taken Unknown] donepezil 5 mg tablet 5 mg PO QHS Memory 01/05/23 [History Last Taken Unknown] glimepiride 1 mg tablet (Amaryl) 1 mg PO DAILY Diabetes 01/05/23 [History Last Taken Unknown] metformin 500 mg tablet 500 mg PO BID Diabetes 01/05/23 [History Last Taken Unknown] Allergy/AdvReac Type Severity Reaction Status Date / Time No Known Allergies Allergy Verified 01/03/23 11:08 Family History Father Hypertension Surgical History Esophageal dilatation History of appendectomy History of hysterectomy History of vertebroplasty S/P biopsy Social History household members: spouse and other details: 's name is Dante housing: house number of children: 1 Smoking Status: Former smoker alcohol intake: current alcohol intake frequency: holidays/special occasions only substance use type: does not use caffeine: No ROS Constitutional Constitutional: Denies chills, fever(s) or weight gain ENT HEENT: Denies headache(s), nasal congestion or nasal discharge Cardiovascular Cardiovascular: Denies chest pain or palpitations Respiratory/Chest Respiratory/Chest: Denies cough, excessive phlegm production or shortness of breath with exertion Gastrointestinal Gastrointestinal: Denies abdominal pain, nausea or vomiting Genitourinary Genitourinary: Denies dysuria Musculoskeletal Musculoskeletal: Denies joint pain or joint swelling Integumentary Integumentary: Denies rash or wounds Neurologic Neurologic: Denies focal weakness, numbness or tingling Psychiatric Psychiatric: Denies anxiety, auditory hallucinations, depression, homicidal ideation or suicidal ideation Vital Signs Vital Signs Vital Signs: 01/05/23 18:15 01/05/23 18:15 Temperature 97.3 F L Temperature Source Temporal Pulse Rate 67 Pulse Rhythm Regular Pulse Strength Normal (2+) Respiratory Rate 14 Respiratory Effort Normal Non-Labored Respiratory Depth Normal Respiratory Pattern Normal Blood Pressure 131/50 H Blood Pressure Mean 77 Blood Pressure Source Monitor Blood Pressure Position Semi-Fowlers Blood Pressure Location Left Arm Pulse Ox 92 Oxygen Delivery Method Room Air Room Air Weight Weight: 71.758 kg Body Mass Index (BMI) 26.3 Physical Exam Const alert General Appearance: cooperative HEENT normocephalic Eyes PERRL and EOMs intact bilaterally Neck supple, no JVD and no carotid bruits Resp normal respiratory effort, normal air movement and clear to auscultation bilaterally Cardio regular rate and regular rhythm GI normal to inspection, nondistended, normoactive bowel sounds, non-tender and non-distended Extremity normal capillary refill Extremity Narrative: Right elbow contusion. General Extremity: Negative for edema Skin no rashes or lesions noted General Skin Exam: no breakdown Psych affect normal Appearance: appropriate Results Lab / Micro Data Result Diagrams: 01/06/23 05:28 Assessment & Plan Assessment/Plan (1) Debility: (2) Frequent falls: (3) Right elbow pain: (4) Adult failure to thrive: (5) Contusion of arm, right: (6) Diabetes mellitus: (7) Stroke: (8) Hypertension: (9) Hyperlipidemia: (10) Hypothyroidism: (11) Vascular dementia: PLAN: Plan 82 year old female with below past medical history hospitalized for right elbow effusion, treated conservatively, complicated by acute kidney injury, new onset Diabetes Mellitus II, admitted to TCU with debility, here for rehabilitation, strengthening, prior to discharge home with . * Debility - PT/OT. * Pain - Tylenol 1000mg q6h prn pain (1-5), Oxycodone 5mg q4h prn pain (6-10). * Bowel - senna/colace 1 tablet bid, Dulcolax 10mg pr x 1 prn, MOM 30ml po x 1 prn. * Adult immunization - Administer pneumonia vaccine, covid19 vaccine, flu vaccine as appropriate. * DVT prophylaxis - Lovenox 30mg sc daily. * Hypertension - Amlodipine 5mg bid. * Hyperlipidemia - Atorvastatin 40mg qhs. * Vascular dementia - Donepezil 5mg qhs. * Diabetes Mellitus II - Metformin 500mg bidcm, Glimepiride 1mg qam. * Hypothyroidism - Levothyroxine 50mcg daily. * Skin irritation - Calmoseptine topical bid. 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 * Nutrition - MVI daily. * Tinea corporis - Nystatin powder topical bid. * GERD - Pantoprazole 40mg daily. * Stroke - Aspirin 81mg daily.
[2023-01-05] MEDS: Atorvastatin Calcium 40 MG Tablet PO (21:46)
[2023-01-05] MEDS: Donepezil HCl 5 MG Tablet PO (21:46)
[2023-01-05] MEDS: Mirtazapine 15 MG Tablet PO (21:46)
[2023-01-05] MEDS: amLODIPine 5 MG Tablet PO (21:46)
[2023-01-05 23:45] LABS: Bedside Glucose 176 mg/dL (74-106)
[2023-01-06] MEDS: Menthol/Lanolin/Calamine/Znox 113 GM Tube 1 APPLIC TOPICAL ×2 (05:45→17:41)
[2023-01-06] MEDS: Enoxaparin 30 MG/0.3 ML Syringe SC (05:46)
[2023-01-06] MEDS: Pantoprazole Sodium 40 MG Tablet PO (05:46)
[2023-01-06] MEDS: Levothyroxine 50 MCG Tablet PO (05:46)
[2023-01-06] MEDS: Senna/Docusate Sodium 1 Tablet PO ×2 (05:46→17:41)
[2023-01-06] MEDS: Nystatin Powder 15gm Bottle 1 APPLIC TOPICAL ×2 (05:46→17:41)
[2023-01-06] MEDS: amLODIPine 5 MG Tablet PO ×2 (05:46→17:41)
[2023-01-06 05:54] VITALS: BP 124/46; PULSE 64
[2023-01-06 05:59] LABS: Anion Gap 7 (5-15); BUN 17 mg/dL (7-18); BUN/Creat Ratio 13.4 RATIO (10-20); Calcium,Total 8.9 mg/dL (8.5-10.1); Chloride 112 mmol/L (98-107); Creatinine, Serum 1.27 mg/dL (0.55-1.02); EST Glomerular Filtration Rate 43 mL/min (>60); Est Glom Filt Rate - Afr Amer 52 mL/min (>60); Estimated Creatinine Clearance 29.67 ml/min; Glucose 128 mg/dL (74-106); Potassium 4.2 mmol/L (3.5-5.1); Sodium Level 142 mmol/L (136-145)
[2023-01-06 06:36] LABS: Bedside Glucose 123 mg/dL (74-106)
[2023-01-06] MEDS: Aspirin 81 MG TAB.CHEW PO (08:01)
[2023-01-06] MEDS: metFORMIN HCl 500 MG Tablet PO ×2 (08:28→17:40)
[2023-01-06] MEDS: Multivitamins,Therapeutic Tablet 1 TABLET PO (08:28)
--- NOTE | 2023-01-06 10:13 | CASEMGMT ---
Social Work Met with patient to complete initial assessment. Pt known to this worker from previous stay. Verified contacts. Discussed code status and MOLST form. Pt wishes to be full code. Educated to code status and pt confirms full code. MOLST placed in Dr folder. Nursing notified. Educated to [facility] [place] insurance and continued stay is not guaranteed with each review. requesting palliative consult. Order placed and referral sent to [facility] Palliative via secure email. SW to continue to follow for DC planning. Haley Leon, SEO EXECUTIVE [employer]ER
[2023-01-06] MEDS: Tuberculin,Purif.prot.deriv. 50 TU/ML Vial 0.1 ML ID (10:26)
[2023-01-06 10:40] LABS: Bedside Glucose 279 mg/dL (74-106)
--- NOTE | 2023-01-06 11:50 | NURSING ---
asking about patient having an MRI of right ankle while here. Per him she was supposed to see cooling tower technician but he cancelled appt. Called and spoke with staff at Dr. Grey's office. Per office they already have authorization for MRI but its only good for a [facility] facility, and not emergent. Staff said to have patient wait and have done later. Updated and patient, expressed frustration but thanked nurse for updating him.
[2023-01-06 14:01] VITALS: BP 126/66; PULSE 72; RESP 19; TEMP 35.9; O2SAT 96
--- NOTE | 2023-01-06 14:20 | PCM.PN.DRR ---
TCU RX Drug Regimen Review Subjective: [] 82 YOF admitted to the hospital with fall resulting in right elbow injury. Admitted to TCU 01/05/23 for strengthening and rehabilitation prior to discharge home where she resides with her . Objective: Allergies No Known Allergies Allergy (Verified 01/03/23 11:08) Current Medications Generic Name Dose Route Start Last Admin Trade Name Freq PRN Reason Stop Dose Admin Acetaminophen 1,000 mg 01/05/23 20:15 Acetaminophen 500 Mg Tablet PO Q6H PRN PRN Pain Score 1-5 Amlodipine Besylate 5 mg 01/05/23 18:30 01/06/23 05:46 Amlodipine 5 Mg Tablet PO 5 mg BID NIELS Administration Aspirin 81 mg 01/06/23 08:00 01/06/23 08:01 Aspirin 81 Mg Tab.Chew PO 81 mg BREAKFAST NIELS Administration Atorvastatin Calcium 40 mg 01/05/23 22:00 01/05/23 21:46 Atorvastatin Calcium 40 Mg Tablet PO 40 mg QHS NIELS Administration Bisacodyl 10 mg 01/05/23 20:15 Bisacodyl 10 Mg Suppository RC X1 PRN Constipation Calamine/Phenol 1 applic 01/06/23 06:00 01/06/23 05:45 Menthol/Lanolin/Calamine/Znox 113 Gm Tube TOPICAL 1 applic BID NIELS Administration Protocol Donepezil HCl 5 mg 01/05/23 22:00 01/05/23 21:46 Donepezil Hcl 5 Mg Tablet PO 5 mg QHS NIELS Administration Enoxaparin Sodium 30 mg 01/06/23 06:00 01/06/23 05:46 Enoxaparin 30 Mg/0.3 Ml Syringe SC 30 mg DAILY@0600 NIELS Administration Levothyroxine Sodium 50 mcg 01/06/23 06:00 01/06/23 05:46 Levothyroxine 50 Mcg Tablet PO 50 mcg DAILY NIELS Administration Magnesium Hydroxide 30 ml 01/05/23 20:15 Magnesium Hydroxide 30 Ml Udc PO X1 PRN Constipation Metformin HCl 500 mg 01/06/23 08:00 01/06/23 08:28 Metformin Hcl 500 Mg Tablet PO 500 mg BIDCM NIELS Administration Mirtazapine 15 mg 01/05/23 22:00 01/05/23 21:46 Mirtazapine 15 Mg Tablet PO 15 mg QHS NIELS Administration Multivitamins 1 tablet 01/06/23 08:00 01/06/23 08:28 Multivitamins,Therapeutic Tablet PO 1 tablet DAILYCM NIELS Administration Nystatin 1 applic 01/06/23 06:00 01/06/23 05:46 Nystatin Powder 15gm Bottle TOPICAL 1 applic BID NIELS Administration Protocol Oxycodone HCl 5 mg 01/05/23 18:24 Oxycodone 5 Mg Tablet PO Q4H PRN PRN Pain Score 6-10 Pantoprazole Sodium 40 mg 01/06/23 06:00 01/06/23 05:46 Pantoprazole Sodium 40 Mg Tablet PO 40 mg DAILY NIELS Administration Senna/Docusate Sodium 1 tablet 01/06/23 06:00 01/06/23 05:46 Senna/Docusate Sodium 1 Tablet PO 1 tablet BID NIELS Administration Sodium Chloride 10 - 40 ml 01/05/23 18:23 0.9% Saline Lock 10 Ml Syringe IV UD PRN SALINE FLUSH Tuberculin PPD 0.1 ml 01/13/23 10:00 Tuberculin,Purif.Prot.Deriv. 50 Tu/Ml Vial ID 01/13/23 10:01 X1 ONE Problem List (Last Reviewed 01/05/23 @ 20:[address] Get Cuevas MD) Vascular dementia (Acute) Hypothyroidism (Acute) Hyperlipidemia (Acute) Hypertension (Chronic) Stroke (Acute) Diabetes mellitus (Acute) Debility (Acute) Right elbow pain (Acute) Frequent falls (Acute) Adult failure to thrive (Acute) Contusion of arm, right (Acute) Vital Signs Temp Pulse Resp BP Pulse Ox O2 Del Method 96.7 F L 72 19 H 126/66 H 96 Room Air 01/06/23 14:01 01/06/23 14:01 01/06/23 14:01 01/06/23 14:01 01/06/23 14:01 01/06/23 14:01 Oxygen Delivery Method Room Air Weight: 71.758 kg Body Mass Index (BMI) 26.3 Sodium 142 mmol/L (136-145) 01/06/23 05:28 Potassium 4.2 mmol/L (3.5-5.1) 01/06/23 05:28 Chloride 112 mmol/L (98-107) H 01/06/23 05:28 Carbon Dioxide 23.0 mmol/L (21.0-32.0) 01/06/23 05:28 Anion Gap 7 (5-15) 01/06/23 05:28 BUN 17 mg/dL (7-18) 01/06/23 05:28 Creatinine 1.27 mg/dL (0.55-1.02) H 01/06/23 05:28 Est GFR (MDRD) Af Amer 52 mL/min (>60) L 01/06/23 05:28 Est GFR (MDRD) Non-Af 43 mL/min (>60) L 01/06/23 05:28 BUN/Creatinine Ratio 13.4 RATIO (10-20) 01/06/23 05:28 Glucose 128 mg/dL (74-106) H 01/06/23 05:28 Assessment/Plan: 1. Pain - Tylenol 100 mg po q6h prn pain (1-5), oxycodone 5mg po q4h prn pain (6-10). Monitor pain levels, any constipation, drowsiness, sedation, prn medication use -To date, the pt has not used any prn medication doses; pain appears well managed at this time. 2. Hypertension/Hyperlipidemia/Stroke - Amlodipine 5 mg po bid, Atorvastatin 40 mg po qhs, Aspirin 81 mg po daily. Monitor blood pressure (124-131/46-66), pulse (64-72), lower extremity swelling, lipid panel (WNL from 08/15/22), muscle aches, bleeding risk) 3. Diabetes Mellitus II - Metformin 500 mg po bid. Monitor BG (128-181), A1c (recorded 01/04/23 at 10.1%). 4. Hypothyroidism - Levothyroxine 50 mcg po daily. Monitor thyroid levels (T3, T4, TSH). 5. Vascular dementia - Donepezil 5mg po qhs. Monitor nausea, vomiting, diarrhea, vivid dreams. 6. Nutrition - MVI po daily. 7. GERD - Pantoprazole 40 mg po daily. Monitor nausea, stomach upset, please encourage pt to use non-pharm measures to prevent/treat flare-ups. 8. Bowel - Senna/Docusate 1 tablet po bid, Bisacodyl 10mg suppository rec prn constipation, Magnesium hydroxide 30 mL po prn constipation. Monitor increased or decreased constipation or diarrhea -To date, pt has not had a bowel movement since admission, if more than 48 hours and no BM, consider administering prn medication 9. DVT prophylaxis - Enoxaparin 30mg/0.3mL sc daily. Monitor bleeding and bruising, fall risk, H/H (HgB: 11.0 and Hct 34.8% on 01/06/23) 10. Skin integrity - Calmoseptine 1 application topical bid, Nystatin 1 application topical bid. Please continue to monitor for s/s of skin breakdown, irritation, and redness. Assessment/Plan for indications treated with psychotropic medications: 11. Depression/insomnia/appetite loss - Mirtazapine 15mg po qhs. Monitor drowsiness, dizziness. Please consider a GDR by 07/29 if clinically indicated. Thank you Medical chart and medication regimen reviewed. The following medication irregularities or issues were identified: *Hypothyroidism - Levothyroxine 50 mcg po daily. No thyroid tests on file, please consider obtaining thyroid levels (T3, T4, TSH) Thank you. *Depression/insomnia/appetite loss - Mirtazapine 15mg po qhs. Monitor drowsiness, dizziness. Please consider a GDR by 07/29 if clinically indicated. Thank you Date of Note:: 01/06/23
--- NOTE | 2023-01-06 14:25 | NURSING ---
Home Security Alarm Installer Note; Activity Asset: Damon Hardy will need weekly 1.1 visits when is not here for extra social, mental and physical needs. She has been a resident in the past and would like the therapy dog and training representative to visit again. She has more confusion this time around. Staff will continue to offer out of room and group activities along w/sensory activities.
[2023-01-06 16:17] LABS: Bedside Glucose 146 mg/dL (74-106)
[2023-01-06 17:42] VITALS: BP 130/64; RESP 75
[2023-01-06 21:28] LABS: Bedside Glucose 171 mg/dL (74-106)
[2023-01-06] MEDS: Mirtazapine 15 MG Tablet PO (21:52)
[2023-01-06] MEDS: Donepezil HCl 5 MG Tablet PO (21:52)
[2023-01-06] MEDS: Atorvastatin Calcium 40 MG Tablet PO (21:52)
[2023-01-07] MEDS: amLODIPine 5 MG Tablet PO ×2 (06:28→17:35)
[2023-01-07] MEDS: Pantoprazole Sodium 40 MG Tablet PO (06:28)
[2023-01-07] MEDS: Levothyroxine 50 MCG Tablet PO (06:28)
[2023-01-07] MEDS: Senna/Docusate Sodium 1 Tablet PO ×2 (06:28→17:36)
[2023-01-07] MEDS: Nystatin Powder 15gm Bottle 1 APPLIC TOPICAL ×2 (06:28→17:34)
[2023-01-07] MEDS: Menthol/Lanolin/Calamine/Znox 113 GM Tube 1 APPLIC TOPICAL ×2 (06:28→17:36)
[2023-01-07] MEDS: Enoxaparin 30 MG/0.3 ML Syringe SC (06:28)
[2023-01-07 06:37] LABS: Bedside Glucose 139 mg/dL (74-106)
[2023-01-07] MEDS: metFORMIN HCl 500 MG Tablet PO ×2 (07:57→17:34)
[2023-01-07] MEDS: Aspirin 81 MG TAB.CHEW PO (07:57)
[2023-01-07] MEDS: Multivitamins,Therapeutic Tablet 1 TABLET PO (07:57)
[2023-01-07 10:05] VITALS: PULSE 64; RESP 18; O2SAT 91
[2023-01-07 11:51] LABS: Bedside Glucose 175 mg/dL (74-106)
[2023-01-07 16:00] VITALS: BP 127/51; PULSE 70; RESP 14; TEMP 36.9; O2SAT 92
[2023-01-07 18:26] LABS: Bedside Glucose 163 mg/dL (74-106)
--- NOTE | 2023-01-07 19:11 | NURSING ---
Addendum entered by Bebeto Del Cid 01/09/23 10:23: PCP called office called, no known date of flu shot. This nurse spoke with , he stated that they do not want the flu shot. RN aware. Original Note: PT PCP NEEDS CALLED ON MONDAY TO SEE IF PT HAS HAD HER FLU SHOT.
[2023-01-07] MEDS: Donepezil HCl 5 MG Tablet PO (21:28)
[2023-01-07] MEDS: Mirtazapine 15 MG Tablet PO (21:28)
[2023-01-07] MEDS: Atorvastatin Calcium 40 MG Tablet PO (21:28)
[2023-01-07 21:32] LABS: Bedside Glucose 171 mg/dL (74-106)
[2023-01-08] MEDS: Enoxaparin 30 MG/0.3 ML Syringe SC (05:48)
[2023-01-08] MEDS: Pantoprazole Sodium 40 MG Tablet PO (05:48)
[2023-01-08] MEDS: amLODIPine 5 MG Tablet PO ×2 (05:48→17:47)
[2023-01-08] MEDS: Senna/Docusate Sodium 1 Tablet PO (05:48)
[2023-01-08] MEDS: Levothyroxine 50 MCG Tablet PO (05:48)
[2023-01-08] MEDS: Nystatin Powder 15gm Bottle 1 APPLIC TOPICAL ×2 (05:49→20:39)
[2023-01-08] MEDS: Menthol/Lanolin/Calamine/Znox 113 GM Tube 1 APPLIC TOPICAL ×2 (05:49→17:47)
[2023-01-08 05:55] VITALS: BP 123/52; PULSE 62
[2023-01-08 06:43] LABS: Bedside Glucose 145 mg/dL (74-106)
[2023-01-08 06:55] LABS: Absolute Lymphocyte Count 1.59 X10^3/uL (0.83-4.51); Absolute Neutrophil Count 3.4 X10^3/uL (2.0-7.7); Basophil# 0.05 X10^3/uL; Basophil% 0.8 % (0-1); Eosinophil# 0.81 X10^3/uL; Eosinophils% 12.7 % (0-5); Hematocrit 39.2 % (37-47); Hemoglobin 12.3 g/dL (12.0-15.0); Lymphocyte # 1.59 X10^3/ul (0.83-4.51); Lymphocyte % 24.8 % (19-41); Mean Corp Hgb Conc 31.4 g/dL (32-36); Mean Corpuscular Hgb 29.2 pg (27.0-32.0); Mean Corpuscular Volume 93.1 fL (81-99); Mean Platelet Vol. 11.1 fl (6.2-12.0); Monocyte# 0.53 X10^3/uL; Monocyte% 8.3 % (0-10); NRBC Flagged by Analyzer 0 % (0-5); Neutrophil # 3.38 X10^3/uL (2.7-7.7); Neutrophil % 52.8 % (47-70); Platelet Count 260 K/mm3 (150-450); RBC Distribution Width SD 47.7 fl (35.1-43.9); Red Blood Count 4.21 M/mm3 (4.2-5.4); White Blood Count 6.4 K/mm3 (4.4-11.0)
[2023-01-08] MEDS: Aspirin 81 MG TAB.CHEW PO (08:41)
[2023-01-08] MEDS: Multivitamins,Therapeutic Tablet 1 TABLET PO (08:42)
[2023-01-08] MEDS: metFORMIN HCl 500 MG Tablet PO ×2 (08:42→17:47)
[2023-01-08 13:51] LABS: Bedside Glucose 207 mg/dL (74-106)
[2023-01-08 15:25] VITALS: BP 125/68; PULSE 82; RESP 17; TEMP 37; O2SAT 96
[2023-01-08 17:19] LABS: Bedside Glucose 151 mg/dL (74-106)
[2023-01-08] MEDS: Mirtazapine 15 MG Tablet PO (20:38)
[2023-01-08] MEDS: Donepezil HCl 5 MG Tablet PO (20:38)
[2023-01-08] MEDS: Atorvastatin Calcium 40 MG Tablet PO (20:38)
[2023-01-08 20:48] VITALS: O2SAT 93
[2023-01-08 21:38] LABS: Bedside Glucose 147 mg/dL (74-106)
[2023-01-09] MEDS: Enoxaparin 30 MG/0.3 ML Syringe SC (05:16)
[2023-01-09] MEDS: Pantoprazole Sodium 40 MG Tablet PO (05:17)
[2023-01-09] MEDS: Levothyroxine 50 MCG Tablet PO (05:17)
[2023-01-09] MEDS: Menthol/Lanolin/Calamine/Znox 113 GM Tube 1 APPLIC TOPICAL ×2 (05:17→17:01)
[2023-01-09] MEDS: Nystatin Powder 15gm Bottle 1 APPLIC TOPICAL ×2 (05:18→17:01)
[2023-01-09] MEDS: amLODIPine 5 MG Tablet PO ×2 (05:18→17:00)
[2023-01-09 05:24] VITALS: BP 127/48; PULSE 64
[2023-01-09 06:49] LABS: Bedside Glucose 141 mg/dL (74-106)
[2023-01-09] MEDS: Aspirin 81 MG TAB.CHEW PO (08:24)
[2023-01-09] MEDS: Multivitamins,Therapeutic Tablet 1 TABLET PO (08:24)
[2023-01-09] MEDS: metFORMIN HCl 500 MG Tablet PO ×2 (08:24→17:00)
[2023-01-09 09:41] VITALS: PULSE 76; RESP 18; O2SAT 93
--- NOTE | 2023-01-09 10:22 | NURSING ---
Spoke with patient and about covid booster, they both said they'd like her to have it. Order placed.
[2023-01-09 11:16] LABS: Bedside Glucose 202 mg/dL (74-106)
[2023-01-09 14:40] VITALS: BP 125/56; PULSE 66; RESP 16; TEMP 36.2; O2SAT 94
[2023-01-09 16:29] LABS: Bedside Glucose 137 mg/dL (74-106)
[2023-01-09] MEDS: Senna/Docusate Sodium 1 Tablet PO (17:00)
[2023-01-09 17:04] VITALS: BP 134/71; PULSE 69
[2023-01-09 18:28] VITALS: BMI 24.4
[2023-01-09] MEDS: Mirtazapine 15 MG Tablet PO (19:52)
[2023-01-09] MEDS: Donepezil HCl 5 MG Tablet PO (19:52)
[2023-01-09] MEDS: Atorvastatin Calcium 40 MG Tablet PO (19:52)
[2023-01-09 22:16] LABS: Bedside Glucose 152 mg/dL (74-106)
[2023-01-10] MEDS: Enoxaparin 30 MG/0.3 ML Syringe SC (05:35)
[2023-01-10] MEDS: amLODIPine 5 MG Tablet PO ×2 (05:37→17:27)
[2023-01-10] MEDS: Pantoprazole Sodium 40 MG Tablet PO (05:37)
[2023-01-10] MEDS: Levothyroxine 50 MCG Tablet PO (05:37)
[2023-01-10] MEDS: Senna/Docusate Sodium 1 Tablet PO ×2 (05:37→17:27)
[2023-01-10] MEDS: Menthol/Lanolin/Calamine/Znox 113 GM Tube 1 APPLIC TOPICAL ×2 (05:41→17:29)
[2023-01-10] MEDS: Nystatin Powder 15gm Bottle 1 APPLIC TOPICAL ×2 (05:42→17:28)
[2023-01-10 06:39] LABS: Bedside Glucose 156 mg/dL (74-106)
[2023-01-10] MEDS: Aspirin 81 MG TAB.CHEW PO (07:53)
[2023-01-10] MEDS: Multivitamins,Therapeutic Tablet 1 TABLET PO (07:54)
[2023-01-10] MEDS: metFORMIN HCl 500 MG Tablet PO ×2 (07:54→17:27)
[2023-01-10 12:05] LABS: Bedside Glucose 146 mg/dL (74-106)
[2023-01-10 14:43] VITALS: BP 125/84; PULSE 81; RESP 14; TEMP 36.7; O2SAT 94
--- NOTE | 2023-01-10 16:16 | CHAPLAIN ---
Type of Pastoral Visit _x__ Initial Visit ___ Follow-up Visit ___ On-call Visit ___ General Patient Visit ___ Spiritual Assessment ___ Family Conference ___ Bereavement ___ Rapid Response ___ Code Blue ___ Other (describe below) Pastoral Care Referral From _x__ Patient ___ Family ___ Nurse ___ Physician ___ Arnp ___ Elementary Supervisor ___ Other (describe below) Sacrament/Intervention _x__ Active listening ___ Anointing ___ Amish ___ Bereavement ___ Communion ___ Caty exploration ___ ___ Life review _x__ Prayer ___ Reconciliation ___ Sacrament of Sick _x__ Supportive presence ___ Wedding ___ Other (describe below) Pastoral Comments patient was watching TV but turned it down to mute for this visit; pt answered questions but did not initiate conversation otherwise; pt states no concerns but hopes to get home eventually; pt is not active with a caty community but welcomed a prayer
[2023-01-10 16:53] LABS: Bedside Glucose 170 mg/dL (74-106)
[2023-01-10] MEDS: Donepezil HCl 5 MG Tablet PO (21:25)
[2023-01-10] MEDS: Atorvastatin Calcium 40 MG Tablet PO (21:25)
[2023-01-10] MEDS: Mirtazapine 15 MG Tablet PO (21:25)
[2023-01-10 22:55] LABS: Bedside Glucose 151 mg/dL (74-106)
[2023-01-11] MEDS: Nystatin Powder 15gm Bottle 1 APPLIC TOPICAL ×2 (05:56→20:49)
[2023-01-11] MEDS: amLODIPine 5 MG Tablet PO ×2 (05:57→17:39)
[2023-01-11] MEDS: Pantoprazole Sodium 40 MG Tablet PO (05:57)
[2023-01-11] MEDS: Senna/Docusate Sodium 1 Tablet PO ×2 (05:57→17:39)
[2023-01-11] MEDS: Enoxaparin 30 MG/0.3 ML Syringe SC (05:57)
[2023-01-11] MEDS: Levothyroxine 50 MCG Tablet PO (05:58)
[2023-01-11] MEDS: Menthol/Lanolin/Calamine/Znox 113 GM Tube 1 APPLIC TOPICAL ×2 (06:02→17:38)
[2023-01-11 06:39] LABS: Bedside Glucose 127 mg/dL (74-106)
[2023-01-11 06:42] VITALS: BP 117/71; PULSE 58
[2023-01-11] MEDS: Aspirin 81 MG TAB.CHEW PO (08:37)
[2023-01-11] MEDS: metFORMIN HCl 500 MG Tablet PO ×2 (08:37→17:38)
[2023-01-11] MEDS: Multivitamins,Therapeutic Tablet 1 TABLET PO (08:38)
--- NOTE | 2023-01-11 09:58 | CASEMGMT ---
Social Work IDT met with patient and for care plan meeting. Discussed patient's progress in PT/OT/ST/SN. Educated to [facility] insurance with NRD 01/13 and continued stay is not guaranteed with each review. Educated to copay coverage: days 1-20 100%; 21-100 $196/day. Palliative referral made but stated he does not feel pt needs those services. SW revisited with and offered education to services. agreeable to scheduling meeting. SW notified [facility]. Inquired about DC plan, if can assist pt. confirmed. SW to continue to follow for DC planning. Haley Leon, [employer]RIC LPN
[2023-01-11 10:35] VITALS: PULSE 76; RESP 18; O2SAT 92
[2023-01-11 12:02] VITALS: BMI 24.0
[2023-01-11 14:47] VITALS: BP 132/64; PULSE 84; RESP 18; TEMP 36.3; O2SAT 94
[2023-01-11 15:29] LABS: Bedside Glucose 121 mg/dL (74-106)
--- NOTE | 2023-01-11 15:36 | CASEMGMT ---
Social Work BIMS (01/19) and PHQ-9 (10/31) completed for MDS assessment. Haley Leon MSW [facility]
[2023-01-11 17:23] LABS: Bedside Glucose 191 mg/dL (74-106)
[2023-01-11] MEDS: Donepezil HCl 5 MG Tablet PO (20:48)
[2023-01-11] MEDS: Atorvastatin Calcium 40 MG Tablet PO (20:48)
[2023-01-11] MEDS: Mirtazapine 15 MG Tablet PO (20:48)
[2023-01-11 21:30] LABS: Bedside Glucose 138 mg/dL (74-106)
[2023-01-12] MEDS: Senna/Docusate Sodium 1 Tablet PO ×2 (06:08→18:25)
[2023-01-12] MEDS: Pantoprazole Sodium 40 MG Tablet PO (06:08)
[2023-01-12] MEDS: Nystatin Powder 15gm Bottle 1 APPLIC TOPICAL ×2 (06:08→18:25)
[2023-01-12] MEDS: amLODIPine 5 MG Tablet PO ×2 (06:08→18:25)
[2023-01-12] MEDS: Levothyroxine 50 MCG Tablet PO (06:08)
[2023-01-12] MEDS: Enoxaparin 30 MG/0.3 ML Syringe SC (06:08)
[2023-01-12] MEDS: Menthol/Lanolin/Calamine/Znox 113 GM Tube 1 APPLIC TOPICAL ×2 (06:08→18:25)
[2023-01-12 06:49] LABS: Bedside Glucose 125 mg/dL (74-106)
[2023-01-12] MEDS: metFORMIN HCl 500 MG Tablet PO ×2 (08:06→18:25)
[2023-01-12] MEDS: Multivitamins,Therapeutic Tablet 1 TABLET PO (08:06)
[2023-01-12] MEDS: Aspirin 81 MG TAB.CHEW PO (08:06)
[2023-01-12 11:28] LABS: Bedside Glucose 147 mg/dL (74-106)
[2023-01-12 13:50] VITALS: BP 114/38; PULSE 71; RESP 19; TEMP 36.6; O2SAT 95
[2023-01-12 17:12] LABS: Bedside Glucose 144 mg/dL (74-106)
[2023-01-12] MEDS: Atorvastatin Calcium 40 MG Tablet PO (20:15)
[2023-01-12] MEDS: Mirtazapine 15 MG Tablet PO (20:15)
[2023-01-12] MEDS: Donepezil HCl 5 MG Tablet PO (20:15)
[2023-01-12 20:20] VITALS: PULSE 69; RESP 14; O2SAT 91
[2023-01-12 22:00] LABS: Bedside Glucose 142 mg/dL (74-106)
[2023-01-13 05:53] LABS: Absolute Lymphocyte Count 2.05 X10^3/uL (0.83-4.51); Absolute Neutrophil Count 2.7 X10^3/uL (2.0-7.7); Basophil# 0.08 X10^3/uL; Basophil% 1.2 % (0-1); Eosinophil# 0.95 X10^3/uL; Eosinophils% 14.5 % (0-5); Hematocrit 38.1 % (37-47); Hemoglobin 12.3 g/dL (12.0-15.0); Lymphocyte # 2.05 X10^3/ul (0.83-4.51); Lymphocyte % 31.3 % (19-41); Mean Corp Hgb Conc 32.3 g/dL (32-36); Mean Corpuscular Volume 92.9 fL (81-99); Mean Platelet Vol. 11.6 fl (6.2-12.0); Monocyte# 0.68 X10^3/uL; Monocyte% 10.4 % (0-10); NRBC Flagged by Analyzer 0 % (0-5); Neutrophil # 2.72 X10^3/uL (2.7-7.7); Neutrophil % 41.5 % (47-70); Platelet Count 273 K/mm3 (150-450); RBC Distribution Width CV 14.2 % (11.6-14.6); RBC Distribution Width SD 47.8 fl (35.1-43.9); White Blood Count 6.6 K/mm3 (4.4-11.0)
[2023-01-13 06:17] LABS: Anion Gap 7 (5-15); BUN 26 mg/dL (7-18); BUN/Creat Ratio 18.2 RATIO (10-20); Calcium,Total 9.4 mg/dL (8.5-10.1); Chloride 106 mmol/L (98-107); Creatinine, Serum 1.43 mg/dL (0.55-1.02); EST Glomerular Filtration Rate 37 mL/min (>60); Est Glom Filt Rate - Afr Amer 45 mL/min (>60); Estimated Creatinine Clearance 26.35 ml/min; Glucose 116 mg/dL (74-106); Potassium 4.1 mmol/L (3.5-5.1); Sodium Level 138 mmol/L (136-145)
[2023-01-13] MEDS: Menthol/Lanolin/Calamine/Znox 113 GM Tube 1 APPLIC TOPICAL ×2 (06:23→18:11)
[2023-01-13] MEDS: Nystatin Powder 15gm Bottle 1 APPLIC TOPICAL ×2 (06:23→21:02)
[2023-01-13] MEDS: Enoxaparin 30 MG/0.3 ML Syringe SC (06:24)
[2023-01-13] MEDS: amLODIPine 5 MG Tablet PO ×2 (06:24→17:38)
[2023-01-13] MEDS: Levothyroxine 50 MCG Tablet PO (06:24)
[2023-01-13] MEDS: Senna/Docusate Sodium 1 Tablet PO ×2 (06:24→17:38)
[2023-01-13] MEDS: Pantoprazole Sodium 40 MG Tablet PO (06:24)
[2023-01-13 06:49] LABS: Bedside Glucose 128 mg/dL (74-106)
[2023-01-13] MEDS: Multivitamins,Therapeutic Tablet 1 TABLET PO (08:44)
[2023-01-13] MEDS: Aspirin 81 MG TAB.CHEW PO (08:44)
[2023-01-13] MEDS: metFORMIN HCl 500 MG Tablet PO ×2 (08:44→17:38)
[2023-01-13] MEDS: Tuberculin,Purif.prot.deriv. 50 TU/ML Vial 0.1 ML ID (11:12)
[2023-01-13 12:05] LABS: Bedside Glucose 131 mg/dL (74-106)
--- NOTE | 2023-01-13 12:53 | CASEMGMT ---
Social Work Insurance issued LCD 01/16, DC 01/17. SW left voicemail with , however, noticed in [facility] completing a jigsaw puzzle. SW approached and asked to speak with about DC information for pt. agreed to speak in [facility]. SW educated to DC 01/17, explained appeal rights, offered skilled HHC, DME, and therapy training, or SNF placement. denied SNF stay and stated he would care for pt at home, denied appealing, DME and therapy training. agreed to DC home with skilled HHC. is scheduled to meet with [facility] Palliative on this date as well. stated he would transport pt home. SW offered list of skilled HHC agencies with quality and resource data but denied stating what the hospital's got is fine. SW phoned referral to [facility] for PT/OT/ST/DYER/SW. SW to assist transition home. Plan: DC home with 01/17, [facility] PT/OT/ST/DYER/DVAID TerrellW
--- NOTE | 2023-01-13 13:37 | DS.PCM_ITS ---
Providers Date of Admission: 01/05/23 Primary Care Physician: MAMADOU Gamble Consultations 01/06/23 10:31 Consult: Hospice / Palliative Care Routine Consulting Provider: [facility] Reason for Consult: PALLIATIVE - Dementia, stroke, frequent hospitalizations, decline in ADLs EMERGENT Consult: No MD Notified: Yes Date Notified: 01/06/23 Time Notified: 10:31 Method of Notification: Text Reason For Visit: RIGHT ELBOW PAIN Diagnosis Discharge Diagnosis (1) Debility: Status: Acute Code(s): R53.81 - Other malaise (2) Frequent falls: Status: Acute Code(s): R29.6 - Repeated falls (3) Right elbow pain: Status: Acute Code(s): M25.521 - Pain in right elbow (4) Adult failure to thrive: Status: Acute Code(s): R62.7 - Adult failure to thrive (5) Contusion of arm, right: Status: Acute Code(s): S40.021A - Contusion of right upper arm, initial encounter (6) Diabetes mellitus: Status: Acute Code(s): E11.9 - Type 2 diabetes mellitus without complications (7) Stroke: Status: Acute Code(s): I63.9 - Cerebral infarction, unspecified (8) Hypertension: Status: Chronic Code(s): I10 - Essential (primary) hypertension (9) Hyperlipidemia: Status: Acute Code(s): E78.5 - Hyperlipidemia, unspecified (10) Hypothyroidism: Status: Acute Code(s): E03.9 - Hypothyroidism, unspecified (11) Vascular dementia: Status: Acute Code(s): F01.50 - Vascular dementia, unspecified severity, without behavioral disturbance, psychotic disturbance, mood disturbance, and anxiety Plan 82 year old female with below past medical history hospitalized for right elbow effusion, treated conservatively, complicated by acute kidney injury, new onset Diabetes Mellitus II, admitted to TCU with debility, here for rehabilitation, strengthening, prior to discharge home with . * Debility - PT/OT. * Pain - Tylenol 1000mg q6h prn pain (1-5), Oxycodone 5mg q4h prn pain (6-10). * Bowel - senna/colace 1 tablet bid, Dulcolax 10mg pr x 1 prn, MOM 30ml po x 1 prn. * Adult immunization - Administer pneumonia vaccine, covid19 vaccine, flu vaccine as appropriate. * DVT prophylaxis - Lovenox 30mg sc daily. * Hypertension - Amlodipine 5mg bid. * Hyperlipidemia - Atorvastatin 40mg qhs. * Vascular dementia - Donepezil 5mg qhs. * Diabetes Mellitus II - Metformin 500mg bidcm, Glimepiride 1mg qam. * Hypothyroidism - Levothyroxine 50mcg daily. * Skin irritation - Calmoseptine topical bid. * Depression/insomnia/appetite loss - Mirtazapine 15mg qhs, stable chronic fci use, GDR not recommended. * Nutrition - MVI daily. * Tinea corporis - Nystatin powder topical bid. * GERD - Pantoprazole 40mg daily. * Stroke - Aspirin 81mg daily. Medications at Discharge Home Medications atorvastatin 40 mg tablet 40 mg PO QHS cholesterol 08/13/22 pantoprazole 40 mg tablet,delayed release (Protonix) 40 mg PO DAILY GERD 09/09/22 mirtazapine 15 mg tablet 15 mg PO QHS Mood 09/14/22 amlodipine 5 mg tablet 5 mg PO BID BP 01/03/23 levothyroxine 50 mcg tablet 50 mcg PO DAILY Thyroid 01/03/23 vlpujskq-jylbijt-hovl-lutein tablet 1 tab PO DAILY SUPPLEMENT 01/03/23 donepezil 5 mg tablet 5 mg PO QHS Memory 01/05/23 metformin 500 mg tablet 500 mg PO BIDCM 30 days #60 tabs 01/13/23 Hospital Course Summary of Care Provided Minutes Spent on Discharge: 35 Hospital Course: 82 year old female with below past medical history hospitalized for right elbow effusion, treated conservatively, complicated by acute kidney injury, new onset Diabetes Mellitus II, admitted to TCU with debility, here for rehabilitation, strengthening, prior to discharge home with . Discharge home with 01/17/2023, [facility] PT/OT/ST/DYER/SW. Physical Exam Const alert General Appearance: cooperative HEENT normocephalic Eyes PERRL and EOMs intact bilaterally Neck supple, no JVD and no carotid bruits Resp normal respiratory effort, normal air movement and clear to auscultation bilat erally Cardio regular rate and regular rhythm GI normal to inspection, nondistended, normoactive bowel sounds, non-tender and non-distended Extremity normal capillary refill General Extremity: Negative for edema Skin no rashes or lesions noted General Skin Exam: no breakdown Psych affect normal Appearance: appropriate Weight / BMI Weight Weight: 65.453 kg Body Mass Index (BMI) 24.0 ABG / Lab / Microbiology Data Result Diagrams: 01/13/23 05:10 01/13/23 05:10 Laboratory: Laboratory Results - last 24 hr 01/12/23 16:53: POC Glucose 144 H 01/12/23 21:41: POC Glucose 142 H 01/13/23 05:10: WBC 6.6, RBC 4.10 L, Hgb 12.3, Hct 38.1, MCV 92.9, MCH 30.0, MCHC 32.3, RDW Std Deviation 47.8 H, RDW Coeff of Сергей 14.2, Plt Count 273, MPV 11.6, Immature Gran % (Auto) 1.100 H, Neut % (Auto) 41.5 L, Lymph % (Auto) 31.3, Johnston % (Auto) 10.4 H, Eos % (Auto) 14.5 H, Baso % (Auto) 1.2 H, Absolute Neuts (auto) 2.7, Absolute Lymphs (auto) 2.05, Nucleated RBC % 0 01/13/23 05:10: Sodium 138, Potassium 4.1, Chloride 106, Carbon Dioxide 25.0, Anion Gap 7, BUN 26 H, Creatinine 1.43 H, Estim Creat Clear Calc 26.35, Est GFR (MDRD) Af Amer 45 L, Est GFR (MDRD) Non-Af 37 L, BUN/Creatinine Ratio 18.2, Glucose 116 H, Calcium 9.4 01/13/23 06:28: POC Glucose 128 H 01/13/23 11:47: POC Glucose 131 H Microbiology: Microbiology 01/09/23 05:20 Nasal Secretion SARS-CoV-2 Antigen (Rapid) - Final 01/07/23 08:00 Nasal Secretion SARS-CoV-2 Antigen (Rapid) - Final D/C Instructions Discharge Diet: No restrictions Discharge Activity: Return to Normal Activity, May Shower and Use Walker Weight Bearing Status: Weight bearing as tolerated Call your doctor if you observe: Fever of 101 or Higher, Inability to urinate, Inability to have a bowel movement, Shortness of breath, Dizziness, Fainting spells, Swelling in the ankles, Chest pain and Uncontrolled pain Additional Instructions: Discharge home with 01/17/2023, [facility] PT/OT/ST/DYER/SW. Meaningful Use Info Meaningful Use Diagnoses (Choose all that apply): None applicable Discharge Plan Admission Admit Date/Time: 01/05/23 17:58 Primary Reason for Your Visit: Debility. Attending Provider: Get Cuevas Chi Primary Care Provider: Marybel Paige Consulting Providers: Yusef Glynn ; Dayanara Black ; Mora Tidwell ; Marya Mohr MULE DEVELOPER Instructions Additional Instructions / Restrictions: Discharge home with 01/17/2023, [facility] PT/OT/ST/DYER/SW. Discharge Orders/Prescriptions Prescriptions: New metformin 500 mg Tablet 500 mg PO BIDCM 30 Days Qty: 60 0RF Continued pantoprazole [Protonix] 40 mg tablet,delayed release (DR/EC) 40 mg PO DAILY mirtazapine 15 mg tablet 15 mg PO QHS atorvastatin 40 mg tablet 40 mg PO QHS levothyroxine 50 mcg tablet 50 mcg PO DAILY Label Comments: TAKE 1 TABLET BY MOUTH EVERY DAY IN THE MORNING vayfwazo-afjnuii-crwy-lutein Tablet 1 tab PO DAILY amlodipine 5 mg tablet 5 mg PO BID donepezil 5 mg tablet 5 mg PO QHS Discontinued oxycodone 5 mg Tablet 5 mg PO Q4H PRN PRN (Reason: Pain Score 6-10) 3 Days Qty: 12 0RF metformin 500 mg tablet 500 mg PO BID glimepiride [Amaryl] 1 mg tablet 1 mg PO DAILY Referrals / Follow Up: Marybel Paige PA [Primary Care Provider] - Disposition Disposition (needs filled in before D/C Order can be placed): Home Health Service
[2023-01-13 16:00] VITALS: BP 129/67; PULSE 70; RESP 16; TEMP 36.1; O2SAT 94
[2023-01-13 16:52] LABS: Bedside Glucose 188 mg/dL (74-106)
[2023-01-13] MEDS: Donepezil HCl 5 MG Tablet PO (20:59)
[2023-01-13] MEDS: Atorvastatin Calcium 40 MG Tablet PO (20:59)
[2023-01-13] MEDS: Mirtazapine 15 MG Tablet PO (20:59)
[2023-01-13 21:00] VITALS: O2SAT 94
[2023-01-13 21:59] LABS: Bedside Glucose 159 mg/dL (74-106)
[2023-01-14] MEDS: Senna/Docusate Sodium 1 Tablet PO ×2 (05:38→17:20)
[2023-01-14] MEDS: Pantoprazole Sodium 40 MG Tablet PO (05:38)
[2023-01-14] MEDS: Enoxaparin 30 MG/0.3 ML Syringe SC (05:38)
[2023-01-14] MEDS: Levothyroxine 50 MCG Tablet PO (05:38)
[2023-01-14] MEDS: amLODIPine 5 MG Tablet PO ×2 (05:38→17:20)
[2023-01-14] MEDS: Menthol/Lanolin/Calamine/Znox 113 GM Tube 1 APPLIC TOPICAL ×2 (05:40→17:22)
[2023-01-14] MEDS: Nystatin Powder 15gm Bottle 1 APPLIC TOPICAL ×2 (05:40→17:23)
[2023-01-14 06:39] LABS: Bedside Glucose 140 mg/dL (74-106)
[2023-01-14] MEDS: Aspirin 81 MG TAB.CHEW PO (08:16)
[2023-01-14] MEDS: metFORMIN HCl 500 MG Tablet PO ×2 (08:16→17:20)
[2023-01-14] MEDS: Multivitamins,Therapeutic Tablet 1 TABLET PO (08:17)
[2023-01-14 11:51] LABS: Bedside Glucose 126 mg/dL (74-106)
[2023-01-14 13:51] VITALS: BP 128/68; PULSE 70; RESP 16; TEMP 35.9; O2SAT 97
[2023-01-14 16:32] LABS: Bedside Glucose 131 mg/dL (74-106)
[2023-01-14] MEDS: Atorvastatin Calcium 40 MG Tablet PO (20:21)
[2023-01-14] MEDS: Mirtazapine 15 MG Tablet PO (20:21)
[2023-01-14] MEDS: Donepezil HCl 5 MG Tablet PO (20:21)
[2023-01-14 21:02] VITALS: PULSE 65; RESP 14; O2SAT 95
[2023-01-14 22:02] LABS: Bedside Glucose 107 mg/dL (74-106)
[2023-01-15] MEDS: Levothyroxine 50 MCG Tablet PO (06:34)
[2023-01-15] MEDS: Senna/Docusate Sodium 1 Tablet PO (06:34)
[2023-01-15] MEDS: Nystatin Powder 15gm Bottle 1 APPLIC TOPICAL ×2 (06:34→17:38)
[2023-01-15] MEDS: Enoxaparin 30 MG/0.3 ML Syringe SC (06:34)
[2023-01-15] MEDS: Pantoprazole Sodium 40 MG Tablet PO (06:34)
[2023-01-15] MEDS: amLODIPine 5 MG Tablet PO ×2 (06:34→17:38)
[2023-01-15] MEDS: Menthol/Lanolin/Calamine/Znox 113 GM Tube 1 APPLIC TOPICAL ×2 (06:34→17:39)
[2023-01-15 06:39] VITALS: BP 136/52; PULSE 57
[2023-01-15 06:42] LABS: Bedside Glucose 130 mg/dL (74-106)
[2023-01-15] MEDS: Aspirin 81 MG TAB.CHEW PO (08:10)
[2023-01-15] MEDS: metFORMIN HCl 500 MG Tablet PO ×2 (08:10→17:37)
[2023-01-15] MEDS: Multivitamins,Therapeutic Tablet 1 TABLET PO (08:10)
[2023-01-15 12:05] LABS: Bedside Glucose 96 mg/dL (74-106)
[2023-01-15 14:10] VITALS: BP 120/62; PULSE 71; RESP 16; TEMP 36.2; O2SAT 95
[2023-01-15 16:31] LABS: Bedside Glucose 134 mg/dL (74-106)
[2023-01-15] MEDS: Mirtazapine 15 MG Tablet PO (20:13)
[2023-01-15] MEDS: Atorvastatin Calcium 40 MG Tablet PO (20:13)
[2023-01-15] MEDS: Donepezil HCl 5 MG Tablet PO (20:13)
--- NOTE | 2023-01-15 20:17 | NURSING ---
Pt requested medication at this time to go to bed.
[2023-01-15 22:28] LABS: Bedside Glucose 128 mg/dL (74-106)
[2023-01-16] MEDS: Enoxaparin 30 MG/0.3 ML Syringe SC (05:03)
[2023-01-16] MEDS: Levothyroxine 50 MCG Tablet PO (05:04)
[2023-01-16] MEDS: Nystatin Powder 15gm Bottle 1 APPLIC TOPICAL ×2 (05:04→21:14)
[2023-01-16] MEDS: Pantoprazole Sodium 40 MG Tablet PO (05:04)
[2023-01-16] MEDS: Senna/Docusate Sodium 1 Tablet PO (05:04)
[2023-01-16] MEDS: amLODIPine 5 MG Tablet PO ×2 (05:04→18:00)
[2023-01-16] MEDS: Menthol/Lanolin/Calamine/Znox 113 GM Tube 1 APPLIC TOPICAL ×2 (05:04→17:59)
[2023-01-16 06:27] LABS: Bedside Glucose 112 mg/dL (74-106)
[2023-01-16] MEDS: metFORMIN HCl 500 MG Tablet PO ×2 (08:19→18:00)
[2023-01-16] MEDS: Aspirin 81 MG TAB.CHEW PO (08:19)
[2023-01-16] MEDS: Multivitamins,Therapeutic Tablet 1 TABLET PO (08:20)
--- NOTE | 2023-01-16 09:34 | MDS.RN ---
Information for the mds was obtained from review of the clinical record, interview of resident, staff, and direct observation of resident's care.
--- NOTE | 2023-01-16 10:54 | NS ---
Res to be discharged tomorrow. Spouse asking about what foods is she allowed to eat?. Reviewed diet education materials provided 01/11. Spouse seems to have good understanding of Plate Method for DM. Provided contact info if questions post d/c.
[2023-01-16 12:00] LABS: Bedside Glucose 133 mg/dL (74-106)
[2023-01-16 14:23] VITALS: BP 123/59; PULSE 65; RESP 16; TEMP 36.2; O2SAT 93
[2023-01-16 16:51] LABS: Bedside Glucose 151 mg/dL (74-106)
--- NOTE | 2023-01-16 18:01 | NURSING ---
THERAPY CAME TO THIS NURSE AND STATED THAT PT LEFT EAR HAS A SORE AND IS DRAINING WITH A SMELL. THIS NURSE WENT TO PT AND LOOKED AT LT EAR AND ASKED PT ABOUT THE SORE. PT STATED ITS BEEN THERE. ASKED PT IF THIS NURSE COULD CLEAN IT UP AND PUT SMALL DRESSING ON IT. PT REFUSED. RN AWARE
[2023-01-16 20:30] VITALS: O2SAT 95
[2023-01-16] MEDS: Donepezil HCl 5 MG Tablet PO (21:11)
[2023-01-16] MEDS: Mirtazapine 15 MG Tablet PO (21:11)
[2023-01-16] MEDS: Atorvastatin Calcium 40 MG Tablet PO (21:11)
[2023-01-16 23:08] LABS: Bedside Glucose 104 mg/dL (74-106)
[2023-01-17] MEDS: Pantoprazole Sodium 40 MG Tablet PO (06:21)
[2023-01-17] MEDS: Senna/Docusate Sodium 1 Tablet PO (06:22)
[2023-01-17] MEDS: amLODIPine 5 MG Tablet PO (06:22)
[2023-01-17] MEDS: Levothyroxine 50 MCG Tablet PO (06:22)
[2023-01-17] MEDS: Enoxaparin 30 MG/0.3 ML Syringe SC (06:23)
[2023-01-17] MEDS: Menthol/Lanolin/Calamine/Znox 113 GM Tube 1 APPLIC TOPICAL (06:23)
[2023-01-17] MEDS: Nystatin Powder 15gm Bottle 1 APPLIC TOPICAL (06:24)
[2023-01-17 06:26] LABS: Bedside Glucose 115 mg/dL (74-106)
[2023-01-17 06:39] VITALS: O2SAT 95
[2023-01-17] MEDS: Aspirin 81 MG TAB.CHEW PO (08:11)
[2023-01-17] MEDS: Multivitamins,Therapeutic Tablet 1 TABLET PO (08:11)
[2023-01-17] MEDS: metFORMIN HCl 500 MG Tablet PO (08:11)
== END 2023-01-17 10:00 | disposition home health service (06) | DRG 565 ==
PROVIDERS: Admitting Provider Family Medicine Geriatric Medicine; PCP Physician Assistant; Referring Provider Family Medicine Geriatric Medicine; Visit Provider Family Medicine Geriatric Medicine
DX: M25.421 Effusion, right elbow (principal); I69.351 Hemiplegia and hemiparesis following cerebral infarction affecting right dominant side; R62.7 Adult failure to thrive; E11.22 Type 2 diabetes mellitus with diabetic chronic kidney disease; E03.9 Hypothyroidism, unspecified; B35.4 Tinea corporis; F01.50 Vascular dementia, unspecified severity, without behavioral disturbance, psychotic disturbance, mood disturbance, and anxiety; N18.32 Chronic kidney disease, stage 3b; E78.5 Hyperlipidemia, unspecified; K21.9 Gastro-esophageal reflux disease without esophagitis; I12.9 Hypertensive chronic kidney disease with stage 1 through stage 4 chronic kidney disease, or unspecified chronic kidney disease; W10.9XXD Fall (on) (from) unspecified stairs and steps, subsequent encounter; S40.021D Contusion of right upper arm, subsequent encounter; G47.00 Insomnia, unspecified; Z87.891 Personal history of nicotine dependence; Z79.84 Long term (current) use of oral hypoglycemic drugs; Z79.899 Other long term (current) drug therapy; Z79.890 Hormone replacement therapy; Z23 Encounter for immunization
CPT/HCPCS: 0124A; 36415; 73060; 73090; 73200; 80048; 81001; 82962; 83036; 83735; 84100; 84443; 85025; 87811; 91312; 92507; 92523; 92526; 92610; 93005; 96361; 96372; 96374; 96376; 97110; 97116; 97129; 97162; 97166; 97530; 97535; 97802; 97803; 99221; 99284; J7030; A4216; G0378

== ENCOUNTER 2023-04-21 13:29 | Inpatient (IN) | payer MEDICARE, SELFPAY ==
[2023-04-21] VITALS (9 sets, daily range): BP systolic 138–176; BP diastolic 48–133; PULSE 87–109; RESP 18–20; TEMP 36.3–37; O2SAT 88–96; BMI 23.3; BMI 23.8
--- NOTE | 2023-04-21 14:01 | CM.ED ---
Social Work SW performed chart review; LW and HCPOA documents on file. LW on file as of 2021 and HCPOA on file as of 2022, identifying patient's , Henry, as HCPOA and Agapito as alternate. Chari Saba MSW, DIDI
--- NOTE | 2023-04-21 14:08 | RAD_ITS ---
STUDY: X-RAY - PELVIS AND RIGHT HIP REASON FOR EXAM: Female, 83 years old. Right hip pain following a fall. TECHNIQUE: 3 views of the pelvis and hip. COMPARISON: Comparison is made with prior study dated August 01, 2022. FINDINGS: There is a non-specific bowel gas pattern. Normal visualized soft tissue structures. There is narrowing with cortical sclerosis and osteophyte formation of the sacroiliac joint consistent with degenerative osteoarthritic changes. Healed left superior and inferior pubic rami fractures. Normal pubic symphysis. Normal bilateral ischial tuberosities. Impacted subcapital fracture of the proximal right femur. RAD/HIP, UNI W/ Pelvis 2-3 Views IMPRESSION: Impacted subcapital fracture of the proximal right femur. Healed left superior and inferior pubic rami fractures. Electronically Signed: Sorin Strong MD at 14:28 EDT ,
--- NOTE | 2023-04-21 14:17 | RAD_ITS ---
STUDY: X-RAY CHEST REASON FOR EXAM: Female, 83 years old. Weakness -- -- FELL OF THE TOILET INJURY DEREK HIP TECHNIQUE: Single AP portable view of the chest. COMPARISON: Comparison is made with prior study dated February 10, 2023. FINDINGS: Elevation of the right hemidiaphragm. The lungs are clear and expanded. There is no demonstrated pleural abnormality. There is mild cardiac enlargement. Normal mediastinum and tahir. Normal visualized pulmonary arteries. There is atherosclerotic calcification of the aortic arch with tortuosity. There is a dextroscoliosis of the thoracic spine. Prior vertebroplasty of the L1 vertebrae. Normal visualized ribs, clavicles, and shoulders. There is no demonstrated abnormality of the visualized soft tissue structures of the upper abdomen. RAD/Chest 1 View (Portable) IMPRESSION: Elevation of the right hemidiaphragm. The lungs are clear. Stable examination. Mild cardiomegaly. Electronically Signed: Sorin Strong MD at 14:53 EDT ,
--- NOTE | 2023-04-21 14:17 | EKG12_ITS ---
Test Reason : FAL Blood Pressure : / mmHG Vent. Rate : 102 BPM Atrial Rate : 102 BPM P-R Int : 176 ms QRS Dur : 126 ms QT Int : 364 ms P-R-T Axes : 000 -50 -67 degrees QTc Int : 474 ms Sinus tachycardia Left axis deviation Right bundle branch block Possible Lateral infarct , age undetermined T wave abnormality, consider inferior ischemia Abnormal ECG When compared with ECG of 03-JAN-2023 11:30, Premature ventricular complexes are no longer Present Premature atrial complexes are no longer Present Criteria for Inferior infarct are no longer Present T wave inversion more evident in Inferior leads Confirmed by CHENTE STANTON, NAVDEEP ([id number]), restaurant expeditor KIARA DUMONT ([id number]) on 04/26/2023 10:24:08 AM Referred By: RE Confirmed By:NAVDEEP ELDRIDGE MD
--- NOTE | 2023-04-21 14:21 | CT_ITS ---
STUDY: CT BRAIN WITHOUT CONTRAST REASON FOR EXAM: Female, 83 years old. Trauma due to a fall. RADIATION DOSAGE (If Supplied By Facility): CTDIvol = ( 44.99 ) mGy, DLP = ( 829.85 ) mGycm TECHNIQUE: Transaxial CT imaging of the brain was performed without administration of intravenous contrast material. Individualized dose optimization techniques were used for this CT. COMPARISON: Comparison is made with prior study dated August 03, 2022. FINDINGS: Normal soft tissue structures. Normal calvarium. There is mild cerebral atrophy with widening of the extra-axial spaces and ventricular dilatation. There are areas of decreased attenuation within the white matter tracts of the supratentorial brain, consistent with microvascular disease changes. Normal basal ganglia and thalami. Normal brainstem. Normal cerebellum. There is no intracranial hemorrhage. There are no findings of an acute ischemic infarction. Atherosclerotic plaque formation of the vertebral arteries and cavernous portions of the internal carotid arteries bilaterally. Normal visualized paranasal sinuses. CT/Brain/Head without Contrast IMPRESSION: Chronic involutional changes of the brain. Electronically Signed: Sorin Strong MD at 15:05 EDT ,
--- NOTE | 2023-04-21 14:22 | ED.VIS.FALL ---
HPI HPI - Fall History of Present Illness Chief Complaint: Fall Narrative Narrative: 83-year-old female with history of stroke, vascular dementia, diabetes, debility. Patient fell off of her toilet today falling onto her right hip. She does not believe she hit her head or loss conscious. She was unable to get up. Patient not on any blood thinners. Patient states she does not any nausea vomiting. She denies chest pain or shortness of breath. No fevers or chills. 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 Chronic kidney disease, stage 3 Chronic renal failure, stage 3b Compression fracture of T11 vertebra Confusion Debility Debility Dementia Depression Diabetes Diabetes mellitus, type 2 Dysphagia Dysphagia, oropharyngeal phase Effusion of knee joint right Esophageal dysphagia Esophageal obstruction Falls frequently Former smoker Hemiplegia and hemiparesis following cerebral infarction affecting right dominant side HLD (hyperlipidemia) HTN (hypertension) Hyperlipidemia Hypertension Hypertensive heart and chronic kidney disease without heart failure, with stage 1 through stage 4 chronic kidney disease, or unspecified chronic kidney disease Hyperthyroidism Hyponatremia Hypothyroidism Hypothyroidism Ischemic cerebrovascular accident (CVA) Left atrial enlargement Malignant neoplasm of unspecified site of unspecified female breast Noncompliance Osteoporosis Peptic ulcer, site unspecified, unspecified as acute or chronic, without hemorrhage or perforation PUD (peptic ulcer disease) Schatzki's ring of distal esophagus Stroke/cerebrovascular accident T12 compression fracture T9 vertebral fracture Unspecified dementia, unspecified severity, without behavioral disturbance, psychotic disturbance, mood disturbance, and anxiety Home Medications atorvastatin 40 mg tablet 40 mg PO QHS CHOLESTEROL 08/13/22 [History Last Taken 01/03/23] pantoprazole 40 mg tablet,delayed release (Protonix) 40 mg PO DAILY GERD 09/09/22 [History Last Taken 01/03/23] mirtazapine 15 mg tablet 15 mg PO QHS MOOD 09/14/22 [History Last Taken 01/02/23] amlodipine 5 mg tablet 5 mg PO BID BLOOD PRESSURE 01/03/23 [History Last Taken 01/03/23] levothyroxine 50 mcg tablet 50 mcg PO DAILY THYROID 01/03/23 [History Last Taken 01/03/23] hzcowgxp-impycwa-rryv-lutein tablet 1 tab PO DAILY SUPPLEMENT 01/03/23 [History Last Taken 01/03/23] donepezil 5 mg tablet 5 mg PO QHS MEMORY 01/05/23 [History Last Taken Unknown] metformin 500 mg tablet 500 mg PO BIDCM DIABETES 30 days #60 tabs 01/13/23 [Rx Last Taken Unknown] Allergy/AdvReac Type Severity Reaction Status Date / Time No Known Allergies Allergy Verified 04/21/23 13:32 Family History Father Hypertension Surgical History Esophageal dilatation History of appendectomy History of hysterectomy History of vertebroplasty S/P biopsy Social History household members: spouse and other details: 's name is Dante housing: house number of children: 1 Smoking Status: Former smoker alcohol intake: current alcohol intake frequency: holidays/special occasions only substance use type: does not use caffeine: No ROS ROS ED Constitutional Constitutional ED: Denies chills, fever(s) or sweats Eyes Eyes: Denies blurry vision or change in vision ENT ENT ED: Denies ear pain or sore throat Cardiovascular Cardiovascular: Denies chest pain, palpitations or racing heartbeat Respiratory/Chest Respiratory/Chest: Denies cough, dyspnea or sputum Gastrointestinal Gastrointestinal: Denies abdominal pain, constipation, diarrhea, nausea or vomiting Genitourinary Genitourinary ED: Denies dysuria, hematuria or urinary frequency Musculoskeletal Musculoskeletal: Reports other Details: Pain ; Denies arthralgias, myalgias or neck pain Integumentary Denies abscess, Abrasions or rash Neurologic Neurologic: Denies headache(s), paresthesias or weakness Psychiatric Psychiatric: Denies anxiety, depression, suicidal ideation or suicidal thoughts Endocrine Endocrinology: Denies polydipsia or polyuria EXAM Physical Exam Const Vital Signs: 04/21/23 13:30 04/21/23 13:32 04/21/23 15:00 Temperature 97.3 F L Temperature Source Oral Pulse Rate 109 H Respiratory Rate 18 Respiratory Effort Normal Respiratory Depth Normal Respiratory Pattern Normal Blood Pressure 176/104 H Blood Pressure Mean 128 Pulse Ox 96 88 Oxygen Delivery Method Room Air Room Air Oxygen Flow Rate (L/min) 04/21/23 14:30 04/21/23 15:30 04/21/23 15:02 Temperature Temperature Source Pulse Rate Respiratory Rate Respiratory Effort Respiratory Depth Respiratory Pattern Blood Pressure 175/133 H 141/79 H Blood Pressure Mean 137 86 Pulse Ox 93 94 94 Oxygen Delivery Method Nasal Cannula Oxygen Flow Rate (L/min) 2 Positive well nourished General Appearance ED: NAD HEENT atraumatic Eyes PERRL and EOMs intact bilaterally Chest Wall inspection of chest normal and palpation of chest normal Resp normal respiratory effort Auscultation: Negative for rales, rhonchi or wheezes Cardio regular rhythm Rate: tachycardic GI non-tender Extremity Extremity Narrative: Hip tender to palpation. Positive logroll right hip. Neuro CN's II-XII intact bilaterally Morgan Coma Scale: document GCS findings Spontaneous Obeys Commands Confused 14 Sensorium / Orientation: alert Motor Exam: strength 5/5 throughout Psych Psych Narrative: Baseline per MDM MDM MDM Narrative Medical decision making narrative: Presenting after fall off of the toilet. He is unsure if she had a head. Differential includes intracranial hemorrhage, skull fracture, C-spine fracture, dehydration, anemia, electrolyte abnormalities, right hip fracture, contusion, fracture, ACS, UTI. CBC will be obtained to assess white blood cell count, hemoglobin, platelets. BMP to assess renal function, electrolytes. EKG to assess for dysrhythmia, ischemia as well as high-sensitivity troponin. Chest x-ray to rule out pneumonia. Urinalysis to assess for UTI. Right hip x-ray to assess for hip fracture. Gave with morphine and Zofran. Discussed with Dr. Vaca as the x-ray on my interpretation shows a subcapital fracture of the proximal right femur. Dr. Vaca requested medical admission. CBC shows a leukocytosis of 19.4 thousand. Hemoglobin and hematocrit are stable. Platelets are 191. Function and electrolytes unremarkable urinalysis negative for infection. Chest x-ray on my interpretation shows no acute process. GE on my interpretation shows a sinus tachycardia with a ventricular rate of 102 bpm with right bundle branch block pattern. Fully catheter was placed. Patient discussed with hospitalist for admission. Impression: 1. Fall 2. Right hip fracture 3. Leukocytosis Lab Data Attestation: I reviewed the patient's lab results. Labs: Laboratory Results - last 24 hr 04/21/23 04/21/23 14:35 15:05 WBC 19.4 H RBC 4.15 L Hgb 12.9 Hct 38.9 MCV 93.7 MCH 31.1 MCHC 33.2 RDW Std Deviation 48.6 H RDW Coeff of Сергей 14.1 Plt Count 191 MPV 12.5 H Neut % (Auto) Not Reportable Absolute Neuts (auto) 18.1 H Absolute Lymphs (auto) 0.97 Total Counted 100 Neutrophils % (Manual) 93 H Lymphocytes % (Manual) 5 L Monocytes % (Manual) 1 Myelocytes % 1 H Differential Comment SEE COMMENT Diff Path Review May foll Platelet Estimate ADEQUATE Plt Morphology Comment LARGE RBC Morphology N CHROM Anisocytosis RARE Macrocytosis RARE Sodium 136 Potassium 4.3 Chloride 107 Carbon Dioxide 19.0 L Anion Gap 10 BUN 19 H Creatinine 1.40 H Estim Creat Clear Calc 26.44 Est GFR (MDRD) Af Amer 46 L Est GFR (MDRD) Non-Af 38 L BUN/Creatinine Ratio 13.6 Glucose 174 H Calcium 9.6 Troponin I High Sens 16 Urine Color Yellow Urine Clarity Sl. Cloudy Urine pH 5.0 Ur Specific [place] 1.015 Urine Protein 30 H Urine Glucose (UA) Normal Urine Ketones Negative Urine Occult Blood Negative Urine Nitrite Negative Urine Bilirubin Negative Urine Urobilinogen Normal Ur Leukocyte Esterase Negative Urine RBC 0 SEEN Urine WBC 0-5 SEEN Ur Squamous Epith Cells 0 SEEN Urine Bacteria RARE Urine Mucus 0 SEEN Radiography Diagnostic Testing: Clinical Impression(s) from Imaging Studies Hip/Pelvis X-Ray 04/21/23 14:08 IMPRESSION: Impacted subcapital fracture of the proximal right femur. Healed left superior and inferior pubic rami fractures. Electronically Signed: Sorin Strong MD at 14:28 EDT , Chest X-Ray 04/21/23 14:17 IMPRESSION: Elevation of the right hemidiaphragm. The lungs are clear. Stable examination. Mild cardiomegaly. Electronically Signed: Sorin Strong MD at 14:53 EDT , Brain CT 04/21/23 14:21 IMPRESSION: Chronic involutional changes of the brain. Electronically Signed: Sorin Strong MD at 15:05 EDT , Cervical Spine CT 04/21/23 14:33 IMPRESSION: Multilevel degenerative changes, as described above. Electronically Signed: Sorin Strong MD at 15:07 EDT , Lower Extremity CT 04/21/23 14:36 IMPRESSION: Impacted transcervical fracture of the proximal right femur. Soft tissue swelling. Electronically Signed: Sorin Strong MD at 15:03 EDT , Discharge Plan Triage Chief Complaint: Fall ED Provider: Faisal Galdamez Dx/Rx/DC Orders Primary Care Provider: Marybel Paige Disposition Disposition: Home, Self Care Discharge Date/Time: 04/21/23 16:22
--- NOTE | 2023-04-21 14:33 | CT_ITS ---
STUDY: CT CERVICAL SPINE WITHOUT CONTRAST REASON FOR EXAM: Female, 83 years old. Neck pain due to a fall. RADIATION DOSAGE (If Supplied By Facility): CTDIvol = ( 22.64 ) mGy, DLP = ( 484.94 ) mGycm TECHNIQUE: High resolution transaxial imaging was performed without contrast material. Sagittal and coronal images were reconstructed. Individualized dose optimization techniques were used for this CT. COMPARISON: None FINDINGS: There is opacification of the left mastoid air cells. Normal craniovertebral junction. There are degenerative changes of the anterior atlantoaxial articulation. Normal odontoid process. Normal cervical lordosis. Normal vertebral bodies and posterior osseous elements. C2-3: Normal endplates. Normal disc height and morphology. Normal central canal and intervertebral neuroforamina. C3-4: Normal endplates. Normal disc height and morphology. Normal central canal and intervertebral neuroforamina. C4-5: Normal endplates. Normal disc height and morphology. Normal central canal and intervertebral neuroforamina. C5-6: Facet joint osteoarthritis and hypertrophy. Bilateral neural foraminal stenosis worse on the right side. C6-7: Normal endplates. Normal disc height and morphology. Normal central canal and intervertebral neuroforamina. C7-T1: Normal endplates. Normal disc height and morphology. Normal central canal and intervertebral neuroforamina. Normal visualized soft tissue structures. CT/Spine Cervical without Contras IMPRESSION: Multilevel degenerative changes, as described above. Electronically Signed: Sorin Strong MD at 15:07 EDT ,
[2023-04-21] MEDS: Morphine 4 MG/ML Syringe IV (14:34)
[2023-04-21] MEDS: Ondansetron 4 MG/2 ML Vial IV (14:34)
--- NOTE | 2023-04-21 14:36 | CT_ITS ---
CT RIGHT LOWER EXTREMITY WITH 3-D IMAGING CLINICAL INDICATION: hip fracture/ surgical planning TECHNIQUE: Axial CT images of the RIGHT lower extremity was performed without IV contrast material. Coronal and sagittal reformats were provided. RADIATION DOSAGE (If Supplied By Facility): CTDIvol = ( 17.44 ) mGy, DLP = ( 916.32 ) mGycm COMPARISON: FINDINGS: Bones: There is evidence of an impacted transcervical fracture of the proximal right femur. Soft Tissues: Soft tissue swelling. The superficial soft tissues are unremarkable without evidence of edema, hematoma, or foreign body. CT/Extremity Lower without Contra IMPRESSION: Impacted transcervical fracture of the proximal right femur. Soft tissue swelling. Electronically Signed: Sorin Strong MD at 15:03 EDT ,
[2023-04-21 14:49] LABS: Hematocrit 38.9 % (37-47); Hemoglobin 12.9 g/dL (12.0-15.0); Mean Corp Hgb Conc 33.2 g/dL (32-36); Mean Corpuscular Hgb 31.1 pg (27.0-32.0); Mean Corpuscular Volume 93.7 fL (81-99); Mean Platelet Vol. 12.5 fl (6.2-12.0); POSITIVE DIFFERENTIAL YES; POSITIVE MORPHOLOGY YES; Platelet Count 191 K/mm3 (150-450); RBC Distribution Width CV 14.1 % (11.6-14.6); RBC Distribution Width SD 48.6 fl (35.1-43.9); Red Blood Count 4.15 M/mm3 (4.2-5.4); White Blood Count 19.4 K/mm3 (4.4-11.0)
[2023-04-21 15:14] LABS: Anion Gap 10 (5-15); BUN 19 mg/dL (7-18); BUN/Creat Ratio 13.6 RATIO (10-20); Calcium,Total 9.6 mg/dL (8.5-10.1); Chloride 107 mmol/L (98-107); EST Glomerular Filtration Rate 38 mL/min (>60); Est Glom Filt Rate - Afr Amer 46 mL/min (>60); Estimated Creatinine Clearance 26.44 ml/min; Glucose 174 mg/dL (74-106); Potassium 4.3 mmol/L (3.5-5.1); Sodium Level 136 mmol/L (136-145); Troponin-I HS 16 pg/mL (3.0-54.0)
[2023-04-21 15:18] LABS: Mucous, Urine 0 SEEN /hpf (<or=2+); Red Blood Cells-Urine 0 SEEN /hpf (0-5); Squamous Epithelial Cells - UA 0 SEEN /hpf (5-10)
[2023-04-21 15:30] LABS: Color, Urine Yellow (Yellow); Glucose, Dipstick Normal (Normal); Ketone-Dipstick Negative (Negative); Leukocyte Esterase-Dipstick Negative /ul (Negative); Nitrite-Dipstick Negative (Negative); Occult Blood-Urine Negative /ul (Negative); Protein-Dipstick 30 mg/dl (Negative); Specific Gravity, Urine 1.015 (1.002-1.030); Urine Bilirubin Dipstick Negative (Negative); Urine Clarity Sl. Cloudy (Clear); Urine Urobilinogen Normal (Normal)
[2023-04-21 15:42] LABS: Differential Indicated MANUAL DIFF
[2023-04-21 15:49] LABS: Lymphocyte 5 % (19-41); Monocyte 1 % (0-10); Myelocyte 1 % (0-0); Neutrophil-Segmented 93 % (47-70); Total Cells Counted 100 (MANUAL DIFF)
[2023-04-21 15:52] LABS: Absolute Lymphocyte Count 0.97 X10^3/uL (0.83-4.51); Absolute Neutrophil Count 18.1 X10^3/uL (2.0-7.7)
[2023-04-21 15:53] LABS: Anisocytosis RARE; Macrocytosis RARE; Platelet Estimate ADEQUATE (ADEQ); Platelet Morphology LARGE; Red Cell Morphology N CHROM NORMAL (NORM C&C)
[2023-04-21 16:05] LABS: White Blood Cells 0-5 SEEN /hpf (0-5)
[2023-04-21 16:06] LABS: Bacteria RARE /hpf (None Seen)
--- NOTE | 2023-04-21 16:58 | PCM.HP.STD ---
HPI - General General Date of Admission: 04/21/23 Date of Service: 04/21/23 Chief Complaint: Hip pain HPI Narrative KENNETH CRUZ, is a 83 F with a history of CKD stage IIIb, hypothyroidism, diabetes, hypertension, GERD who presented to [facility] 04/21/2023 after a fall off of her toilet. She reports otherwise she was in her usual health and slipped off the toilet onto her right side and due to the pain she presented to the hospital. In the ED she had an elevated white blood cell count but UA normal and no other infectious nidus or complaints, she did have CT which showed impacted transcervical fracture of the proximal right femur and Ortho contacted and recommended medical admission with consult for likely surgery. Hospitalist contacted for admission. Patient seen with at bedside, she denies hitting her head or any other recent falls, leach negative ROS aside from pain in the right leg. 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 Chronic kidney disease, stage 3 Chronic renal failure, stage 3b Compression fracture of T11 vertebra Confusion Debility Debility Dementia Depression Diabetes Diabetes mellitus, type 2 Dysphagia Dysphagia, oropharyngeal phase Effusion of knee joint right Esophageal dysphagia Esophageal obstruction Falls frequently Former smoker Hemiplegia and hemiparesis following cerebral infarction affecting right dominant side HLD (hyperlipidemia) HTN (hypertension) Hyperlipidemia Hypertension Hypertensive heart and chronic kidney disease without heart failure, with stage 1 through stage 4 chronic kidney disease, or unspecified chronic kidney disease Hyperthyroidism Hyponatremia Hypothyroidism Hypothyroidism Ischemic cerebrovascular accident (CVA) Left atrial enlargement Malignant neoplasm of unspecified site of unspecified female breast Noncompliance Osteoporosis Peptic ulcer, site unspecified, unspecified as acute or chronic, without hemorrhage or perforation PUD (peptic ulcer disease) Schatzki's ring of distal esophagus Stroke/cerebrovascular accident T12 compression fracture T9 vertebral fracture Unspecified dementia, unspecified severity, without behavioral disturbance, psychotic disturbance, mood disturbance, and anxiety Home Medications atorvastatin 40 mg tablet 40 mg PO QHS CHOLESTEROL 08/13/22 [History Last Taken 01/03/23] pantoprazole 40 mg tablet,delayed release (Protonix) 40 mg PO DAILY GERD 09/09/22 [History Last Taken 01/03/23] mirtazapine 15 mg tablet 15 mg PO QHS MOOD 09/14/22 [History Last Taken 01/02/23] amlodipine 5 mg tablet 5 mg PO BID BLOOD PRESSURE 01/03/23 [History Last Taken 01/03/23] levothyroxine 50 mcg tablet 50 mcg PO DAILY THYROID 01/03/23 [History Last Taken 01/03/23] sbwbzgpq-ubozfld-hylv-lutein tablet 1 tab PO DAILY SUPPLEMENT 01/03/23 [History Last Taken 01/03/23] donepezil 5 mg tablet 5 mg PO QHS MEMORY 01/05/23 [History Last Taken Unknown] metformin 500 mg tablet 500 mg PO BIDCM DIABETES 30 days #60 tabs 01/13/23 [Rx Last Taken Unknown] Allergy/AdvReac Type Severity Reaction Status Date / Time No Known Allergies Allergy Verified 04/21/23 13:32 Family History Father Hypertension Surgical History Esophageal dilatation History of appendectomy History of hysterectomy History of vertebroplasty S/P biopsy Social History household members: spouse and other details: 's name is Dante housing: house number of children: 1 Smoking Status: Former smoker alcohol intake: current alcohol intake frequency: holidays/special occasions only substance use type: does not use caffeine: No ROS ROS Narrative General: Denies fever/chills HENT: Denies headache, denies stuffy nose, denies sore throat EYES: Denies changes in vision Resp: Denies cough, denies shortness of breath Cardiac: Denies chest pain GI: Denies abdominal pain, denies changes in bowel, denies nausea/vomiting : Denies changes in urination Extremity: Denies swelling MSK: Denies weakness, pain in right thigh Neuro: Denies any numbness/tingling Heme: Denies any bleeding or bruising Skin: Denies rashes Psychiatric: No complaints voiced Vital Signs Vital Signs Vital Signs: 04/21/23 13:30 04/21/23 13:32 04/21/23 15:00 Temperature 97.3 F L Temperature Source Oral Pulse Rate 109 H Respiratory Rate 18 Respiratory Effort Normal Respiratory Depth Normal Respiratory Pattern Normal Blood Pressure 176/104 H Blood Pressure Mean 128 Pulse Ox 96 88 Oxygen Delivery Method Room Air Room Air Oxygen Flow Rate (L/min) 04/21/23 14:30 04/21/23 15:30 04/21/23 15:02 Temperature Temperature Source Pulse Rate Respiratory Rate Respiratory Effort Respiratory Depth Respiratory Pattern Blood Pressure 175/133 H 141/79 H Blood Pressure Mean 137 86 Pulse Ox 93 94 94 Oxygen Delivery Method Nasal Cannula Oxygen Flow Rate (L/min) 2 04/21/23 16:10 Temperature 98.6 F Temperature Source Oral Pulse Rate 99 Respiratory Rate 18 Respiratory Effort Respiratory Depth Respiratory Pattern Blood Pressure 148/52 H Blood Pressure Mean 69 Pulse Ox 95 Oxygen Delivery Method Nasal Cannula Oxygen Flow Rate (L/min) 2 Weight Weight: 65.1 kg Body Mass Index (BMI) 23.8 Physical Exam Narrative General: Alert, oriented, no apparent distress HEENT: Atraumatic, normocephalic Eyes: Anicteric, normal conjunctiva, extraocular movements grossly intact Neck: Supple Respiratory: Clear to auscultation bilaterally, normal respiratory effort Cardiovascular: Regular rate and rhythm GI: Soft, nontender, nondistended Extremities: No edema Musculoskeletal: Moving all extremities but right is slightly contracted upwards with her pain Neuro: No overt focal neurological deficits Skin: No rashes appreciated Psych: Cooperative Results Lab / Micro Data 04/21/23 14:35 04/21/23 14:35 Labs: Laboratory Results - last 24 hr 04/21/23 14:35: WBC 19.4 H, RBC 4.15 L, Hgb 12.9, Hct 38.9, MCV 93.7, MCH 31.1, MCHC 33.2, RDW Std Deviation 48.6 H, RDW Coeff of Сергей 14.1, Plt Count 191, MPV 12.5 H, Neut % (Auto) Not Reportable, Absolute Neuts (auto) 18.1 H, Absolute Lymphs (auto) 0.97, Total Counted 100, Neutrophils % (Manual) 93 H, Lymphocytes % (Manual) 5 L, Monocytes % (Manual) 1, Myelocytes % 1 H, Differential Comment SEE COMMENT, Diff Path Review May foll, Platelet Estimate ADEQUATE, Plt Morphology Comment LARGE, RBC Morphology N CHROM, Anisocytosis RARE, Macrocytosis RARE, Sodium 136, Potassium 4.3, Chloride 107, Carbon Dioxide 19.0 L, Anion Gap 10, BUN 19 H, Creatinine 1.40 H, Estim Creat Clear Calc 26.44, Est GFR (MDRD) Af Amer 46 L, Est GFR (MDRD) Non-Af 38 L, BUN/Creatinine Ratio 13.6, Glucose 174 H, Calcium 9.6, Troponin I High Sens 16 04/21/23 15:05: Urine Color Yellow, Urine Clarity Sl. Cloudy, Urine pH 5.0, Ur Specific [place] 1.015, Urine Protein 30 H, Urine Glucose (UA) Normal, Urine Ketones Negative, Urine Occult Blood Negative, Urine Nitrite Negative, Urine Bilirubin Negative, Urine Urobilinogen Normal, Ur Leukocyte Esterase Negative, Urine RBC 0 SEEN, Urine WBC 0-5 SEEN, Ur Squamous Epith Cells 0 SEEN, Urine Bacteria RARE, Urine Mucus 0 SEEN Radiology Impression Hip/Pelvis X-Ray 04/21/23 14:08 IMPRESSION: Impacted subcapital fracture of the proximal right femur. Healed left superior and inferior pubic rami fractures. Electronically Signed: Sorin Strong MD at 14:28 EDT , Chest X-Ray 04/21/23 14:17 IMPRESSION: Elevation of the right hemidiaphragm. The lungs are clear. Stable examination. Mild cardiomegaly. Electronically Signed: Sorin Strong MD at 14:53 EDT , Brain CT 04/21/23 14:21 IMPRESSION: Chronic involutional changes of the brain. Electronically Signed: Sorin Strong MD at 15:05 EDT , Cervical Spine CT 04/21/23 14:33 IMPRESSION: Multilevel degenerative changes, as described above. Electronically Signed: Sorin Strong MD at 15:07 EDT , Lower Extremity CT 04/21/23 14:36 IMPRESSION: Impacted transcervical fracture of the proximal right femur. Soft tissue swelling. Electronically Signed: Sorin Strong MD at 15:03 EDT , Assessment & Plan Assessment/Plan (1) Femur fracture, right: PLAN: Plan #Fall with right proximal femur fracture -CT demonstrated impacted transcervical fracture of the proximal right femur -Ortho consult -Pain control -N.p.o. at midnight #Elevated white blood cell count -No UTI or any localizing signs or symptoms -Repeat in the a.m. and continue to monitor for any potential infectious etiology, do not feel it is necessary to start empiric antibiotics at this time #Hypothyroidism -Continue Synthroid #CKD stage IIIb -Appears to be at baseline, avoid nephrotoxic agents #Type 2 diabetes mellitus -Glucose checks and sliding scale insulin #GERD -Continue PPI #Vascular dementia -Hold donepezil, likely will not have large difference in short-term for memory, can be resumed on discharge #Hypertension -Continue home medications #DVT ppx: SCDs Verito Santiago MD Time spent in the patient's overall evaluation,decision-making process, review of diagnostic data, adjustment of management, discussion with other providers, nursing nursing and ancillary staff involved in patient's care documentation, 56 minutes Charges/Coding Visit Charges Inpatient E&M: 16072 Init Hosp L2
[2023-04-21] MEDS: Morphine 2 MG/ML Syringe IV (18:04)
[2023-04-21 18:36] LABS: Bedside Glucose 188 mg/dL (74-106)
[2023-04-21] MEDS: amLODIPine 5 MG Tablet PO (21:21)
[2023-04-21] MEDS: Atorvastatin Calcium 40 MG Tablet PO (21:21)
[2023-04-21] MEDS: 0.9% Saline Lock 10 ML Syringe IV (21:21)
[2023-04-21] MEDS: Acetaminophen 500 MG Tablet 1000 MG PO (21:21)
[2023-04-21] MEDS: Mirtazapine 15 MG Tablet PO (21:22)
[2023-04-21] MEDS: Insulin Lispro 100 UNIT/ML INSULN.PEN SC (21:48)
[2023-04-21] MEDS: oxyCODONE 5 MG Tablet PO (21:52)
[2023-04-21] MEDS: MELATONIN 3 MG TABLET PO (21:52)
[2023-04-21 23:44] LABS: Bedside Glucose 215 mg/dL (74-106)
[2023-04-22] VITALS (16 sets, daily range): BP systolic 81–159; BP diastolic 48–76; PULSE 54–85; RESP 14–20; TEMP 36.1–37.5; O2SAT 88–98; BMI 23.8
[2023-04-22] MEDS: Levothyroxine 50 MCG Tablet PO (05:31)
[2023-04-22] MEDS: Acetaminophen 500 MG Tablet 1000 MG PO ×3 (05:31→22:26)
[2023-04-22 06:15] LABS: Absolute Lymphocyte Count 1.96 X10^3/uL (0.83-4.51); Absolute Neutrophil Count 9.9 X10^3/uL (2.0-7.7); Basophil# 0.04 X10^3/uL; Basophil% 0.3 % (0-1); Eosinophil# 0.04 X10^3/uL; Eosinophils% 0.3 % (0-5); Hematocrit 37.1 % (37-47); Hemoglobin 12.1 g/dL (12.0-15.0); Lymphocyte # 1.96 X10^3/ul (0.83-4.51); Lymphocyte % 15.5 % (19-41); Mean Corp Hgb Conc 32.6 g/dL (32-36); Mean Corpuscular Hgb 30.8 pg (27.0-32.0); Mean Corpuscular Volume 94.4 fL (81-99); Mean Platelet Vol. 12.7 fl (6.2-12.0); Monocyte# 0.68 X10^3/uL; Monocyte% 5.4 % (0-10); NRBC Flagged by Analyzer 0 % (0-5); Neutrophil % 78.1 % (47-70); Platelet Count 171 K/mm3 (150-450); RBC Distribution Width CV 14.5 % (11.6-14.6); RBC Distribution Width SD 50.5 fl (35.1-43.9); Red Blood Count 3.93 M/mm3 (4.2-5.4); White Blood Count 12.7 K/mm3 (4.4-11.0)
[2023-04-22 06:27] LABS: International Normalized Ratio 1.1; Prothrombin Time (Protime)PT. 13.9 SECONDS (11.7-14.9)
[2023-04-22 06:49] LABS: Bedside Glucose 123 mg/dL (74-106)
[2023-04-22 07:13] LABS: Hemoglobin A1c 5.5 % (3.8-5.6)
--- NOTE | 2023-04-22 07:15 | PN.HOSP_ITS ---
Reason for Visit Reason for Visit: Mechanical fall/right hip pain Subjective Subjective 83-year-old white female who presents emergency department at [facility] on 04/21/2023 after mechanical fall and sustaining injury to her right leg. Patient reported that she was in her usual state of health and feeling well but slipped off her toilet on her right side and had subsequent pain in the right leg. On presentation she had a mildly elevated the leukocytosis but her UA was normal and her chemistry panel was unremarkable. CT of the leg showed an impacted transcervical fracture of the right proximal femur. The emergency department contacted orthopedic surgery and recommended admission with surgical consult for probable surgical intervention. Chest x-ray showed no acute findings and chronic elevation of the right hemidiaphragm 1. Patient is currently waiting surgical intervention and is NPO. Objective Data Objective Data Vital Signs: Vital Signs Temp Pulse Resp BP Pulse Ox O2 Del Method O2 Flow Rate 99.5 F H 66 18 123/48 H 95 Nasal Cannula 2 04/22/23 05:26 04/22/23 05:26 04/22/23 05:26 04/22/23 05:26 04/22/23 05:26 04/22/23 05:26 04/22/23 05:26 Oxygen Flow Rate (L/min) 2 Oxygen Delivery Method Nasal Cannula Weight: 65.1 kg Body Mass Index (BMI) 23.8 Intake & Output: Intake and Output for Last 24 Hours 04/20/23 04/21/23 04/22/23 23:59 23:59 23:59 Intake Total 100 / 100 Output Total 350 / 550 400 / 400 Balance -350 / -450 -300 / -300 Lab / Micro Data 04/22/23 05:45 04/22/23 05:45 Labs: Laboratory Results - last 24 hr 04/21/23 14:35: WBC 19.4 H, RBC 4.15 L, Hgb 12.9, Hct 38.9, MCV 93.7, MCH 31.1, MCHC 33.2, RDW Std Deviation 48.6 H, RDW Coeff of Сергей 14.1, Plt Count 191, MPV 12.5 H, Neut % (Auto) Not Reportable, Absolute Neuts (auto) 18.1 H, Absolute Lymphs (auto) 0.97, Total Counted 100, Neutrophils % (Manual) 93 H, Lymphocytes % (Manual) 5 L, Monocytes % (Manual) 1, Myelocytes % 1 H, Differential Comment SEE COMMENT, Diff Path Review May foll, Platelet Estimate ADEQUATE, Plt Morphology Comment LARGE, RBC Morphology N CHROM, Anisocytosis RARE, Macrocytosis RARE, Sodium 136, Potassium 4.3, Chloride 107, Carbon Dioxide 19.0 L, Anion Gap 10, BUN 19 H, Creatinine 1.40 H, Estim Creat Clear Calc 26.44, Est GFR (MDRD) Af Amer 46 L, Est GFR (MDRD) Non-Af 38 L, BUN/Creatinine Ratio 13.6, Glucose 174 H, Calcium 9.6, Troponin I High Sens 16 04/21/23 15:05: Urine Color Yellow, Urine Clarity Sl. Cloudy, Urine pH 5.0, Ur Specific [place] 1.015, Urine Protein 30 H, Urine Glucose (UA) Normal, Urine Ketones Negative, Urine Occult Blood Negative, Urine Nitrite Negative, Urine Bilirubin Negative, Urine Urobilinogen Normal, Ur Leukocyte Esterase Negative, Urine RBC 0 SEEN, Urine WBC 0-5 SEEN, Ur Squamous Epith Cells 0 SEEN, Urine Bacteria RARE, Urine Mucus 0 SEEN 04/21/23 18:03: POC Glucose 188 H 04/21/23 21:06: POC Glucose 215 H 04/22/23 05:45: WBC 12.7 H, RBC 3.93 L, Hgb 12.1, Hct 37.1, MCV 94.4, MCH 30.8, MCHC 32.6, RDW Std Deviation 50.5 H, RDW Coeff of Сергей 14.5, Plt Count 171, MPV 12.7 H, Immature Gran % (Auto) 0.400, Neut % (Auto) 78.1 H, Lymph % (Auto) 15.5 L, [place] % (Auto) 5.4, Eos % (Auto) 0.3, Baso % (Auto) 0.3, Absolute Neuts (auto) 9.9 H, Absolute Lymphs (auto) 1.96, Nucleated RBC % 0, PT 13.9, INR 1.1, Hemoglobin A1c 5.5, Blood Type AB POSITIVE, Antibody Screen NEGATIVE 04/22/23 06:30: POC Glucose 123 H Radiography Diagnostic Testing: Radiology Impression Hip/Pelvis X-Ray 04/21/23 14:08 IMPRESSION: Impacted subcapital fracture of the proximal right femur. Healed left superior and inferior pubic rami fractures. Electronically Signed: Sorin Strong MD at 14:28 EDT , Chest X-Ray 04/21/23 14:17 IMPRESSION: Elevation of the right hemidiaphragm. The lungs are clear. Stable examination. Mild cardiomegaly. Electronically Signed: Sorin Strong MD at 14:53 EDT , Brain CT 04/21/23 14:21 IMPRESSION: Chronic involutional changes of the brain. Electronically Signed: Sorin Strong MD at 15:05 EDT , Cervical Spine CT 04/21/23 14:33 IMPRESSION: Multilevel degenerative changes, as described above. Electronically Signed: Sorin Strong MD at 15:07 EDT , Lower Extremity CT 04/21/23 14:36 IMPRESSION: Impacted transcervical fracture of the proximal right femur. Soft tissue swelling. Electronically Signed: Sorin Strong MD at 15:03 EDT , Physical Exam Const alert, oriented x3, no apparent distress and well nourished Constitutional Narrative: Frail-appearing, elderly, white female, lying in left side-lying, appears comfortable currently, nontoxic, at bedside, awaiting surgery HEENT head/scalp atraumatic and moist oral mucous membranes HEENT Narrative: Mallampati is 2, no thrush Head and Scalp: normocephalic Resp normal respiratory effort, no retractions, no use of accessory muscles and clear to auscultation bilaterally Auscultation: Negative for rales, rhonchi or wheezes Cardio regular rate, regular rhythm, S1 normal heart sound, S2 normal heart sound, no murmurs, no rub and no gallops GI normal to inspection, nondistended, normoactive bowel sounds, soft to palpation and non-tender Extremity no clubbing, cyanosis or edema Extremity Narrative: Pedal pulses are 2+ Neuro oriented x3, moves all extremities and no focal motor deficits Neuro Narrative: Movement currently limited secondary to pain on her right lower extremity due to fracture, moves upper extremities without any difficulty, moves distal lower extremities without any difficulty, no focal deficits identified Speech: speech normal Psych Psych Narrative: Affect is slightly flat however eye contact is good and patient interacts normally Assessment & Plan Assessment/Plan (1) Femur fracture, right: (2) Fall: (3) Leukocytosis: PLAN: Plan Right proximal femoral fracture secondary to mechanical fall off toilet -CT of the right hip demonstrated impacted transcervical fracture of the right proximal femur -Continue Tylenol 1000 mg every 8 hour as -Continue as needed morphine as breakthrough -Continue as needed oxycodone -Start MiraLAX 17 g daily -Continue as needed senna -Check vitamin D 25 is a suspect the patient may have some osteoporosis at baseline -Currently n.p.o. in preparation for surgery -PT/OT consultation for postoperative evaluation and management -Orthopedic surgery consulted and awaiting input -Case management/social work consultation as I do anticipate patient will need placed at time of discharge Falls -It appears patient has a history of falling -PT/OT consultation -Anticipate patient will need placement at discharge Leukocytosis -Anticipate reactive -UA was unremarkable -Chest x-ray was unremarkable for any acute findings -CBC is trending down CKD stage IIIb -Remains at baseline Hypothyroidism -Continue home Synthroid DM-2 -Hold home metformin -SSI -Accu-Cheks -We will start carb controlled diet once p.o. intake is appropriate postoperati vely GERD/Wagner's esophagus -Continue home PPI Hypertension -Continue home amlodipine Hyperlipidemia -Continue home atorvastatin Vascular dementia -Hold home donepezil and restart at discharge History of breast CA/parotid gland CA -No current issues DVT prophylaxis -SCDs for now and will plan for chemoprophylaxis postoperatively CODE STATUS -Full code Charges/Coding Visit Charges Inpatient E&M: 86774 Subs Hosp L2
[2023-04-22 07:17] LABS: ALB/GLOB Ratio 1.1 RATIO (0.9-2.4); AST(SGOT) 21 U/L (15-37); Alanine Aminotransfer ALT/SGPT 23 U/L (13-56); Albumin, Serum 3.6 g/dL (3.2-5.0); Alkaline Phosphatase 59 U/L (45-117); Anion Gap 6 (5-15); BUN 17 mg/dL (7-18); BUN/Creat Ratio 12.3 RATIO (10-20); Calcium,Total 8.9 mg/dL (8.5-10.1); Chloride 106 mmol/L (98-107); Creatinine, Serum 1.38 mg/dL (0.55-1.02); EST Glomerular Filtration Rate 39 mL/min (>60); Est Glom Filt Rate - Afr Amer 47 mL/min (>60); Estimated Creatinine Clearance 26.82 ml/min; Globulin 3.2 g/dL (2.2-4.2); Glucose 122 mg/dL (74-106); Potassium 4.1 mmol/L (3.5-5.1); Protein, Total 6.8 g/dL (6.4-8.2); Sodium Level 138 mmol/L (136-145); T4 Free Direct 1.18 ng/dL (0.76-1.46); Thyroid Stim Hormone (TSH) 8.08 uIU/mL (0.358-3.74)
[2023-04-22] MEDS: amLODIPine 5 MG Tablet PO ×2 (08:26→22:25)
--- NOTE | 2023-04-22 10:57 | CONS.ORTHO ---
HPI Consult Data Date of Consult: 04/22/23 HPI Narrative Reason for Consultation: right hip pain HPI Narrative: KENNETH CRUZ, is a 83 F who presents today with right hip pain. Patient has significant dementia and history of stroke as well as chronic kidney disease. She does live at home with her . Her is at bedside and gives majority of history. He reports they both live at home with no consistent assistance. He reports he is a 24-hour nurse. Patient notes that she has been in and out of the hospital with several falls over the last year. He reports at least 9. She is been fortunate not to have any major injuries during that timeframe. She is largely nonverbal and resting in bed. She is unable to answer any my questions regarding neurovascular status. She is largely noncontributory to the exam. She reportedly had a fall yesterday in her house and was brought to the emergency department after she was unable to get up. 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 Chronic kidney disease, stage 3 Chronic renal failure, stage 3b Compression fracture of T11 vertebra Confusion Debility Debility Dementia Depression Diabetes Diabetes mellitus, type 2 Dysphagia Dysphagia, oropharyngeal phase Effusion of knee joint right Esophageal dysphagia Esophageal obstruction Falls frequently Former smoker Hemiplegia and hemiparesis following cerebral infarction affecting right dominant side HLD (hyperlipidemia) HTN (hypertension) Hyperlipidemia Hypertension Hypertensive heart and chronic kidney disease without heart failure, with stage 1 through stage 4 chronic kidney disease, or unspecified chronic kidney disease Hyperthyroidism Hyponatremia Hypothyroidism Hypothyroidism Ischemic cerebrovascular accident (CVA) Left atrial enlargement Malignant neoplasm of unspecified site of unspecified female breast Noncompliance Osteoporosis Peptic ulcer, site unspecified, unspecified as acute or chronic, without hemorrhage or perforation PUD (peptic ulcer disease) Schatzki's ring of distal esophagus Stroke/cerebrovascular accident T12 compression fracture T9 vertebral fracture Unspecified dementia, unspecified severity, without behavioral disturbance, psychotic disturbance, mood disturbance, and anxiety Home Medications atorvastatin 40 mg tablet 40 mg PO QHS CHOLESTEROL 08/13/22 [History Last Taken 01/03/23] pantoprazole 40 mg tablet,delayed release (Protonix) 40 mg PO DAILY GERD 09/09/22 [History Last Taken 01/03/23] mirtazapine 15 mg tablet 15 mg PO QHS MOOD 09/14/22 [History Last Taken 01/02/23] amlodipine 5 mg tablet 5 mg PO BID BLOOD PRESSURE 01/03/23 [History Last Taken 01/03/23] levothyroxine 50 mcg tablet 50 mcg PO DAILY THYROID 01/03/23 [History Last Taken 01/03/23] qyowgdub-hwrdprj-tapu-lutein tablet 1 tab PO DAILY SUPPLEMENT 01/03/23 [History Last Taken 01/03/23] donepezil 5 mg tablet 5 mg PO QHS MEMORY 01/05/23 [History Last Taken Unknown] metformin 500 mg tablet 500 mg PO BIDCM DIABETES 30 days #60 tabs 01/13/23 [Rx Last Taken Unknown] Allergy/AdvReac Type Severity Reaction Status Date / Time No Known Allergies Allergy Verified 04/21/23 13:32 Family History Father Hypertension Surgical History Esophageal dilatation History of appendectomy History of hysterectomy History of vertebroplasty S/P biopsy Social History household members: spouse and other details: 's name is Dante housing: house number of children: 1 Smoking Status: Former smoker alcohol intake: current alcohol intake frequency: holidays/special occasions only substance use type: does not use caffeine: No ROS Review of Systems ROS Unobtainable: due to mental status Vital Signs Vital Signs Vital Signs: 04/21/23 13:30 04/21/23 13:32 04/21/23 15:00 Temperature 97.3 F L Temperature Source Oral Pulse Rate 109 H Pulse Strength Respiratory Rate 18 Respiratory Effort Normal Respiratory Depth Normal Respiratory Pattern Normal Blood Pressure 176/104 H Blood Pressure Mean 128 Blood Pressure Source Blood Pressure Position Blood Pressure Location Pulse Ox 96 88 Oxygen Delivery Method Room Air Room Air Oxygen Flow Rate (L/min) 04/21/23 14:30 04/21/23 15:30 04/21/23 15:02 Temperature Temperature Source Pulse Rate Pulse Strength Respiratory Rate Respiratory Effort Respiratory Depth Respiratory Pattern Blood Pressure 175/133 H 141/79 H Blood Pressure Mean 137 86 Blood Pressure Source Blood Pressure Position Blood Pressure Location Pulse Ox 93 94 94 Oxygen Delivery Method Nasal Cannula Oxygen Flow Rate (L/min) 2 04/21/23 16:10 04/21/23 18:01 04/21/23 18:20 Temperature 98.6 F 98.5 F Temperature Source Oral Oral Pulse Rate 99 90 Pulse Strength Respiratory Rate 18 20 H Respiratory Effort Normal Non-Labored Respiratory Depth Respiratory Pattern Blood Pressure 148/52 H 145/62 H Blood Pressure Mean 69 89 Blood Pressure Source Monitor Blood Pressure Position Semi-Fowlers Blood Pressure Location Right Arm Pulse Ox 95 93 93 Oxygen Delivery Method Nasal Cannula Nasal Cannula Nasal Cannula Oxygen Flow Rate (L/min) 2 2 2 04/21/23 21:09 04/21/23 21:23 04/22/23 01:57 Temperature 98.5 F 98.8 F Temperature Source Oral Temporal Pulse Rate 87 78 Pulse Strength Respiratory Rate 18 20 H Respiratory Effort Normal Non-Labored Respiratory Depth Normal Respiratory Pattern Normal Blood Pressure 138/48 H 134/54 H Blood Pressure Mean 78 80 Blood Pressure Source Monitor Monitor Blood Pressure Position Semi-Fowlers Semi-Fowlers Blood Pressure Location Right Arm Right Arm Pulse Ox 96 94 Oxygen Delivery Method Nasal Cannula Nasal Cannula Nasal Cannula Oxygen Flow Rate (L/min) 2 2 2 04/22/23 01:58 04/22/23 05:26 04/22/23 08:29 Temperature 99.5 F H Temperature Source Temporal Pulse Rate 66 Pulse Strength Normal (2+) Respiratory Rate 18 Respiratory Effort Respiratory Depth Respiratory Pattern Blood Pressure 123/48 H Blood Pressure Mean 73 Blood Pressure Source Monitor Blood Pressure Position Semi-Fowlers Blood Pressure Location Right Arm Pulse Ox 95 Oxygen Delivery Method Nasal Cannula Nasal Cannula Oxygen Flow Rate (L/min) 2 2 04/22/23 08:29 04/22/23 08:30 Temperature 98.4 F Temperature Source Oral Pulse Rate 71 Pulse Strength Respiratory Rate 18 Respiratory Effort Normal Non-Labored Respiratory Depth Normal Respiratory Pattern Normal Blood Pressure 142/48 H Blood Pressure Mean 79 Blood Pressure Source Monitor Blood Pressure Position Semi-Fowlers Blood Pressure Location Right Arm Pulse Ox 93 Oxygen Delivery Method Nasal Cannula Nasal Cannula Oxygen Flow Rate (L/min) 2 2 Weight Weight: 143 lb 8.335 oz Body Mass Index (BMI) 23.8 Physical Exam Const Orientation / Consciousness: confused HEENT normocephalic Eyes PERRL Neck no JVD Resp normal respiratory effort Cardio Cardio Narrative: Regular pulse GI non-distended Extremity Extremity Narrative: Right lower extremity: Pain with logroll. Skin is intact. Neurovascular intact distally. Skin Skin Narrative: Skin is intact. Psych Memory / Cognition: cognition impaired Medical Records Data Attestation: I reviewed the patient's medical records Lab / Micro Data Attestation: I reviewed the patient's lab results. 04/22/23 05:45 04/22/23 05:45 Labs: Laboratory Results - last 24 hr 04/21/23 14:35: WBC 19.4 H, RBC 4.15 L, Hgb 12.9, Hct 38.9, MCV 93.7, MCH 31.1, MCHC 33.2, RDW Std Deviation 48.6 H, RDW Coeff of Сергей 14.1, Plt Count 191, MPV 12.5 H, Neut % (Auto) Not Reportable, Absolute Neuts (auto) 18.1 H, Absolute Lymphs (auto) 0.97, Total Counted 100, Neutrophils % (Manual) 93 H, Lymphocytes % (Manual) 5 L, Monocytes % (Manual) 1, Myelocytes % 1 H, Differential Comment SEE COMMENT, Diff Path Review May foll, Platelet Estimate ADEQUATE, Plt Morphology Comment LARGE, RBC Morphology N CHROM, Anisocytosis RARE, Macrocytosis RARE, Sodium 136, Potassium 4.3, Chloride 107, Carbon Dioxide 19.0 L, Anion Gap 10, BUN 19 H, Creatinine 1.40 H, Estim Creat Clear Calc 26.44, Est GFR (MDRD) Af Amer 46 L, Est GFR (MDRD) Non-Af 38 L, BUN/Creatinine Ratio 13.6, Glucose 174 H, Calcium 9.6, Troponin I High Sens 16 04/21/23 15:05: Urine Color Yellow, Urine Clarity Sl. Cloudy, Urine pH 5.0, Ur Specific [place] 1.015, Urine Protein 30 H, Urine Glucose (UA) Normal, Urine Ketones Negative, Urine Occult Blood Negative, Urine Nitrite Negative, Urine Bilirubin Negative, Urine Urobilinogen Normal, Ur Leukocyte Esterase Negative, Urine RBC 0 SEEN, Urine WBC 0-5 SEEN, Ur Squamous Epith Cells 0 SEEN, Urine Bacteria RARE, Urine Mucus 0 SEEN 04/21/23 18:03: POC Glucose 188 H 04/21/23 21:06: POC Glucose 215 H 04/22/23 05:45: WBC 12.7 H, RBC 3.93 L, Hgb 12.1, Hct 37.1, MCV 94.4, MCH 30.8, MCHC 32.6, RDW Std Deviation 50.5 H, RDW Coeff of Сергей 14.5, Plt Count 171, MPV 12.7 H, Immature Gran % (Auto) 0.400, Neut % (Auto) 78.1 H, Lymph % (Auto) 15.5 L, [place] % (Auto) 5.4, Eos % (Auto) 0.3, Baso % (Auto) 0.3, Absolute Neuts (auto) 9.9 H, Absolute Lymphs (auto) 1.96, Nucleated RBC % 0, PT 13.9, INR 1.1, Sodium 138, Potassium 4.1, Chloride 106, Carbon Dioxide 26.0, Anion Gap 6, BUN 17, Creatinine 1.38 H, Estim Creat Clear Calc 26.82, Est GFR (MDRD) Af Amer 47 L, Est GFR (MDRD) Non-Af 39 L, BUN/Creatinine Ratio 12.3, Glucose 122 H, Hemoglobin A1c 5.5, Calcium 8.9, Total Bilirubin 0.50, AST 21, ALT 23, Alkaline Phosphatase 59, Total Protein 6.8, Albumin 3.6, Globulin 3.2, Albumin/Globulin Ratio 1.1, TSH 8.08 H, Free T4 1.18, Blood Type AB POSITIVE, Antibody Screen NEGATIVE 04/22/23 06:30: POC Glucose 123 H Radiology Impression Hip/Pelvis X-Ray 04/21/23 14:08 IMPRESSION: Impacted subcapital fracture of the proximal right femur. Healed left superior and inferior pubic rami fractures. Electronically Signed: Sorin Strong MD at 14:28 EDT , Chest X-Ray 04/21/23 14:17 IMPRESSION: Elevation of the right hemidiaphragm. The lungs are clear. Stable examination. Mild cardiomegaly. Electronically Signed: Sorin Strong MD at 14:53 EDT , Brain CT 04/21/23 14:21 IMPRESSION: Chronic involutional changes of the brain. Electronically Signed: Sorin Strong MD at 15:05 EDT , Cervical Spine CT 04/21/23 14:33 IMPRESSION: Multilevel degenerative changes, as described above. Electronically Signed: Sorin Strong MD at 15:07 EDT , Lower Extremity CT 04/21/23 14:36 IMPRESSION: Impacted transcervical fracture of the proximal right femur. Soft tissue swelling. 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 Patient was largely confused and lethargic during the encounter. Hemiarthroplasty versus closed duction percutaneous pinning versus nonoperative treatments were discussed. At this time Based on patient's overall health and fracture pattern I recommended close reduction percutaneous pinning of the right hip. Risk and benefits of the procedure were discussed with the patient this power of metal pattern maker including but limited to blood loss, DVTs, PEs, nervous damage, fashion, the risk of anesthesia including loss of life, nonunion, malunion, avascular necrosis and other associated injuries which may occur with further falls. Patient's demonstrates an understanding and wishes to proceed. Appropriate consent will be signed. We will proceed with surgery today. Antibiotics we will add on-call to the operating room. Patient is NPO. [facility] Office: (2) Fall: PLAN: Fall risk was discussed with the patient's . I did recommend considering placement after surgery potentially permanently. (3) Hyperlipidemia: PLAN: Per primary service (4) Stroke: PLAN: Per primary service, will impact postoperative care (5) Diabetes mellitus: PLAN: Per primary service will impact postoperative outcomes (6) HTN (hypertension): PLAN: Per primary service (7) Osteoporosis: PLAN: Per primary service, will impact intraoperative and postoperative outcomes (8) Dementia: PLAN: Per primary service, will impact postoperative outcomes
--- NOTE | 2023-04-22 11:00 | RAD_ITS ---
STUDY: X-RAY - PELVIS AND RIGHT HIP REASON FOR EXAM: Female, 83 years old. HIP FX TECHNIQUE: 5 intraoperative views of the pelvis and hip. COMPARISON: Plain film from yesterday FINDINGS: 5 limited intraoperative C-arm films were performed as the patient is undergoing ORIF of a subcapital femoral neck fracture. Alignment at the fracture site is anatomic, no intraoperative complications noted. RAD/Hip 1 view with Pelvis IMPRESSION: No intraoperative complications noted during ORIF of a subcapital femoral neck fracture of the right hip Electronically Signed: Kevin López MD at 14:41 EDT ,
[2023-04-22] MEDS: Lactated Ringers 1,000 ML 15 ML IV (11:49)
[2023-04-22] MEDS: Cefazolin 2 GM in 0.9% Normal Saline (100mL Bag) 100 ML IV (11:51)
--- NOTE | 2023-04-22 12:29 | RAD_ITS ---
STUDY: X-RAY - PELVIS AND RIGHT HIP REASON FOR EXAM: Female, 83 years old. Postop from right femoral surgery TECHNIQUE: 2 postoperative views of the pelvis and hip. COMPARISON: Yesterday FINDINGS: 2 limited postoperative views of the right femur were performed. Patient is postoperative from open reduction internal fixation of a subcapital femoral neck fracture of the right hip. Alignment at the fracture site is anatomic. No postoperative complications noted. Normal postoperative soft tissue swelling and subcutaneous emphysema noted. Age consistent degenerative changes noted in the pelvis and left hip, no other demonstrated fracture. RAD/Hip Min 2 Views (Portable) IMPRESSION: Anatomic alignment of a previously described subcapital femoral neck fracture of the right hip after ORIF. No postoperative complications. Electronically Signed: Kevin López MD at 14:39 EDT ,
--- NOTE | 2023-04-22 12:30 | PCM.OPRPT ---
Report of Operation Date of Procedure: 04/22/23 Pre-Operative Diagnosis: Valgus impacted right hip subcapital femoral neck fracture Post-Operative Diagnosis: Valgus impacted right hip subcapital femoral neck fracture Surgery/Procedure Performed:: Closed reduction percutaneous pinning right hip femoral neck fracture Description of Surgical Findings:: Stable reduction Surgeon: Hieu Vaca solar electric practitioner: Dev Yoon Type of Anesthesia: Spinal Anesthesiologist: Acosta Resendiz Special Medications: Ancef Specimen's removed: None Estimated Blood Loss (mL): 10 Fluids Replaced: 300 mL crystalloid Description of Procedure: On the date of procedure patient's right lower extremity is was marked in the preoperative area. The patient was then taken back to the operating room where they were placed on the fracture table in the supine position. All bony prominences were identified a well-padded. Anesthesia assumed control of the C-spine and airway and remained controlled throughout the remainder of the procedure. A perineal post was placed and the pts legs were positioned for appropriate fluoroscopic views. The left lower extremity was prepped in a sterile fashion using chlorhexidine. The surgeon scrubbed at this time. Upon reentering the room the right extremity was draped in a standard orthopedic fashion. A timeout was then called and everyone agreed upon the side, the site, the procedure to be performed, patient's identity and antibiotics given. Fluoroscopy was used to verify the starting position of the initial pin which was above the level of the lesser trochanter. The initial pin was inserted percutaneously placed and the pin local company truck driver was used to drive the inferior pin using fluoroscopic guidance into the appropriate position. The appropriate position was verified on the AP we then confirmed it on the lateral. Once we're happy with the position of our initial pin an incision was made in line with the pin and the parallel pin guide were used to place the 2 superior pins along the anterior and posterior cortex of the femoral neck. Once all 3 pins were placed just beneath the subchondral bone of the femoral head the depth gauge was used to measure the length. The inferior screw was 100 mm, the anterior-superior screws was 95 mm and the posterior-superior screws was 85 mm . The drill was then used to perforate the lateral cortex. All 3 screws were then placed under fluoroscopic guidance and final tightening was done by hand. Final x-rays were then taken to verify the position of the screws and the final reduction. Copious irrigation was then used to irrigate out the wound. The wound was closed using 2-0 Vicryl and 4-0 Monocryl with Steri-Strips. A sterile dressing was placed with Xeroform. Patient was then awakened by anesthesia and transferred to the PACU for recovery. Post op plan PT: WBAT DVT ppx: Based on patient's fall risks and medical history recommend aspirin 81 mg p.o. twice daily for minimum of 4 weeks postoperatively for DVT prophylaxis. Patient's fall risk is concerning for intracranial bleeds if she continues to have falls on direct oral anticoagulants, Coumadin or even Lovenox treatment. If medicine feels this is not sufficient I would recommend Lovenox treatment due to short half-life. Follow up: 2 weeks for wound check Complications No intraoperative complications Admit VTE Documentation VTE Present on Admission: No VTE Mechan Device Prophylaxis: SCD's and Thigh High GAVIN Hose VTE Pharm Prophylaxis ordered?: Yes
--- NOTE | 2023-04-22 13:28 | CASEMGMT ---
1132 and 1328- Pt remains off floor for RN CM assessment.
--- NOTE | 2023-04-22 13:31 | SUR.PHASEI ---
AWAITING TRANSPORTATION BACK TO [id number]
[2023-04-22] MEDS: oxyCODONE 5 MG Tablet PO (15:53)
[2023-04-22 16:15] LABS: Bedside Glucose 132 mg/dL (74-106)
[2023-04-22] MEDS: Morphine 2 MG/ML Syringe IV (17:57)
[2023-04-22] MEDS: 0.9% Saline Lock 10 ML Syringe IV (17:57)
[2023-04-22] MEDS: Mirtazapine 15 MG Tablet PO (22:25)
[2023-04-22] MEDS: Atorvastatin Calcium 40 MG Tablet PO (22:25)
[2023-04-22] MEDS: Aspirin 81 MG TAB.CHEW PO (22:25)
[2023-04-22] MEDS: Insulin Lispro 100 UNIT/ML INSULN.PEN SC (22:26)
[2023-04-22 23:07] LABS: Bedside Glucose 186 mg/dL (74-106)
[2023-04-23] VITALS (8 sets, daily range): BP systolic 123–154; BP diastolic 47–80; PULSE 72–88; RESP 16; TEMP 36.6–37.1; O2SAT 94–99
[2023-04-23] MEDS: 0.9% Saline Lock 10 ML Syringe IV ×2 (00:47→20:04)
[2023-04-23] MEDS: Morphine 2 MG/ML Syringe IV (00:47)
[2023-04-23] MEDS: Levothyroxine 50 MCG Tablet PO (06:17)
[2023-04-23] MEDS: Acetaminophen 500 MG Tablet 1000 MG PO ×3 (06:17→22:02)
[2023-04-23] MEDS: Insulin Lispro 100 UNIT/ML INSULN.PEN SC ×4 (06:17→22:01)
[2023-04-23 06:45] LABS: Bedside Glucose 151 mg/dL (74-106)
[2023-04-23 07:18] LABS: Absolute Lymphocyte Count 2.13 X10^3/uL (0.83-4.51); Absolute Neutrophil Count 9.5 X10^3/uL (2.0-7.7); Basophil# 0.07 X10^3/uL; Basophil% 0.5 % (0-1); Eosinophil# 0.19 X10^3/uL; Eosinophils% 1.4 % (0-5); Hematocrit 41.2 % (37-47); Hemoglobin 13.2 g/dL (12.0-15.0); Lymphocyte # 2.13 X10^3/ul (0.83-4.51); Lymphocyte % 16.2 % (19-41); Mean Corpuscular Hgb 30.4 pg (27.0-32.0); Mean Corpuscular Volume 94.9 fL (81-99); Mean Platelet Vol. 12.6 fl (6.2-12.0); Monocyte# 1.13 X10^3/uL; Monocyte% 8.6 % (0-10); NRBC Flagged by Analyzer 0 % (0-5); Neutrophil # 9.54 X10^3/uL (2.7-7.7); Neutrophil % 72.8 % (47-70); Platelet Count 176 K/mm3 (150-450); RBC Distribution Width CV 14.4 % (11.6-14.6); RBC Distribution Width SD 50.6 fl (35.1-43.9); Red Blood Count 4.34 M/mm3 (4.2-5.4); White Blood Count 13.1 K/mm3 (4.4-11.0)
[2023-04-23 07:41] LABS: AST(SGOT) 26 U/L (15-37); Alanine Aminotransfer ALT/SGPT 23 U/L (13-56); Albumin, Serum 3.6 g/dL (3.2-5.0); Alkaline Phosphatase 71 U/L (45-117); Anion Gap 4 (5-15); BUN 15 mg/dL (7-18); BUN/Creat Ratio 13.2 RATIO (10-20); Calcium,Total 9.3 mg/dL (8.5-10.1); Chloride 106 mmol/L (98-107); Creatinine, Serum 1.14 mg/dL (0.55-1.02); EST Glomerular Filtration Rate 48 mL/min (>60); Est Glom Filt Rate - Afr Amer 58 mL/min (>60); Estimated Creatinine Clearance 32.47 ml/min; Globulin 3.7 g/dL (2.2-4.2); Glucose 151 mg/dL (74-106); Magnesium 1.9 mg/dL (1.6-2.6); Phosphorus 3.4 mg/dL (2.5-4.9); Potassium 4.2 mmol/L (3.5-5.1); Protein, Total 7.3 g/dL (6.4-8.2); Sodium Level 136 mmol/L (136-145)
[2023-04-23] MEDS: Polyethylene Glycol 3350 17 GM PACKET PO (09:57)
[2023-04-23] MEDS: oxyCODONE 5 MG Tablet PO (09:58)
[2023-04-23] MEDS: Aspirin 81 MG TAB.CHEW PO ×2 (09:58→22:02)
[2023-04-23] MEDS: Enoxaparin 30 MG/0.3 ML Syringe SC (09:59)
[2023-04-23] MEDS: amLODIPine 5 MG Tablet PO ×2 (09:59→22:02)
[2023-04-23] MEDS: Pantoprazole Sodium 40 MG Tablet PO (09:59)
--- NOTE | 2023-04-23 11:25 | PN.HOSP_ITS ---
Reason for Visit Reason for Visit: Mechanical fall/right leg pain/inability ambulate Subjective Subjective Surgery yesterday for pending of right hip. Patient seems to be doing well overall. Complaining of pain but was able to get up to the chair with some di fficulty having assistance of physical therapy. Patient and family acknowledge that she will need placement at discharge. Will await further discussion with case management tomorrow. Objective Data Objective Data Vital Signs: Vital Signs Temp Pulse Resp BP Pulse Ox O2 Del Method O2 Flow Rate 98.5 F 73 16 139/71 H 94 Nasal Cannula 3 04/23/23 05:48 04/23/23 05:48 04/23/23 05:48 04/23/23 05:48 04/23/23 05:48 04/23/23 08:03 04/23/23 09:31 Oxygen Flow Rate (L/min) 3 Oxygen Delivery Method Nasal Cannula Weight: 65.1 kg Body Mass Index (BMI) 23.8 Intake & Output: Intake and Output for Last 24 Hours 04/21/23 04/22/23 04/23/23 23:59 23:59 23:59 Intake Total 369.25 / 369.25 200 / 200 Output Total 350 / 550 1450 / 1450 400 / 400 Balance -350 / -450 -1080.75 / -1080.75 -200 / -200 Lab / Micro Data 04/23/23 06:14 04/23/23 06:14 Labs: Laboratory Results - last 24 hr 04/22/23 15:53: POC Glucose 132 H 04/22/23 22:28: POC Glucose 186 H 04/23/23 06:01: POC Glucose 151 H 04/23/23 06:14: WBC 13.1 H, RBC 4.34, Hgb 13.2, Hct 41.2, MCV 94.9, MCH 30.4, MCHC 32.0, RDW Std Deviation 50.6 H, RDW Coeff of Сергей 14.4, Plt Count 176, MPV 12.6 H, Immature Gran % (Auto) 0.500, Neut % (Auto) 72.8 H, Lymph % (Auto) 16.2 L, [place] % (Auto) 8.6, Eos % (Auto) 1.4, Baso % (Auto) 0.5, Absolute Neuts (auto) 9.5 H, Absolute Lymphs (auto) 2.13, Nucleated RBC % 0, Sodium 136, Potassium 4.2, Chloride 106, Carbon Dioxide 26.0, Anion Gap 4 L, BUN 15, Creatinine 1.14 H , Estim Creat Clear Calc 32.47, Est GFR (MDRD) Af Amer 58 L, Est GFR (MDRD) Non- Af 48 L, BUN/Creatinine Ratio 13.2, Glucose 151 H, Calcium 9.3, Phosphorus 3.4, Magnesium 1.9, Total Bilirubin 0.60, AST 26, ALT 23, Alkaline Phosphatase 71, Total Protein 7.3, Albumin 3.6, Globulin 3.7, Albumin/Globulin Ratio 1.0 Radiography Diagnostic Testing: Radiology Impression Hip/Pelvis X-Ray 04/22/23 11:00 IMPRESSION: No intraoperative complications noted during ORIF of a subcapital femoral neck fracture of the right hip Electronically Signed: Kevin López MD at 14:41 EDT , Hip X-Ray 04/22/23 12:29 IMPRESSION: Anatomic alignment of a previously described subcapital femoral neck fracture of the right hip after ORIF. No postoperative complications. Electronically Signed: Kevin López MD at 14:39 EDT , Physical Exam Const alert, oriented x3, no apparent distress and well nourished Constitutional Narrative: Frail-appearing, elderly, white female, sitting up in a chair at the bedside, watching television, at bedside, patient appears comfortable, polar ice on right hip HEENT head/scalp atraumatic and moist oral mucous membranes HEENT Narrative: Dentition is poor, Mallampati is 1-2, no thrush, extremely hard of hearing Head and Scalp: normocephalic Resp normal respiratory effort, no retractions, no use of accessory muscles and clear to auscultation bilaterally Auscultation: Negative for rales, rhonchi or wheezes Cardio regular rate, regular rhythm, S1 normal heart sound, S2 normal heart sound, no murmurs, no rub, no gallops and no clicks GI normal to inspection, nondistended, normoactive bowel sounds, soft to palpation and non-tender Extremity no clubbing, cyanosis or edema Extremity Narrative: Bilateral GAVIN hose in place, polar ice on right hip, pedal pulses are 2+ Neuro oriented x3, moves all extremities and no focal motor deficits Speech: speech normal Psych affect normal Psych Narrative: Pleasant, interacts normally Assessment & Plan Assessment/Plan (1) Femur fracture, right: (2) Fall: (3) Leukocytosis: PLAN: Plan Right proximal femoral fracture secondary to mechanical fall off toilet -CT of the right hip demonstrated impacted transcervical fracture of the right proximal femur -Postop day 1 closed reduction with percutaneous pinning of the right hip femoral neck fracture -At discharge aspirin 81 mg p.o. twice daily recommended for DVT prophylaxis x1 month -Weightbearing as tolerated -2-week follow-up in orthopedic surgery office -Continue Tylenol 1000 mg every 8 hour as -Continue as needed morphine as breakthrough -Continue as needed oxycodone -Continue MiraLAX 17 g daily -Continue as needed senna -Vitamin D 25 level is pending -Incentive spirometer ordered and encouraged -PT/OT following -Orthopedic surgery-appreciate input -Case management/social work consultation as I do anticipate patient will need placed at time of discharge -Family is in agreement and will await further discussion tomorrow Falls -It appears patient has a history of falling -PT/OT following -Anticipate patient will need placement at discharge Leukocytosis -Anticipate reactive -UA was unremarkable -Chest x-ray was unremarkable for any acute findings -Repeat CBC in a.m. CKD stage IIIb -Remains at baseline and stable Hypothyroidism -Continue home Synthroid DM-2 -Hold home metformin -SSI -Accu-Cheks -We will start carb controlled diet once p.o. intake is appropriate postoperatively GERD/Wagner's esophagus -Continue home PPI Hypertension -Continue home amlodipine Hyperlipidemia -Continue home atorvastatin Vascular dementia -Hold home donepezil and restart at discharge History of breast CA/parotid gland CA -No current issues DVT prophylaxis -Enoxaparin 30 mg subcu daily -At discharge orthopedic surgery has recommended aspirin 81 mg p.o. twice daily CODE STATUS -Full code Charges/Coding Visit Charges Inpatient E&M: 41970 Subs Hosp L2
[2023-04-23 11:54] LABS: Bedside Glucose 180 mg/dL (74-106)
--- NOTE | 2023-04-23 12:09 | PN.ORTHO_ITS ---
Subjective Subjective Patient is resting comfortably in her chair. is at bedside. She reports pain is improved from yesterday. She is much more comfortable. No chest pain or shortness of breath. reports that therapy came in today due to get her from the bed and begin ambulation. Objective Data Objective Data Vital Signs: Vital Signs Temp Pulse Resp BP Pulse Ox O2 Del Method O2 Flow Rate 98.5 F 73 16 139/71 H 94 Nasal Cannula 3 04/23/23 05:48 04/23/23 05:48 04/23/23 05:48 04/23/23 05:48 04/23/23 05:48 04/23/23 08:03 04/23/23 09:31 Oxygen Flow Rate (L/min) 3 Oxygen Delivery Method Nasal Cannula Weight: 143 lb 8.335 oz Body Mass Index (BMI) 23.8 Intake & Output: Intake and Output for Last 24 Hours 04/21/23 04/22/23 04/23/23 23:59 23:59 23:59 Intake Total 369.25 / 369.25 200 / 200 Output Total 350 / 550 1450 / 1450 400 / 400 Balance -350 / -450 -1080.75 / -1080.75 -200 / -200 Lab / Micro Data Attestation: I reviewed the patient's lab results. 04/23/23 06:14 04/23/23 06:14 Labs: Laboratory Results - last 24 hr 04/22/23 15:53: POC Glucose 132 H 04/22/23 22:28: POC Glucose 186 H 04/23/23 06:01: POC Glucose 151 H 04/23/23 06:14: WBC 13.1 H, RBC 4.34, Hgb 13.2, Hct 41.2, MCV 94.9, MCH 30.4, MCHC 32.0, RDW Std Deviation 50.6 H, RDW Coeff of Сергей 14.4, Plt Count 176, MPV 12.6 H, Immature Gran % (Auto) 0.500, Neut % (Auto) 72.8 H, Lymph % (Auto) 16.2 L, [place] % (Auto) 8.6, Eos % (Auto) 1.4, Baso % (Auto) 0.5, Absolute Neuts (auto) 9.5 H, Absolute Lymphs (auto) 2.13, Nucleated RBC % 0, Sodium 136, Potassium 4.2, Chloride 106, Carbon Dioxide 26.0, Anion Gap 4 L, BUN 15, Creatinine 1.14 H , Estim Creat Clear Calc 32.47, Est GFR (MDRD) Af Amer 58 L, Est GFR (MDRD) Non- Af 48 L, BUN/Creatinine Ratio 13.2, Glucose 151 H, Calcium 9.3, Phosphorus 3.4, Magnesium 1.9, Total Bilirubin 0.60, AST 26, ALT 23, Alkaline Phosphatase 71, Total Protein 7.3, Albumin 3.6, Globulin 3.7, Albumin/Globulin Ratio 1.0 04/23/23 11:33: POC Glucose 180 H Radiography Diagnostic Testing: Radiology Impression Hip/Pelvis X-Ray 04/22/23 11:00 IMPRESSION: No intraoperative complications noted during ORIF of a subcapital femoral neck fracture of the right hip Electronically Signed: Kevin López MD at 14:41 EDT , Hip X-Ray 04/22/23 12:29 IMPRESSION: Anatomic alignment of a previously described subcapital femoral neck fracture of the right hip after ORIF. No postoperative complications. Electronically Signed: Kevin López MD at 14:39 EDT , Physical Exam Const no apparent distress Constitutional Narrative: Patient is awake and cooperative. Extremity Extremity Narrative: Right lower extremity: Dressing is clean dry and intact Sensations intact to light touch saphenous, sural, superficial peroneal, deep peroneal, and tibial distributions Motors intact EHL, DF, PF calves are soft and supple Assessment & Plan Assessment/Plan (1) Femur fracture, right: PLAN: Valgus impacted subcapital femoral neck fracture right hip: Postop day 1 right hip closed reduction percutaneous pinning 1. DVT prophylaxis: Recommended aspirin 81 mg p.o. twice daily considering patient's fall risk concern for further injuries and bleeding. 2. Pain control: Per primary service recommend minimizing narcotics 3. Therapy: Weightbearing as tolerated participated in therapy today. 4. Medical management: Per primary service appreciate the ability to dissipate in patient's medical care. 5. Disposition: Agree with primary service patient will need discharge to skilled facility. She has memory impairment and now off significant physical parent. Plus she is also had multiple falls as reported by the and noted in ER history. Upon discharge patient should remain on aspirin 81 mg p.o. twice daily for 4 weeks unless medically contraindicated. [place] should be removed 12 to 14 days from surgery. Patient should follow-up in the office 2 weeks after surgical date for x-rays and wound check. Dressing can be removed on postoperative day 5. Please call orthopedics with any further questions or concerns. [facility] Office:
[2023-04-23 17:09] LABS: Bedside Glucose 192 mg/dL (74-106)
--- NOTE | 2023-04-23 17:21 | NURSING ---
VS taken by Yudith BOURNE [id number] and entered by Elias BOURNE at [phone]
[2023-04-23] MEDS: Mirtazapine 15 MG Tablet PO (22:02)
[2023-04-23] MEDS: Atorvastatin Calcium 40 MG Tablet PO (22:02)
[2023-04-24] VITALS (7 sets, daily range): BP systolic 126–171; BP diastolic 62–89; PULSE 68–108; RESP 14–18; TEMP 36.4–37.3; O2SAT 89–96
[2023-04-24 00:20] LABS: Bedside Glucose 153 mg/dL (74-106)
[2023-04-24] MEDS: Morphine 2 MG/ML Syringe IV ×2 (01:59→14:29)
[2023-04-24] MEDS: 0.9% Saline Lock 10 ML Syringe IV ×2 (02:01→14:29)
[2023-04-24 05:56] LABS: Absolute Lymphocyte Count 1.67 X10^3/uL (0.83-4.51); Absolute Neutrophil Count 7.7 X10^3/uL (2.0-7.7); Basophil# 0.05 X10^3/uL; Basophil% 0.5 % (0-1); Eosinophil# 0.43 X10^3/uL; Hematocrit 38.8 % (37-47); Hemoglobin 12.5 g/dL (12.0-15.0); Lymphocyte # 1.67 X10^3/ul (0.83-4.51); Lymphocyte % 15.5 % (19-41); Mean Corp Hgb Conc 32.2 g/dL (32-36); Mean Corpuscular Hgb 30.6 pg (27.0-32.0); Mean Corpuscular Volume 95.1 fL (81-99); Monocyte# 0.88 X10^3/uL; Monocyte% 8.2 % (0-10); NRBC Flagged by Analyzer 0 % (0-5); Neutrophil # 7.67 X10^3/uL (2.7-7.7); Neutrophil % 71.4 % (47-70); Platelet Count 154 K/mm3 (150-450); RBC Distribution Width CV 14.2 % (11.6-14.6); RBC Distribution Width SD 49.1 fl (35.1-43.9); Red Blood Count 4.08 M/mm3 (4.2-5.4); White Blood Count 10.7 K/mm3 (4.4-11.0)
[2023-04-24] MEDS: Insulin Lispro 100 UNIT/ML INSULN.PEN SC (06:07)
[2023-04-24 06:28] LABS: Bedside Glucose 193 mg/dL (74-106)
[2023-04-24 07:11] LABS: Anion Gap 5 (5-15); BUN 17 mg/dL (7-18); BUN/Creat Ratio 15.9 RATIO (10-20); Calcium,Total 8.6 mg/dL (8.5-10.1); Chloride 108 mmol/L (98-107); Creatinine, Serum 1.07 mg/dL (0.55-1.02); EST Glomerular Filtration Rate 52 mL/min (>60); Est Glom Filt Rate - Afr Amer 63 mL/min (>60); Estimated Creatinine Clearance 34.59 ml/min; Glucose 161 mg/dL (74-106); Sodium Level 139 mmol/L (136-145)
[2023-04-24 08:25] LABS: Vitamin D,25 Hydroxy 29.3 ng/mL
[2023-04-24] MEDS: oxyCODONE 5 MG Tablet PO ×2 (10:42→20:15)
[2023-04-24] MEDS: amLODIPine 5 MG Tablet PO ×2 (10:42→20:16)
[2023-04-24] MEDS: Aspirin 81 MG TAB.CHEW PO ×2 (10:42→21:32)
[2023-04-24] MEDS: Polyethylene Glycol 3350 17 GM PACKET PO (10:42)
[2023-04-24] MEDS: Pantoprazole Sodium 40 MG Tablet PO (10:42)
[2023-04-24 11:12] LABS: Bedside Glucose 127 mg/dL (74-106)
--- NOTE | 2023-04-24 11:47 | CASEMGMT ---
Discharge Planning A list of SNF providers including quality and resource use data and consistent with the patient?s preferred geographic region, medical needs, and insurance network was created in [facility] Guide. This list was provided to the SW. Luzma Gustafson Discharge Planning Asst.
--- NOTE | 2023-04-24 12:17 | CASEMGMT ---
Addendum entered by Lesly Toussaint 04/24/23 12:31: Patient's spouse reported concerns regarding patient's lack of eating and frequent sleeping. SW provided emotional support. Spouse also reports he would prefer a single room for her. SW will make that request, unsure if that can be accommodated at this time. Lesly Toussaint MSW, DINING ROOM SERVER Original Note: SW/CM?ASSESSMENT SW to room to meet with patient and for initial transition planning/care coordination?assessment.?SW?introduced self and role at [facility]. Patient sleeping and , Henry, present to answer questions. Care providers, pharmacy, and demographics verified/updated at this time. PCP: MAMADOU Guevara Specialists: Dr Grey-joseph Preferred Pharmacy: [facility] Insurance:Mam[facility] Prescription Benefit:?Yes Living Will/HPOA:? Pt has LW and HCPOA, who is her . Both are on-file @ [facility]. LNOK: , Henry. Son, Filipe Living Arrangements: Lives w/ in one-story home w/ramp entrance. has been assisting with ADL's and patient was using a walker in the home prior to fracture. manages pt's medications and appts and does home mgnt tasks. DME: states pt has the following DME:?accessible shower, ramp, walker, toilet grab bars etc. He says, You name it we got it. HHC/SNF: Pt has been to [facility], [facility], and [facility].. states pt was getting HHC through [facility]. Pt's is requesting [facility] and declined needing to review SNF list. Plan:?Patient to be referred to [facility] for SNF placement via [facility]. Lesly Toussaint MSW, DINING ROOM SERVER
[2023-04-24] MEDS: Acetaminophen 500 MG Tablet 1000 MG PO ×2 (13:07→21:31)
[2023-04-24 13:35] LABS: Pathologist Review Reviewed
--- NOTE | 2023-04-24 16:35 | CASEMGMT ---
Social Work SW notified [facility] is unable to take patient due to bed availability. SW called spouse and discussed options from list in [place] per request due to location. Patient's spouse requests referral to [facility] and requesting a single room. SW to refer patient to [facility] via [facility]. Lesly Toussaint VEGETABLE VENDOR, WELFARE ADVISER
[2023-04-24 17:08] LABS: Bedside Glucose 145 mg/dL (74-106)
--- NOTE | 2023-04-24 18:12 | PCM.PN.HOSP ---
Reason for Visit Reason for Visit: Diagnoses Elevated white blood cell count, unspecified (04/21/23) Type 2 diabetes mellitus without complications (04/21/23) Hyperlipidemia, unspecified (04/21/23) Unspecified dementia, unspecified severity, without behavioral disturbance, psychotic disturbance, mood disturbance, and anxiety (04/21/23) Essential (primary) hypertension (04/21/23) Cerebral infarction, unspecified (04/21/23) Age-related osteoporosis without current pathological fracture (04/21/23) Unspecified fracture of right femur, initial encounter for closed fracture (04/21/23) Unspecified fall, initial encounter (04/21/23) Subjective Subjective Patient was seen and examined today, she did not carry on a conversation with this examiner, she did not appear to be in any distress. We are currently awaiting placement in a usp facility for the patient Objective Data Objective Data Vital Signs: Vital Signs Temp Pulse Resp BP Pulse Ox O2 Del Method O2 Flow Rate 97.6 F L 108 H 18 157/77 H 94 Nasal Cannula 2 04/24/23 14:35 04/24/23 14:35 04/24/23 14:35 04/24/23 14:35 04/24/23 14:35 04/24/23 14:40 04/24/23 14:40 Oxygen Flow Rate (L/min) 2 Oxygen Delivery Method Nasal Cannula Weight: 65.1 kg Body Mass Index (BMI) 23.8 Intake & Output: Intake and Output for Last 24 Hours 04/22/23 04/23/23 04/24/23 23:59 23:59 23:59 Intake Total 369.25 / 369.25 680 / 800 220 / 220 Output Total 1450 / 1450 400 / 400 Balance -1080.75 / -1080.75 280 / 400 220 / 220 Lab / Micro Data 04/24/23 05:20 04/24/23 05:20 Labs: Laboratory Results - last 24 hr 04/21/23 14:35: Diff Path Review Reviewed 04/23/23 12:20: Vitamin D 25-Hydroxy 29.3 04/23/23 22:00: POC Glucose 153 H 04/24/23 05:20: WBC 10.7, RBC 4.08 L, Hgb 12.5, Hct 38.8, MCV 95.1, MCH 30.6, MCHC 32.2, RDW Std Deviation 49.1 H, RDW Coeff of Сергей 14.2, Plt Count 154, MPV 13.0 H, Immature Gran % (Auto) 0.400, Neut % (Auto) 71.4 H, Lymph % (Auto) 15.5 L, [place] % (Auto) 8.2, Eos % (Auto) 4.0, Baso % (Auto) 0.5, Absolute Neuts (auto) 7.7, Absolute Lymphs (auto) 1.67, Nucleated RBC % 0, Sodium 139, Potassium 4.0, Chloride 108 H, Carbon Dioxide 26.0, Anion Gap 5, BUN 17, Creatinine 1.07 H, Estim Creat Clear Calc 34.59, Est GFR (MDRD) Af Amer 63, Est GFR (MDRD) Non-Af 52 L, BUN/Creatinine Ratio 15.9, Glucose 161 H, Calcium 8.6 04/24/23 06:07: POC Glucose 193 H 04/24/23 10:51: POC Glucose 127 H 04/24/23 16:50: POC Glucose 145 H Physical Exam Const alert and no apparent distress Constitutional Narrative: Patient is alert but confused General Appearance: cooperative, well kempt and well developed Orientation / Consciousness: awake HEENT normocephalic, head/scalp atraumatic and moist oral mucous membranes Eyes PERRL, EOMs intact bilaterally and conjunctivae normal Neck supple, no JVD, thyroid normal and no carotid bruits General: trachea midline Resp normal respiratory effort, no retractions, no use of accessory muscles and clear to auscultation bilaterally Auscultation: Negative for rales, rhonchi or wheezes Cardio regular rate, regular rhythm, S1 normal heart sound, S2 normal heart sound, no murmurs, no rub and no gallops GI normal to inspection, nondistended, normoactive bowel sounds, soft to palpation, non-tender and non-distended Extremity no clubbing, cyanosis or edema Skin no rashes or lesions noted General Skin Exam: no breakdown Neuro CN's II-XII intact bilaterally, moves all extremities, no focal motor deficits and no sensory deficits noted Sensorium / Orientation: awake and alert Psych Psych Narrative: Patient has a flat affect, she appears confused Assessment & Plan Assessment/Plan (1) Femur fracture, right: PLAN: Plan 1. Right hip subcapital femoral neck fracture secondary to osteoporosis-postop day #2 closed reduction with percutaneous pinning of the right femoral neck fracture-patient will continue to be seen by PT and OT, she will need short-term placement in a usp facility for rehab services #2 leukocytosis-etiology unclear, possibly secondary to stress reaction, patient's white blood cell count today was normal #3 vascular dementia-complicates care, medical course, recovery, and prognosis #4 essential hypertension-patient will remain on her current medications #5 hypothyroidism-patient is on Synthroid #6 cerebrovascular disease-patient is currently on 81 mg of aspirin twice daily for DVT prophylaxis, this can also be used for stroke prevention, in addition she is on atorvastatin. The patient is on 81 mg of aspirin twice daily for prophylaxis for DVT, I have elected to stop her Lovenox. Total clinical time spent by myself addressing the patient's medical issues, reviewing all of her data, and collaborating with patient's care team: 35 minutes Charges/Coding Visit Charges Inpatient E&M: 23019 Subs Hosp L2
[2023-04-24] MEDS: Mirtazapine 15 MG Tablet PO (20:16)
[2023-04-24] MEDS: Atorvastatin Calcium 40 MG Tablet PO (20:16)
[2023-04-25] VITALS (8 sets, daily range): BP systolic 116–164; BP diastolic 56–89; PULSE 61–87; RESP 16–17; TEMP 36.5–37.1; O2SAT 91–96
[2023-04-25 01:01] LABS: Bedside Glucose 131 mg/dL (74-106)
[2023-04-25] MEDS: 0.9% Saline Lock 10 ML Syringe IV (02:31)
[2023-04-25] MEDS: Morphine 2 MG/ML Syringe IV (02:31)
[2023-04-25] MEDS: Acetaminophen 500 MG Tablet 1000 MG PO ×3 (06:05→20:00)
[2023-04-25] MEDS: Levothyroxine 50 MCG Tablet PO (06:05)
[2023-04-25] MEDS: Insulin Lispro 100 UNIT/ML INSULN.PEN SC ×4 (06:10→20:05)
[2023-04-25 06:33] LABS: Bedside Glucose 172 mg/dL (74-106)
[2023-04-25] MEDS: Aspirin 81 MG TAB.CHEW PO ×2 (07:42→20:00)
[2023-04-25] MEDS: Pantoprazole Sodium 40 MG Tablet PO (07:43)
[2023-04-25] MEDS: Enoxaparin 40 MG/0.4 ML Syringe SC (07:43)
[2023-04-25] MEDS: amLODIPine 5 MG Tablet PO ×2 (07:43→20:00)
[2023-04-25] MEDS: Polyethylene Glycol 3350 17 GM PACKET PO (07:43)
[2023-04-25] MEDS: Ensure Surgery 237 ML LIQUID PO ×3 (07:46→16:37)
[2023-04-25] MEDS: oxyCODONE 5 MG Tablet PO ×2 (10:15→15:59)
--- NOTE | 2023-04-25 10:57 | CASEMGMT ---
Discharge Planning Patient has been accepted by [facility]. Updates sent via [facility] for precert to be submitted. Luzma Gustafson, Discharge Planning Asst.
[2023-04-25 11:33] LABS: Bedside Glucose 202 mg/dL (74-106)
[2023-04-25 16:19] LABS: Bedside Glucose 189 mg/dL (74-106)
--- NOTE | 2023-04-25 17:05 | PCM.PN.HOSP ---
Reason for Visit Reason for Visit: Diagnoses Elevated white blood cell count, unspecified (04/21/23) Type 2 diabetes mellitus without complications (04/21/23) Hyperlipidemia, unspecified (04/21/23) Unspecified dementia, unspecified severity, without behavioral disturbance, psychotic disturbance, mood disturbance, and anxiety (04/21/23) Essential (primary) hypertension (04/21/23) Cerebral infarction, unspecified (04/21/23) Age-related osteoporosis without current pathological fracture (04/21/23) Unspecified fracture of right femur, initial encounter for closed fracture (04/21/23) Unspecified fall, initial encounter (04/21/23) Subjective Subjective Patient was seen and examined today, I talked to her who was in the room at the time my examination of the patient. We have not heard from her insurance carrier about approval for her to go to a halfway facility as of today. Objective Data Objective Data Vital Signs: Vital Signs Temp Pulse Resp BP Pulse Ox O2 Del Method O2 Flow Rate 98.4 F 87 16 141/56 H 94 Room Air 2 04/25/23 15:11 04/25/23 15:11 04/25/23 15:11 04/25/23 15:11 04/25/23 15:11 04/25/23 15:11 04/25/23 07:24 Oxygen Flow Rate (L/min) 2 Oxygen Delivery Method Room Air Weight: 65.1 kg Body Mass Index (BMI) 23.8 Intake & Output: Intake and Output for Last 24 Hours 04/23/23 04/24/23 04/25/23 23:59 23:59 23:59 Intake Total 680 / 800 220 / 220 150 / 150 Output Total 400 / 400 350 / 350 Balance 280 / 400 220 / 220 -200 / -200 Lab / Micro Data 04/24/23 05:20 04/24/23 05:20 Labs: Laboratory Results - last 24 hr 04/24/23 16:50: POC Glucose 145 H 04/24/23 21:31: POC Glucose 131 H 04/25/23 06:06: POC Glucose 172 H 04/25/23 11:11: POC Glucose 202 H 04/25/23 15:57: POC Glucose 189 H Physical Exam Narrative alert and no apparent distress Constitutional Narrative: Patient is alert but confused General Appearance: cooperative, well kempt and well developed Orientation / Consciousness: awake HEENT normocephalic, head/scalp atraumatic and moist oral mucous membranes Eyes PERRL, EOMs intact bilaterally and conjunctivae normal Neck supple, no JVD, thyroid normal and no carotid bruits General: trachea midline Resp normal respiratory effort, no retractions, no use of accessory muscles and clear to auscultation bilaterally Auscultation: Negative for rales, rhonchi or wheezes Cardio regular rate, regular rhythm, S1 normal heart sound, S2 normal heart sound, no murmurs, no rub and no gallops GI normal to inspection, nondistended, normoactive bowel sounds, soft to palpation, non-tender and non-distended Extremity no clubbing, cyanosis or edema Skin no rashes or lesions noted General Skin Exam: no breakdown Neuro CN's II-XII intact bilaterally, moves all extremities, no focal motor deficits and no sensory deficits noted Sensorium / Orientation: awake and alert Psych Psych Narrative: Patient has a flat affect, she appears confused Assessment & Plan Assessment/Plan (1) Femur fracture, right: PLAN: Plan 1. Right hip subcapital femoral neck fracture secondary to osteoporosis-postop day #3 closed reduction with percutaneous pinning of the right femoral neck fracture-patient will continue to be seen by PT and OT, she will need short-term placement in a halfway facility for rehab services #2 leukocytosis-etiology unclear, possibly secondary to stress reaction, resolved #3 vascular dementia-complicates care, medical course, recovery, and prognosis #4 essential hypertension-patient will remain on her current medications #5 hypothyroidism-patient is on Synthroid #6 cerebrovascular disease-patient is currently on 81 mg of aspirin twice daily for DVT prophylaxis, this can also be used for stroke prevention, in addition she is on atorvastatin. The patient is on 81 mg of aspirin twice daily for prophylaxis for DVT Total clinical time spent by myself addressing the patient's medical issues, reviewing all of her data, and collaborating with patient's care team: 25 minutes Charges/Coding Visit Charges Inpatient E&M: 54885 Subs Hosp L1
[2023-04-25] MEDS: Atorvastatin Calcium 40 MG Tablet PO (20:00)
[2023-04-25] MEDS: Mirtazapine 15 MG Tablet PO (20:00)
[2023-04-25 21:19] LABS: Bedside Glucose 170 mg/dL (74-106)
[2023-04-26 03:00] VITALS: BP 128/50; PULSE 84; RESP 18; TEMP 36.9; O2SAT 92
[2023-04-26] MEDS: Levothyroxine 50 MCG Tablet PO (05:07)
[2023-04-26] MEDS: Acetaminophen 500 MG Tablet 1000 MG PO ×3 (05:07→22:56)
[2023-04-26] MEDS: Insulin Lispro 100 UNIT/ML INSULN.PEN SC ×3 (06:33→23:30)
--- NOTE | 2023-04-26 06:41 | NURSING ---
Pt has a open area on buttock. It is red. and excoriated. jess ordered
[2023-04-26 06:56] LABS: Bedside Glucose 155 mg/dL (74-106)
[2023-04-26 07:35] VITALS: O2SAT 94
[2023-04-26 08:11] VITALS: O2SAT 92
[2023-04-26 09:28] VITALS: BP 138/73; PULSE 79; RESP 16; TEMP 36.4; O2SAT 94
[2023-04-26] MEDS: Polyethylene Glycol 3350 17 GM PACKET PO (09:36)
[2023-04-26] MEDS: Pantoprazole Sodium 40 MG Tablet PO (09:36)
[2023-04-26] MEDS: Enoxaparin 40 MG/0.4 ML Syringe SC (09:36)
[2023-04-26] MEDS: Ensure Surgery 237 ML LIQUID PO ×2 (09:36→11:30)
[2023-04-26] MEDS: Menthol/Lanolin/Calamine/Znox 113 GM Tube 1 APPLIC TOPICAL ×2 (09:36→22:56)
[2023-04-26] MEDS: amLODIPine 5 MG Tablet PO ×2 (09:36→22:57)
[2023-04-26] MEDS: Aspirin 81 MG TAB.CHEW PO ×2 (09:36→22:56)
[2023-04-26] MEDS: oxyCODONE 5 MG Tablet PO ×2 (11:26→23:28)
[2023-04-26 11:50] LABS: Bedside Glucose 198 mg/dL (74-106)
[2023-04-26 14:27] VITALS: BP 143/65; PULSE 76; RESP 16; TEMP 36.4; O2SAT 95
--- NOTE | 2023-04-26 19:09 | PN.HOSP_ITS ---
Reason for Visit Reason for Visit: Diagnoses Elevated white blood cell count, unspecified (04/21/23) Type 2 diabetes mellitus without complications (04/21/23) Hyperlipidemia, unspecified (04/21/23) Unspecified dementia, unspecified severity, without behavioral disturbance, psychotic disturbance, mood disturbance, and anxiety (04/21/23) Essential (primary) hypertension (04/21/23) Cerebral infarction, unspecified (04/21/23) Age-related osteoporosis without current pathological fracture (04/21/23) Unspecified fracture of right femur, initial encounter for closed fracture (04/21/23) Unspecified fall, initial encounter (04/21/23) Subjective Subjective Patient was seen and examined today, we have not received approval for her to go to an extended care facility for rehab services yet. Objective Data Objective Data Vital Signs: Vital Signs Temp Pulse Resp BP Pulse Ox O2 Del Method O2 Flow Rate 97.5 F L 76 16 143/65 H 95 Room Air 2 04/26/23 14:27 04/26/23 14:27 04/26/23 14:27 04/26/23 14:27 04/26/23 14:27 04/26/23 14:28 04/26/23 08:11 Oxygen Flow Rate (L/min) 2 Oxygen Delivery Method Room Air Weight: 65.1 kg Body Mass Index (BMI) 23.8 Intake & Output: Intake and Output for Last 24 Hours 04/24/23 04/25/23 04/26/23 23:59 23:59 23:59 Intake Total 220 / 220 350 / 350 90 / 90 Output Total 500 / 500 100 / 100 Balance 220 / 220 -150 / -150 -10 / -10 Lab / Micro Data 04/24/23 05:20 04/24/23 05:20 Labs: Laboratory Results - last 24 hr 04/25/23 20:04: POC Glucose 170 H 04/26/23 06:31: POC Glucose 155 H 04/26/23 11:29: POC Glucose 198 H Physical Exam Narrative alert and no apparent distress Constitutional Narrative: Patient is alert but confused General Appearance: cooperative, well kempt and well developed Orientation / Consciousness: awake HEENT normocephalic, head/scalp atraumatic and moist oral mucous membranes Eyes PERRL, EOMs intact bilaterally and conjunctivae normal Neck supple, no JVD, thyroid normal and no carotid bruits General: trachea midline Resp normal respiratory effort, no retractions, no use of accessory muscles and clear to auscultation bilaterally Auscultation: Negative for rales, rhonchi or wheezes Cardio regular rate, regular rhythm, S1 normal heart sound, S2 normal heart sound, no murmurs, no rub and no gallops GI normal to inspection, nondistended, normoactive bowel sounds, soft to palpation, non-tender and non-distended Extremity no clubbing, cyanosis or edema Skin no rashes or lesions noted General Skin Exam: no breakdown Neuro CN's II-XII intact bilaterally, moves all extremities, no focal motor deficits and no sensory deficits noted Sensorium / Orientation: awake and alert Psych Psych Narrative: Patient has a flat affect, she appears confused Assessment & Plan Assessment/Plan (1) Femur fracture, right: PLAN: Plan 1. Right hip subcapital femoral neck fracture secondary to osteoporosis-postop day #4 closed reduction with percutaneous pinning of the right femoral neck fracture-patient will continue to be seen by PT and OT, she will need short-term placement in a residential facility for rehab services, we have yet to rece navdeep approval from her insurance carrier for transfer the patient to a facility. #2 leukocytosis-etiology unclear, possibly secondary to stress reaction, resolved #3 vascular dementia-complicates care, medical course, recovery, and prognosis #4 essential hypertension-patient will remain on her current medications #5 hypothyroidism-patient is on Synthroid #6 cerebrovascular disease-patient is currently on 81 mg of aspirin twice daily for DVT prophylaxis, this can also be used for stroke prevention, in addition she is on atorvastatin. The patient is on 81 mg of aspirin twice daily for prophylaxis for DVT Total clinical time spent by myself addressing the patient's medical issues, reviewing all of her data, and collaborating with patient's care team: 25 minutes Charges/Coding Visit Charges Inpatient E&M: 27234 Subs Hosp L1
[2023-04-26] MEDS: Mirtazapine 15 MG Tablet PO (22:56)
[2023-04-26] MEDS: Atorvastatin Calcium 40 MG Tablet PO (22:57)
[2023-04-26 23:16] VITALS: BP 147/65; PULSE 66; RESP 16; TEMP 36.6; O2SAT 95
[2023-04-26 23:54] LABS: Bedside Glucose 164 mg/dL (74-106)
[2023-04-27] MEDS: Acetaminophen 500 MG Tablet 1000 MG PO ×3 (05:31→23:08)
[2023-04-27] MEDS: oxyCODONE 5 MG Tablet PO ×2 (05:31→11:05)
[2023-04-27] MEDS: Levothyroxine 50 MCG Tablet PO (05:31)
[2023-04-27 05:34] VITALS: BP 146/50; PULSE 60; RESP 16; TEMP 36.5; O2SAT 95
[2023-04-27] MEDS: Insulin Lispro 100 UNIT/ML INSULN.PEN SC ×4 (06:16→23:11)
[2023-04-27 06:35] LABS: Bedside Glucose 160 mg/dL (74-106)
[2023-04-27 09:26] VITALS: O2SAT 91
--- NOTE | 2023-04-27 09:57 | PN.HOSP_ITS ---
Reason for Visit Reason for Visit: Diagnoses Elevated white blood cell count, unspecified (04/21/23) Type 2 diabetes mellitus without complications (04/21/23) Hyperlipidemia, unspecified (04/21/23) Unspecified dementia, unspecified severity, without behavioral disturbance, psychotic disturbance, mood disturbance, and anxiety (04/21/23) Essential (primary) hypertension (04/21/23) Cerebral infarction, unspecified (04/21/23) Age-related osteoporosis without current pathological fracture (04/21/23) Unspecified fracture of right femur, initial encounter for closed fracture (04/21/23) Unspecified fall, initial encounter (04/21/23) Objective Data Objective Data Vital Signs: Vital Signs Temp Pulse Resp BP Pulse Ox O2 Del Method O2 Flow Rate 97.7 F L 60 16 146/50 H 91 Room Air 2 04/27/23 05:34 04/27/23 05:34 04/27/23 05:34 04/27/23 05:34 04/27/23 09:26 04/27/23 09:26 04/26/23 08:11 Oxygen Flow Rate (L/min) 2 Oxygen Delivery Method Room Air Weight: 143 lb 8.335 oz Body Mass Index (BMI) 23.8 Intake & Output: Intake and Output for Last 24 Hours 04/25/23 04/26/23 04/27/23 23:59 23:59 23:59 Intake Total 350 / 350 90 / 90 Output Total 500 / 500 100 / 100 300 / 300 Balance -150 / -150 -10 / -10 -300 / -300 Lab / Micro Data 04/24/23 05:20 04/24/23 05:20 Labs: Laboratory Results - last 24 hr 04/26/23 11:29: POC Glucose 198 H 04/26/23 23:29: POC Glucose 164 H 04/27/23 06:15: POC Glucose 160 H Physical Exam Narrative Seen and examined. Patient had right hip fracture that required surgery. Currently patient has not bowel movement for 5 days Assessment & Plan Assessment/Plan (1) Femur fracture, right: PLAN: Plan 1. Right hip subcapital femoral neck fracture, valgus impacted secondary to osteoporosis consistent with pathological fracture: Patient is admitted on [facility] floor. Patient had closed reduction with percutaneous pinning of right hip femoral neck fracture On 04/22/2023. Patient on pain medication PT and OT. Patient on morphine 2 to 4 mg. Stated she did not had bowel movement for for 5 days. Dulcolax 10 mg 1 dose ordered. Senna S as needed changed to as. Already on MiraLAX. Pending pre-CERT. #2 leukocytosis-etiology unclear, possibly secondary to stress reaction, resolved #3 vascular dementia-complicates care, medical course, recovery, and prognosis #4 essential hypertension-patient will remain on her current medications #5 hypothyroidism-patient is on Synthroid #6 cerebrovascular disease-patient is currently on 81 mg of aspirin twice daily for DVT prophylaxis, this can also be used for stroke prevention, in addition she is on atorvastatin. The patient is on 81 mg of aspirin twice daily for prophylaxis for DVT Charges/Coding Visit Charges Inpatient E&M: 72777 Subs Hosp L2
[2023-04-27 10:00] VITALS: BP 147/70; PULSE 88; RESP 14; TEMP 37.1; O2SAT 94
[2023-04-27] MEDS: Polyethylene Glycol 3350 17 GM PACKET PO (10:59)
[2023-04-27] MEDS: Pantoprazole Sodium 40 MG Tablet PO (10:59)
[2023-04-27] MEDS: Aspirin 81 MG TAB.CHEW PO ×2 (10:59→23:08)
[2023-04-27] MEDS: Enoxaparin 40 MG/0.4 ML Syringe SC (10:59)
[2023-04-27] MEDS: amLODIPine 5 MG Tablet PO ×2 (10:59→23:07)
[2023-04-27] MEDS: Menthol/Lanolin/Calamine/Znox 113 GM Tube 1 APPLIC TOPICAL ×2 (11:00→23:09)
[2023-04-27] MEDS: Ensure Surgery 237 ML LIQUID PO (11:16)
[2023-04-27 11:38] LABS: Bedside Glucose 256 mg/dL (74-106)
--- NOTE | 2023-04-27 14:46 | CASEMGMT ---
Discharge Planning Requested therapy notes sent to [facility] via [facility]. Luzma Gustafson, Discharge Planning Asst.
[2023-04-27 16:00] VITALS: BP 136/70; PULSE 79; RESP 16; TEMP 36.7; O2SAT 95
--- NOTE | 2023-04-27 16:15 | CASEMGMT ---
Social Work [facility] stating precert is still pending at this time. SW met with pt and updated that [facility] has accepted but waiting on insurance precert. VM left with pt's addressing the same. Plan: [facility], pending precert ROHIT Flowers
[2023-04-27 17:08] LABS: Bedside Glucose 176 mg/dL (74-106)
[2023-04-27] MEDS: Bisacodyl 5 MG Tablet 10 MG PO (18:23)
[2023-04-27 20:11] VITALS: BP 138/69; PULSE 79; RESP 16; TEMP 36.9; O2SAT 98
[2023-04-27] MEDS: Mirtazapine 15 MG Tablet PO (23:08)
[2023-04-27] MEDS: Atorvastatin Calcium 40 MG Tablet PO (23:08)
[2023-04-27] MEDS: Senna/Docusate Sodium 1 Tablet 2 TABLET PO (23:14)
[2023-04-27 23:42] LABS: Bedside Glucose 196 mg/dL (74-106)
[2023-04-28 03:00] VITALS: BP 151/67; PULSE 76; RESP 16; TEMP 37.2; O2SAT 93
[2023-04-28] MEDS: Acetaminophen 500 MG Tablet 1000 MG PO ×2 (06:14→13:19)
[2023-04-28] MEDS: Levothyroxine 50 MCG Tablet PO (06:14)
[2023-04-28] MEDS: Insulin Lispro 100 UNIT/ML INSULN.PEN SC ×3 (06:17→16:59)
[2023-04-28 06:48] LABS: Bedside Glucose 179 mg/dL (74-106)
[2023-04-28 07:09] LABS: Absolute Lymphocyte Count 1.97 X10^3/uL (0.83-4.51); Absolute Neutrophil Count 6.6 X10^3/uL (2.0-7.7); Basophil# 0.08 X10^3/uL; Basophil% 0.8 % (0-1); Eosinophil# 0.16 X10^3/uL; Eosinophils% 1.6 % (0-5); Hematocrit 38.2 % (37-47); Hemoglobin 12.3 g/dL (12.0-15.0); Lymphocyte # 1.97 X10^3/ul (0.83-4.51); Lymphocyte % 20.3 % (19-41); Mean Corp Hgb Conc 32.2 g/dL (32-36); Mean Corpuscular Hgb 30.6 pg (27.0-32.0); Monocyte% 8.2 % (0-10); NRBC Flagged by Analyzer 0 % (0-5); Neutrophil # 6.62 X10^3/uL (2.7-7.7); Neutrophil % 68.3 % (47-70); Platelet Count 246 K/mm3 (150-450); RBC Distribution Width CV 13.6 % (11.6-14.6); RBC Distribution Width SD 47.9 fl (35.1-43.9); Red Blood Count 4.02 M/mm3 (4.2-5.4); White Blood Count 9.7 K/mm3 (4.4-11.0)
[2023-04-28 07:39] LABS: Anion Gap 7 (5-15); BUN 20 mg/dL (7-18); BUN/Creat Ratio 18.9 RATIO (10-20); Chloride 106 mmol/L (98-107); Creatinine, Serum 1.06 mg/dL (0.55-1.02); EST Glomerular Filtration Rate 52 mL/min (>60); Est Glom Filt Rate - Afr Amer 63 mL/min (>60); Estimated Creatinine Clearance 34.92 ml/min; Glucose 198 mg/dL (74-106); Potassium 4.3 mmol/L (3.5-5.1); Sodium Level 137 mmol/L (136-145)
[2023-04-28 09:12] VITALS: BP 138/59; PULSE 72; RESP 15; TEMP 36.7; O2SAT 94
[2023-04-28] MEDS: Aspirin 81 MG TAB.CHEW PO (09:53)
[2023-04-28] MEDS: Enoxaparin 40 MG/0.4 ML Syringe SC (09:53)
[2023-04-28] MEDS: Pantoprazole Sodium 40 MG Tablet PO (09:54)
[2023-04-28] MEDS: Polyethylene Glycol 3350 17 GM PACKET PO (09:54)
[2023-04-28] MEDS: amLODIPine 5 MG Tablet PO (09:54)
[2023-04-28] MEDS: Senna/Docusate Sodium 1 Tablet 2 TABLET PO (09:55)
[2023-04-28] MEDS: Ensure Surgery 237 ML LIQUID PO ×2 (10:02→17:28)
--- NOTE | 2023-04-28 10:35 | PCM.TXEXTCAR ---
Diet Diet Order/Speech Therapy: 04/27/23 11:32 Diet: Regular - General Is pt able to select menu?: Yes Routine Orders/Code Status Suppository Type: Dulcolax 10mg Suppository Frequency: Daily PRN Code Status: Full Code Wound(s) RIGHT HIP: Wound Type: Surgical Incision left hip: Wound Type: open/ popped- blister COCCYX: Wound Type: Pressure Injury Therapies Weight Bearing: Weight bearing as tolerated Extremity Affected:: Right Lower Physical Therapy: Eval and Treat Occupational Therapy: Eval and Treat Speech Therapy: Eval and Treat Problem/Diagnosis (1) Femur fracture, right: Status: Acute Code(s): S72.91XA - Unspecified fracture of right femur, initial encounter for closed fracture Plan 1. Right hip subcapital femoral neck fracture, valgus impacted secondary to osteoporosis consistent with pathological fracture: Patient is admitted on [facility] floor. Patient had closed reduction with percutaneous pinning of right hip femoral neck fracture On 04/22/2023. Patient on pain medication PT and OT. Patient on morphine 2 to 4 mg. Stated she did not had bowel movement for for 5 days. Dulcolax 10 mg 1 dose ordered. Senna S as needed changed to as. Already on MiraLAX. Pending pre-CERT. #2 leukocytosis-etiology unclear, possibly secondary to stress reaction, resolved #3 vascular dementia-complicates care, medical course, recovery, and prognosis #4 essential hypertension-patient will remain on her current medications #5 hypothyroidism-patient is on Synthroid #6 cerebrovascular disease-patient is currently on 81 mg of aspirin twice daily for DVT prophylaxis, this can also be used for stroke prevention, in addition she is on atorvastatin. The patient is on 81 mg of aspirin twice daily for prophylaxis for DVT Allergies/Procedures Done in Hospital Allergies No Known Allergies Allergy (Verified 04/21/23 13:32) Type of Care/Length of Stay Estimated LOS: Convalescent Care Less Than 30 days Type of Care Needed: Skilled Rehab Potential: Good Prognosis: Good Additional Orders/Day of Discharge Day of Discharge: 04/28/23 Discharge Plan Admission Admit Date/Time: 04/21/23 17:02 Primary Reason for Your Visit: Right hip subcapital fracture Attending Provider: Damien Hayes Primary Care Provider: Marybel Paige Consulting Providers: Hieu Vaca; Verito Santiago; Mely Lorenz; Douglas Crisostomo Discharge Orders/Prescriptions Prescriptions: New polyethylene glycol 3350 17 gram Powder In Packet 17 g PO DAILY Qty: 0 0RF sennosides-docusate sodium [Stool Softener-Stimulant Laxat] 8.6-50 mg Tablet 2 tab PO BID Qty: 0 0RF acetaminophen 500 mg Tablet 1,000 mg PO Q8 Qty: 0 0RF Rx Instructions: 1 g 3 times daily for 7 days and then as needed for mild to moderate pain. oxycodone 5 mg Tablet 5 mg PO Q4H PRN PRN (Reason: Pain Score 4-10) 3 Days Qty: 7 0RF Rx Instructions: 2.5 mg for 4-6/10 and 5 mg for 7?10/10 pain intensity insulin lispro [Humalog KwikPen Insulin] 100 unit/mL Insulin Pen See Protocol subcut ACHS Qty: 0 0RF Protocol: 2. Sliding Scale Insulin Low-Med Dosing Condition: 150-209 mg/dl = 1 unit Condition: 210-269 mg/dl = 2 units Condition: 270-329 mg/dl = 3 units Condition: 330-389 mg/dl = 4 units Condition: 390-449 mg/dl = 5 units Condition: Greater than 449 call physician Protocol Text: - Use for Total Daily Dose of Insulin 28-36 units - Average size patients LOW MEDIUM DOSING ALGORITHM Continued pantoprazole [Protonix] 40 mg tablet,delayed release (DR/EC) 40 mg PO DAILY mirtazapine 15 mg tablet 15 mg PO QHS atorvastatin 40 mg tablet 40 mg PO QHS levothyroxine 50 mcg tablet 50 mcg PO DAILY icpefrdm-iykruoi-jfav-lutein Tablet 1 tab PO DAILY amlodipine 5 mg tablet 5 mg PO BID donepezil 5 mg tablet 5 mg PO QHS metformin 500 mg Tablet 500 mg PO BIDCM 30 Days Qty: 60 0RF Rx Instructions: Hold for creatinine clearance less than 30 mill per minute Referrals / Follow Up: Hieu Vaca MD [Med Staff - Active Staff] - Within 2 Weeks Marybel Paige PA [Primary Care Provider] - Disposition Disposition (needs filled in before D/C Order can be placed): Senior Living Facility
[2023-04-28 12:25] LABS: Bedside Glucose 316 mg/dL (74-106)
--- NOTE | 2023-04-28 14:21 | PCM.DC.SUM ---
Providers Date of Admission: 04/21/23 Date of Discharge: 04/28/23 Primary Care Physician: MAMADOU Gamble Consultations 04/21/23 17:34 Consult: Orthopedics Routine Consulting Provider: Hieu Vaca Reason for Consult: R femur fx EMERGENT Consult: No MD Notified: Yes Date Notified: 04/21/23 Time Notified: 17:08 Method of Notification: ED Physician Initiated Reason For Visit: HIP FRACTURE Diagnosis Discharge Diagnosis (1) Femur fracture, right: Status: Acute Code(s): S72.91XA - Unspecified fracture of right femur, initial encounter for closed fracture Qualifiers: Encounter type: initial encounter Femur location: base of neck Fracture type: closed Fracture alignment: nondisplaced Qualified Code(s): S72.044A - Nondisplaced fracture of base of neck of right femur, initial encounter for closed fracture Plan 83-year-old female with multiple comorbidities admitted with fall resulting into fracture of right femur neck. 1. Right hip subcapital femoral neck fracture, valgus impacted secondary to osteoporosis consistent with pathological fracture: [facility]. Patient had closed reduction with percutaneous pinning of right hip femoral neck fracture On 04/22/2023. Patient on pain medication PT and OT. Patient on morphine 2 to 4 mg. Stated she did not had bowel movement for for 5 days. Dulcolax 10 mg 1 dose ordered. Senna S as needed changed to as. Already on MiraLAX. 04/28: Patient had small bowel movement yesterday. Continue Dulcolax suppository along with MiraLAX and senna S. #2 leukocytosis-etiology unclear, possibly secondary to stress reaction, resolved #3 vascular dementia-complicates care, medical course, recovery, and prognosis #4 essential hypertension-patient will remain on her current medications #5 hypothyroidism-patient is on Synthroid #6 cerebrovascular disease-patient is currently on 81 mg of aspirin twice daily for DVT prophylaxis, this can also be used for stroke prevention, in addition she is on atorvastatin. Discharge medication reconciliation done. Discharge follow-up instructions completed. Discharge process discussed with the patient and all questions were answered to patient's satisfaction. Prescriptions for oxycodone 5 mg total 7 tablets, Eliquis 2.5 mg twice daily given. Total time spent, exact 35 minutes on discharge meds reconciliation, examination, coordination of care with nurses and ancillary staff, review of imaging and blood test and discussion with the patient on follow-up instructions. Medications at Discharge Home Medications atorvastatin 40 mg tablet 40 mg PO QHS CHOLESTEROL 08/13/22 pantoprazole 40 mg tablet,delayed release (Protonix) 40 mg PO DAILY GERD 09/09/22 mirtazapine 15 mg tablet 15 mg PO QHS MOOD 09/14/22 amlodipine 5 mg tablet 5 mg PO BID BLOOD PRESSURE 01/03/23 levothyroxine 50 mcg tablet 50 mcg PO DAILY THYROID 01/03/23 jhlzexad-sajfpdu-heet-lutein tablet 1 tab PO DAILY SUPPLEMENT 01/03/23 donepezil 5 mg tablet 5 mg PO QHS MEMORY 01/05/23 acetaminophen 500 mg tablet 1,000 mg (2 x 500 mg) PO Q8 #0 tabs 04/28/23 apixaban 2.5 mg tablet (Eliquis) 2.5 mg PO BID 30 days #60 tabs 04/28/23 insulin lispro 100 unit/mL subcutaneous pen (Humalog KwikPen (U-100) Insulin) See Protocol subcut ACHS #0 mL 04/28/23 metformin 500 mg tablet 500 mg PO BIDCM DIABETES 30 days #60 tabs 04/28/23 oxycodone 5 mg tablet 5 mg PO Q4H PRN PRN Pain Score 4-10 3 days #7 tabs 04/28/23 polyethylene glycol 3350 17 gram oral powder packet 17 g PO DAILY #0 ea 04/28/23 sennosides 8.6 mg-docusate sodium 50 mg tablet (Stool Softener-Stimulant Laxative) 2 tab PO BID #0 tabs 04/28/23 Physical Exam Narrative Seen and examined. Patient had a small bowel movement after Dulcolax oral tablet. Mild pain on deep palpation. Physical exam General: Alert, Oriented x3, Cooperative HEENT: Bilateral hard of hearing. Atraumatic, PERRLA, EOMI, Normocephalic Oral: No Gingival or Mucosal Lesions/ Ulcerations Neck: Supple, No JVD, Negative Carotid Bruits Lungs: Air entry diminished in bilateral lung bases. No crepitation/rhonchi Cardiovascular: Regular rate, Regular Rhythm, Normal S1, Normal S2, systolic murmur over right second ICS Abdomen: Bowel Sounds Present, Soft, Non Tender, Non-Distended : No renal angle tenderness. No suprapubic tenderness. Extremities: No edema, Capillary Refill Less than 3 Seconds Skin: Surgical dressing, no hematoma. Musculoskeletal: Right hip surgical dressing is dry. Mild tenderness on deep palpation. Required 2 people support for standing or walking. No Tenderness to Palpation of Joints or Extremities Neurological: Cranial nerves II-XII grossly intact, DTR 2+/4. No acute focal neurological deficit. Psych/Mental Status: Flat affect, dementia, amnesia. Weight / BMI Weight Weight: 143 lb 8.335 oz Body Mass Index (BMI) 23.8 ABG / Lab / Microbiology Data 04/28/23 06:35 04/28/23 06:35 Laboratory: Laboratory Results - last 24 hr 04/27/23 16:50: POC Glucose 176 H 04/27/23 23:11: POC Glucose 196 H 04/28/23 06:16: POC Glucose 179 H 04/28/23 06:35: WBC 9.7, RBC 4.02 L, Hgb 12.3, Hct 38.2, MCV 95.0, MCH 30.6, MCHC 32.2, RDW Std Deviation 47.9 H, RDW Coeff of Сергей 13.6, Plt Count 246, MPV 12.0, Immature Gran % (Auto) 0.800, Neut % (Auto) 68.3, Lymph % (Auto) 20.3, Gem % (Auto) 8.2, Eos % (Auto) 1.6, Baso % (Auto) 0.8, Absolute Neuts (auto) 6.6, Absolute Lymphs (auto) 1.97, Nucleated RBC % 0, Sodium 137, Potassium 4.3, Chloride 106, Carbon Dioxide 24.0, Anion Gap 7, BUN 20 H, Creatinine 1.06 H, Estim Creat Clear Calc 34.92, Est GFR (MDRD) Af Amer 63, Est GFR (MDRD) Non-Af 52 L, BUN/Creatinine Ratio 18.9, Glucose 198 H, Calcium 9.0 04/28/23 12:00: POC Glucose 316 H Meaningful Use Info Meaningful Use Diagnoses (Choose all that apply): None applicable Discharge Plan Admission Admit Date/Time: 04/21/23 17:02 Primary Reason for Your Visit: Right hip subcapital fracture Attending Provider: Damien Hayes Primary Care Provider: Marybel Paige Consulting Providers: Hieu Vaca; Verito Santiago; Mely Lorenz; Douglas Crisostomo Discharge Orders/Prescriptions Prescriptions: New polyethylene glycol 3350 17 gram Powder In Packet 17 g PO DAILY Qty: 0 0RF sennosides-docusate sodium [Stool Softener-Stimulant Laxat] 8.6-50 mg Tablet 2 tab PO BID Qty: 0 0RF acetaminophen 500 mg Tablet 1,000 mg PO Q8 Qty: 0 0RF Rx Instructions: 1 g 3 times daily for 7 days and then as needed for mild to moderate pain. oxycodone 5 mg Tablet 5 mg PO Q4H PRN PRN (Reason: Pain Score 4-10) 3 Days Qty: 7 0RF Rx Instructions: 2.5 mg for 4-6/10 and 5 mg for 7?10/10 pain intensity insulin lispro [Humalog KwikPen Insulin] 100 unit/mL Insulin Pen See Protocol subcut ACHS Qty: 0 0RF Protocol: 2. Sliding Scale Insulin Low-Med Dosing Condition: 150-209 mg/dl = 1 unit Condition: 210-269 mg/dl = 2 units Condition: 270-329 mg/dl = 3 units Condition: 330-389 mg/dl = 4 units Condition: 390-449 mg/dl = 5 units Condition: Greater than 449 call physician Protocol Text: - Use for Total Daily Dose of Insulin 28-36 units - Average size patients LOW MEDIUM DOSING ALGORITHM Eliquis 2.5 mg tablet 2.5 mg PO BID 30 Days Qty: 60 0RF Continued pantoprazole [Protonix] 40 mg tablet,delayed release (DR/EC) 40 mg PO DAILY mirtazapine 15 mg tablet 15 mg PO QHS atorvastatin 40 mg tablet 40 mg PO QHS levothyroxine 50 mcg tablet 50 mcg PO DAILY zhypzclf-melhgym-yxhf-lutein Tablet 1 tab PO DAILY amlodipine 5 mg tablet 5 mg PO BID donepezil 5 mg tablet 5 mg PO QHS metformin 500 mg Tablet 500 mg PO BIDCM 30 Days Qty: 60 0RF Rx Instructions: Hold for creatinine clearance less than 30 mill per minute Referrals / Follow Up: Hieu Vaca MD [Med Staff - Active Staff] - Within 2 Weeks Marybel Paige PA [Primary Care Provider] - Disposition Disposition (needs filled in before D/C Order can be placed): Residential Facility Charges/Coding Visit Charges Inpatient E&M: 84069 Disch Hosp >30min
--- NOTE | 2023-04-28 14:45 | PHA.DC.MR.R ---
Pharmacy [place] Med Reconciliation Pharmacy Service has performed discharge medication reconciliation for this patient. The patient's discharge medication list was reviewed for discrepancies and discrepancies were resolved. Medications at Discharge Home Medications atorvastatin 40 mg tablet 40 mg PO QHS CHOLESTEROL 08/13/22 pantoprazole 40 mg tablet,delayed release (Protonix) 40 mg PO DAILY GERD 09/09/22 mirtazapine 15 mg tablet 15 mg PO QHS MOOD 09/14/22 amlodipine 5 mg tablet 5 mg PO BID BLOOD PRESSURE 01/03/23 levothyroxine 50 mcg tablet 50 mcg PO DAILY THYROID 01/03/23 wnzchsuh-lxkrebe-qcwn-lutein tablet 1 tab PO DAILY SUPPLEMENT 01/03/23 donepezil 5 mg tablet 5 mg PO QHS MEMORY 01/05/23 acetaminophen 500 mg tablet 1,000 mg (2 x 500 mg) PO Q8 #0 tabs 04/28/23 apixaban 2.5 mg tablet (Eliquis) 2.5 mg PO BID 30 days #60 tabs 04/28/23 insulin lispro 100 unit/mL subcutaneous pen (Humalog KwikPen (U-100) Insulin) See Protocol subcut ACHS #0 mL 04/28/23 metformin 500 mg tablet 500 mg PO BIDCM DIABETES 30 days #60 tabs 04/28/23 oxycodone 5 mg tablet 5 mg PO Q4H PRN PRN Pain Score 4-10 3 days #7 tabs 04/28/23 polyethylene glycol 3350 17 gram oral powder packet 17 g PO DAILY #0 ea 04/28/23 sennosides 8.6 mg-docusate sodium 50 mg tablet (Stool Softener-Stimulant Laxative) 2 tab PO BID #0 tabs 04/28/23
--- NOTE | 2023-04-28 16:00 | CASEMGMT ---
Social Work Precert has been obtained and pt can transfer to [facility] today. Physician updated and pt is ready for d/c. 7000 exemption form completed in HENS. SW met with pt and informed. leaving now and SW to call him with time of discharge. ROHIT Flowers
--- NOTE | 2023-04-28 17:09 | CASEMGMT ---
Discharge Planning Discharge orders, signed med list, covid results and transport time sent to [facility] via [facility]. [facility] will transport patient by wheelchair at 6:30p. Patient, her , nursing and SW updated. Luzma Gustafson, Discharge Planning Asst.
[2023-04-28 17:20] LABS: Bedside Glucose 212 mg/dL (74-106)
--- NOTE | 2023-04-28 17:56 | NURSING ---
REPORT CALLED TO ELIER OCONNOR
[2023-04-28 17:57] VITALS: BP 165/81; PULSE 94; RESP 17; TEMP 37; O2SAT 96
== END 2023-04-28 19:23 | disposition skilled nursing facility (03) | DRG 481 ==
LOC: ED 15:04 → MS3 04-22 06:53
PROVIDERS: Anesthesiology; Internal Medicine; Specialist; Admitting Provider Internal Medicine; Emergency Provider Student in an Organized Health Care Education/Training Program; PCP Physician Assistant; Visit Provider Internal Medicine
PROC: 0QS634Z Reposition Right Upper Femur with Internal Fixation Device, Percutaneous Approach (ICD-10-PCS; principal; 2023-04-22 11:00)
DX: M80.051A Age-related osteoporosis with current pathological fracture, right femur, initial encounter for fracture (principal); I69.351 Hemiplegia and hemiparesis following cerebral infarction affecting right dominant side; E11.22 Type 2 diabetes mellitus with diabetic chronic kidney disease; F01.50 Vascular dementia, unspecified severity, without behavioral disturbance, psychotic disturbance, mood disturbance, and anxiety; N18.32 Chronic kidney disease, stage 3b; E03.9 Hypothyroidism, unspecified; I12.9 Hypertensive chronic kidney disease with stage 1 through stage 4 chronic kidney disease, or unspecified chronic kidney disease; E78.5 Hyperlipidemia, unspecified; K22.70 Barrett's esophagus without dysplasia; W18.11XA Fall from or off toilet without subsequent striking against object, initial encounter; Z79.84 Long term (current) use of oral hypoglycemic drugs; Z79.899 Other long term (current) drug therapy; Z87.891 Personal history of nicotine dependence
CPT/HCPCS: 36415; 51702; 70450; 71045; 72125; 73501; 73502; 73700; 76000; 80048; 80053; 81001; 82306; 82962; 83036; 83735; 84100; 84439; 84443; 84484; 85025; 85610; 86850; 86900; 86901; 87426; 93005; 94668; 97110; 97162; 97165; 97530; 99252; 99285; C1713; J7120; A4216; G0463; J2405

== ENCOUNTER 2023-12-31 10:27 | Observation (INO) | payer MEDICARE, SELFPAY ==
[2023-12-31] VITALS (10 sets, daily range): BP systolic 109–142; BP diastolic 41–91; PULSE 61–73; RESP 13–28; TEMP 36.3–36.9; O2SAT 95–98; BMI 24.7; BMI 24.5
--- NOTE | 2023-12-31 11:09 | EX.ED.DYSGE1 ---
HPI <MAMADOU Chavis - Last Filed: 12/31/23 19:25> History of Present Illness Chief Complaint: Confusion Narrative Narrative: 83-year-old female with past medical history of HTN, HLD, DM2, CVA, dementia was brought in by her from home for worsening mental status. He states last year she had a hip fracture and was at her [facility]. Since she came home several months ago he is her primary caregiver. She stands to get in the left chair and uses a wheelchair but does not walk independently. She gets hospice services twice a week for bathing and medication management. He states they did a 2-week respite. At the [facility] and she got back home on 12/28/2023 and since then has seemed more confused and weak. He could not get her into the lift chair without someone else assisting him. She is still eating and drinking and seems to have normal bladder and bowel movements when he changes her depends. She has had no fever or illness. Today she was combative and hitting and when he was trying to help her. [facility] <MAMADOU Chavis - Last Filed: 12/31/23 19:25> [facility] Medical History Femur fracture, right Hyperthyroidism Diabetes Former smoker Stroke/cerebrovascular accident Esophageal obstruction Peptic ulcer, site unspecified, unspecified as acute or chronic, without hemorrhage or perforation Unspecified dementia, unspecified severity, without behavioral disturbance, psychotic disturbance, mood disturbance, and anxiety Hypertensive heart and chronic kidney disease without heart failure, with stage 1 through stage 4 chronic kidney disease, or unspecified chronic kidney disease Malignant neoplasm of unspecified site of unspecified female breast Dysphagia, oropharyngeal phase Hemiplegia and hemiparesis following cerebral infarction affecting right dominant side Dysphagia 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 PUD (peptic ulcer disease) Dementia Depression Hyponatremia Chronic renal failure, stage 3b Noncompliance Schatzki's ring of distal esophagus Left atrial enlargement Ischemic cerebrovascular accident (CVA) Esophageal dysphagia Hypothyroidism Hypertension Hyperlipidemia Debility Confusion Acute renal failure superimposed on stage 3 chronic kidney disease Effusion of knee joint right Falls frequently Chronic kidney disease, stage 3 T12 compression fracture Compression fracture of T11 vertebra T9 vertebral fracture Debility Osteoporosis Hypothyroidism HTN (hypertension) HLD (hyperlipidemia) Diabetes mellitus, type 2 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 Home Medications ?Medication ?Instructions ?Recorded ?Last Taken ?Type pantoprazole 40 mg tablet,delayed 40 mg PO DAILY GERD 09/09/22 01/03/23 History release (Protonix) mirtazapine 15 mg tablet 7.5 mg PO QHS MOOD 09/14/22 01/02/23 History amlodipine 5 mg tablet 5 mg PO BID BLOOD PRESSURE 01/03/23 01/03/23 History levothyroxine 50 mcg tablet 50 mcg PO DAILY THYROID 01/03/23 01/03/23 History donepezil 5 mg tablet 5 mg PO QHS MEMORY 01/05/23 Unknown History acetaminophen 500 mg tablet 1,000 mg (2 x 500 mg) PO Q8 #0 tabs 04/28/23 Unknown Rx apixaban 2.5 mg tablet (Eliquis) 2.5 mg PO BID 30 days #60 tabs 04/28/23 Unknown Rx insulin lispro 100 unit/mL See Protocol subcut ACHS #0 mL 04/28/23 Unknown Rx subcutaneous pen (Humalog KwikPen (U-100) Insulin) Allergy/AdvReac Type Severity Reaction Status Date / Time No Known Allergies Allergy Verified 12/31/23 10:32 Family History Father Hypertension Surgical History S/P biopsy History of hysterectomy History of appendectomy Esophageal dilatation History of vertebroplasty Social History household members: spouse and other details: 's name is Dante housing: house number of children: 1 Smoking Status: Former smoker alcohol intake: current alcohol intake frequency: holidays/special occasions only substance use type: does not use caffeine: No ROS <MAMADOU Chavis - Last Filed: 12/31/23 19:25> ROS ED ROS Narrative Constitutional: Negative for fever, chills, malaise. Respiratory: Negative for shortness of breath, cough. GI: Negative for abdominal pain, vomiting, diarrhea. : Negative for dysuria. Neuro: Negative for headache. EXAM <MAMADOU Chavis - Last Filed: 12/31/23 19:25> Physical Exam Narrative Exam Narrative: CONST: Patient sitting in no acute distress. EYES: Normal inspection. NECK: Normal inspection. RESP: No respiratory distress, CTAB. CVS: Regular rate and rhythm, no murmur, no gallop. ABD: Soft and nontender, no guarding or rebound, nondistended. SKIN: Color normal, no rash, warm, dry, intact. EXTREMITIES: Normal appearance, no pedal edema. NEURO: Alert to self and place. Follows commands, moving all extremities. PSYCH: Normal affect. Const Vital Signs: 12/31/23 10:28 12/31/23 11:13 12/31/23 12:00 Temperature 97.4 F L Temperature Source Temporal Pulse Rate 72 72 61 Respiratory Rate 23 H 19 H 14 Blood Pressure 111/41 L 109/50 L 122/49 H Blood Pressure Mean 64 69 73 Pulse Ox 98 97 98 Oxygen Delivery Method Room Air Room Air 12/31/23 13:00 12/31/23 13:35 12/31/23 13:36 Temperature 97.4 F L 98.0 F Temperature Source Oral Pulse Rate 63 64 62 Respiratory Rate 18 17 13 Blood Pressure 139/59 H 139/59 H 139/59 H Blood Pressure Mean 85 85 85 Pulse Ox 97 95 98 Oxygen Delivery Method Room Air 12/31/23 15:00 12/31/23 15:00 12/31/23 16:00 Temperature 97.8 F 97.9 F Temperature Source Oral Oral Pulse Rate 64 66 66 Respiratory Rate 28 H 23 H 21 H Blood Pressure 136/64 H 142/58 H 138/61 H Blood Pressure Mean 88 86 86 Pulse Ox 98 98 97 Oxygen Delivery Method Room Air Room Air 12/31/23 17:00 Temperature 98.3 F Temperature Source Oral Pulse Rate 68 Respiratory Rate 18 Blood Pressure 128/91 H Blood Pressure Mean 103 Pulse Ox 96 Oxygen Delivery Method Room Air <Dr. Faisal Galdamez, DO - Last Filed: 12/31/23 20:08> Physical Exam Const Vital Signs: 12/31/23 10:28 12/31/23 11:13 12/31/23 12:00 Temperature 97.4 F L Temperature Source Temporal Pulse Rate 72 72 61 Respiratory Rate 23 H 19 H 14 Blood Pressure 111/41 L 109/50 L 122/49 H Blood Pressure Mean 64 69 73 Pulse Ox 98 97 98 Oxygen Delivery Method Room Air Room Air 12/31/23 13:00 12/31/23 13:35 12/31/23 13:36 Temperature 97.4 F L 98.0 F Temperature Source Oral Pulse Rate 63 64 62 Respiratory Rate 18 17 13 Blood Pressure 139/59 H 139/59 H 139/59 H Blood Pressure Mean 85 85 85 Pulse Ox 97 95 98 Oxygen Delivery Method Room Air 12/31/23 15:00 12/31/23 15:00 12/31/23 16:00 Temperature 97.8 F 97.9 F Temperature Source Oral Oral Pulse Rate 64 66 66 Respiratory Rate 28 H 23 H 21 H Blood Pressure 136/64 H 142/58 H 138/61 H Blood Pressure Mean 88 86 86 Pulse Ox 98 98 97 Oxygen Delivery Method Room Air Room Air 12/31/23 17:00 Temperature 98.3 F Temperature Source Oral Pulse Rate 68 Respiratory Rate 18 Blood Pressure 128/91 H Blood Pressure Mean 103 Pulse Ox 96 Oxygen Delivery Method Room Air MDM <MAMADOU Chavis - Last Filed: 12/31/23 19:25> [facility] MDM Narrative Medical decision making narrative: History gathered from: and patient Differential: Pneumonia, UTI, electrolyte abnormality, worsening dementia Patient is from home with history of dementia presenting with 3 days of generalized weakness and states he cannot get her to wheelchair care for her. No other specific symptoms. She appears well and nontoxic. Vital signs stable. She is alert and oriented x 2 with no focal neurological deficits. Labs show white count of 16.0 but CXR and UA are negative for infection. Electrolytes are WNL, creatinine 1.22 around baseline. Glucose 170. Case was discussed with hospitalist for admission who wanted to clarify if patient was actually a hospice patient first. [facility] was contacted and I spoke with the admissions department. They state the patient was referred to the hospice in August 2022 but did not become established as a hospice patient. Since patient is more confused and cannot care for her at home these findings were relayed to the hospitalist and she will be admitted. Blood cultures were also sent due to explained leukocytosis. Through further research it was found that she is a hospice patient with [facility]. I spoke with the on-call community mental health social worker and nurse there. They called back at 7 PM stating there is no emergency respite available but they anticipate they could place her somewhere on Monday, January 01, and recommended she be admitted here until then. They recommended calling the on-call triage line [phone] if any updates are needed. 83-year-old female presenting with her out of concern for agitation. Patient was previously hospitalized for hip fracture distantly and spent several months in the [facility] where her did not like her care. She has been at home since he has been attempting to care for her. It appears that hospice gave him respite for a couple of weeks and since the patient came home at the end of last month he states that she is more agitated and difficult to care for her. She is now not able to assist in getting up to walk her transfer. Her states that something is wrong and does not feel like he can care for her at home. He states that hospice has come out to the house since then but his sent them away. Lab Data Attestation: I reviewed the patient's lab results. Labs: Laboratory Results - last 24 hr 12/31/23 12/31/23 11:25 11:48 WBC 16.0 H RBC 4.12 L Hgb 12.8 Hct 39.5 MCV 95.9 MCH 31.1 MCHC 32.4 RDW Std Deviation 47.0 H RDW Coeff of Сергей 13.2 Plt Count 219 MPV 11.2 Immature Gran % (Auto) 0.400 Neut % (Auto) 86.0 H Lymph % (Auto) 9.9 L [place] % (Auto) 3.3 Eos % (Auto) 0.1 Baso % (Auto) 0.3 Absolute Neuts (auto) 13.7 H Absolute Lymphs (auto) 1.59 Nucleated RBC % 0 Sodium 137 Potassium 4.1 Chloride 104 Carbon Dioxide 24.0 Anion Gap 9 BUN 19 H Creatinine 1.22 H Estim Creat Clear Calc 30.34 Est GFR (MDRD) Af Amer 54 L Est GFR (MDRD) Non-Af 44 L BUN/Creatinine Ratio 15.6 Glucose 170 H Calcium 9.2 Urine Color Yellow Urine Clarity Clear Urine pH 6.5 Ur Specific [place] 1.010 Urine Protein Negative Urine Glucose (UA) Normal Urine Ketones Negative Urine Occult Blood Negative Urine Nitrite Negative Urine Bilirubin Negative Urine Urobilinogen Normal Ur Leukocyte Esterase Negative Urine RBC 0 SEEN Urine WBC 0 SEEN Ur Squamous Epith Cells 0 SEEN Urine Bacteria 0 SEEN Urine Mucus 0 SEEN Radiography Diagnostic Testing: Clinical Impression(s) from Imaging Studies Chest X-Ray 12/31/23 11:50 IMPRESSION: Degenerative changes, as described above. No demonstrated acute cardiopulmonary process. Electronically Signed: Suresh Nelson MD at 12:48 EDT , ED attending interpretation of 1-view chest x-ray shows normal heart size, no acute infiltrate. <Dr. Faisal Galdamez, DO - Last Filed: 12/31/23 20:08> [facility] MDM Narrative Medical decision making narrative: History gathered from: and patient Differential: Pneumonia, UTI, electrolyte abnormality, worsening dementia Patient is from home with history of dementia presenting with 3 days of generalized weakness and states he cannot get her to wheelchair care for her. No other specific symptoms. She appears well and nontoxic. Vital signs stable. She is alert and oriented x 2 with no focal neurological deficits. Labs show white count of 16.0 but CXR and UA are negative for infection. Electrolytes are WNL, creatinine 1.22 around baseline. Glucose 170. Case was discussed with hospitalist for admission who wanted to clarify if patient was actually a hospice patient first. [facility] was contacted and I spoke with the admissions department. They state the patient was referred to the hospice in August 2022 but did not become established as a hospice patient. Since patient is more confused and cannot care for her at home these findings were relayed to the hospitalist and she will be admitted. Blood cultures were also sent due to explained leukocytosis. Through further research it was found that she is a hospice patient with [facility]. I spoke with the on-call community mental health social worker and nurse there. They called back at 7 PM stating there is no emergency respite available but they anticipate they could place her somewhere on Monday, January 01, and recommended she be admitted here until then. They recommended calling the on-call triage line [phone] if any updates are needed. 83-year-old female presenting with her out of concern for agitation. Patient was previously hospitalized for hip fracture distantly and spent several months in the [facility] where her did not like her care. She has been at home since he has been attempting to care for her. It appears that hospice gave him respite for a couple of weeks and since the patient came home at the end of last month he states that she is more agitated and difficult to care for her. She is now not able to assist in getting up to walk her transfer. Her states that something is wrong and does not feel like he can care for her at home. He states that hospice has come out to the house since then but his sent them away. Patient found to have white blood cell count 16.0. Hemoglobin 12.8, platelets 219. Renal function and electrolytes unremarkable. Urinalysis negative. Chest x-ray interpreted by myself shows no acute cardiopulmonary process. Radiology interpretation agrees. We tried for several hours to try to arrange for the patient to go back to hospice and were unable to do so. The states he is not can be able to care for her and is going home. After this we had the patient admitted for further care and placement. Lab Data Labs: Laboratory Results - last 24 hr 12/31/23 12/31/23 11:25 11:48 WBC 16.0 H RBC 4.12 L Hgb 12.8 Hct 39.5 MCV 95.9 MCH 31.1 MCHC 32.4 RDW Std Deviation 47.0 H RDW Coeff of Сергей 13.2 Plt Count 219 MPV 11.2 Immature Gran % (Auto) 0.400 Neut % (Auto) 86.0 H Lymph % (Auto) 9.9 L [place] % (Auto) 3.3 Eos % (Auto) 0.1 Baso % (Auto) 0.3 Absolute Neuts (auto) 13.7 H Absolute Lymphs (auto) 1.59 Nucleated RBC % 0 Sodium 137 Potassium 4.1 Chloride 104 Carbon Dioxide 24.0 Anion Gap 9 BUN 19 H Creatinine 1.22 H Estim Creat Clear Calc 30.34 Est GFR (MDRD) Af Amer 54 L Est GFR (MDRD) Non-Af 44 L BUN/Creatinine Ratio 15.6 Glucose 170 H Calcium 9.2 Urine Color Yellow Urine Clarity Clear Urine pH 6.5 Ur Specific [place] 1.010 Urine Protein Negative Urine Glucose (UA) Normal Urine Ketones Negative Urine Occult Blood Negative Urine Nitrite Negative Urine Bilirubin Negative Urine Urobilinogen Normal Ur Leukocyte Esterase Negative Urine RBC 0 SEEN Urine WBC 0 SEEN Ur Squamous Epith Cells 0 SEEN Urine Bacteria 0 SEEN Urine Mucus 0 SEEN Radiography Diagnostic Testing: Clinical Impression(s) from Imaging Studies Chest X-Ray 12/31/23 11:50 IMPRESSION: Degenerative changes, as described above. No demonstrated acute cardiopulmonary process. Electronically Signed: Suresh Nelson MD at 12:48 EDT , Discharge Plan Triage Chief Complaint: Confusion ED Midlevel Provider: Chantale Riley ED Provider: Faisal Galdamez Dx/Rx/DC Orders Clinical Impression: Altered mental status, Leukocytosis, History of dementia, Generalized weakness Primary Care Provider: Marybel Paige
[2023-12-31 11:30] LABS: Bacteria 0 SEEN /hpf (None Seen); Mucous, Urine 0 SEEN /hpf (<or=2+); Red Blood Cells-Urine 0 SEEN /hpf (0-5); Squamous Epithelial Cells - UA 0 SEEN /hpf (5-10); White Blood Cells 0 SEEN /hpf (0-5)
[2023-12-31] MEDS: 0.9% Normal Saline (1000mL) 1,000 ML 999 ML IV (11:37)
[2023-12-31 11:39] LABS: Color, Urine Yellow (Yellow); Glucose, Dipstick Normal (Normal); Ketone-Dipstick Negative (Negative); Leukocyte Esterase-Dipstick Negative /ul (Negative); Nitrite-Dipstick Negative (Negative); Occult Blood-Urine Negative /ul (Negative); Protein-Dipstick Negative (Negative); Urine Bilirubin Dipstick Negative (Negative); Urine Clarity Clear (Clear); Urine Urobilinogen Normal (Normal); Urine pH 6.5 (5.0 - 8.0)
--- NOTE | 2023-12-31 11:50 | RAD_ITS ---
STUDY: X-RAY CHEST REASON FOR EXAM: Female, 83 years old. weakness patient usually alert and oriented but now x1. combative with S.O. thinks she needs admitted for right hip problems. he wants surgeon to see her tomorrow. does not want detention placement TECHNIQUE: Single AP portable view of the chest. COMPARISON: April 21, 2023 FINDINGS: The lungs are clear and expanded. There is no demonstrated pleural abnormality. Normal size heart. Normal mediastinum and tahir. Normal visualized pulmonary arteries. There is atherosclerotic calcification of the aortic arch with tortuosity. There are diffuse degenerative changes of the visualized thoracic spine. Normal visualized ribs, clavicles, and shoulders. There is no demonstrated abnormality of the visualized soft tissue structures of the upper abdomen. RAD/Chest 1 View (Portable) IMPRESSION: Degenerative changes, as described above. No demonstrated acute cardiopulmonary process. Electronically Signed: Suresh Nelson MD at 12:48 EDT ,
[2023-12-31 11:54] LABS: Absolute Lymphocyte Count 1.59 X10^3/uL (0.83-4.51); Absolute Neutrophil Count 13.7 X10^3/uL (2.0-7.7); Basophil# 0.05 X10^3/uL; Basophil% 0.3 % (0-1); Eosinophil# 0.02 X10^3/uL; Eosinophils% 0.1 % (0-5); Hematocrit 39.5 % (37-47); Hemoglobin 12.8 g/dL (12.0-15.0); Lymphocyte # 1.59 X10^3/ul (0.83-4.51); Lymphocyte % 9.9 % (19-41); Mean Corp Hgb Conc 32.4 g/dL (32-36); Mean Corpuscular Hgb 31.1 pg (27.0-32.0); Mean Corpuscular Volume 95.9 fL (81-99); Mean Platelet Vol. 11.2 fl (6.2-12.0); Monocyte# 0.52 X10^3/uL; Monocyte% 3.3 % (0-10); NRBC Flagged by Analyzer 0 % (0-5); Neutrophil # 13.74 X10^3/uL (2.7-7.7); Platelet Count 219 K/mm3 (150-450); RBC Distribution Width CV 13.2 % (11.6-14.6); Red Blood Count 4.12 M/mm3 (4.2-5.4)
[2023-12-31 12:07] LABS: Anion Gap 9 (5-15); BUN 19 mg/dL (7-18); BUN/Creat Ratio 15.6 RATIO (10-20); Calcium,Total 9.2 mg/dL (8.5-10.1); Chloride 104 mmol/L (98-107); Creatinine, Serum 1.22 mg/dL (0.55-1.02); EST Glomerular Filtration Rate 44 mL/min (>60); Est Glom Filt Rate - Afr Amer 54 mL/min (>60); Estimated Creatinine Clearance 30.34 ml/min; Glucose 170 mg/dL (74-106); Potassium 4.1 mmol/L (3.5-5.1); Sodium Level 137 mmol/L (136-145)
--- NOTE | 2023-12-31 18:01 | NURSING ---
[facility] [phone]
--- NOTE | 2023-12-31 19:21 | HP.PCM.HOS_ITS ---
[facility] - General General Date of Admission: 12/31/23 Date of Service: 12/31/23 Chief Complaint: Confusion on Hospice HPI Narrative KENNETH RAI, is a 83 F with a past medical history of essential hypertension, hyperlipidemia, DM-2; of unknown control, remote history of tobacco abuse, history of left atrial enlargement, osteoporosis; with history of several compression fractures, osteoarthritis, mood disorder, depression, GERD; with history of PUD and Wagner's esophagus, history of Schatzki's ring of the distal esophagus; with previous treatment by Dr. Ramos of gastroenterology, CKD; stage III, history of ischemic CVA; with residual Right hemiparesis plus chronic generalized weakness and debility and chronic vascular dementia; previously on hospice at home who presents to [facility] ER with her complaining that he cannot take care of her at home - even with the help of hospice. Mrs. Rai is not a reliable historian at this time so information was gathered from chart, medical staff and computer. According to the records the patient's has been attempting to care for her at home but because of her intensifying medical needs and ongoing confusion he brought her in so that she could be placed in inpatient hospice care. There is no report of fever, chills, nausea, vomiting, diarrhea, constipation, chest pain, shortness of breath or diaphoresis. She was then admitted to the general medical floor under observation status until she can be placed in a hospice program for a stay that is expected to be less than 2 midnights. 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 heart failure, with stage 1 through stage 4 chronic kidney disease, or unspecified chronic kidney disease Malignant neoplasm of unspecified site of unspecified female breast Dysphagia, oropharyngeal phase Hemiplegia and hemiparesis following cerebral infarction affecting right dominant side Dysphagia 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 PUD (peptic ulcer disease) Dementia Depression Hyponatremia Chronic renal failure, stage 3b Noncompliance Schatzki's ring of distal esophagus Left atrial enlargement Ischemic cerebrovascular accident (CVA) Esophageal dysphagia Hypothyroidism Hypertension Hyperlipidemia Debility Confusion Acute renal failure superimposed on stage 3 chronic kidney disease Effusion of knee joint right Falls frequently Chronic kidney disease, stage 3 T12 compression fracture Compression fracture of T11 vertebra T9 vertebral fracture Debility Osteoporosis Hypothyroidism HTN (hypertension) HLD (hyperlipidemia) Diabetes mellitus, type 2 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 Home Medications ?Medication ?Instructions ?Recorded ?Last Taken ?Type pantoprazole 40 mg tablet,delayed 40 mg PO DAILY GERD 09/09/22 01/03/23 History release (Protonix) mirtazapine 15 mg tablet 7.5 mg PO QHS MOOD 09/14/22 01/02/23 History amlodipine 5 mg tablet 5 mg PO BID BLOOD PRESSURE 01/03/23 01/03/23 History levothyroxine 50 mcg tablet 50 mcg PO DAILY THYROID 01/03/23 01/03/23 History donepezil 5 mg tablet 5 mg PO QHS MEMORY 01/05/23 Unknown History acetaminophen 500 mg tablet 1,000 mg (2 x 500 mg) PO Q8 #0 tabs 04/28/23 Unknown Rx apixaban 2.5 mg tablet (Eliquis) 2.5 mg PO BID 30 days #60 tabs 04/28/23 Unknown Rx insulin lispro 100 unit/mL See Protocol subcut ACHS #0 mL 04/28/23 Unknown Rx subcutaneous pen (Humalog KwikPen (U-100) Insulin) Allergy/AdvReac Type Severity Reaction Status Date / Time No Known Allergies Allergy Verified 12/31/23 10:32 Family History Father Hypertension Surgical History S/P biopsy History of hysterectomy History of appendectomy Esophageal dilatation History of vertebroplasty Social History household members: spouse and other details: 's name is Dante housing: house number of children: 1 Smoking Status: Former smoker alcohol intake: current alcohol intake frequency: holidays/special occasions only substance use type: does not use caffeine: No ROS ROS Narrative Patient has severe chronic vascular dementia and therefore cannot complete a review of systems at this time. Review of Systems ROS Unobtainable: due to encephalopathy and due to mental condition Vital Signs Vital Signs Vital Signs: 12/31/23 10:28 12/31/23 11:13 12/31/23 12:00 Temperature 97.4 F L Temperature Source Temporal Pulse Rate 72 72 61 Respiratory Rate 23 H 19 H 14 Blood Pressure 111/41 L 109/50 L 122/49 H Blood Pressure Mean 64 69 73 Pulse Ox 98 97 98 Oxygen Delivery Method Room Air Room Air 12/31/23 13:00 12/31/23 13:35 12/31/23 13:36 Temperature 97.4 F L 98.0 F Temperature Source Oral Pulse Rate 63 64 62 Respiratory Rate 18 17 13 Blood Pressure 139/59 H 139/59 H 139/59 H Blood Pressure Mean 85 85 85 Pulse Ox 97 95 98 Oxygen Delivery Method Room Air 12/31/23 15:00 12/31/23 15:00 12/31/23 16:00 Temperature 97.8 F 97.9 F Temperature Source Oral Oral Pulse Rate 64 66 66 Respiratory Rate 28 H 23 H 21 H Blood Pressure 136/64 H 142/58 H 138/61 H Blood Pressure Mean 88 86 86 Pulse Ox 98 98 97 Oxygen Delivery Method Room Air Room Air 12/31/23 17:00 Temperature 98.3 F Temperature Source Oral Pulse Rate 68 Respiratory Rate 18 Blood Pressure 128/91 H Blood Pressure Mean 103 Pulse Ox 96 Oxygen Delivery Method Room Air Weight Weight: 148 lb 12.992 oz Body Mass Index (BMI) 24.7 Physical Exam Const alert and no apparent distress Constitutional Narrative: Patient appears chronically ill and confused. General Appearance: cooperative Orientation / Consciousness: disoriented Eyes PERRL and EOMs intact bilaterally Neck no lymphadenopathy and supple Resp normal respiratory effort, no retractions, no use of accessory muscles and clear to auscultation bilaterally Cardio regular rate and regular rhythm GI normal to inspection, nondistended, normoactive bowel sounds, soft to palpation, non-tender and non-distended Extremity normal to inspection and full ROM Skin Skin Narrative: Patient has no evidence of jaundice or rash. Neuro CN's II-XII intact bilaterally and moves all extremities Neuro Narrative: Patient is confused and has chronic right-sided weakness which appears to be unchanged from previous. Sensorium / Orientation: awake, alert and oriented to person Speech: speech normal Psych affect normal Results Medical Records Data Attestation: I reviewed the patient's medical records Lab / Micro Data Attestation: I reviewed the patient's lab results. 12/31/23 11:48 12/31/23 11:48 Labs: Laboratory Results - last 24 hr 12/31/23 11:25: Urine Color Yellow, Urine Clarity Clear, Urine pH 6.5, Ur Specific [place] 1.010, Urine Protein Negative, Urine Glucose (UA) Normal, Urine Ketones Negative, Urine Occult Blood Negative, Urine Nitrite Negative, Urine Bilirubin Negative, Urine Urobilinogen Normal, Ur Leukocyte Esterase Negative, Urine RBC 0 SEEN, Urine WBC 0 SEEN, Ur Squamous Epith Cells 0 SEEN, Urine Bacteria 0 SEEN, Urine Mucus 0 SEEN 12/31/23 11:48: WBC 16.0 H, RBC 4.12 L, Hgb 12.8, Hct 39.5, MCV 95.9, MCH 31.1, MCHC 32.4, RDW Std Deviation 47.0 H, RDW Coeff of Сергей 13.2, Plt Count 219, MPV 11.2, Immature Gran % (Auto) 0.400, Neut % (Auto) 86.0 H, Lymph % (Auto) 9.9 L, [place] % (Auto) 3.3, Eos % (Auto) 0.1, Baso % (Auto) 0.3, Absolute Neuts (auto) 13.7 H, Absolute Lymphs (auto) 1.59, Nucleated RBC % 0, Sodium 137, Potassium 4.1, Chloride 104, Carbon Dioxide 24.0, Anion Gap 9, BUN 19 H, Creatinine 1.22 H , Estim Creat Clear Calc 30.34, Est GFR (MDRD) Af Amer 54 L, Est GFR (MDRD) Non- Af 44 L, BUN/Creatinine Ratio 15.6, Glucose 170 H, Calcium 9.2 Imaging Radiology Impression Chest X-Ray 12/31/23 11:50 IMPRESSION: Degenerative changes, as described above. No demonstrated acute cardiopulmonary process. Electronically Signed: Suresh Nelson MD at 12:48 EDT , Assessment & Plan Assessment/Plan (1) Vascular dementia: QUALIFIERS: Dementia severity: severe Dementia behavioral or psychological symptom: unspecified whether behavioral, psychotic, or mood disturbance or anxiety Qualified Code(s): F01.C0 - Vascular dementia, severe, without behavioral disturbance, psychotic disturbance, mood disturbance, and anxiety (2) Altered mental status: QUALIFIERS: Altered mental status type: unspecified Qualified Code(s): R41.82 - Altered mental status, unspecified (3) Ischemic cerebrovascular accident (CVA): (4) Hypertension: QUALIFIERS: Hypertension type: unspecified Qualified Code(s): I10 - Essential (primary) hypertension (5) Hyperlipidemia: QUALIFIERS: Hyperlipidemia type: unspecified Qualified Code(s): E 78.5 - Hyperlipidemia, unspecified (6) Generalized weakness: PLAN: Plan 1. Chronic vascular dementia with intensifying medical needs beyond patient's 's ability at home - Admit to general medical floor under observation status. Placed on hospice with comfort measures. 2. History of ischemic CVA; with residual Right hemiparesis plus chronic generalized weakness and debility complicating #1 - Noted. 3. Essential hypertension - Continue current regimen. 3. Hyperlipidemia - Resume statin. 4. DM-2; of unknown control - ADA diet. 5. Remote history of tobacco abuse - Noted. 6. History of Left atrial enlargement - Noted. 7. Osteoporosis; with history of several compression fractures - Stable. 8. Osteoarthritis - Give Tylenol prn. 9. Mood disorder with depression - Resume current treatment. 10. GERD; with history of PUD and Wagner's esophagus - Noted. 11. History of Schatzki's ring of the distal esophagus; with previous treatment by Dr. Ramos of gastroenterology - Stable. 12. CKD; stage III - Stable. 13. DVT prophylaxis - Patient is already on Apixaban which will be continued as previous. Total time: Approximately 55 minutes.
[2023-12-31] MEDS: Acetaminophen 500 MG Tablet 1000 MG PO (21:56)
[2023-12-31] MEDS: Donepezil HCl 5 MG Tablet PO (21:57)
[2023-12-31] MEDS: amLODIPine 5 MG Tablet PO (21:57)
[2023-12-31] MEDS: APIXABAN 2.5 MG TABLET (WCH) PO (21:58)
[2023-12-31] MEDS: Mirtazapine 15 MG Tablet 7.5 MG PO (21:58)
[2023-12-31] MEDS: 0.9% Normal Saline (1000mL) 1,000 ML 70 ML IV (22:40)
[2023-12-31 23:39] LABS: Bedside Glucose 149 mg/dL (74-106)
[2024-01-01 06:00] VITALS: BMI 24.5
[2024-01-01 06:26] VITALS: BP 147/80; PULSE 59; RESP 18; TEMP 35.6; O2SAT 93
[2024-01-01] MEDS: Acetaminophen 500 MG Tablet 1000 MG PO ×3 (06:50→21:01)
[2024-01-01] MEDS: Levothyroxine 50 MCG Tablet PO (06:50)
[2024-01-01 06:51] VITALS: O2SAT 93
--- NOTE | 2024-01-01 06:56 | PCM.PN.HOSP ---
Reason for Visit Reason for Visit: Confusion/debility Subjective Subjective Mrs Rai is an 83-year-old white female who presented to the emergency department with her due to generalized weakness/debility and confusion. The patient was recently at [facility] for [facility] care for about 2 weeks and was discharged on 12/28/2023 to home. The patient has pretty significant dementia and was unable to assist with history. Her stated that he has not been able to care for her ever since she came home and is too much for him to handle at home alone. Given that, he decided to bring her to the emergency department. She is still enrolled in hospice with [facility] hospice services. He did not call them prior to bringing her to the emergency department and would like to keep her in hospice however states he just cannot keep take care of her at home. We were able to contact hospice services to see if there was any opportunity for emergency placement, unfortunately, there were no available beds and there would not be until 01/02/2024 so they recommended we admit her to the hospital until they can arrange something for her or permanently. Other than weakness and confusion which is reported to be slightly worse than her baseline however this is unclear there were no complaints. did report she was eating and drinking without difficulty and having normal bladder and bowel movements. Vital signs on presentation showed a temperature of 97.4, heart rate 72, respiratory was 23, blood pressure was 111/41, and sats were 98% on room air. She had a mild leukocytosis with a white count of 16,000 and a left shift however she does appear to be hemoconcentrated. Her BUN was 19 and serum creatinine was 1.22. Blood glucose was 170 but the rest of her BMP was otherwise fairly unremarkable. Her UA was completely unremarkable. Chest x-ray had no acute findings. Some mild behavioral issues overnight. Patient with no complaints this morning. reiterates that he just wants to keep her comfortable. He would like to get her strength up so he can bring her back home. We did discuss that we were not clear if that would ever happen but his biggest concern is her comfort. His preference would be for her to go to [facility] and at discharge. Objective Data Objective Data Vital Signs: Vital Signs Temp Pulse Resp BP Pulse Ox O2 Del Method 96.0 F L 59 L 18 147/80 H 93 Room Air 01/01/24 06:26 01/01/24 06:26 01/01/24 06:26 01/01/24 06:26 01/01/24 06:51 01/01/24 06:51 Oxygen Delivery Method Room Air Weight: 66.8 kg Body Mass Index (BMI) 24.5 Intake & Output: Intake and Output for Last 24 Hours 12/30/23 12/31/23 01/01/24 23:59 23:59 23:59 Intake Total 1000 / 1000 Output Total 800 / 800 Balance 1000 / 1000 -800 / -800 Lab / Micro Data 12/31/23 11:48 12/31/23 11:48 Labs: Laboratory Results - last 24 hr 12/31/23 11:25: Urine Color Yellow, Urine Clarity Clear, Urine pH 6.5, Ur Specific [place] 1.010, Urine Protein Negative, Urine Glucose (UA) Normal, Urine Ketones Negative, Urine Occult Blood Negative, Urine Nitrite Negative, Urine Bilirubin Negative, Urine Urobilinogen Normal, Ur Leukocyte Esterase Negative, Urine RBC 0 SEEN, Urine WBC 0 SEEN, Ur Squamous Epith Cells 0 SEEN, Urine Bacteria 0 SEEN, Urine Mucus 0 SEEN 12/31/23 11:48: WBC 16.0 H, RBC 4.12 L, Hgb 12.8, Hct 39.5, MCV 95.9, MCH 31.1, MCHC 32.4, RDW Std Deviation 47.0 H, RDW Coeff of Сергей 13.2, Plt Count 219, MPV 11.2, Immature Gran % (Auto) 0.400, Neut % (Auto) 86.0 H, Lymph % (Auto) 9.9 L, [place] % (Auto) 3.3, Eos % (Auto) 0.1, Baso % (Auto) 0.3, Absolute Neuts (auto) 13.7 H, Absolute Lymphs (auto) 1.59, Nucleated RBC % 0, Sodium 137, Potassium 4.1, Chloride 104, Carbon Dioxide 24.0, Anion Gap 9, BUN 19 H, Creatinine 1.22 H, Estim Creat Clear Calc 30.34, Est GFR (MDRD) Af Amer 54 L, Est GFR (MDRD) Non-Af 44 L, BUN/Creatinine Ratio 15.6, Glucose 170 H, Calcium 9.2 12/31/23 22:01: POC Glucose 149 H Radiography Diagnostic Testing: Radiology Impression Chest X-Ray 12/31/23 11:50 IMPRESSION: Degenerative changes, as described above. No demonstrated acute cardiopulmonary process. Electronically Signed: Suresh Nelson MD at 12:48 EDT , Physical Exam Const alert, no apparent distress, average body habitus and well nourished; Negative for oriented x3 or healthy appearing Constitutional Narrative: Oriented to self, elderly, white female, sitting up in bed, at bedside, currently appears comfortable, asked to have the TV turned up louder, not toxic HEENT head/scalp atraumatic and moist oral mucous membranes Head and Scalp: normocephalic Resp normal respiratory effort, no retractions, no use of accessory muscles and clear to auscultation bilaterally Auscultation: Negative for rales, rhonchi or wheezes Cardio regular rate, regular rhythm, S1 normal heart sound, S2 normal heart sound, no murmurs, no rub, no gallops and no clicks GI normal to inspection, nondistended, normoactive bowel sounds, soft to palpation and non-tender Extremity no clubbing, cyanosis or edema Neuro moves all extremities Neuro Narrative: Marked generalized weakness Sensorium / Orientation: awake, alert and oriented to person Speech: speech normal Psych Psych Narrative: Intermittent agitation, affect is flat but patient does answer questions Assessment & Plan Assessment/Plan (1) Generalized weakness: (2) History of dementia: (3) Altered mental status: QUALIFIERS: Altered mental status type: unspecified Qualified Code(s): R41.82 - Altered mental status, unspecified (4) Behavioral and psychological symptoms of dementia: PLAN: Plan Debility/confusion -Patient enrolled in hospice with [facility] hospice services -Recently spent about 2 weeks in a respite care at [facility] and was discharged on the but failing at home - unable to care for her at home -Will need placement however no emergency beds available over the weekend and will pursue further on Monday after the holiday when beds were felt to be available -on-call triage line [phone] ([facility]) -CM/SW consulted and will discuss further tomorrow Leukocytosis -Blood cultures were sent by the emergency department -UA unremarkable -Chest x-ray unremarkable -Patient with no specific issues or complaints suggestive of infection CKD stage IIIb -Remains at baseline and stable Hypothyroidism -Continue home Synthroid DM-2 -No checks or modifications required GERD/Wagner's esophagus -Continue home PPI Hypertension -Continue home amlodipine Vascular dementia with behavioral issues -Cont Donepezil -Add Risperdal 0.5 mg at at bedtime History of breast CA/parotid gland CA -No current issues DVT prophylaxis -Apixaban 2.5mg BID CODE STATUS -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
[2024-01-01 07:25] LABS: Bedside Glucose 120 mg/dL (74-106)
[2024-01-01 09:00] VITALS: BP 120/64; PULSE 54; RESP 18; TEMP 36.8; O2SAT 94
[2024-01-01] MEDS: Menthol/Lanolin/Calamine/Znox 113 GM Tube 1 APPLIC TOPICAL ×2 (10:57→20:37)
[2024-01-01] MEDS: Pantoprazole Sodium 40 MG Tablet PO (10:57)
[2024-01-01] MEDS: amLODIPine 5 MG Tablet PO ×2 (10:58→21:01)
[2024-01-01] MEDS: APIXABAN 2.5 MG TABLET (WCH) PO ×2 (10:58→21:01)
[2024-01-01] MEDS: Nystatin Powder 15gm Bottle 1 APPLIC TOPICAL ×2 (10:58→20:37)
[2024-01-01 12:56] LABS: Bedside Glucose 113 mg/dL (74-106)
[2024-01-01 16:00] VITALS: BP 123/58; PULSE 58; RESP 18; TEMP 37.1; O2SAT 98
[2024-01-01 16:55] LABS: Bedside Glucose 111 mg/dL (74-106)
[2024-01-01 20:59] VITALS: BP 133/50; PULSE 60; RESP 17; TEMP 37.2; O2SAT 96
[2024-01-01] MEDS: Mirtazapine 15 MG Tablet 7.5 MG PO (21:01)
[2024-01-01] MEDS: Donepezil HCl 5 MG Tablet PO (21:01)
[2024-01-01] MEDS: RisperiDONE 0.5 MG Tablet PO (21:01)
[2024-01-01 21:55] LABS: Bedside Glucose 109 mg/dL (74-106)
[2024-01-02 05:57] VITALS: BMI 24.5
[2024-01-02 06:33] VITALS: BP 127/38; PULSE 60; RESP 18; TEMP 36.6; O2SAT 97
[2024-01-02] MEDS: Acetaminophen 500 MG Tablet 1000 MG PO ×3 (06:42→20:31)
[2024-01-02] MEDS: Levothyroxine 50 MCG Tablet PO (06:42)
[2024-01-02] MEDS: 0.9% Saline Lock 10 ML Syringe IV (06:52)
[2024-01-02 07:12] LABS: Bedside Glucose 106 mg/dL (74-106)
[2024-01-02 09:00] VITALS: BP 99/59; PULSE 58; RESP 18; TEMP 36.8; O2SAT 98
[2024-01-02] MEDS: Menthol/Lanolin/Calamine/Znox 113 GM Tube 1 APPLIC TOPICAL ×2 (09:39→20:29)
[2024-01-02] MEDS: Nystatin Powder 15gm Bottle 1 APPLIC TOPICAL ×2 (09:40→20:30)
[2024-01-02] MEDS: amLODIPine 5 MG Tablet PO ×2 (09:40→20:31)
[2024-01-02] MEDS: Pantoprazole Sodium 40 MG Tablet PO (09:40)
[2024-01-02] MEDS: APIXABAN 2.5 MG TABLET (WCH) PO ×2 (09:40→20:31)
--- NOTE | 2024-01-02 11:38 | CASEMGMT ---
Addendum entered by Chandrika Newman 01/02/24 14:59: Social Work- SW called [facility] and was transferred to the of Rocael pt's social work case manager. SW left a voicemail. SW called Rocael twice more and left voicemails after speaking with pt who exspressed frustration that there has been no conversations about d/c plans. SW provided support and education to pt spouse. ROHIT Us Original Note: Social Work- SW called [facility] and spoke with Aracely, career education teacher, who transferred SW to the [facility]. VM left. ROHIT Us
--- NOTE | 2024-01-02 14:27 | CASEMGMT ---
Met with patients to complete RAMÍREZ form. RAMÍREZ form explained to patients who voiced understanding and signed form. Original form placed in pt?s chart and copy provided to patients . Luzma Gustafson, Discharge Planning Asst
--- NOTE | 2024-01-02 14:45 | CASEMGMT ---
Addendum entered by Enedina Bautista 01/02/24 16:48: Social Work SW spoke with pt's spouse on the phone and updated that [facility] can accept pt and that pt will be private pay and require 30 days up front. Spouse understanding and stating this will not be a problem. Pt informed and agreeable to dc plan. Physician updated. ROHIT Flowers Addendum entered by Enedina Bautista 01/02/24 15:31: Social Work SW received call that [facility] is able to accept pt private pay. Phone call to pt's spouse and VM left. [facility] states they have reached out to [facility] for pt to re-enroll. [facility] will have a bed tomorrow. Physician updated. Plan: [facility], private pay with hospice. Bed avialable tomorrow ROHIT Flowers Original Note: Social Work Multiple calls to [facility] with no return calls. SW placed call to [facility] and spoke with Lesly. Lesly states pt was with them several months ago in the skilled unit and then switched to private pay with hospice. Pt then returned home with hospice services. It is Lesly's understanding that pt was recently at [facility] on a hospice respite stay. Per physician notes, pt returned home from respite stay last week and returned to [facility] shortly after as pt's spouse cannot care for pt. Pt spouse is requesting return to [facility]. Lesly agreeable to review referral and will reach out to [facility]. DC assistant men's soccer coach updated and to send referral. ROHIT Flowers
--- NOTE | 2024-01-02 15:04 | CASEMGMT ---
Addendum entered by Luzma Gustafson 01/02/24 15:24: [facility] has accepted patient and can admit tomorrow. She will need a covid test. SW updated. Luzma Gustafson DC Planning Asst. Original Note: Discharge Planning Referral sent via [facility] to [facility]. Luzma Gustafson DC Planning Asst.
[2024-01-02 15:14] VITALS: BP 135/56; PULSE 64; RESP 18; TEMP 36.7; O2SAT 97
--- NOTE | 2024-01-02 15:33 | PN.HOSP_ITS ---
Reason for Visit Reason for Visit: unable to take care of her at home and she is enrolled in hospice Subjective Subjective No issues overnight. Awaiting more input from a [facility] hospice about placement. Objective Data Objective Data Vital Signs: Vital Signs Temp Pulse Resp BP Pulse Ox O2 Del Method 98.1 F 64 18 135/56 H 97 Room Air 01/02/24 15:14 01/02/24 15:14 01/02/24 15:14 01/02/24 15:14 01/02/24 15:14 01/02/24 15:14 Oxygen Delivery Method Room Air Weight: 66.7 kg Body Mass Index (BMI) 24.5 Intake & Output: Intake and Output for Last 24 Hours 12/31/23 01/01/24 01/02/24 23:59 23:59 23:59 Intake Total 1000 / 1000 2350 / 2350 800 / 800 Output Total 1900 / 2900 2000 / 2000 Balance 1000 / 1000 450 / -550 -1200 / -1200 Lab / Micro Data 12/31/23 11:48 12/31/23 11:48 Labs: Laboratory Results - last 24 hr 01/01/24 16:36: POC Glucose 111 H 01/01/24 20:47: POC Glucose 109 H 01/02/24 06:47: POC Glucose 106 Micro: Microbiology 12/31/23 13:30 Blood Culture (Wb) - Left Forearm Blood Culture - Preliminary No growth in 48 hours. 12/31/23 13:45 Blood Culture (Wb) - Left Forearm Blood Culture - Preliminary No growth in 48 hours. Physical Exam Const alert, no apparent distress, average body habitus and well nourished; Negative for oriented x3 or healthy appearing Constitutional Narrative: Oriented to self, elderly, white female, sitting up in bed, at bedside, currently appears comfortable, nontoxic, watching television HEENT head/scalp atraumatic and moist oral mucous membranes Head and Scalp: normocephalic Neuro moves all extremities Neuro Narrative: Marked generalized weakness especially in lower extremities Speech: speech normal Psych Psych Narrative: Intermittent agitation, affect is flat but patient does answer questions Assessment & Plan Assessment/Plan (1) Generalized weakness: (2) History of dementia: (3) Altered mental status: QUALIFIERS: Altered mental status type: unspecified Qualified Code(s): R41.82 - Altered mental status, unspecified (4) Behavioral and psychological symptoms of dementia: PLAN: Plan Debility/confusion -Patient enrolled in hospice with [facility] hospice services -Recently spent about 2 weeks in a respite care at [facility] and was discharged on the but failing at home - unable to care for her at home and will need placement -Social work has been notified that [facility] as long as the is agreeable and it is affordable for him Leukocytosis -Blood cultures unremarkable after 48 hours with no growth to date -UA unremarkable -Chest x-ray unremarkable -Patient with no specific issues or complaints suggestive of infection CKD stage IIIb -Remains at baseline and stable Hypothyroidism -Continue home Synthroid DM-2 -No checks or modifications required GERD/Wagner's esophagus -Continue home PPI Hypertension -Continue home amlodipine Vascular dementia with behavioral issues -Cont Donepezil -Add Risperdal 0.5 mg at at bedtime History of breast CA/parotid gland CA -No current issues DVT prophylaxis -Apixaban 2.5mg BID CODE STATUS -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
--- NOTE | 2024-01-02 16:29 | CASEMGMT ---
Social Work- SW spoke with Rocael, [facility], who states that pt spouse has a history of d/c services d/t his concern about private paying and not having any money left for his own existence. 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 Pt was home for less than two days prior to admittance to [facility]. Rocael reports that pt spouse has funds to private pay, but becomes anxious and concerned after paying for a period of time. SW to follow up with pt spouse to affirm the importance of adherence to care plan. ROHIT Us
[2024-01-02 16:56] LABS: Bedside Glucose 150 mg/dL (74-106)
[2024-01-02 20:11] VITALS: BP 127/42; PULSE 63; RESP 16; TEMP 36.9; O2SAT 96
[2024-01-02] MEDS: Donepezil HCl 5 MG Tablet PO (20:31)
[2024-01-02] MEDS: Mirtazapine 15 MG Tablet 7.5 MG PO (20:32)
[2024-01-02] MEDS: RisperiDONE 0.5 MG Tablet PO (20:33)
[2024-01-03 02:36] VITALS: BP 130/52; PULSE 57; RESP 16; TEMP 36.9; O2SAT 96
[2024-01-03] MEDS: Levothyroxine 50 MCG Tablet PO (05:23)
[2024-01-03] MEDS: Acetaminophen 500 MG Tablet 1000 MG PO (05:23)
[2024-01-03 06:00] VITALS: BMI 24.7
--- NOTE | 2024-01-03 07:08 | PCM.DC.SUM ---
Providers Date of Admission: 12/31/23 Date of Discharge: 01/03/24 Primary Care Physician: MAMADOU Gamble Reason For Visit: CONFUSION ON HOSPICE WITH PATIENT'S UNABLE Diagnosis Discharge Diagnosis (1) Generalized weakness: Status: Acute Code(s): R53.1 - Weakness (2) History of dementia: Status: Acute Code(s): Z86.59 - Personal history of other mental and behavioral disorders (3) Altered mental status: Status: Acute Code(s): R41.82 - Altered mental status, unspecified Qualifiers: Altered mental status type: unspecified Qualified Code(s): R41.82 - Altered mental status, unspecified (4) Behavioral and psychological symptoms of dementia: Status: Acute Code(s): F03.918 - Unspecified dementia, unspecified severity, with other behavioral disturbance Medications at Discharge Home Medications pantoprazole 40 mg tablet,delayed release (Protonix) 40 mg PO DAILY GERD 09/09/22 mirtazapine 15 mg tablet 7.5 mg PO QHS MOOD 09/14/22 amlodipine 5 mg tablet 5 mg PO BID BLOOD PRESSURE 01/03/23 levothyroxine 50 mcg tablet 50 mcg PO DAILY THYROID 01/03/23 acetaminophen 500 mg tablet 1,000 mg (2 x 500 mg) PO Q8 #0 tabs 04/28/23 apixaban 2.5 mg tablet (Eliquis) 2.5 mg PO BID 30 days #60 tabs 04/28/23 insulin lispro 100 unit/mL subcutaneous pen (Humalog KwikPen (U-100) Insulin) See Protocol subcut ACHS #0 mL 04/28/23 risperidone 0.5 mg tablet 0.5 mg PO QHS #0 tabs 01/03/24 Hospital Course Procedures EKG and - (chest x-ray) Summary of Care Provided Minutes Spent on Discharge: 22 Hospital Course: Mrs Rai is an 83-year-old white female who presented to the emergency department with her due to generalized weakness/debility and confusion. [facility] about 2 [facility] and was discharged on 12/28/2023 to home. The patient has pretty significant dementia and was unable to assist with history. Her stated that he has not been able to care for her ever since she came home and is too much for him to handle at home alone. Given that, he decided to bring her to the emergency department. She is still enrolled in hospice with [facility] hospice services. He did not call them prior to bringing her to the emergency department and would like to keep her in hospice however states he just cannot keep take care of her at home. We were able to contact hospice services to see if there was any opportunity for emergency placement, unfortunately, there were no available beds and there would not be until 01/02/2024 so they recommended we admit her to the hospital until they can arrange something for her or permanently. Other than weakness and confusion which is reported to be slightly worse than her baseline however this is unclear there were no complaints. did report she was eating and drinking without difficulty and having normal bladder and bowel movements. Vital signs on presentation showed a temperature of 97.4, heart rate 72, respiratory was 23, blood pressure was 111/41, and sats were 98% on room air. She had a mild leukocytosis with a white count of 16,000 and a left shift however she does appear to be hemoconcentrated. Her BUN was 19 and serum creatinine was 1.22. Blood glucose was 170 but the rest of her BMP was otherwise fairly unremarkable. Her UA was completely unremarkable. Chest x-ray had no acute findings. Blood cultures were drawn and negative. We were in contact with the social studies teacher from her hospice services and they procured a bed which was available on 01/03/2024. Patient was able to be discharged there with hospice services on the same date. Discharge diagnoses: Debility secondary to progressing dementia Alzheimer's type dementia Leukocytosis-workup unremarkable CKD stage IIIb Hypothyroidism DM-2 GERD History of Wagner's esophagus Hypertension Vascular dementia with behavioral issues History of breast cancer History of parotid gland cancer Weight / BMI Weight Weight: 67.2 kg Body Mass Index (BMI) 24.7 ABG / Lab / Microbiology Data 12/31/23 11:48 12/31/23 11:48 Laboratory: Laboratory Results - last 24 hr 01/02/24 06:47: POC Glucose 106 01/02/24 16:32: POC Glucose 150 H Microbiology: Microbiology 12/31/23 13:30 Blood Culture (Wb) - Left Forearm Blood Culture - Preliminary No growth in 48 hours. 12/31/23 13:45 Blood Culture (Wb) - Left Forearm Blood Culture - Preliminary No growth in 48 hours. D/C Instructions Discharge Diet: No restrictions Meaningful Use Info Meaningful Use Meaningful Use Diagnoses (Choose all that apply): None applicable Ischemic Stroke Statin Dosing Therapy Reference: STATIN DOSE THERAPY REFERENCE: * Patients > 75 years receive moderate or high dose statin therapy. * Patients 75 years or YOUNGER should receive HIGH intensity statin dose unless contraindicated. You will be required to document reason for non-treatment if statin daily dose does not meet guidelines. HIGH DOSE STATIN THERAPY DAILY Atorvastatin > than or = to 40 mg Rosuvastatin > than or = to 20 mg Amlodipine + Atorvastatin > than or = to 2.5/40 mg Ezetimibe + Simvastatin 10/80 mg Simvastatin 80mg Discharge Plan Admission Admit Date/Time: 12/31/23 19:31 Primary Reason for Your Visit: Generalized weakness and debility Attending Provider: Mely Lorenz Primary Care Provider: Marybel Paige Consulting Providers: Yusef Camarillo Discharge Orders/Prescriptions Prescriptions: New risperidone 0.5 mg Tablet 0.5 mg PO QHS Qty: 0 0RF Continued pantoprazole [Protonix] 40 mg tablet,delayed release (DR/EC) 40 mg PO DAILY mirtazapine 15 mg tablet 7.5 mg PO QHS levothyroxine 50 mcg tablet 50 mcg PO DAILY amlodipine 5 mg tablet 5 mg PO BID acetaminophen 500 mg Tablet 1,000 mg PO Q8 Qty: 0 0RF Rx Instructions: 1 g 3 times daily for 7 days and then as needed for mild to moderate pain. insulin lispro [Humalog KwikPen Insulin] 100 unit/mL Insulin Pen See Protocol subcut ACHS Qty: 0 0RF Protocol: 2. Sliding Scale Insulin Low-Med Dosing Condition: 150-209 mg/dl = 1 unit Condition: 210-269 mg/dl = 2 units Condition: 270-329 mg/dl = 3 units Condition: 330-389 mg/dl = 4 units Condition: 390-449 mg/dl = 5 units Condition: Greater than 449 call physician Protocol Text: - Use for Total Daily Dose of Insulin 28-36 units - Average size patients LOW MEDIUM DOSING ALGORITHM Eliquis 2.5 mg tablet 2.5 mg PO BID 30 Days Qty: 60 0RF Discontinued donepezil 5 mg tablet 5 mg PO QHS Referrals / Follow Up: Marybel Paige PA [Primary Care Provider] - Disposition Disposition (needs filled in before D/C Order can be placed): Hospice in Medical Facility Charges/Coding Visit Charges Inpatient E&M: 76162 SNF Disch
--- NOTE | 2024-01-03 07:12 | PCM.TXEXTCAR ---
Diet Diet Order/Speech Therapy: 01/01/24 07:19 Diet: Regular - General Is pt able to select menu?: Yes Routine Orders/Code Status Suppository Frequency: Daily PRN Code Status: DNRCC Suggestions for Active Care Change Position every (hours): 2 Problem/Diagnosis (1) Generalized weakness: Status: Acute Code(s): R53.1 - Weakness (2) History of dementia: Status: Acute Code(s): Z86.59 - Personal history of other mental and behavioral disorders (3) Altered mental status: Status: Acute Code(s): R41.82 - Altered mental status, unspecified (4) Behavioral and psychological symptoms of dementia: Status: Acute Code(s): F03.918 - Unspecified dementia, unspecified severity, with other behavioral disturbance Allergies/Procedures Done in Hospital Allergies No Known Allergies Allergy (Verified 12/31/23 10:32) Procedures: EKG and - (Chest x-ray) Type of Care/Length of Stay Estimated LOS: More Than 30 Days Type of Care Needed: Inpt Hospice Facility Rehab Potential: None Prognosis: None Additional Orders/Day of Discharge Day of Discharge: 01/03/24 Discharge Plan Admission Admit Date/Time: 12/31/23 19:31 Primary Reason for Your Visit: Generalized weakness and debility Attending Provider: Mely Lorenz Primary Care Provider: Marybel Paige Consulting Providers: Yusef Camarillo Discharge Orders/Prescriptions Prescriptions: New risperidone 0.5 mg Tablet 0.5 mg PO QHS Qty: 0 0RF Continued pantoprazole [Protonix] 40 mg tablet,delayed release (DR/EC) 40 mg PO DAILY mirtazapine 15 mg tablet 7.5 mg PO QHS levothyroxine 50 mcg tablet 50 mcg PO DAILY amlodipine 5 mg tablet 5 mg PO BID acetaminophen 500 mg Tablet 1,000 mg PO Q8 Qty: 0 0RF Rx Instructions: 1 g 3 times daily for 7 days and then as needed for mild to moderate pain. insulin lispro [Humalog KwikPen Insulin] 100 unit/mL Insulin Pen See Protocol subcut ACHS Qty: 0 0RF Protocol: 2. Sliding Scale Insulin Low-Med Dosing Condition: 150-209 mg/dl = 1 unit Condition: 210-269 mg/dl = 2 units Condition: 270-329 mg/dl = 3 units Condition: 330-389 mg/dl = 4 units Condition: 390-449 mg/dl = 5 units Condition: Greater than 449 call physician Protocol Text: - Use for Total Daily Dose of Insulin 28-36 units - Average size patients LOW MEDIUM DOSING ALGORITHM Eliquis 2.5 mg tablet 2.5 mg PO BID 30 Days Qty: 60 0RF Discontinued donepezil 5 mg tablet 5 mg PO QHS Referrals / Follow Up: Marybel Paige, PA [Primary Care Provider] - Disposition Disposition (needs filled in before D/C Order can be placed): Hospice in Medical Facility (3) Altered mental status Qualifiers: Altered mental status type: unspecified Qualified Code(s): R41.82 - Altered mental status, unspecified
[2024-01-03 07:25] VITALS: O2SAT 91
[2024-01-03 09:11] VITALS: BP 123/55; PULSE 64; RESP 16; TEMP 36.7; O2SAT 97
[2024-01-03] MEDS: amLODIPine 5 MG Tablet PO (09:23)
[2024-01-03] MEDS: Pantoprazole Sodium 40 MG Tablet PO (09:23)
[2024-01-03] MEDS: APIXABAN 2.5 MG TABLET (WCH) PO (09:23)
[2024-01-03] MEDS: Menthol/Lanolin/Calamine/Znox 113 GM Tube 1 APPLIC TOPICAL (09:23)
[2024-01-03] MEDS: Nystatin Powder 15gm Bottle 1 APPLIC TOPICAL (09:24)
--- NOTE | 2024-01-03 09:27 | PHA.DC.MR.R ---
Pharmacy [place] Med Reconciliation Pharmacy Service has performed discharge medication reconciliation for this patient. The patient's discharge medication list was reviewed for discrepancies and discrepancies were resolved. Medications at Discharge Home Medications pantoprazole 40 mg tablet,delayed release (Protonix) 40 mg PO DAILY GERD 09/09/22 mirtazapine 15 mg tablet 7.5 mg PO QHS MOOD 09/14/22 amlodipine 5 mg tablet 5 mg PO BID BLOOD PRESSURE 01/03/23 levothyroxine 50 mcg tablet 50 mcg PO DAILY THYROID 01/03/23 acetaminophen 500 mg tablet 1,000 mg (2 x 500 mg) PO Q8 #0 tabs 04/28/23 apixaban 2.5 mg tablet (Eliquis) 2.5 mg PO BID 30 days #60 tabs 04/28/23 insulin lispro 100 unit/mL subcutaneous pen (Humalog KwikPen (U-100) Insulin) See Protocol subcut ACHS #0 mL 04/28/23 risperidone 0.5 mg tablet 0.5 mg PO QHS #0 tabs 01/03/24
--- NOTE | 2024-01-03 10:03 | CASEMGMT ---
Addendum entered by Chandrika Newman 01/03/24 10:59: Social Work- SW called [facility] to advise of 11:30 d/c time. Transfer summary faxed to [facility]. [facility] Original Note: Social Work- Pt is medically ready for d/c and has acceptance at [facility] under private pay with Hospice care. PASRR completed and COVID test requested. Pt and spouse notified. Spouse states he would like pt to be transported and he will meet her there. DCA advised of d/c and to set up transportation. Pt's bedside nurse notified. [facility] advised of d/c. [facility]
[2024-01-03 11:16] VITALS: BP 126/52; PULSE 61; RESP 18; TEMP 36.8; O2SAT 100
--- NOTE | 2024-01-03 11:21 | NURSING ---
This called [facility] and spoke with a nurse named TAYLA Chowdary and gave report on this patient.
--- NOTE | 2024-01-03 11:23 | CASEMGMT ---
Discharge Planning Discharge orders, signed med list, covid results, and transport time sent to [facility] via [facility]. Physicians will transport patient by cot at 11:30a. Nursing, SW, and patients updated. Luzma Gustafson DC Planning Asst.
[2024-01-03 14:58] LABS: Bedside Glucose 129 mg/dL (74-106)
== END 2024-01-03 11:42 | disposition hospice, inpatient (51) ==
LOC: ED 11:23 → MS3 13:42
PROVIDERS: Physician Assistant; Admitting Provider Internal Medicine; Emergency Provider Student in an Organized Health Care Education/Training Program; PCP Physician Assistant; Visit Provider Internal Medicine
DX: R53.81 Other malaise (principal); I69.351 Hemiplegia and hemiparesis following cerebral infarction affecting right dominant side; F02.818 Dementia in other diseases classified elsewhere, unspecified severity, with other behavioral disturbance; G30.9 Alzheimer's disease, unspecified; Z79.4 Long term (current) use of insulin; E11.22 Type 2 diabetes mellitus with diabetic chronic kidney disease; N18.32 Chronic kidney disease, stage 3b; Z51.5 Encounter for palliative care; D72.829 Elevated white blood cell count, unspecified; E78.5 Hyperlipidemia, unspecified; K21.9 Gastro-esophageal reflux disease without esophagitis; E03.9 Hypothyroidism, unspecified; Z87.891 Personal history of nicotine dependence; I12.9 Hypertensive chronic kidney disease with stage 1 through stage 4 chronic kidney disease, or unspecified chronic kidney disease; Z79.899 Other long term (current) drug therapy; Z79.01 Long term (current) use of anticoagulants; Z79.890 Hormone replacement therapy; R53.1 Weakness
CPT/HCPCS: 71045; 80048; 81001; 82962; 85025; 87040; 87426; 96360; 99221; 99285; 99406; J7030; P9612; A4216; G0378